=== PATIENT | male | born 1945 | race African-American/Black ===

== ENCOUNTER 2016-09-10 02:51 | Inpatient (IN) | payer OTHER, MEDICAID, MEDICARE ==
[~2016-09-10] VITALS: Ht 182.9 cm; Wt 56.6 kg
[2016-09-10] VITALS (11 sets, daily range): BP systolic 96–143; BP diastolic 57–85; PULSE 51–91; RESP 16–18; TEMP 97.8–99.7; O2SAT 96–99
[~2016-09-10 02:51] MED LIST: ALBU8I INH; ATOR1TAB18 PO; BRIM0.2S; CHLO.12%30 MT; CLOP75 PO; COZA25TA PO; DORZ2SOL15 EACH EYE; FLUT50SP EACH NARE; LEVA500T PO; POTA20TA5 PO; TIOT12.9 INH; TRUS2SOL EACH EYE
[2016-09-10] MEDS ORDERED: SODIUM CHLORIDE 0.9% FLUSH 10 ML FLUSH IVF PRN (03:30)
--- NOTE | 2016-09-10 03:50 | PD ---
HPI Chief Complaint: General Weakness Time Seen by Provider: 03:30 Travel History International Travel<30 days: No Contact w/Intl Traveler<30days: No Traveled to known affect area: No History of Present Illness HPI 75-year-old male arrives due to a state of generalized weakness for a couple days. The patient has been coughing for about 2 days. He was prescribed Levaquin and cannot Inderal inhaler. It seems marginally beneficial. He uses an albuterol nebulizer at home 3 times daily. There has been no fever. Occasionally the patient coughs phlegm. He has COPD. He is recently had his teeth pulled on his oral intake has been decreased. He is only drinking liquids.the patient's granddaughter provides most of the history and states she "just wants to be sure everything is okay." + HLD, +HTN, +DM, quit smoking tobacco. PFSH Past Medical History Asthma: Yes Cardiovascular Problems: Yes High Cholesterol: Yes Chest Pain: Yes COPD: Yes Diabetes: Yes Patient Takes Glucophage: No Diminished Hearing: Yes ([place]) Gastrointestinal Disorders: No Glaucoma: Yes Genitourinary: Yes Hypertension: Yes Musculoskeletal: Yes Neurologic: No Respiratory: Yes (COPD) Past Surgical History Ear Surgery: Yes (BILATERAL CATARACT REMOVAL) Eye Surgery: Yes (CATARACT REMOVAL) Social History Alcohol Use: No Tobacco Use: No (stop ) Substance Use: No Allergies-Medications (Allergen,Severity, Reaction): Coded Allergies: Contrast Media (Verified Allergy, Mild, HIVES, ITCHING, 09/10/16) Reported Meds & Prescriptions Reported Meds & Active Scripts Active Cozaar (Losartan Potassium) 25 Mg Tab 6.25 Mg PO DAILY Levaquin (Levofloxacin) 500 Mg Tab 500 Mg PO DAILY@21 Potassium Chloride Microencaps 20 Meq Tab 20 Meq PO Q12HR 10 Days Chlorhexidine Gluconate (Mouth) Liq (Chlorhexidine Gluconate) 0.12% Soln 15 Ml MT BID@08,20 30 Days Plavix (Clopidogrel Bisulfate) 75 Mg Tab 75 Mg PO DAILY 30 Days Reported Fluticasone Nasal [place] 50 Mcg/Act Naspr 50 Mcg EACH NARE BID 50 mcg/spray Dorzolamide-Timolol Opth Drops 22.3-6.8 Mg/Ml Soln 1 Drop EACH EYE BID Spiriva Respimat Inh (Tiotropium Inh) 2.5 Mcg/Act Aero 2 Puff INH DAILY 2.5 mcg = 1 inhalation Atorvastatin (Atorvastatin Calcium) 80 Mg Tab 80 Mg PO HS Trusopt (Dorzolamide HCl) 10 Ml Soln 1 Drop EACH EYE BID Ventolin Hfa (Albuterol Sulfate) 8 Gm Aero 2 Puff INH Q4 PRN * SHAKE WELL BEFORE USE * Brimonidine Tar0.21 0.2 % Meghann 1 Drop BID Review of Systems Except as stated in HPI: all other systems reviewed are Neg General / Constitutional: No: Fever Respiratory: Positive: Cough Physical Exam Narrative GENERAL: Thin 71-year-old male no acute distress speaking sentences SKIN: Warm and dry. HEAD: Atraumatic. Normocephalic. EYES: Pupils equal and round. No scleral icterus. No injection or drainage. ENT: No nasal bleeding or discharge. Mucous membranes pink and moist. NECK: Trachea midline. No JVD. CARDIOVASCULAR: Regular rate and rhythm. RESPIRATORY: Diminished lung sounds diffusely. No tachypnea. GASTROINTESTINAL: Abdomen soft, non-tender, nondistended. Hepatic and splenic margins not palpable. MUSCULOSKELETAL: Extremities without clubbing, cyanosis, or edema. No obvious deformities. NEUROLOGICAL: Awake and alert. No obvious cranial nerve deficits. Motor grossly within normal limits. Five out of 5 muscle strength in the arms and legs. Normal speech. PSYCHIATRIC: Appropriate mood and affect; insight and judgment normal. Data Data Last Documented VS Vital Signs Date Time Temp Pulse Resp B/P Pulse Ox O2 Delivery O2 Flow Rate FiO2 09/10/16 02:53 97.8 62 16 130/69 96 Room Air Orders Complete Blood Count With Diff (09/10/16 03:30) Comprehensive Metabolic Panel (09/10/16 03:30) Iv Access Insert/Monitor (09/10/16 03:30) Ecg Monitoring (09/10/16 03:30) Oximetry (09/10/16 03:30) Oxygen Administration (09/10/16 03:30) Chest, Single Ap (09/10/16 03:30) Sodium Chloride 0.9% Flush (Ns Flush) (09/10/16 03:30) Troponin I (09/10/16 04:05) Sodium Chlor 0.9% 1000 Ml Inj (Ns 1000 M (09/10/16 05:15) Activity Bed Rest With Brp (09/10/16 06:04) Vital Signs (Adult) Q4H (09/10/16 06:04) Cardiac Rhythm .As Directed (09/10/16 06:04) ^ Notify Dr: Other .PRN (09/10/16 06:04) ^ Notify DrKem Parameters (09/10/16 06:04) Resp Oxygen Nasal Cannula (09/10/16 ) Ckmb (Isoenzyme) Profile (09/10/16 06:04) Ckmb (Isoenzyme) Profile (09/10/16 09:04) Troponin I (09/10/16 06:04) Troponin I (09/10/16 09:04) Electrocardiogram (09/10/16 06:04) Electrocardiogram (09/10/16 09:04) ^ Obtain (09/10/16 06:04) Nitroglycerin Sl (Nitrostat Sl) (09/10/16 06:15) Aspirin (Aspirin) (09/10/16 09:00) Liability Claims Representative / Telemetry [id number] (09/10/16 06:04) Admit Order (Ed Use Only) (09/10/16 06:04) Labs Laboratory Tests Test 09/10/16 04:05 White Blood Count 5.5 TH/MM3 Red Blood Count 4.36 MIL/MM3 Hemoglobin 12.3 GM/DL Hematocrit 35.6 % Mean Corpuscular Volume 81.7 FL Mean Corpuscular Hemoglobin 28.2 PG Mean Corpuscular Hemoglobin 34.5 % Concent Red Cell Distribution Width 15.6 % Platelet Count 167 TH/MM3 Mean Platelet Volume 7.6 FL Neutrophils (%) (Auto) 18.7 % Lymphocytes (%) (Auto) 40.4 % Monocytes (%) (Auto) 11.4 % Eosinophils (%) (Auto) 28.6 % Basophils (%) (Auto) 0.9 % Neutrophils # (Auto) 1.0 TH/MM3 Lymphocytes # (Auto) 2.2 TH/MM3 Monocytes # (Auto) 0.6 TH/MM3 Eosinophils # (Auto) 1.6 TH/MM3 Basophils # (Auto) 0.0 TH/MM3 CBC Comment DIFF FINAL Differential Comment Sodium Level 127 MEQ/L Potassium Level 4.5 MEQ/L Chloride Level 93 MEQ/L Carbon Dioxide Level 26.8 MEQ/L Anion Gap 7 MEQ/L Blood Urea Nitrogen 6 MG/DL Creatinine 0.86 MG/DL Estimat Glomerular Filtration 106 ML/MIN Rate Random Glucose 92 MG/DL Calcium Level 8.4 MG/DL Total Bilirubin 0.4 MG/DL Aspartate Amino Transf 15 U/L (AST/SGOT) Alanine Aminotransferase 17 U/L (ALT/SGPT) Alkaline Phosphatase 156 U/L Troponin I LESS THAN 0.02 NG/ML Total Protein 6.6 GM/DL Albumin 2.9 GM/DL MDM Medical Decision Making Medical Screen Exam Complete: Yes Emergency Medical Condition: Yes Medical Record Reviewed: Yes Differential Diagnosis Anemia, renal failure, pneumonia, COPD, CAD Narrative Course EKG: Sinus, inferior lead ST depressions, rate 52 CBC & BMP Diagram 09/10/16 04:05 LFTs essentially normal Tn < 0.02 Last 24 hours Impressions Chest X-Ray 09/10/16 0330 Signed Impressions: Service Date/Time: , September 10, 2016 03:53 - CONCLUSION: No acute disease. Vincent Demarco MD Patient has ST changes of concern. Chest pain center evaluation considered most appropriate. Patient did receive a liter of saline here for the mild hyponatremia. Diagnosis Primary Impression: CAD (coronary artery disease) Qualified Code: I25.10 - Coronary artery disease involving nome heart, angina presence unspecified, unspecified vessel or lesion type Additional Impressions: COPD (chronic obstructive pulmonary disease) Qualified Code: J43.9 - Pulmonary emphysema, unspecified emphysema type Weakness Admitting Information Admitting Physician Requests: Observation Xander Gómez MD Sep 10, 2016 03:50
--- NOTE | 2016-09-10 04:17 | RADRPT ---
EXAM DATE/TIME: 09/10/2016 03:53 [facility] COMPARISON: CHEST SINGLE AP, June 04, 2016, 5:33. INDICATIONS : Shortness of breath. MEDICAL HISTORY : Hypertension. Chronic obstructive pulmonary disease. SURGICAL HISTORY : None. ENCOUNTER: Initial ACUITY: 1 day PAIN SCORE: 0/10 LOCATION: Bilateral chest FINDINGS: A single view of the chest demonstrates the lungs to be symmetrically aerated without evidence of mas s, infiltrate or effusion. The cardiomediastinal contours are unremarkable. Osseous structures are intact. CONCLUSION: No acute disease. Vincent Demarco MD on September 10, 2016 at 4:15 Board Certified Radiologist. This report was verified electronically.
[2016-09-10 04:26] LABS: BASOPHIL % 0.9 % (0.0-2.0); EOSINOPHIL # 1.6 TH/MM3 (0-0.4); EOSINOPHIL % 28.6 % (0.0-4.0); HEMATOCRIT 35.6 % (39.0-51.0); HEMO FLAGS DIFF FINAL; LYMPH % 40.4 % (9.0-44.0); LYMPHOCYTE # 2.2 TH/MM3 (1.0-4.8); MEAN CELL VOLUME 81.7 FL (80.0-100.0); MEAN CORPUSCULAR HEMOGLOBIN 28.2 PG (27.0-34.0); MEAN CORPUSCULAR HGB CONC 34.5 % (32.0-36.0); MONO % 11.4 % (0.0-8.0); NEUT % 18.7 % (16.0-70.0); PLATELET COUNT 167 TH/MM3 (150-450); RED BLOOD COUNT 4.36 MIL/MM3 (4.50-5.90); RED CELL DISTRIBUTION WIDTH 15.6 % (11.6-17.2); WHITE BLOOD COUNT 5.5 TH/MM3 (4.0-11.0)
[2016-09-10 04:56] LABS: ANION GAP 7 MEQ/L (5-15); AST (GOT) 15 U/L (15-37); BICARBONATE 26.8 MEQ/L (21.0-32.0); BLOOD UREA NITROGEN 6 MG/DL (7-18); CHLORIDE 93 MEQ/L (98-107); GLOMERULAR FILTRATION RATE 106 ML/MIN (>89); POTASSIUM 4.5 MEQ/L (3.5-5.1); SODIUM (NA) 127 MEQ/L (136-145)
[2016-09-10 05:01] LABS: ALKALINE PHOSPHATASE 156 U/L (45-117); ALT (GPT) 17 U/L (12-78); TOTAL BILIRUBIN ADULT 0.4 MG/DL (0.2-1.0)
[2016-09-10] MEDS ORDERED: SODIUM CHLOR 0.9% 1000 ML INJ 1,000 ML IV ONE (05:15)
[2016-09-10] MEDS ORDERED: NITROGLYCERIN 0.4 MG SL 25 TABS/BTL SL PRN (06:15)
[2016-09-10 08:38] LABS: CREATINE KINASE 64 U/L (39-308)
[2016-09-10] MEDS ORDERED: ACETAMINOPHEN 500 MG CPLT PO PRN (08:45)
[2016-09-10] MEDS ORDERED: ONDANSETRON HCL 4 MG/2 ML VIAL IV PRN (08:45)
[2016-09-10] MEDS: ASPIRIN 325 MG TAB PO SCH (09:47)
--- NOTE | 2016-09-10 11:26 | HHI.HP ---
HPI Primary Care Physician Non-Staff Chief Complaint Chest pain History of Present Illness 71-year-old male presents to the emergency room for further evaluation of chest discomfort. Patient is vague with symptoms however does endorse a cough for the past 2-3days. States substernal chest pain only occurs with coughing. Seen PCP on Wednesday was given Levaquin and inhalers, was told he has a lung infection. Yesterday endorses generalized weakness, usually uses a push walker or cane, however yesterday was too tired and fatigued to do either. Recently had dental work completed therefore taking a soft diet consisting of oatmeal and mashed potatoes. Continues to have good appetite otherwise. No known fever however endorses chills since yesterday. Review of Systems General: Generalized weakness 1 days. Seen by PCP on Wednesday prescribed antibiotic for upper respiratory infection. No fevers, positive for chills 1 day. Lives with his daughter. No family is at bedside at this time. HEENT: No [place]. 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 CV: As stated above. States he has chest pain only with coughing 3 days. No radiation of chest pain, precipitating factors cough, relieving factors not coughing. No associated symptoms RESP: No current SOB. Endorses cough for a few days. Coughing up phlegm. History of COPD. using inhalers provided by his PCP. GI: No nausea, vomiting, bowel changes, or decreased appetite. Taking a soft diet for the past week due to dental caries removed. : No dysuria, urgency, frequency MS: No discomfort or change in ROM, normally uses a cane or wheeled walker with ambulation. NEURO: No change in memory, dizziness, difficulty with balance, LOC, motor/ sensory deficits SKIN: No rashes, no concerning lesions Past Family Social History Allergies: Coded Allergies: Contrast Media (Verified Allergy, Mild, HIVES, ITCHING, 09/10/16) Past Medical History Hyperlipidemia, hypertension, diabetes, COPD, glaucoma Reported Medications Reported Meds & Active Scripts Active Cozaar (Losartan Potassium) 25 Mg Tab 6.25 Mg PO DAILY Levaquin (Levofloxacin) 500 Mg Tab 500 Mg PO DAILY@21 Potassium Chloride Microencaps 20 Meq Tab 20 Meq PO Q12HR 10 Days Chlorhexidine Gluconate (Mouth) Liq (Chlorhexidine Gluconate) 0.12% Soln 15 Ml MT BID@08,20 30 Days Plavix (Clopidogrel Bisulfate) 75 Mg Tab 75 Mg PO DAILY 30 Days Reported Fluticasone Nasal [place] 50 Mcg/Act Naspr 50 Mcg EACH NARE BID 50 mcg/spray Dorzolamide-Timolol Opth Drops 22.3-6.8 Mg/Ml Soln 1 Drop EACH EYE BID Spiriva Respimat Inh (Tiotropium Inh) 2.5 Mcg/Act Aero 2 Puff INH DAILY 2.5 mcg = 1 inhalation Atorvastatin (Atorvastatin Calcium) 80 Mg Tab 80 Mg PO HS Trusopt (Dorzolamide HCl) 10 Ml Soln 1 Drop EACH EYE BID Ventolin Hfa (Albuterol Sulfate) 8 Gm Aero 2 Puff INH Q4 PRN * SHAKE WELL BEFORE USE * Brimonidine Tartrate 0.2 % Meghann 1 Drop BID Active Ordered Medications Current Medications Medications (Trade) Dose Ordered Sig/Joshua Route Start Time Stop Time Status Last Admin (Nitrostat Sl) 0.4 mg Q5M PRN SL 09/10/16 06:15 (Aspirin) 325 mg DAILY PO 09/10/16 09:00 09/10/16 09:47 (Tylenol) 500 mg Q4H PRN PO 09/10/16 08:45 (Zofran Inj) 4 mg Q6H PRN IV 09/10/16 08:45 Social History Past cardiac testing 06/16/15 cardiac catheterization Physical Exam Vital Signs Vital Signs Date Time Temp Pulse Resp B/P Pulse Ox O2 Delivery O2 Flow Rate FiO2 09/10/16 09:30 66 18 137/81 97 Room Air 09/10/16 07:00 68 18 96/57 98 Room Air 09/10/16 06:34 99 Room Air 09/10/16 06:34 99 Room Air 09/10/16 06:10 96 09/10/16 02:53 97.8 62 16 130/69 96 Room Air Physical Exam GENERAL: Alert WN, WD, NAD, pleasant, hard of hearing, male HEAD: NC, AT EYES: Sclera clear, conjunctiva without injection, pupils equal and round NECK: Supple, no masses, trachea midline CV: RRR, without murmur, rub, gallop, no JVD, S1-S2 no S3-S4. RESP: Clear lungs throughout bilateral, no crackles, wheeze, rhonchi, symmetrical chest rise, nonlabored, able to speak in full sentences ABD: Soft, NT, ND, flat, no masses, positive bowel tones EXT: Pulses +24, no dependent edema MS: Normal tone 4 extremities, nontender, no obvious deformities, full range of motion NEURO: CN II through CN XII grossly intact, motor strength 5/5, gait WNL PSYCH: A+O 3, pleasant affect, appropriate speech, appropriate mood and affect , insight and judgment SKIN: Normal turgor, normal texture, no lesions, no rashes Laboratory Laboratory Tests Test 09/10/16 09/10/16 04:05 07:45 White Blood Count 5.5 Red Blood Count 4.36 Hemoglobin 12.3 Hematocrit 35.6 Mean Corpuscular Volume 81.7 Mean Corpuscular Hemoglobin 28.2 Mean Corpuscular Hemoglobin 34.5 Concent Red Cell Distribution Width 15.6 Platelet Count 167 Mean Platelet Volume 7.6 Neutrophils (%) (Auto) 18.7 Lymphocytes (%) (Auto) 40.4 Monocytes (%) (Auto) 11.4 Eosinophils (%) (Auto) 28.6 Basophils (%) (Auto) 0.9 Neutrophils # (Auto) 1.0 Lymphocytes # (Auto) 2.2 Monocytes # (Auto) 0.6 Eosinophils # (Auto) 1.6 Basophils # (Auto) 0.0 CBC Comment DIFF FINAL Differential Comment Sodium Level 127 Potassium Level 4.5 Chloride Level 93 Carbon Dioxide Level 26.8 Anion Gap 7 Blood Urea Nitrogen 6 Creatinine 0.86 Estimat Glomerular Filtration 106 Rate Random Glucose 92 Calcium Level 8.4 Total Bilirubin 0.4 Aspartate Amino Transf 15 (AST/SGOT) Alanine Aminotransferase 17 (ALT/SGPT) Alkaline Phosphatase 156 Troponin I LESS THAN 0.02 LESS THAN 0.02 Total Protein 6.6 Albumin 2.9 Total Creatine Kinase 64 Result Diagram: 09/10/1640409/10/16404 Imaging Last Impressions Chest X-Ray 09/10/16 0330 Signed Impressions: Service Date/Time: August 03:53 - CONCLUSION: No acute disease. Vincent Demarco MD Course EKG First and second EKG shows normal sinus bradycardia, anterior septal NH Assessment and Plan Assessment and Plan #1 Chest painadmitted to chest pain center. Will complete 3 sets of EKGs and cardiac enzymes. Was seen and evaluated by Dr. Lilia Miller. Original plan was to complete a chemical stress test if ruled out, however patient meets inpatient criteria, per case management. Will defer any further cardiac testing to attending physician. #2 Hyponatremia1 L normal saline bolus provided in ED. case management states patient meets inpatient criteria for hyponatremia. Consult placed for hospitalist. Shayy Stubbs Sep 10, 2016 11:26
[2016-09-10 11:29] LABS: CREATINE KINASE 75 U/L (39-308)
--- NOTE | 2016-09-10 12:28 | HHI.PR ---
Subjective Remarks complaining of some dry cough and occasional sob. initially presented with some chest pain. afebrile. Objective Vitals Vital Signs Date Time Temp Pulse Resp B/P Pulse Ox O2 Delivery O2 Flow Rate FiO2 09/10/16 11:30 82 18 143/63 97 Room Air 09/10/16 09:30 66 18 137/81 97 Room Air 09/10/16 07:00 68 18 96/57 98 Room Air 09/10/16 06:34 99 Room Air 09/10/16 06:34 99 Room Air 09/10/16 06:10 96 09/10/16 02:53 97.8 62 16 130/69 96 Room Air Result Diagram: 09/10/16 0405 09/10/16 0405 Imaging Last Impressions Chest X-Ray 09/10/16 0330 Signed Impressions: Service Date/Time: August 03:53 - CONCLUSION: No acute disease. Vincent Demarco MD Objective Remarks GENERAL: This is a well-nourished, well-developed patient, in no apparent distress. CARDIOVASCULAR: Regular rate and regular rhythm without murmurs, gallops, or rubs. RESPIRATORY: diminished air entry in bases GASTROINTESTINAL: Abdomen soft, non-tender, nondistended. Normal, active bowel sounds MUSCULOSKELETAL: Extremities without clubbing, cyanosis, or edema. NEURO: Alert & Oriented x4 to person, place, time, situation. Moves all ext x4 Procedures none Medications and IVs Current Medications Sodium Chloride 2 ml 2 ml UNSCH PRN IVF FLUSH AFTER USING IV ACCESS; Start at 03:30 Sodium Chloride (NS 1000 ml Inj) 1,000 ml @ 999 mls/hr BOLUS ONCE IV Last administered on 09/10/16 05:42; Start 09/10/16 at 05:15; Stop 09/10/16 at 06:15 ; Status DC Nitroglycerin (Nitrostat Sl) 0.4 mg Q5M PRN SL CHEST PAIN; Start 09/10/16 at 06 :15 Aspirin (Aspirin) 325 mg DAILY PO Last administered on 09/10/16 09:47; Start 09/10/16 at 09:00 Acetaminophen (Tylenol) 500 mg Q4H PRN PO HEADACHE; Start 09/10/16 at 08:45 Ondansetron HCl (Zofran Inj) 4 mg Q6H PRN IV NAUSEA; Start 09/10/16 at 08:45 A/P Assessment and Plan A/P - chest pain; serial cardiac enzymes negative- will do stress test tomorrow. -hyponatremia; start gentle IV fluid- check UA and TSH- will repeat BMP in am -mild exacerbation of COPD; continue spiriva- start neb treatment- will monitor -hypertension;; resume losartan- will monitor and adjust the regimen as needed -dyslipidemia; on statin -DVT prophylaxis with lovenox José Martines MD Sep 10, 2016 12:28
[2016-09-10] MEDS: SODIUM CHLOR 0.9% 1000 ML INJ 1,000 ML IV SCH (12:59)
[2016-09-10] MEDS ORDERED: guaiFENesin SOLUTION 200 MG/10 ML CUP PO PRN (13:15)
[2016-09-10] MEDS ORDERED: PILL SPLITTER OTHER PRN (13:15)
[2016-09-10] MEDS: RESP: ALBUTEROL 2.5 MG/IPRATROPIUM 0.5 MG NEB (SCH) NEB ×2 (13:29→20:26)
[2016-09-10] MEDS ORDERED: ENOXAPARIN SODIUM 40 MG/0.4 ML SYRINGE SQ SCH (14:00)
--- NOTE | 2016-09-10 17:33 | EKG ---
Date Performed: 09/10/2016 Time Performed: 11:06:48 PTAGE: 71 years EKG: Sinus rhythm WITH FIRST DEGREE AV BLOCK ANTEROSEPTAL MYOCARDIAL INFARCTION ABNORMAL ECG Since PREVIOUS TRACING , no significant change noted PREVIOUS TRACIN09/10/2016 07.55 DOCTOR: Lilia Miller Interpretating Date/Time 09/10/2016 17:33:43
--- NOTE | 2016-09-10 17:36 | EKG ---
Date Performed: 09/10/2016 Time Performed: 07:55:46 PTAGE: 71 years EKG: SINUS BRADYCARDIA ANTEROSEPTAL MYOCARDIAL INFARCTION ABNORMAL ECG Since PREVIOUS TRACING , no significant change noted PREVIOUS TRACIN09/10/2016 04.10 DOCTOR: Lilia Miller Interpretating Date/Time 09/10/2016 17:35:53
--- NOTE | 2016-09-10 21:37 | EKG ---
Date Performed: 09/10/2016 Time Performed: 04:10:12 PTAGE: 71 years EKG: SINUS BRADYCARDIA WITH SINUS ARRHYTHMIA WITH FIRST DEGREE AV BLOCK ANTEROSEPTAL MYOCARDIAL INFARCTION ABNORMAL ECG Since PREVIOUS TRACING , no significant change noted PREVIOUS TRACIN05/30/2016 18.02 DOCTOR: Lilia Miller Interpretating Date/Time 09/10/2016 21:35:30
[2016-09-11] VITALS (7 sets, daily range): BP systolic 100–161; BP diastolic 63–77; PULSE 60–77; RESP 18–20; TEMP 97.2–97.8; O2SAT 94–97
[2016-09-11] MEDS: ATORVASTATIN 80 MG TAB PO SCH ×2 (00:06→21:50)
[2016-09-11] MEDS: POTASSIUM CHLORIDE 20 MEQ CONTROLLED RELEASE TAB PO SCH ×3 (00:06→21:50)
[2016-09-11] MEDS: FLUTICASONE PROPIONATE 50 MCG/ACT 16 GM NASAL SPRAY EACH NARE SCH ×3 (00:08→21:50)
[2016-09-11] MEDS: DORZOLAMIDE/TIMOLOL OPTH SOLN 10 ML BTL EACH EYE SCH ×3 (00:08→21:50)
[2016-09-11] MEDS: SODIUM CHLOR 0.9% 1000 ML INJ 1,000 ML IV SCH ×3 (02:20→21:50)
[2016-09-11] MEDS: LOSARTAN 25 MG TAB PO SCH (08:22)
[2016-09-11] MEDS: ASPIRIN 325 MG TAB PO SCH (08:22)
[2016-09-11 09:01] LABS: BICARBONATE 27.4 MEQ/L (21.0-32.0); POTASSIUM 4.4 MEQ/L (3.5-5.1)
--- NOTE | 2016-09-11 09:55 | HHI.PR ---
Subjective Remarks resting comfortably with no distress. denies chest pain or sob. no new complaints. Objective Vitals Vital Signs Date Time Temp Pulse Resp B/P Pulse Ox O2 Delivery O2 Flow Rate FiO2 09/11/16 08:00 97.7 76 20 161/72 95 09/11/16 04:00 97.8 66 18 155/77 95 09/11/16 00:00 97.4 60 18 117/68 97 09/10/16 20:31 98 09/10/16 20:00 97.9 51 18 131/63 97 09/10/16 16:10 53 09/10/16 16:00 99.7 91 18 103/60 97 09/10/16 14:55 76 20 123/85 96 09/10/16 11:30 82 18 143/63 97 Room Air I/O 09/10/16 09/10/16 09/10/16 09/11/16 09/11/16 09/11/16 07:00 15:00 23:00 07:00 15:00 23:00 Intake Total 240 ml 240 ml Output Total 500 ml 300 ml 300 ml Balance -500 ml -60 ml -60 ml Intake Oral 240 ml 240 ml Output Urine Total 500 ml 300 ml 300 ml # Voids 1 1 # Bowel Movements 0 1 Result Diagram: 09/10/16 0405 09/11/16 0756 Imaging Last Impressions Chest X-Ray 09/10/16 0330 Signed Impressions: Service Date/Time: August 03:53 - CONCLUSION: No acute disease. Vincent Demarco MD Objective Remarks GENERAL: This is a well-nourished, well-developed patient, in no apparent distress. CARDIOVASCULAR: Regular rate and regular rhythm without murmurs, gallops, or rubs. RESPIRATORY: diminished air entry in bases GASTROINTESTINAL: Abdomen soft, non-tender, nondistended. Normal, active bowel sounds MUSCULOSKELETAL: Extremities without clubbing, cyanosis, or edema. NEURO: Alert & Oriented x4 to person, place, time, situation. Moves all ext x4 Procedures none Medications and IVs Current Medications Sodium Chloride 2 ml 2 ml UNSCH PRN IVF FLUSH AFTER USING IV ACCESS; Start at 03:30 Sodium Chloride (NS 1000 ml Inj) 1,000 ml @ 999 mls/hr BOLUS ONCE IV Last administered on 09/10/16 05:42; Start 09/10/16 at 05:15; Stop 09/10/16 at 06:15 ; Status DC Nitroglycerin (Nitrostat Sl) 0.4 mg Q5M PRN SL CHEST PAIN; Start 09/10/16 at 06 :15 Aspirin (Aspirin) 325 mg DAILY PO Last administered on 09/11/16 08:22; Start 09/10/16 at 09:00 Acetaminophen (Tylenol) 500 mg Q4H PRN PO HEADACHE; Start 09/10/16 at 08:45 Ondansetron HCl 4 mg 4 mg Q6H PRN IV NAUSEA; Start 09/10/16 at 08:45 Sodium Chloride (NS 1000 ml Inj) 1,000 ml @ 75 mls/hr [id number] IV Last administered on 09/11/16 02:20; Start 09/10/16 at 13:00 Atorvastatin Calcium (Lipitor) 80 mg HS PO Last administered on 09/11/16 00:06 ; Start 09/10/16 at 21:00 Dorzolamide/ Timolol (Cosopt 2-0.5% Opth Soln) 1 drop BID EACH EYE Last administered on 09/11/16 08:28; Start 09/10/16 at 21:00 Fluticasone Propionate (Flonase Johnny Spr) 2 spray BID EACH NARE Last administered on 09/11/16 08:28; Start 09/10/16 at 21:00 Losartan Potassium (Cozaar) 6.25 mg DAILY PO Last administered on 09/11/16 08: 22; Start 09/11/16 at 09:00 Potassium Chloride (KCl) 20 meq Q12HR PO Last administered on 09/11/16 08:22; Start 09/10/16 at 21:00 Albuterol/ Ipratropium (Duoneb Neb) 1 ampule Q4HR NEB NEB Last administered on 09/10/16 20:26; Start 09/10/16 at 12:30; Stop 09/10/16 at 22:00; Status DC Albuterol Sulfate (Albuterol Neb) 1.25 mg Q2HR NEB PRN NEB SHORTNESS OF BREATH ; Start 09/10/16 at 12:30 Enoxaparin Sodium (Lovenox Inj) 40 mg Q24H SQ ; Start 09/10/16 at 14:00; Status Hold Miscellaneous (Pill Splitter) 1 ea UNSCH PRN OTHER SEE LABEL COMMENTS; Start at 13:15 Guaifenesin (Robitussin Liq) 200 mg Q4H PRN PO COUGH; Start 09/10/16 at 13:15 A/P Assessment and Plan A/P - chest pain; serial cardiac enzymes negative- stress test tomorrow. -hyponatremia; continue gentle IV fluid- will monitor the sodium level. -mild exacerbation of COPD; better- continue spiriva and neb treatment- will monitor -hypertension;; resumed losartan- will monitor and adjust the regimen as needed -dyslipidemia; on statin -DVT prophylaxis with lovenox Discharge Planning possible dc home tomorrow-pending the sodium level. stress test before discharge. José Martines MD Sep 11, 2016 09:55
[2016-09-12] VITALS (8 sets, daily range): BP systolic 99–143; BP diastolic 63–81; PULSE 62–71; RESP 18; TEMP 97.3–98; O2SAT 91–99
[2016-09-12 01:58] LABS: BLOOD, URINE NEG (NEG); GLUCOSE,URINE NEG (NEG); KETONE, URINE NEG (NEG); NITRITE,URINE NEG (NEG); PH, URINE 6.5 (5.0-8.5); URINE COLOR LIGHT-YELLOW (YELLW/STRAW)
[2016-09-12] MEDS: ASPIRIN 325 MG TAB PO SCH (08:59)
[2016-09-12] MEDS: LOSARTAN 25 MG TAB PO SCH (08:59)
[2016-09-12] MEDS: POTASSIUM CHLORIDE 20 MEQ CONTROLLED RELEASE TAB PO SCH ×2 (09:00→20:24)
[2016-09-12] MEDS: FLUTICASONE PROPIONATE 50 MCG/ACT 16 GM NASAL SPRAY EACH NARE SCH ×2 (09:03→20:28)
[2016-09-12] MEDS: DORZOLAMIDE/TIMOLOL OPTH SOLN 10 ML BTL EACH EYE SCH ×2 (09:04→20:28)
--- NOTE | 2016-09-12 09:07 | HHI.PR ---
Subjective Remarks in no acute distress. no chest pain today. d/w the RN and no acute issues over night. Objective Vitals Vital Signs Date Time Temp Pulse Resp B/P Pulse Ox O2 Delivery O2 Flow Rate FiO2 09/12/16 08:24 98.0 66 18 115/67 97 09/12/16 04:00 97.3 67 18 143/81 91 09/12/16 00:00 97.6 64 18 99/63 97 09/11/16 20:00 97.2 66 18 100/63 96 09/11/16 19:59 64 09/11/16 16:00 97.5 70 18 101/68 95 09/11/16 12:00 97.3 77 18 114/77 94 I/O 09/11/16 09/11/16 09/11/16 09/12/16 09/12/16 09/12/16 07:00 15:00 23:00 07:00 15:00 23:00 Intake Total 240 ml 480 ml 258 ml 615 ml Output Total 300 ml 350 ml 325 ml Balance -60 ml 130 ml 258 ml 290 ml Intake Oral 240 ml 480 ml 60 ml 0 ml IV Total 198 ml 615 ml Output Urine Total 300 ml 350 ml 325 ml # Voids 1 2 0 1 # Bowel Movements 1 1 1 0 Result Diagram: 09/10/16 0405 09/11/16 0756 Imaging Last Impressions Chest X-Ray 09/10/16 0330 Signed Impressions: Service Date/Time: August 03:53 - CONCLUSION: No acute disease. Vincent Demarco MD Objective Remarks GENERAL: This is a well-nourished, well-developed patient, in no apparent distress. CARDIOVASCULAR: Regular rate and regular rhythm without murmurs, gallops, or rubs. RESPIRATORY: diminished air entry in bases GASTROINTESTINAL: Abdomen soft, non-tender, nondistended. Normal, active bowel sounds MUSCULOSKELETAL: Extremities without clubbing, cyanosis, or edema. NEURO: Alert & Oriented x4 to person, place, time, situation. Moves all ext x4 Procedures none Medications and IVs Current Medications Sodium Chloride 2 ml 2 ml UNSCH PRN IVF FLUSH AFTER USING IV ACCESS; Start at 03:30 Sodium Chloride (NS 1000 ml Inj) 1,000 ml @ 999 mls/hr BOLUS ONCE IV Last administered on 09/10/16 05:42; Start 09/10/16 at 05:15; Stop 09/10/16 at 06:15 ; Status DC Nitroglycerin (Nitrostat Sl) 0.4 mg Q5M PRN SL CHEST PAIN; Start 09/10/16 at 06 :15 Aspirin (Aspirin) 325 mg DAILY PO Last administered on 09/11/16 08:22; Start 09/10/16 at 09:00 Acetaminophen (Tylenol) 500 mg Q4H PRN PO HEADACHE; Start 09/10/16 at 08:45 Ondansetron HCl 4 mg 4 mg Q6H PRN IV NAUSEA; Start 09/10/16 at 08:45 Sodium Chloride (NS 1000 ml Inj) 1,000 ml @ 75 mls/hr [id number] IV Last administered on 09/11/16 21:50; Start 09/10/16 at 13:00 Atorvastatin Calcium (Lipitor) 80 mg HS PO Last administered on 09/11/16 21:50 ; Start 09/10/16 at 21:00 Dorzolamide/ Timolol (Cosopt 2-0.5% Opth Soln) 1 drop BID EACH EYE Last administered on 09/11/16 21:50; Start 09/10/16 at 21:00 Fluticasone Propionate (Flonase Johnny Spr) 2 spray BID EACH NARE Last administered on 09/11/16 21:50; Start 09/10/16 at 21:00 Losartan Potassium (Cozaar) 6.25 mg DAILY PO Last administered on 09/11/16 08: 22; Start 09/11/16 at 09:00 Potassium Chloride (KCl) 20 meq Q12HR PO Last administered on 09/11/16 21:50; Start 09/10/16 at 21:00 Albuterol/ Ipratropium (Duoneb Neb) 1 ampule Q4HR NEB NEB Last administered on 09/10/16 20:26; Start 09/10/16 at 12:30; Stop 09/10/16 at 22:00; Status DC Albuterol Sulfate (Albuterol Neb) 1.25 mg Q2HR NEB PRN NEB SHORTNESS OF BREATH ; Start 09/10/16 at 12:30 Enoxaparin Sodium (Lovenox Inj) 40 mg Q24H SQ ; Start 09/10/16 at 14:00; Status Hold Miscellaneous (Pill Splitter) 1 ea UNSCH PRN OTHER SEE LABEL COMMENTS; Start at 13:15 Guaifenesin (Robitussin Liq) 200 mg Q4H PRN PO COUGH; Start 09/10/16 at 13:15 A/P Assessment and Plan A/P - chest pain; serial cardiac enzymes negative- stress test today. -hyponatremia; asymptomatic- received gentle IV fluid- f/u as outpatient with PCP. -mild exacerbation of COPD; better- continue spiriva and neb treatment- will monitor -hypertension;; resumed losartan- will monitor and adjust the regimen as needed -dyslipidemia; on statin -DVT prophylaxis with lovenox Discharge Planning possible dc home today- pending the stress test and sodium level. f/u with pcp upon discharge. see med list. d/w the patient and RN. José Martines MD Sep 12, 2016 09:07
--- NOTE | 2016-09-12 09:09 | HHI.DCPOC ---
Discharge Care Plan Diagnosis: (1) Chest pain Goals to Promote Your Health * To prevent worsening of your condition and complications * To maintain your health at the optimal level Directions to Meet Your Goals Take your medications as prescribed Follow your dietary instruction Follow activity as directed Keep your appointments as scheduled Take your immunizations and boosters as scheduled If your symptoms worsen call your PCP, if no PCP go to Urgent Care Center or Emergency Room Smoking is Dangerous to Your Health. Avoid second hand smoke Call the 24-hour hour crisis hotline for domestic abuse at José Martines MD Sep 12, 2016 09:08
[2016-09-12] MEDS: RESP: ALBUTEROL 1.25 MG/3 ML NEB (PRN) NEB (09:13)
[2016-09-12] MEDS ORDERED: REGADENOSON INJ 0.4 MG/5 ML SYR ONE (11:25)
--- NOTE | 2016-09-12 13:43 | RADRPT ---
EXAM DATE/TIME: 09/12/2016 11:26 [facility] COMPARISON: No previous studies available for comparison. INDICATIONS : Substernal chest pain with generalized weakness. Angina. DOSE: 26.7 mCi Tc99m Myoview at stress. 8.3 mCi Tc99m Myoview at rest. 0.4 mg Lexiscan STRESS SYMPTOMS: None noted. EJECTION FRACTION: 23% MEDICAL HISTORY : Hypercholesterolemia. Hypertension. Chronic obstructive pulmonary disease. SURGICAL HISTORY : None. ENCOUNTER: Initial ACUITY: 3 days PAIN SCALE: 5/10 LOCATION: Substernal chest TECHNIQUE: The patient underwent pharmacologic stress with infusion of prescribed dose. Continuous ECG tracing was monitored during stress. Gated SPECT imaging was performed after stress and conventional SPECT i maging was performed at rest. The examination was performed on a SPECT/CT scanner, both attenuation and non-corrected datasets were reviewed. FINDINGS: The study is markedly abnormal with an ejection fraction of 23% . There is a large fixed defect invol ving most of the ventricular apex. There is no significant redistribution evident. The best perfuse d myocardium is the high anterior lateral wall. There is global hypokinesis with depressed ejection fraction of 23%. CONCLUSION: Ejection fraction of 23% with little viable myocardium present. There is no ischemia however exam is very insensitive for such in this setting.. RISK CATEGORY: High (>3% Annual Mortality Rate) Harlan Hawkins MD FACR on September 12, 2016 at 13:38 Board Certified Radiologist. This report was verified electronically.
[2016-09-12] MEDS: ATORVASTATIN 80 MG TAB PO SCH (20:24)
[2016-09-13] VITALS (10 sets, daily range): BP systolic 95–136; BP diastolic 51–99; PULSE 58–78; RESP 16–20; TEMP 97.5–98; O2SAT 95–99
[2016-09-13] MEDS ORDERED: SODIUM CHLOR 0.9% 1000 ML INJ 1,000 ML IV SCH (04:45)
[2016-09-13] MEDS: POTASSIUM CHLORIDE 20 MEQ CONTROLLED RELEASE TAB PO SCH ×2 (08:49→20:20)
[2016-09-13] MEDS: ASPIRIN 325 MG TAB PO SCH (08:49)
[2016-09-13] MEDS: LOSARTAN 25 MG TAB PO SCH (08:50)
[2016-09-13] MEDS: FLUTICASONE PROPIONATE 50 MCG/ACT 16 GM NASAL SPRAY EACH NARE SCH ×2 (08:55→20:22)
[2016-09-13] MEDS: DORZOLAMIDE/TIMOLOL OPTH SOLN 10 ML BTL EACH EYE SCH ×2 (08:55→20:22)
--- NOTE | 2016-09-13 10:00 | HHI.PR ---
Subjective Remarks in no acute distress. denies chest pain or sob. Objective Vitals Vital Signs Date Time Temp Pulse Resp B/P Pulse Ox O2 Delivery O2 Flow Rate FiO2 09/13/16 08:00 97.5 78 20 95/51 95 09/13/16 06:30 59 09/13/16 04:32 95 21 09/13/16 04:00 98.0 71 18 121/61 99 09/13/16 00:00 97.6 58 18 104/62 97 09/12/16 20:00 97.6 71 18 103/74 96 09/12/16 18:46 64 09/12/16 16:30 97.3 62 18 105/70 96 09/12/16 13:37 97.3 69 18 112/73 98 I/O 09/12/16 09/12/16 09/12/16 09/13/16 09/13/16 09/13/16 07:00 15:00 23:00 07:00 15:00 23:00 Intake Total 615 ml 360 ml 620 ml Output Total 325 ml 500 ml 100 ml 600 ml Balance 290 ml -140 ml 520 ml -600 ml Intake Oral 0 ml 360 ml IV Total 615 ml 620 ml Output Urine Total 325 ml 500 ml 100 ml 600 ml # Voids 1 # Bowel Movements 0 Result Diagram: 09/10/16 0405 09/13/16 0227 Imaging Last Impressions Myocardial Perfusion Scan Nuc Med 09/12/16 0000 Signed Impressions: Service Date/Time: Monday, September 12, 2016 11:26 - CONCLUSION: Ejection fraction of 23%% with little viable myocardium present. There is no ischemia however exam is very insensitive for such in this setting.. RISK CATEGORY: High (>3%% Annual Mortality Rate) Harlan Hawkins MD FACR Chest X-Ray 09/10/16 0330 Signed Impressions: Service Date/Time: August 03:53 - CONCLUSION: No acute disease. Vincent Demarco MD Objective Remarks GENERAL: This is a well-nourished, well-developed patient, in no apparent distress. CARDIOVASCULAR: Regular rate and regular rhythm without murmurs, gallops, or rubs. RESPIRATORY: diminished air entry in bases GASTROINTESTINAL: Abdomen soft, non-tender, nondistended. Normal, active bowel sounds MUSCULOSKELETAL: Extremities without clubbing, cyanosis, or edema. NEURO: Alert & Oriented x4 to person, place, time, situation. Moves all ext x4 Procedures none Medications and IVs Current Medications Sodium Chloride 2 ml 2 ml UNSCH PRN IVF FLUSH AFTER USING IV ACCESS; Start at 03:30 Sodium Chloride (NS 1000 ml Inj) 1,000 ml @ 999 mls/hr BOLUS ONCE IV Last administered on 09/10/16 05:42; Start 09/10/16 at 05:15; Stop 09/10/16 at 06:15 ; Status DC Nitroglycerin (Nitrostat Sl) 0.4 mg Q5M PRN SL CHEST PAIN; Start 09/10/16 at 06 :15 Aspirin (Aspirin) 325 mg DAILY PO Last administered on 09/13/16 08:49; Start at 09:00 Acetaminophen (Tylenol) 500 mg Q4H PRN PO HEADACHE; Start 09/10/16 at 08:45 Ondansetron HCl 4 mg 4 mg Q6H PRN IV NAUSEA; Start 09/10/16 at 08:45 Sodium Chloride (NS 1000 ml Inj) 1,000 ml @ 100 mls/hr Q10H IV Last administered on 09/11/16 21:50; Start 09/10/16 at 13:00; Status Hold Atorvastatin Calcium (Lipitor) 80 mg HS PO Last administered on 09/12/16 20:24 ; Start 09/10/16 at 21:00 Dorzolamide/ Timolol (Cosopt 2-0.5% Opth Soln) 1 drop BID EACH EYE Last administered on 09/13/16 08:55; Start 09/10/16 at 21:00 Fluticasone Propionate (Flonase Johnny Spr) 2 spray BID EACH NARE Last administered on 09/13/16 08:55; Start 09/10/16 at 21:00 Losartan Potassium (Cozaar) 6.25 mg DAILY PO Last administered on 09/12/16 08: 59; Start 09/11/16 at 09:00 Potassium Chloride (KCl) 20 meq Q12HR PO Last administered on 09/13/16 08:49; Start 09/10/16 at 21:00 Albuterol/ Ipratropium (Duoneb Neb) 1 ampule Q4HR NEB NEB Last administered on 09/10/16 20:26; Start 09/10/16 at 12:30; Stop 09/10/16 at 22:00; Status DC Albuterol Sulfate (Albuterol Neb) 1.25 mg Q2HR NEB PRN NEB SHORTNESS OF BREATH Last administered on 09/12/16 09:13; Start 09/10/16 at 12:30 Enoxaparin Sodium (Lovenox Inj) 40 mg Q24H SQ ; Start 09/10/16 at 14:00; Status Hold Miscellaneous (Pill Splitter) 1 ea UNSCH PRN OTHER SEE LABEL COMMENTS; Start at 13:15 Guaifenesin (Robitussin Liq) 200 mg Q4H PRN PO COUGH; Start 09/10/16 at 13:15 Regadenoson 0.4 mg 0.4 mg STK-MED ONCE .ROUTE Last administered on 09/12/16 11: 25; Start 09/12/16 at 11:25; Stop 09/12/16 at 11:26; Status DC Sodium Chloride (NS 1000 ml Inj) 1,000 ml @ 100 mls/hr Q10H IV Last administered on 09/13/16 05:11; Start 09/13/16 at 04:45 A/P Assessment and Plan A/P - chest pain/cardiomyopathy; serial cardiac enzymes negative- stress test with EF 23%, no ischemia however insensitive study. echo pending- cardiology consulted. -hyponatremia; asymptomatic- continue with gentle IV hydration and monitor the level- check am cortisol level- TSH WNL. -mild exacerbation of COPD; better- continue spiriva and neb treatment- will monitor -hypertension;; resumed losartan- will monitor and adjust the regimen as needed -dyslipidemia; on statin -DVT prophylaxis with lovenox Discharge Planning not ready for discharge yet. José Martines MD Sep 13, 2016 10:00
[2016-09-13] MEDS ORDERED: 3% SALINE INJ 500 ML IV SCH (17:00)
[2016-09-13] MEDS: ATORVASTATIN 80 MG TAB PO SCH (20:20)
[2016-09-13] MEDS: RESP: ALBUTEROL 1.25 MG/3 ML NEB (PRN) NEB (20:34)
[2016-09-14] VITALS (10 sets, daily range): BP systolic 90–133; BP diastolic 55–79; PULSE 60–97; RESP 16–18; TEMP 97–98.3; O2SAT 93–97
[2016-09-14] MEDS: RESP: ALBUTEROL 1.25 MG/3 ML NEB (PRN) NEB ×2 (03:39→22:08)
--- NOTE | 2016-09-14 07:08 | PD.CARD.PN ---
Subjective Subjective Remarks C/O cough with pleuritic discomfort. Objective Medications Current Medications Medications (Trade) Dose Ordered Sig/Joshua Route Start Time Stop Time Status Last Admin (NS Flush) 2 ml UNSCH PRN IVF 09/10/16 03:30 (Nitrostat Sl) 0.4 mg Q5M PRN SL 09/10/16 06:15 (Aspirin) 325 mg DAILY PO 09/10/16 09:00 09/13/16 08:49 (Tylenol) 500 mg Q4H PRN PO 09/10/16 08:45 (Zofran Inj) 4 mg Q6H PRN IV 09/10/16 08:45 (Lipitor) 80 mg HS PO 09/10/16 21:00 09/13/16 20:20 (Cosopt 2-0.5% Opth Soln) 1 drop BID EACH EYE 09/10/16 21:00 09/13/16 20:22 (Flonase Johnny Spr) 2 spray BID EACH NARE 09/10/16 21:00 09/13/16 20:22 (KCl) 20 meq Q12HR PO 09/10/16 21:00 09/13/16 20:20 (Lovenox Inj) 40 mg Q24H SQ 09/10/16 14:00 Hold (Pill Splitter) 1 ea UNSCH PRN OTHER 09/10/16 13:15 (Robitussin Liq) 200 mg Q4H PRN PO 09/10/16 13:15 (Cozaar) 12.5 mg DAILY PO 09/14/16 09:00 (Coreg) 3.125 mg DAILY PO 09/14/16 09:00 Vital Signs / I&O Vital Signs Date Time Temp Pulse Resp B/P Pulse Ox O2 Delivery O2 Flow Rate FiO2 09/14/16 04:00 97.8 70 16 133/79 95 09/14/16 03:39 95 21 09/14/16 01:39 75 09/14/16 00:00 98.3 73 18 120/72 97 09/13/16 20:34 98 21 09/13/16 20:00 97.8 72 16 102/62 97 09/13/16 18:12 76 09/13/16 16:00 97.7 62 20 136/99 97 09/13/16 12:00 97.8 78 20 134/86 98 09/13/16 08:00 97.5 78 20 95/51 95 I/O 09/13/16 09/13/16 09/13/16 09/14/16 09/14/16 09/14/16 07:00 15:00 23:00 07:00 15:00 23:00 Intake Total 2235 ml 240 ml Output Total 600 ml 350 ml 660 ml Balance -600 ml 1885 ml -420 ml Intake Oral 240 ml 240 ml IV Total 1995 ml Output Urine Total 600 ml 350 ml 660 ml # Voids 2 # Bowel Movements 0 0 Physical Exam GENERAL: Thin, well-developed patient. SKIN: Warm and dry. HEAD: Normocephalic. EYES: No scleral icterus. No injection or drainage. NECK: Supple, trachea midline. No JVD or lymphadenopathy. CARDIOVASCULAR: Regular rate and rhythm without murmurs, gallops, or rubs. RESPIRATORY: Breath sounds equal bilaterally, scattered wheeze. No accessory muscle use. GASTROINTESTINAL: Abdomen soft, non-tender, nondistended. EXTREMITIES: No cyanosis, or edema. NEUROLOGICAL: Awake, alert, and oriented x 3. Non-focal. Laboratory Laboratory Tests Test 09/13/16 09/13/16 09/13/16 09/14/16 11:06 15:00 18:48 00:31 Sodium Level 123 MEQ/L 126 MEQ/L 128 MEQ/L Urine Random Sodium 78 MEQ/L Urine Osmolality 216 MOSM/KG Serum Osmolality 257 MOSM/KG Imaging Last Impressions Myocardial Perfusion Scan Nuc Med 09/12/16 0000 Signed Impressions: Service Date/Time: Monday, September 12, 2016 11:26 - CONCLUSION: Ejection fraction of 23%% with little viable myocardium present. There is no ischemia however exam is very insensitive for such in this setting.. RISK CATEGORY: High (>3%% Annual Mortality Rate) Harlan Hawkins MD FACR Chest X-Ray 09/10/16 0330 Signed Impressions: Service Date/Time: August 03:53 - CONCLUSION: No acute disease. Vincent Demarco MD Assessment and Plan Problem List: (1) NSTEMI (non-ST elevated myocardial infarction) Assessment and Plan: States CP only with cough, EF 23% by nuclear, EKG showing anteroseptal changes, troponin negative. No ischemia noted on nuclear, but poor specificity noted. Losartan and carvedilol initiated for medication optimization. (2) COPD exacerbation Assessment and Plan: On abx per primary. Feeling better, but still coughing. Assessment and Plan Assessment and plan d/w pt., RN, Dr. Levine. Zuly Friedman Sep 14, 2016 07:08
--- NOTE | 2016-09-14 08:38 | MB ---
cc: VARINDER RUBIN M.D. DATE OF CONSULTATION: 09/13/2016 HISTORY OF PRESENT ILLNESS Mr. Hannah is a 71-year-old -Citizen Of [place] gentleman with history of congestive heart failure, cardiomyopathy, coronary artery disease, previous myocardial infarction, in June 2005, PTCA plus stent to LAD by Dr. Miller that June. The ejection fraction was around 40%. He was admitted due to chest pain. Nuclear stress study indicated no significant ischemia, ejection fraction around 20%. I was consulted for further evaluation and management. The chart was reviewed, the patient was evaluated. ALLERGIES IV contrast. SOCIAL HISTORY The patient denies smoking and drinking. FAMILY HISTORY Noncontributory to his current medical condition. MEDICATIONS Currently he is on: 1. Acetaminophen. 2. Aspirin. 3. Lipitor 80 mg a day. 4. Lovenox subcu. 5. Losartan 6.25 mg a day. REVIEW OF SYSTEMS Currently the patient refers no chest pain or chest discomfort. He is asking for his daughter. He wants to go home. No vomiting. No fever. PHYSICAL EXAMINATION GENERAL: Alert, fully oriented. VITAL SIGNS: Blood pressure currently 134/86, pulse 78, respiratory rate 20. LUNGS: Ventilated. CARDIOVASCULAR: S1-S2, regular. No gallop. ABDOMEN: Soft. No mass. No bruit. EXTREMITIES: No edema. ELECTROCARDIOGRAM Sinus rhythm, first-degree AV block, intraventricular conduction delay, some septal ST changes. LABORATORY DATA Hemoglobin 12.3, white blood cell 5.5, potassium is 4.4, creatinine 0.77. Sodium is 123. ASSESSMENT AND RECOMMENDATION Mr. Hannah is currently stable. He has some shortness of breath. His EF 16 months ago was 40%, currently it is around 23%. Blood pressure is very low. This is why he is only on very low dose of Losartan. I am going to try to add the Coreg at 3.125 mg daily. Also his sodium is very low. There is no sign of hyperdelusion. This is a sign of advanced heart failure and poor prognosis. At this point my recommendation is medical management. Nuclear stress study indicated no ischemia, no need for revascularization. Reevaluate the echo again in the next 60 days. If at that point ejection fraction is still low, then a defibrillator will be considered. The condition is of care. His prognosis is guarded. MD DYAN Marc /3:42 PM /8:21 AM YAHAIRA
[2016-09-14] MEDS ORDERED: 3% SALINE INJ 500 ML IV ONE (09:15)
--- NOTE | 2016-09-14 09:19 | HHI.PR ---
Subjective Remarks in no acute distress. denies chest pain or sob. Objective Vitals Vital Signs Date Time Temp Pulse Resp B/P Pulse Ox O2 Delivery O2 Flow Rate FiO2 09/14/16 08:00 97.0 66 18 96/61 93 09/14/16 04:00 97.8 70 16 133/79 95 09/14/16 03:39 95 21 09/14/16 01:39 75 09/14/16 00:00 98.3 73 18 120/72 97 09/13/16 20:34 98 21 09/13/16 20:00 97.8 72 16 102/62 97 09/13/16 18:12 76 09/13/16 16:00 97.7 62 20 136/99 97 09/13/16 12:00 97.8 78 20 134/86 98 I/O 09/13/16 09/13/16 09/13/16 09/14/16 09/14/16 09/14/16 07:00 15:00 23:00 07:00 15:00 23:00 Intake Total 2235 ml 240 ml Output Total 600 ml 350 ml 660 ml Balance -600 ml 1885 ml -420 ml Intake Oral 240 ml 240 ml IV Total 1995 ml Output Urine Total 600 ml 350 ml 660 ml # Voids 2 # Bowel Movements 0 0 Result Diagram: 09/10/16 0405 09/14/16 0741 Imaging Last Impressions Myocardial Perfusion Scan Nuc Med 09/12/16 0000 Signed Impressions: Service Date/Time: Monday, September 12, 2016 11:26 - CONCLUSION: Ejection fraction of 23%% with little viable myocardium present. There is no ischemia however exam is very insensitive for such in this setting.. RISK CATEGORY: High (>3%% Annual Mortality Rate) Harlan Hawkins MD FACR Chest X-Ray 09/10/16 0330 Signed Impressions: Service Date/Time: August 03:53 - CONCLUSION: No acute disease. Vincent Demarco MD Objective Remarks GENERAL: This is a well-nourished, well-developed patient, in no apparent distress. CARDIOVASCULAR: Regular rate and regular rhythm without murmurs, gallops, or rubs. RESPIRATORY: diminished air entry in bases GASTROINTESTINAL: Abdomen soft, non-tender, nondistended. Normal, active bowel sounds MUSCULOSKELETAL: Extremities without clubbing, cyanosis, or edema. NEURO: Alert & Oriented x4 to person, place, time, situation. Moves all ext x4 Procedures none Medications and IVs Current Medications Sodium Chloride 2 ml 2 ml UNSCH PRN IVF FLUSH AFTER USING IV ACCESS; Start at 03:30 Sodium Chloride (NS 1000 ml Inj) 1,000 ml @ 999 mls/hr BOLUS ONCE IV Last administered on 09/10/16 05:42; Start 09/10/16 at 05:15; Stop 09/10/16 at 06:15 ; Status DC Nitroglycerin (Nitrostat Sl) 0.4 mg Q5M PRN SL CHEST PAIN; Start 09/10/16 at 06 :15 Aspirin (Aspirin) 325 mg DAILY PO Last administered on 09/13/16 08:49; Start at 09:00 Acetaminophen (Tylenol) 500 mg Q4H PRN PO HEADACHE; Start 09/10/16 at 08:45 Ondansetron HCl 4 mg 4 mg Q6H PRN IV NAUSEA; Start 09/10/16 at 08:45 Sodium Chloride (NS 1000 ml Inj) 1,000 ml @ 75 mls/hr [id number] IV Last administered on 09/11/16 21:50; Start 09/10/16 at 13:00; Stop 09/13/16 at 15:36 ; Status DC Atorvastatin Calcium (Lipitor) 80 mg HS PO Last administered on 09/13/16 20:20 ; Start 09/10/16 at 21:00 Dorzolamide/ Timolol (Cosopt 2-0.5% Opt Soln) 1 drop BID EACH EYE Last administered on 09/13/16 20:22; Start 09/10/16 at 21:00 Fluticasone Propionate (Flonase Johnny Spr) 2 spray BID EACH NARE Last administered on 09/13/16 20:22; Start 09/10/16 at 21:00 Losartan Potassium (Cozaar) 6.25 mg DAILY PO Last administered on 09/12/16 08: 59; Start 09/11/16 at 09:00; Stop 09/13/16 at 16:05; Status DC Potassium Chloride (KCl) 20 meq Q12HR PO Last administered on 09/13/16 20:20; Start 09/10/16 at 21:00 Albuterol/ Ipratropium (Duoneb Neb) 1 ampule Q4HR NEB NEB Last administered on 09/10/16 20:26; Start 09/10/16 at 12:30; Stop 09/10/16 at 22:00; Status DC Albuterol Sulfate (Albuterol Neb) 1.25 mg Q2HR NEB PRN NEB SHORTNESS OF BREATH Last administered on 09/14/16 03:39; Start 09/10/16 at 12:30 Enoxaparin Sodium (Lovenox Inj) 40 mg Q24H SQ ; Start 09/10/16 at 14:00; Status Hold Miscellaneous (Pill Splitter) 1 ea UNSCH PRN OTHER SEE LABEL COMMENTS; Start at 13:15 Guaifenesin (Robitussin Liq) 200 mg Q4H PRN PO COUGH; Start 09/10/16 at 13:15 Regadenoson 0.4 mg 0.4 mg STK-MED ONCE .ROUTE Last administered on 09/12/16 11: 25; Start 09/12/16 at 11:25; Stop 09/12/16 at 11:26; Status DC Sodium Chloride 1,000 ml @ 100 mls/hr Q10H IV Last administered on 09/13/16 05 :11; Start 09/13/16 at 04:45; Stop 09/13/16 at 15:36; Status DC Sodium Chloride (Sodium Chloride 3% Inj) 500 ml @ 35 mls/hr ONCE IV Last administered on 09/13/16 16:56; Start 09/13/16 at 17:00; Stop 09/13/16 at 23:00; Status DC Losartan Potassium (Cozaar) 12.5 mg DAILY PO ; Start 09/14/16 at 09:00 Carvedilol (Coreg) 3.125 mg DAILY PO ; Start 09/14/16 at 09:00 A/P Assessment and Plan A/P - chest pain/cardiomyopathy; serial cardiac enzymes negative- stress test with EF 23%, no ischemia however insensitive study. echo pending- cardiology consult appreciated. continue aspirin, Cozaar and Coreg. -hyponatremia; asymptomatic- continue with gentle IV fluid- monitor the sodium level- TSH WNL. cortisol level pending. - COPD; - continue neb treatment- -hypertension;continue Cozzar and Coreg- will monitor and adjust the regimen as needed -dyslipidemia; on statin -DVT prophylaxis with SCD's Discharge Planning not ready for discharge yet. José Martines MD Sep 14, 2016 09:19
[2016-09-14] MEDS: FLUTICASONE PROPIONATE 50 MCG/ACT 16 GM NASAL SPRAY EACH NARE SCH ×2 (09:32→20:24)
[2016-09-14] MEDS: POTASSIUM CHLORIDE 20 MEQ CONTROLLED RELEASE TAB PO SCH ×2 (09:32→20:24)
[2016-09-14] MEDS: ASPIRIN 325 MG TAB PO SCH (09:32)
[2016-09-14] MEDS: DORZOLAMIDE/TIMOLOL OPTH SOLN 10 ML BTL EACH EYE SCH ×2 (09:32→20:24)
[2016-09-14] MEDS: CARVEDILOL 3.125 MG TAB PO SCH (09:32)
[2016-09-14] MEDS: LOSARTAN 25 MG TAB PO SCH (09:32)
[2016-09-14] MEDS ORDERED: SODIUM CHLORID 0.9% 500 ML INJ 500 ML IV ONE (10:00)
--- NOTE | 2016-09-14 14:26 | EC ---
Study Study Date:09/14/2016 STUDY CONCLUSIONS SUMMARY - Left ventricle: The cavity size was normal. Wall thickness was normal. Systolic function was moderately reduced. The estimated ejection fraction was in the range of 35% to 40%. Diffuse hypokinesis worse at the apex. - Tricuspid valve: Mild-moderate regurgitation. If LV function is below 40, please consider prescribing an ACEI or ARB or document rationale for non-use. PROCEDURE DATA STUDY STATUS: Elective. Procedure: Transthoracic echocardiography. Image quality was good. Scanning was performed from the parasternal, apical, and subcostal acoustic windows. Study completion: The patient tolerated the procedure well. Transthoracic echocardiography. M-mode, complete 2D, complete spectral Doppler, and color Doppler. Patient status: Inpatient. CARDIAC ANATOMY LEFT VENTRICLE: The cavity size was normal. Wall thickness was normal. Systolic function was moderately reduced. The estimated ejection fraction was in the range of 35% to 40%. Diffuse hypokinesis worse at the apex. AORTIC VALVE: Trileaflet; normal thickness leaflets. Doppler: Transvalvular velocity was within the normal range. There was no stenosis. No regurgitation. AORTA: Aortic root: The aortic root was normal in size. MITRAL VALVE: Structurally normal valve. Doppler: Transvalvular velocity was within the normal range. There was no evidence for stenosis. Trace regurgitation. LEFT ATRIUM: The atrium was normal in size. RIGHT VENTRICLE: The cavity size was normal. Wall thickness was normal. PULMONIC VALVE: Doppler: Transvalvular velocity was within the normal range. There was no evidence for stenosis. No regurgitation. TRICUSPID VALVE: Structurally normal valve. Doppler: Transvalvular velocity was within the normal range. Mild-moderate regurgitation. PULMONARY ARTERY: The main pulmonary artery was normal-sized. Systolic pressure was within the normal range. RIGHT ATRIUM: The atrium was normal in size. PERICARDIUM: There was no pericardial effusion. SYSTEMIC VEINS: Inferior vena cava: The vessel was normal in size. Prepared and signed by David Dooley [id number]
[2016-09-14] MEDS: ATORVASTATIN 80 MG TAB PO SCH (20:24)
[2016-09-15] VITALS (8 sets, daily range): BP systolic 92–120; BP diastolic 60–78; PULSE 50–70; RESP 16–20; TEMP 97–98.2; O2SAT 70–98
[2016-09-15] MEDS: POTASSIUM CHLORIDE 20 MEQ CONTROLLED RELEASE TAB PO SCH ×2 (08:45→20:38)
[2016-09-15] MEDS: ASPIRIN 325 MG TAB PO SCH (08:45)
[2016-09-15] MEDS: LOSARTAN 25 MG TAB PO SCH (08:45)
[2016-09-15] MEDS: SODIUM CHLOR 0.9% 1000 ML INJ 1,000 ML IV SCH ×2 (08:45→16:45)
[2016-09-15] MEDS: FLUTICASONE PROPIONATE 50 MCG/ACT 16 GM NASAL SPRAY EACH NARE SCH ×2 (08:46→20:39)
[2016-09-15] MEDS: CARVEDILOL 3.125 MG TAB PO SCH (08:46)
[2016-09-15] MEDS: DORZOLAMIDE/TIMOLOL OPTH SOLN 10 ML BTL EACH EYE SCH ×2 (08:46→20:39)
[2016-09-15] MEDS: SODIUM CHLORIDE 1 GRAM TAB PO SCH ×3 (10:31→18:00)
--- NOTE | 2016-09-15 17:25 | HHI.PR ---
Subjective Remarks Follow-up for chest pain, cardiomyopathy, COPD, hyponatremia. Patient denies any chest pain, shortness of breath, fever or chills. He declined to do repeat sodium check this afternoon. Objective Vitals Vital Signs Date Time Temp Pulse Resp B/P Pulse Ox O2 Delivery O2 Flow Rate FiO2 09/15/16 12:00 98.2 61 18 92/60 98 09/15/16 08:00 97.4 60 20 108/78 97 09/15/16 07:36 63 09/15/16 04:00 98.0 70 18 117/64 70 09/15/16 00:00 97.4 60 16 119/66 95 09/14/16 22:09 97 09/14/16 20:00 60 09/14/16 20:00 97.2 68 16 111/59 95 I/O 09/14/16 09/14/16 09/14/16 09/15/16 09/15/16 09/15/16 07:00 15:00 23:00 07:00 15:00 23:00 Intake Total 240 ml 240 ml 358 ml 240 ml Output Total 660 ml 500 ml 300 ml 250 ml Balance -420 ml -260 ml 58 ml -10 ml Intake Oral 240 ml 240 ml 150 ml 240 ml IV Total 208 ml Output Urine Total 660 ml 500 ml 300 ml 250 ml # Bowel Movements 0 0 1 1 Result Diagram: 09/15/16 0612 Imaging Last Impressions Myocardial Perfusion Scan Nuc Med 09/12/16 0000 Signed Impressions: Service Date/Time: Monday, September 12, 2016 11:26 - CONCLUSION: Ejection fraction of 23%% with little viable myocardium present. There is no ischemia however exam is very insensitive for such in this setting.. RISK CATEGORY: High (>3%% Annual Mortality Rate) Harlan Hawkins MD FACR Chest X-Ray 09/10/16 0330 Signed Impressions: Service Date/Time: August 03:53 - CONCLUSION: No acute disease. Vincent Demarco MD Objective Remarks GENERAL: Alert, NAD. SKIN: Warm and dry. HEAD: Normocephalic. EYES: No scleral icterus. No injection or drainage. NECK: Supple, trachea midline. No JVD or lymphadenopathy. CARDIOVASCULAR: Regular rate and rhythm without murmurs, gallops, or rubs. RESPIRATORY: Breath sounds equal bilaterally. No accessory muscle use. GASTROINTESTINAL: Abdomen soft, non-tender, nondistended. MUSCULOSKELETAL: No cyanosis, or edema. BACK: Nontender without obvious deformity. No CVA tenderness. Procedures none A/P Assessment and Plan Mr. Hannah is a 71-year-old [place] male with a history of hyperlipidemia , hypertension, diabetes who presented to the emergency department on 09/10/2016 due to generalized weakness that started 2 days prior to this admission. Troponin 3 were negative. Patient underwent a nuclear stress test which did not show any ischemia but ejection fraction was calculated as 23%. However echocardiogram shows ejection fraction 35-40%. Patient also had hyponatremia initial sodium 127. Sodium went down to 124. - Chest pain - Nonischemic cardiomyopathy - Continue aspirin 325 mg by mouth daily, carvedilol 3.125 mg daily, losartan 0.5 mg every daily. - Continue atorvastatin 80 mg by mouth daily at bedtime. - Hyponatremia - sodium 124. Urine osmolality 216, urine sodium 78, serum osmolarity 257. - We'll continue normal saline at 75 cc per hour. - Patient did not allow us to do repeat sodium this afternoon. - Continue sodium tablet. Will recheck BMP in the morning. - COPD - continue breathing treatments Full code. Lovenox. Magan Medina DO Sep 15, 2016 17:25
[2016-09-15] MEDS: ATORVASTATIN 80 MG TAB PO SCH (20:38)
[2016-09-16] VITALS (7 sets, daily range): BP systolic 96–137; BP diastolic 57–70; PULSE 53–75; RESP 18–20; TEMP 97.3–97.9; O2SAT 95–100
--- NOTE | 2016-09-16 05:42 | PQ ---
Physician Query Response Document PATIENT: GIUSEPPE BAUGH : 1945 ADMIT DATE: 09/14/2016 2:18 PM DISCH DATE: RESPONDING PROVIDER #: [email or web address] QUERY TEXT: Clarification of Clinical Diagnostic Findings PLEASE INDICATE IF CHEST PAIN FINDINGS WAS CLASSIFIED STEMI NSTEMI NO MYOCARDIAL INFARCTION OTHER The patient's Clinical Indicators include: chest pain/cardiomyopathy; serial cardiac enzymes negative- stress test with EF 23%, no ischemia however insensitive study PER CARDIOLOGY NSTEMI (non-ST elevated myocardial infarction) EKG showing anteroseptal changes, troponin negative. No ischemia noted on nuclear, but poor specifici ty noted. Losartan and carvedilol initiated for medication optimization. Query created by: Gloria Villavicencio on 09/15/2016 12:14 PM RESPONSE TEXT: Atypical chest pain. Electronically signed by: José Martines MD 09/16/2016 5:38 AM
[2016-09-16 08:43] LABS: BICARBONATE 23.7 MEQ/L (21.0-32.0); POTASSIUM 4.5 MEQ/L (3.5-5.1)
[2016-09-16] MEDS: CARVEDILOL 3.125 MG TAB PO SCH (09:46)
[2016-09-16] MEDS: LOSARTAN 25 MG TAB PO SCH (09:46)
[2016-09-16] MEDS: POTASSIUM CHLORIDE 20 MEQ CONTROLLED RELEASE TAB PO SCH (09:46)
[2016-09-16] MEDS: SODIUM CHLORIDE 1 GRAM TAB PO SCH ×3 (09:46→18:00)
[2016-09-16] MEDS: ASPIRIN 325 MG TAB PO SCH (09:46)
[2016-09-16] MEDS: DORZOLAMIDE/TIMOLOL OPTH SOLN 10 ML BTL EACH EYE SCH ×2 (09:54→22:14)
[2016-09-16] MEDS: FLUTICASONE PROPIONATE 50 MCG/ACT 16 GM NASAL SPRAY EACH NARE SCH ×2 (09:54→22:14)
[2016-09-16] MEDS: FLUDROCORTISONE ACETATE 0.1 MG TAB PO SCH (10:30)
--- NOTE | 2016-09-16 14:01 | HHI.FF ---
Face to Face Verification Diagnosis: (1) COPD exacerbation (2) Weakness Physical Therapy Order: Evaluate and Treat, Improve ambulation, Strength and gait training Home Health Nursing Order: Signs/symptoms of disease process Nursing assessment with vital signs I have seen patient Paras Hannah on 09/16/16. My clinical findings support the need for the requested home health care services because: Deconditioned w/ increased weakness Limited ability to care for self Need for psychosocial assistance Impaired cognition/judgement High risk of falls I certify that my clinical findings support that this patient is homebound because: Impaired cognitive ability/safety Unsteady gait/balance Unsafe to leave home unassisted Need for psychosocial assistance Unable to use public transportation Magan Medina DO Sep 16, 2016 14:01
--- NOTE | 2016-09-16 17:40 | HHI.PR ---
Subjective Remarks Follow up for hyponatremia. Mr. Hannah is doing well. Denies any chest pain, shortness of breath, fever, chills. Objective Vitals Vital Signs Date Time Temp Pulse Resp B/P Pulse Ox O2 Delivery O2 Flow Rate FiO2 09/16/16 12:02 97.3 53 18 109/66 98 09/16/16 08:02 97.8 65 18 137/65 96 09/16/16 08:00 75 09/16/16 08:00 74 09/16/16 04:00 97.3 54 20 113/70 98 09/16/16 00:00 97.8 55 18 108/64 100 09/15/16 20:15 58 09/15/16 20:00 97.5 64 20 111/68 98 I/O 09/15/16 09/15/16 09/15/16 09/16/16 09/16/16 09/16/16 07:00 15:00 23:00 07:00 15:00 23:00 Intake Total 240 ml 480 ml 183 ml 631 ml Output Total 250 ml 500 ml Balance -10 ml -20 ml 183 ml 631 ml Intake Oral 240 ml 480 ml IV Total 183 ml 631 ml Output Urine Total 250 ml 500 ml # Voids 3 # Bowel Movements 1 0 3 Result Diagram: 09/16/16 0742 Imaging Last Impressions Myocardial Perfusion Scan Nuc Med 09/12/16 0000 Signed Impressions: Service Date/Time: Monday, September 12, 2016 11:26 - CONCLUSION: Ejection fraction of 23%% with little viable myocardium present. There is no ischemia however exam is very insensitive for such in this setting.. RISK CATEGORY: High (>3%% Annual Mortality Rate) Harlan Hawkins MD FACR Chest X-Ray 09/10/16 0330 Signed Impressions: Service Date/Time: August 03:53 - CONCLUSION: No acute disease. Vincent Demarco MD Objective Remarks GENERAL: Alert, NAD. SKIN: Warm and dry. HEAD: Normocephalic. EYES: No scleral icterus. No injection or drainage. NECK: Supple, trachea midline. No JVD or lymphadenopathy. CARDIOVASCULAR: Regular rate and rhythm without murmurs, gallops, or rubs. RESPIRATORY: Breath sounds equal bilaterally. No accessory muscle use. GASTROINTESTINAL: Abdomen soft, non-tender, nondistended. MUSCULOSKELETAL: No cyanosis, or edema. BACK: Nontender without obvious deformity. No CVA tenderness. Procedures none A/P Assessment and Plan Mr. Hannah is a 71-year-old [place] male with a history of hyperlipidemia , hypertension, diabetes who presented to the emergency department on 09/10/2016 due to generalized weakness that started 2 days prior to this admission. Troponin 3 were negative. Patient underwent a nuclear stress test which did not show any ischemia but ejection fraction was calculated as 23%. However echocardiogram shows ejection fraction 35-40%. Patient also had hyponatremia initial sodium 127. Sodium went down to 124. - Chest pain - Nonischemic cardiomyopathy - Continue aspirin 325 mg by mouth daily, carvedilol 3.125 mg daily, losartan 0.5 mg every daily. - Continue atorvastatin 80 mg by mouth daily at bedtime. - Hyponatremia - sodium 124 --> 125. Urine osmolality 216, urine sodium 78, serum osmolarity 257. - We'll continue normal saline at 100 cc per hour. - Started Fludrocortisone 0.1mg Qday and continue salt tablets. - Will check serum Sodium in the AM. - D/C KCL - COPD - continue breathing treatments Full code. Lovelarissax. Magan Medina DO Sep 16, 2016 5:40 pm
[2016-09-16] MEDS: ATORVASTATIN 80 MG TAB PO SCH ×2 (22:14→22:18)
[2016-09-17] VITALS: BP 101/59; PULSE 61; RESP 18; TEMP 97.8; O2SAT 96
[2016-09-17 04:00] VITALS: BP 128/74; PULSE 67; RESP 16; TEMP 98; O2SAT 97
[2016-09-17] MEDS: SODIUM CHLOR 0.9% 1000 ML INJ 1,000 ML IV SCH (05:59)
[2016-09-17 08:00] VITALS: PULSE 60
[2016-09-17] MEDS: CARVEDILOL 3.125 MG TAB PO SCH (08:12)
[2016-09-17] MEDS: LOSARTAN 25 MG TAB PO SCH (08:12)
[2016-09-17] MEDS: FLUDROCORTISONE ACETATE 0.1 MG TAB PO SCH (08:12)
[2016-09-17] MEDS: ASPIRIN 325 MG TAB PO SCH (08:12)
[2016-09-17] MEDS: SODIUM CHLORIDE 1 GRAM TAB PO SCH ×2 (08:12→12:40)
[2016-09-17] MEDS: DORZOLAMIDE/TIMOLOL OPTH SOLN 10 ML BTL EACH EYE SCH (08:14)
[2016-09-17] MEDS: FLUTICASONE PROPIONATE 50 MCG/ACT 16 GM NASAL SPRAY EACH NARE SCH (08:14)
[2016-09-17 08:39] VITALS: BP 126/91; PULSE 60; RESP 18; TEMP 97.7; O2SAT 100
[2016-09-17 12:05] VITALS: BP 103/60; PULSE 60; RESP 20; TEMP 97.5; O2SAT 100
[2016-09-17] MEDS ORDERED: CARV3.125 PO (15:09)
[2016-09-17] MEDS ORDERED: ASPI81TA11 PO (15:09)
[2016-09-17] MEDS ORDERED: FLUD.1 PO (15:09)
--- NOTE | 2016-09-17 15:12 | HHI.DS ---
Discharge Summary Admission Date Sep 14, 2016 at 14:18 Discharge Date: Sep 17, 2016 Admitting Diagnosis Chest Pain, Generalized Weakness, EKG Changes (1) CAD (coronary artery disease) ICD Code: I25.10 Diagnosis: Principal (2) Hyponatremia ICD Code: E87.1 Diagnosis: Principal Procedures none Brief History - From Admission 71-year-old male presents to the emergency room for further evaluation of chest discomfort. Patient is vague with symptoms however does endorse a cough for the past 2-3days. States substernal chest pain only occurs with coughing. Seen PCP on Wednesday was given Levaquin and inhalers, was told he has a lung infection. Yesterday endorses generalized weakness, usually uses a push walker or cane, however yesterday was too tired and fatigued to do either. Recently had dental work completed therefore taking a soft diet consisting of oatmeal and mashed potatoes. Continues to have good appetite otherwise. No known fever however endorses chills since yesterday. CBC/BMP: 09/17/16 0610 Significant Findings Laboratory Tests Test 09/14/16 09/15/16 09/16/16 09/17/16 21:42 06:12 07:42 06:10 Sodium Level 126 MEQ/L 124 MEQ/L 125 MEQ/L 126 MEQ/L (136-145) (136-145) (136-145) (136-145) Chloride Level 94 MEQ/L 94 MEQ/L (98-107) (98-107) Blood Urea Nitrogen 4 MG/DL (7-18) 4 MG/DL (7-18) Imaging Last Impressions Myocardial Perfusion Scan Nuc Med 09/12/16 0000 Signed Impressions: Service Date/Time: Monday, September 12, 2016 11:26 - CONCLUSION: Ejection fraction of 23%% with little viable myocardium present. There is no ischemia however exam is very insensitive for such in this setting.. RISK CATEGORY: High (>3%% Annual Mortality Rate) Harlan Hawkins MD FACR Chest X-Ray 09/10/16 0330 Signed Impressions: Service Date/Time: August 03:53 - CONCLUSION: No acute disease. Vincent Demarco MD PE at Discharge GENERAL: Alert, NAD. SKIN: Warm and dry. HEAD: Normocephalic. EYES: No scleral icterus. No injection or drainage. NECK: Supple, trachea midline. No JVD or lymphadenopathy. CARDIOVASCULAR: Regular rate and rhythm without murmurs, gallops, or rubs. RESPIRATORY: Breath sounds equal bilaterally. No accessory muscle use. GASTROINTESTINAL: Abdomen soft, non-tender, nondistended. MUSCULOSKELETAL: No cyanosis, or edema. BACK: Nontender without obvious deformity. No CVA tenderness. Pt update on day of discharge Patient is doing well. No acute concerns. Wants to go home. Discussed with daughter who is also okay with patient going home with her. Hospital Course Mr. Hannah is a 71-year-old [place] male with a history of hyperlipidemia , hypertension, diabetes who presented to the emergency department on 09/10/2016 due to generalized weakness that started 2 days prior to this admission. Troponin 3 were negative. Patient underwent a nuclear stress test which did not show any ischemia but ejection fraction was calculated as 23%. However echocardiogram shows ejection fraction 35-40%. Patient also had hyponatremia initial sodium 127. Sodium went down to 124. - Chest pain - Nonischemic cardiomyopathy - Continue aspirin 325 mg by mouth daily, carvedilol 3.125 mg daily, losartan 0.5 mg every daily. - Continue atorvastatin 80 mg by mouth daily at bedtime. - Hyponatremia - sodium 124 --> 125 --> 126. Urine osmolality 216, urine sodium 78, serum osmolarity 257. - Continue Fludrocortisone 0.1mg Qday and continue salt tablets. - BMP within 3-5 days. - COPD - continue breathing treatments Discussed with patient's daughter. Patient is being discharged with home health. Pt Condition on Discharge: Stable Discharge Disposition: Disch w/ Home Health Serv Discharge Time: > 30 minutes Discharge Instructions DIET: Follow Instructions for: Heart Healthy Diet Activities you can perform: Regular-No Restrictions Follow up Referrals: PCP Follow-up New Orders: BASIC METABOLIC PROF - 3-5 Days New Medications: Aspirin DR (Aspirin EC) 81 Mg Tabdr 81 MG PO DAILY Blood Clot Prevention #90 Ref 0 TAB Carvedilol (Coreg) 3.125 Mg Tab 3.125 MG PO DAILY Blood Pressure Management #30 TAB Fludrocortisone (Fludrocortisone) 0.1 Mg Tab 0.1 MG PO DAILY Blood Pressure Management #30 TAB Sodium Chloride (Sodium Chloride) 1 Gm Tab 1 GM PO TID hyponatremia #30 Ref 1 TAB Continued Medications: Albuterol Sulfate 8 GM Inhaler (Ventolin Hfa) 8 Gm Aero 2 PUFF INH Q4 * SHAKE WELL BEFORE USE * PRN SHORTNESS OF BREATH #1 BOX Atorvastatin (Atorvastatin) 80 Mg Tab 80 MG PO HS Cholesterol Management #30 Ref 0 TAB Brimonidine Tartrate (Brimonidine Tartrate) 0.2 % Leandro 1 DROP BID LEANDRO Chlorhexidine Gluconate (Mouth) Liq (Chlorhexidine Gluconate (Mouth) Liq) 0.12% Soln 15 ML MT BID@08,20 hygience Days 30 ML Clopidogrel Bisulfate (Plavix) 75 Mg Tab 75 MG PO DAILY CAD Days 30 Ref 0 TAB Dorzolamide Hcl (Trusopt) 10 Ml Soln 1 DROP EACH EYE BID ML Dorzolamide-Timolol Opth Drops (Dorzolamide-Timolol Opth Drops) 22.3-6.8 Mg/Ml Soln 1 DROP EACH EYE BID Glaucoma Ref 0 BOTTLE Fluticasone Nasal Cost (Fluticasone Nasal Cost) 50 Mcg/Act Naspr 50 MCG EACH NARE BID 50 mcg/spray Allergy Management #1 Ref 0 BOTTLE Losartan (Cozaar) 25 Mg Tab 6.25 MG PO DAILY htn #30 TAB Potassium Chloride Microencaps (Potassium Chloride Microencaps) 20 Meq Tab 20 MEQ PO Q12HR elec Days 10 TAB Tiotropium Inh (Spiriva Respimat Inh) 2.5 Mcg/Act Aero 2 PUFF INH DAILY 2.5 mcg = 1 inhalation COPD #1 Ref 0 INHALER Discontinued Medications: Levofloxacin (Levaquin) 500 Mg Tab 500 MG PO DAILY@21 Infection #2 TAB Magan Medina DO Sep 17, 2016 15:12
[2016-09-17] MEDS ORDERED: SODI1TAB PO (15:13)
[2016-09-17 16:03] VITALS: BP 106/52; PULSE 52; RESP 20; TEMP 97.9; O2SAT 100
[2016-09-19 23:51] LABS: ADRENOCORTICOTROPHIC 59 pg/mL (6-50)
[2016-09-21 17:54] LABS: ALDOSTERONE, SERUM LESS THAN 1.0 ng/dL (())
== END 2016-09-17 17:55 | disposition home or self-care (01) | DRG 315 ==
LOC: NEPC 02:51 → NEDA 06:08 → NEDH 11:22 → N04B 14:57 → OBSVTOIN 09-14 14:18
PROVIDERS: ADMIT Hospitalist; ATTEND Hospitalist
DX: I42.9 Cardiomyopathy, unspecified (principal); J44.1 Chronic obstructive pulmonary disease with (acute) exacerbation; E87.1 Hypo-osmolality and hyponatremia; E11.9 Type 2 diabetes mellitus without complications; R07.89 Other chest pain; I25.119 Atherosclerotic heart disease of native coronary artery with unspecified angina pectoris; E78.5 Hyperlipidemia, unspecified; I10 Essential (primary) hypertension; Z79.82 Long term (current) use of aspirin; H54.8 Legal blindness, as defined in USA; H26.9 Unspecified cataract; Z79.02 Long term (current) use of antithrombotics/antiplatelets; H91.90 Unspecified hearing loss, unspecified ear
CPT/HCPCS: 71010; 78452; 80048; 80053; 81003; 82024; 82088; 82533; 82550; 83930; 83935; 84244; 84295; 84300; 84443; 84484; 85025; 93005; 93017; 93306; 94640; 94664; 99285; A9502; G0378; G8987-GP; G8988-GP; J2785; J7030; J7040; J7613

== ENCOUNTER 2016-10-24 16:25 | Inpatient (IN) | payer OTHER, MEDICAID, MEDICARE ==
[~2016-10-24] VITALS: Ht 170.2 cm; Wt 56.0 kg
[~2016-10-24 16:25] MED LIST changes: +ASPI81TA11 PO; +CARV3.125 PO; +FLUD.1 PO; -LEVA500T PO; +SODI1TAB PO
[2016-10-24 16:28] VITALS: BP 187/94; PULSE 113; RESP 24; TEMP 100.1; O2SAT 95
[2016-10-24 16:37] VITALS: BP 142/73; PULSE 103; RESP 16; O2SAT 96
--- NOTE | 2016-10-24 16:50 | PD ---
HPI Chief Complaint: Altered Mental Status Time Seen by Provider: 16:50 Travel History International Travel<30 days: No Contact w/Intl Traveler<30days: No Traveled to known affect area: No History of Present Illness HPI Patient comes in with his daughter who is complaining patient being confused that has been getting progressively worse throughout the day. States patient has some gait disturbances yesterday. Daughter reports subjective fever which she reports giving Tylenol proximally 2 hours ago. Denies any nausea, vomiting , loss or change in bowel or bladder, cough, chest pain, shortness of breath, or abdominal pain. Daughter does states that he was complaining of a headache earlier today as well as low back pain. Denies patient complaining of anything else. PFSH Past Medical History Asthma: Yes Cancer: No Cardiovascular Problems: Yes High Cholesterol: Yes Chest Pain: Yes COPD: Yes Diabetes: Yes (daughter states borderline) Diminished Hearing: Yes ([place]) Gastrointestinal Disorders: No Glaucoma: Yes Genitourinary: Yes Hypertension: Yes Musculoskeletal: Yes Neurologic: No Psychiatric: No Respiratory: Yes (COPD) Tetanus Vaccination: < 5 Years Influenza Vaccination: Yes Past Surgical History Ear Surgery: Yes (BILATERAL CATARACT REMOVAL) Eye Surgery: Yes (CATARACT REMOVAL) Social History Alcohol Use: No Tobacco Use: Yes Substance Use: No Allergies-Medications (Allergen,Severity, Reaction): Coded Allergies: Contrast Media (Verified Allergy, Mild, HIVES, ITCHING, 10/24/16) Reported Meds & Prescriptions Reported Meds & Active Scripts Active Sodium Chloride 1 Gm Tab 1 Gm PO TID Aspirin EC (Aspirin) 81 Mg Tabdr 81 Mg PO DAILY Potassium Chloride Microencaps 20 Meq Tab 20 Meq PO Q12HR 10 Days Reported Metoprolol Succinate ER 24 HR (Metoprolol Succinate) 50 Mg Tab 50 Mg PO DAILY Lorazepam 0.5 Mg Tab 0.5 Mg PO DAILY PRN Cetirizine (Cetirizine HCl) 10 Mg Tab 10 Mg PO DAILY Amlodipine (Amlodipine Besylate) 2.5 Mg Tab 2.5 Mg PO DAILY Omeprazole 40 Mg Cap 40 Mg PO DAILY Atorvastatin (Atorvastatin Calcium) 80 Mg Tab 80 Mg PO HS Review of Systems ROS Limitations: Altered Mental Status Except as stated in HPI: all other systems reviewed are Neg Physical Exam Exam Limitations: Altered Mental Status Narrative GENERAL: Well-developed, well nourished, in no acute distress, and non-ill appearing. SKIN: Focused skin assessment warm and dry. HEAD: Atraumatic. Normocephalic. EYES: Pupils equal and round. EOMI. No scleral icterus. No injection or drainage. ENT: No nasal bleeding or discharge. Mucous membranes pink and moist. NECK: Trachea midline. No JVD. Supple. No nuclear rigidity. CARDIOVASCULAR: Regular rate and rhythm. No murmur appreciated. RESPIRATORY: No accessory muscle use. No respiratory distress. Clear to auscultation. Breath sounds equal bilaterally. MUSCULOSKELETAL: No obvious deformities. No clubbing. No cyanosis. No edema. Full range of motion. NEUROLOGICAL: Awake and alert. No obvious cranial nerve deficits. Motor grossly within normal limits. Normal speech. PSYCHIATRIC: Confused. Data Data Last Documented VS Vital Signs Date Time Temp Pulse Resp B/P Pulse Ox O2 Delivery O2 Flow Rate FiO2 10/24/16 17:30 103.3 103 16 141/84 97 Nasal Cannula 2 Orders Electrocardiogram (10/24/16 16:54) Complete Blood Count With Diff (10/24/16 16:54) Comprehensive Metabolic Panel (10/24/16 16:54) Prothrombin Time / Inr (Pt) (10/24/16 16:54) Act Partial Throm Time (Ptt) (10/24/16 16:54) Lactic Acid Sepsis Protocol (10/24/16 16:54) Magnesium (Mg) (10/24/16 16:54) Ckmb (Isoenzyme) Profile (10/24/16 16:54) Troponin I (10/24/16 16:54) Urinalysis - C+S If Indicated (10/24/16 16:54) Blood Culture (10/24/16 16:54) Chest, Single Ap (10/24/16 16:54) Blood Glucose (10/24/16 16:54) Ecg Monitoring (10/24/16 16:54) Iv Access Insert/Monitor (10/24/16 16:54) Oximetry (10/24/16 16:54) Oxygen Administration (10/24/16 16:54) Ibuprofen (Motrin) (10/24/16 17:00) Vancomycin Inj (Vancomycin Inj) (10/24/16 16:54) Piperacil-Tazo 4.5 Gm Premix (Zosyn 4.5 (10/24/16 16:54) Sodium Chlor 0.9% 1000 Ml Inj (Ns 1000 M (10/24/16 16:54) Sodium Chlor 0.9% 1000 Ml Inj (Ns 1000 M (10/24/16 16:54) Ct Brain W/O Iv Contrast(Rout) (10/24/16 ) Sodium Chlor 0.9% 1000 Ml Inj (Ns 1000 M (10/24/16 18:00) Admit Order (Ed Use Only) (10/24/16 19:20) Labs Laboratory Tests Test 10/24/16 10/24/16 16:50 17:10 White Blood Count 6.4 TH/MM3 Red Blood Count 4.71 MIL/MM3 Hemoglobin 12.6 GM/DL Hematocrit 39.0 % Mean Corpuscular Volume 82.9 FL Mean Corpuscular Hemoglobin 26.9 PG Mean Corpuscular Hemoglobin 32.4 % Concent Red Cell Distribution Width 16.4 % Platelet Count 186 TH/MM3 Mean Platelet Volume 8.2 FL Neutrophils (%) (Auto) 70.0 % Lymphocytes (%) (Auto) 25.3 % Monocytes (%) (Auto) 0.5 % Eosinophils (%) (Auto) 3.5 % Basophils (%) (Auto) 0.7 % Neutrophils # (Auto) 4.5 TH/MM3 Lymphocytes # (Auto) 1.6 TH/MM3 Monocytes # (Auto) 0.0 TH/MM3 Eosinophils # (Auto) 0.2 TH/MM3 Basophils # (Auto) 0.0 TH/MM3 CBC Comment DIFF FINAL Differential Comment Prothrombin Time 11.1 SEC Prothromb Time International 1.0 RATIO Ratio Activated Partial 24.7 SEC Thromboplast Time Sodium Level 139 MEQ/L Potassium Level 3.6 MEQ/L Chloride Level 103 MEQ/L Carbon Dioxide Level 24.7 MEQ/L Anion Gap 11 MEQ/L Blood Urea Nitrogen 5 MG/DL Creatinine 0.99 MG/DL Estimat Glomerular Filtration 90 ML/MIN Rate Random Glucose 100 MG/DL Lactic Acid Level 6.8 mmol/L Calcium Level 8.8 MG/DL Magnesium Level 1.5 MG/DL Total Bilirubin 0.4 MG/DL Aspartate Amino Transf 26 U/L (AST/SGOT) Alanine Aminotransferase 28 U/L (ALT/SGPT) Alkaline Phosphatase 182 U/L Total Creatine Kinase 87 U/L Troponin I LESS THAN 0.02 NG/ML Total Protein 7.5 GM/DL Albumin 3.4 GM/DL Urine Color LIGHT-YELLOW Urine Turbidity CLEAR Urine pH 5.0 Urine Specific [place] 1.007 Urine Protein NEG mg/dL Urine Glucose (UA) NEG mg/dL Urine Ketones NEG mg/dL Urine Occult Blood NEG Urine Nitrite NEG Urine Bilirubin NEG Urine Urobilinogen LESS THAN 2.0 MG/DL Urine Leukocyte Esterase NEG Urine RBC 1 /hpf Urine WBC LESS THAN 1 /hpf Urine Mucus FEW /lpf Microscopic Urinalysis Comment CULT NOT INDICATED MDM Medical Decision Making Medical Screen Exam Complete: Yes Emergency Medical Condition: Yes Interpretation(s) EKG reviewed by Dr. Gómez. Shows sinus tachycardia with ventricular rate of 101. No change from previous EKG on 09/10/16. No STEMI. Chest x-ray read by the radiologist shows: Streaky densities within the right perihilar region and left lung base consistent with atelectasis and/or mild infiltrates. Clinical correlation is recommended. Differential Diagnosis Sepsis, pneumonia, UTI, allegedly abnormality, dehydration, bacteremia, other Narrative Course Patient was seen exam. Initial laboratory radiologic studies were obtained and reviewed with the exception of a CT of the head that has not been obtained yet. Patient was given IV fluids and IV antibiotics. Discussed patient with Dr. Wiseman, who saw and evaluated the patient and discussed patient with Dr. Banuelos, who is agreeable to admit the patient. Sepsis Criteria SIRS Criteria (2 or more): Temp > 100.9 or < 96.8, Heart rate over 90 Severe Sepsis (+one): Lactate >2 Diagnosis Primary Impression: Sepsis Qualified Code: A41.9 - Sepsis, due to unspecified organism Additional Impression: Altered mental status, unspecified Condition: Stable James Weeks October 24, 2016 16:50
[2016-10-24] MEDS ORDERED: OMEP40CA2 PO (16:52)
[2016-10-24] MEDS ORDERED: AMLO2.5T PO (16:52)
[2016-10-24] MEDS ORDERED: LORA-373 PO (16:52)
[2016-10-24] MEDS ORDERED: CETI10 PO (16:52)
[2016-10-24] MEDS ORDERED: METO50TA11 PO (16:52)
[2016-10-24] MEDS ORDERED: VANCOMYCIN INJ 1,000 MG in SODIUM CHLOR 0.9% 250 ML INJ 250 ML IV STA (16:54)
[2016-10-24] MEDS ORDERED: SODIUM CHLOR 0.9% 1000 ML INJ 800 ML IV ONE (16:54)
[2016-10-24] MEDS ORDERED: SODIUM CHLOR 0.9% 1000 ML INJ 1,000 ML IV ONE ×4 (16:54→19:28)
[2016-10-24] MEDS ORDERED: PIPERACIL-TAZO 4.5 GM PREMIX 100 ML IV STA (16:54)
[2016-10-24] MEDS ORDERED: IBUPROFEN 600 MG TAB PO ONE (17:00)
--- NOTE | 2016-10-24 17:26 | RADRPT ---
EXAM DATE/TIME: 10/24/2016 17:08 [facility] COMPARISON: CHEST SINGLE AP, September 10, 2016, 3:53. INDICATIONS : Fever and shortness of breath. MEDICAL HISTORY : Hypertension. Chronic obstructive pulmonary disease. SURGICAL HISTORY : None. ENCOUNTER: Initial ACUITY: 1 day PAIN SCORE: 0/10 LOCATION: Bilateral chest FINDINGS: Streaky densities are noted within the right perihilar region and left lung base consistent with poss ible atelectasis and/or mild infiltrates. The heart is stable. The pulmonary vascular pattern is no rmal. CONCLUSION: Streaky densities within the right perihilar region and left lung base consistent with atelectasis an d/or mild infiltrates. Clinical correlation is recommended. Herb Valladares MD on October 24, 2016 at 17:21 Board Certified Radiologist. This report was verified electronically.
[2016-10-24 17:30] VITALS: BP_SYST 138; BP_SYST 141; BP_DIAS 82; BP_DIAS 84; PULSE 103; RESP 16; TEMP 103.3; O2SAT 97
[2016-10-24 17:33] LABS: AUTOMATED NEUTROPHIL # 4.5 TH/MM3 (1.8-7.7); BASOPHIL % 0.7 % (0.0-2.0); EOSINOPHIL # 0.2 TH/MM3 (0-0.4); EOSINOPHIL % 3.5 % (0.0-4.0); HEMO FLAGS DIFF FINAL; LYMPH % 25.3 % (9.0-44.0); LYMPHOCYTE # 1.6 TH/MM3 (1.0-4.8); MEAN CELL VOLUME 82.9 FL (80.0-100.0); MEAN CORPUSCULAR HEMOGLOBIN 26.9 PG (27.0-34.0); MEAN CORPUSCULAR HGB CONC 32.4 % (32.0-36.0); MONO % 0.5 % (0.0-8.0); PLATELET COUNT 186 TH/MM3 (150-450); RED BLOOD COUNT 4.71 MIL/MM3 (4.50-5.90); RED CELL DISTRIBUTION WIDTH 16.4 % (11.6-17.2); WHITE BLOOD COUNT 6.4 TH/MM3 (4.0-11.0)
[2016-10-24 17:41] LABS: BLOOD, URINE NEG (NEG); COMMENT (UR) CULT NOT INDICATED; CULTURE IF INDICATED CULT NOT INDICATED; GLUCOSE,URINE NEG (NEG); KETONE, URINE NEG (NEG); MUCUS URINE FEW /lpf (OCC); NITRITE,URINE NEG (NEG); URINE COLOR LIGHT-YELLOW (YELLW/STRAW)
[2016-10-24 17:45] LABS: APTT (PATIENT) 24.7 SEC (24.3-30.1); PROTHROMBIN TIME - PATIENT 11.1 SEC (9.8-11.6)
[2016-10-24 17:59] LABS: ALT (GPT) 28 U/L (12-78); ANION GAP 11 MEQ/L (5-15); AST (GOT) 26 U/L (15-37); BICARBONATE 24.7 MEQ/L (21.0-32.0); BLOOD UREA NITROGEN 5 MG/DL (7-18); CHLORIDE 103 MEQ/L (98-107); GLOMERULAR FILTRATION RATE 90 ML/MIN (>89); MAGNESIUM 1.5 MG/DL (1.5-2.5); POTASSIUM 3.6 MEQ/L (3.5-5.1); SODIUM (NA) 139 MEQ/L (136-145)
[2016-10-24 18:02] LABS: ALKALINE PHOSPHATASE 182 U/L (45-117); TOTAL BILIRUBIN ADULT 0.4 MG/DL (0.2-1.0)
--- NOTE | 2016-10-24 18:02 | PD ---
Physical Exam Narrative I, Dr. Wiseman, have reviewed the advance practice practitioner's documentation and am in agreement, met with the patient face to face, made the diagnosis, and the medical decision making was done by me. *My assessment and Findings: Sepsis secondary to UTI vs. Pneumonia vs. meningitis 71yo M who is blind was brought in here by daughter because he seems more confused to her. States he talks but sometimes doesnt make sense. Had fever today. States he has been coughing and it has gotten better. Labs reviewed, no leukocytosis. Lactic acid 6.8. UA showed few mucus. AAOx1. Pt is febrile and tachycardic here. NS IVF x2. Pt was empirically covered with vancomycin and zosyn. CXR showed perihilar and left base atelectasis or infiltrate. Given that pt is more confuse as per daughter and does not have any other source for her sepsis, meningitis is in the differential. Although she does not have any nuchal rigidity, will do CT brain and LP. He will add antibiotics to cover meningitis. Discussed with Dr. Banuelos who has accepted her to the ICU under his service for AMS and severe sepsis. Data Data Last Documented VS Vital Signs Date Time Temp Pulse Resp B/P Pulse Ox O2 Delivery O2 Flow Rate FiO2 10/24/16 17:30 103.3 103 16 141/84 97 Nasal Cannula 2 Orders Electrocardiogram (10/24/16 16:54) Complete Blood Count With Diff (10/24/16 16:54) Comprehensive Metabolic Panel (10/24/16 16:54) Prothrombin Time / Inr (Pt) (10/24/16 16:54) Act Partial Throm Time (Ptt) (10/24/16 16:54) Lactic Acid Sepsis Protocol (10/24/16 16:54) Magnesium (Mg) (10/24/16 16:54) Ckmb (Isoenzyme) Profile (10/24/16 16:54) Troponin I (10/24/16 16:54) Urinalysis - C+S If Indicated (10/24/16 16:54) Blood Culture (10/24/16 16:54) Chest, Single Ap (10/24/16 16:54) Blood Glucose (10/24/16 16:54) Ecg Monitoring (10/24/16 16:54) Iv Access Insert/Monitor (10/24/16 16:54) Oximetry (10/24/16 16:54) Oxygen Administration (10/24/16 16:54) Ibuprofen (Motrin) (10/24/16 17:00) Vancomycin Inj (Vancomycin Inj) (10/24/16 16:54) Piperacil-Tazo 4.5 Gm Premix (Zosyn 4.5 (10/24/16 16:54) Sodium Chlor 0.9% 1000 Ml Inj (Ns 1000 M (10/24/16 16:54) Sodium Chlor 0.9% 1000 Ml Inj (Ns 1000 M (10/24/16 16:54) Ct Brain W/O Iv Contrast(Rout) (10/24/16 ) Sodium Chlor 0.9% 1000 Ml Inj (Ns 1000 M (10/24/16 18:00) Admit Order (Ed Use Only) (10/24/16 19:20) Labs Laboratory Tests Test 10/24/16 10/24/16 16:50 17:10 White Blood Count 6.4 TH/MM3 Red Blood Count 4.71 MIL/MM3 Hemoglobin 12.6 GM/DL Hematocrit 39.0 % Mean Corpuscular Volume 82.9 FL Mean Corpuscular Hemoglobin 26.9 PG Mean Corpuscular Hemoglobin 32.4 % Concent Red Cell Distribution Width 16.4 % Platelet Count 186 TH/MM3 Mean Platelet Volume 8.2 FL Neutrophils (%) (Auto) 70.0 % Lymphocytes (%) (Auto) 25.3 % Monocytes (%) (Auto) 0.5 % Eosinophils (%) (Auto) 3.5 % Basophils (%) (Auto) 0.7 % Neutrophils # (Auto) 4.5 TH/MM3 Lymphocytes # (Auto) 1.6 TH/MM3 Monocytes # (Auto) 0.0 TH/MM3 Eosinophils # (Auto) 0.2 TH/MM3 Basophils # (Auto) 0.0 TH/MM3 CBC Comment DIFF FINAL Differential Comment Prothrombin Time 11.1 SEC Prothromb Time International 1.0 RATIO Ratio Activated Partial 24.7 SEC Thromboplast Time Sodium Level 139 MEQ/L Potassium Level 3.6 MEQ/L Chloride Level 103 MEQ/L Carbon Dioxide Level 24.7 MEQ/L Anion Gap 11 MEQ/L Blood Urea Nitrogen 5 MG/DL Creatinine 0.99 MG/DL Estimat Glomerular Filtration 90 ML/MIN Rate Random Glucose 100 MG/DL Lactic Acid Level 6.8 mmol/L Calcium Level 8.8 MG/DL Magnesium Level 1.5 MG/DL Total Bilirubin 0.4 MG/DL Aspartate Amino Transf 26 U/L (AST/SGOT) Alanine Aminotransferase 28 U/L (ALT/SGPT) Alkaline Phosphatase 182 U/L Total Creatine Kinase 87 U/L Troponin I LESS THAN 0.02 NG/ML Total Protein 7.5 GM/DL Albumin 3.4 GM/DL Urine Color LIGHT-YELLOW Urine Turbidity CLEAR Urine pH 5.0 Urine Specific [place] 1.007 Urine Protein NEG mg/dL Urine Glucose (UA) NEG mg/dL Urine Ketones NEG mg/dL Urine Occult Blood NEG Urine Nitrite NEG Urine Bilirubin NEG Urine Urobilinogen LESS THAN 2.0 MG/DL Urine Leukocyte Esterase NEG Urine RBC 1 /hpf Urine WBC LESS THAN 1 /hpf Urine Mucus FEW /lpf Microscopic Urinalysis Comment CULT NOT INDICATED Urine Opiates Screen NEG Urine Barbiturates Screen NEG Urine Amphetamines Screen NEG Urine Benzodiazepines Screen NEG Urine Cocaine Screen NEG Urine Cannabinoids Screen NEG MDM Supervised Visit with EDWINA: Yes Critical Care Narrative Aggregate critical care time was 40 minutes. Time to perform other separately billable procedure was not included in the critical care time. My time did not include minutes spent treating any other patients simultaneously or on activities that did not directly contribute to the patient's treatment. The services I provided to this patient were to treat and/or prevent clinically significant deterioration that could result in: cardiovascular collapse or . I provided critical care services requiring my management, as noted below: Chart data review, documentation time, medication orders and management, vital sign assessments/reviewing monitor data, ordering and reviewing lab tests, ordering and interpreting/reviewing x- rays and diagnostic studies, care of the patient and discussion of the patient with the admitting physicians. Diagnosis Primary Impression: Altered mental status, unspecified Additional Impression: Sepsis Qualified Code: A41.9 - Sepsis, due to unspecified organism Admitting Information Admitting Physician Requests: Admit Claire Wiseman DO October 24, 2016 18:02
[2016-10-24 18:05] LABS: CREATINE KINASE 87 U/L (39-308)
[2016-10-24 19:20] LABS: LACTIC ACID GHOST NOT REPORTABLE
[2016-10-24] MEDS ORDERED: SODIUM CHLOR 0.9% 1000 ML INJ 100 ML IV ONE (19:28)
[2016-10-24] MEDS ORDERED: SODIUM CHLORIDE 0.9% FLUSH 10 ML FLUSH IV FLUSH PRN (19:30)
[2016-10-24] MEDS ORDERED: MISCELLANEOUS NURSING INFORMATION XX SCH (19:30)
[2016-10-24] MEDS ORDERED: Vancomycin Consult Pharmacy 1 EA OTHER SCH (19:30)
[2016-10-24] MEDS ORDERED: RESP: ALBUTEROL 2.5 MG/IPRATROPIUM 0.5 MG NEB (PRN) INH (19:30)
[2016-10-24] MEDS ORDERED: CHLORHEXIDINE GLUCONATE 2 % 1 PACK (2 CLOTHS) TOP PRN (19:30)
--- NOTE | 2016-10-24 19:38 | HHI.HP ---
HPI Service Critical Care Medicine Primary Care Physician Non-Staff Admission Diagnosis AMS, sepsis Diagnosis: Travel History International Travel<30 Days: No Contact w/Intl Traveler <30 Da: No Traveled to Known Affected Are: No History of Present Illness 71-year-old gentleman brought by his daughter who is complaining patient being confused that has been getting progressively worse throughout the day. She states that patient has had some gait disturbances yesterday. Daughter reports subjective fever which she reports giving Tylenol proximally 2 hours ago. Denies any nausea, vomiting, loss or change in bowel or bladder, cough, chest pain, shortness of breath, or abdominal pain. Daughter does states that he was complaining of a headache earlier today as well as low back pain. Denies patient complaining of anything else. Review of Systems ROS Unable to obtain patient is confused Past Family Social History Allergies: Coded Allergies: Contrast Media (Verified Allergy, Mild, HIVES, ITCHING, 10/24/16) Past Medical History Asthma COPD Glaucoma Hypertension Past Surgical History Cataract surgery Reported Medications Reported Meds & Active Scripts Active Sodium Chloride 1 Gm Tab 1 Gm PO TID Aspirin EC (Aspirin) 81 Mg Tabdr 81 Mg PO DAILY Potassium Chloride Microencaps 20 Meq Tab 20 Meq PO Q12HR 10 Days Reported Metoprolol Succinate ER 24 HR (Metoprolol Succinate) 50 Mg Tab 50 Mg PO DAILY Lorazepam 0.5 Mg Tab 0.5 Mg PO DAILY PRN Cetirizine (Cetirizine HCl) 10 Mg Tab 10 Mg PO DAILY Amlodipine (Amlodipine Besylate) 2.5 Mg Tab 2.5 Mg PO DAILY Omeprazole 40 Mg Cap 40 Mg PO DAILY Atorvastatin (Atorvastatin Calcium) 80 Mg Tab 80 Mg PO HS Active Ordered Medications Current Medications Medications (Trade) Dose Ordered Sig/Joshua Route PRN Reason Start Time Stop Time Status Last Admin Dose Admin Sodium Chloride (NS 1000 ml Inj) 1,000 ml @ 125 mls/hr Q8H IV 10/24/16 19:28 Sodium Chloride (NS Flush) 2 ml UNSCH PRN IV FLUSH FLUSH AFTER USING IV ACCESS 10/24/16 19:30 Sodium Chloride (NS Flush) 2 ml BID IV FLUSH 10/24/16 21:00 Famotidine (Pepcid) 20 mg Q12HR PO 10/24/16 21:00 Heparin Sodium (Porcine) 5000 units 5,000 units Q12H SQ 10/24/16 21:00 Ceftriaxone Sodium 2000 mg/ Sodium Chloride 100 ml @ 200 mls/hr Q12H IV 10/24/16 20:00 Pharmacy Profile Note 0 ml @ 0 mls/hr UNSCH OTHER 10/24/16 19:30 Ampicillin Sodium 2000 mg/Sodium Chloride 100 ml @ 300 mls/hr Q4H IV 10/24/16 21:00 Acyclovir Sodium 582 mg/Sodium Chloride 100 ml @ 100 mls/hr Q8H IV 10/24/16 21:00 Sodium Chloride 1,000 ml @ 1,000 mls/hr Q1H ONCE IV 10/24/16 19:28 10/24/16 20:27 Sodium Chloride (NS 1000 ml Inj) 1,000 ml @ 1,000 mls/hr Q1H ONCE IV 10/24/16 19:28 10/24/16 20:27 Miscellaneous Information 1 [id number] XX 10/24/16 19:30 Chlorhexidine Gluconate (Chlorhexidine 2% Cloth) 3 pack Taper DAILY@04 TOP 10/25/16 04:00 10/21/17 03:59 Chlorhexidine Gluconate (Chlorhexidine 2% Cloth) 3 pack UNSCH PRN TOP HYGIENIC CARE 10/24/16 19:30 Amlodipine Besylate (Norvasc) 2.5 mg DAILY PO 10/25/16 09:00 Aspirin (Ecotrin Ec) 81 mg DAILY PO 10/25/16 09:00 Atorvastatin Calcium (Lipitor) 80 mg HS PO 10/24/16 21:00 Lorazepam (Ativan) 0.5 mg DAILY PRN PO ANXIETY 10/24/16 19:45 Metoprolol Succinate (Toprol Xl) 50 mg DAILY PO 10/25/16 09:00 Sodium Chloride (Sodium Chloride) 1 gm TID PO 10/25/16 09:00 Family History Noncontributory Social History Smokes pack per day No alcohol or illicit drug abuse Physical Exam Vital Signs Vital Signs Date Time Temp Pulse Resp B/P Pulse Ox O2 Delivery O2 Flow Rate FiO2 10/24/16 17:30 103.3 103 16 141/84 97 Nasal Cannula 2 10/24/16 17:30 98 Nasal Cannula 2 10/24/16 17:30 138/82 10/24/16 16:40 16 96 Room Air 10/24/16 16:37 103 16 142/73 96 5/13/17 16:28 100.1 113 24 187/94 95 Physical Exam GENERAL: Cachectic elderly man very confused SKIN: Warm and dry. HEAD: Normocephalic. EYES: No scleral icterus. No injection or drainage. NECK: Supple, trachea midline. No JVD or lymphadenopathy. CARDIOVASCULAR: Regular rate and rhythm without murmurs, gallops, or rubs. RESPIRATORY: Breath sounds equal bilaterally. No accessory muscle use. GASTROINTESTINAL: Abdomen soft, non-tender, nondistended. MUSCULOSKELETAL: No cyanosis, or edema. BACK: Nontender without obvious deformity. No CVA tenderness. EXTREMITIES: No clubbing cyanosis or edema Laboratory Laboratory Tests Test 10/24/16 10/24/16 16:50 17:10 White Blood Count 6.4 Red Blood Count 4.71 Hemoglobin 12.6 Hematocrit 39.0 Mean Corpuscular Volume 82.9 Mean Corpuscular Hemoglobin 26.9 Mean Corpuscular Hemoglobin 32.4 Concent Red Cell Distribution Width 16.4 Platelet Count 186 Mean Platelet Volume 8.2 Neutrophils (%) (Auto) 70.0 Lymphocytes (%) (Auto) 25.3 Monocytes (%) (Auto) 0.5 Eosinophils (%) (Auto) 3.5 Basophils (%) (Auto) 0.7 Neutrophils # (Auto) 4.5 Lymphocytes # (Auto) 1.6 Monocytes # (Auto) 0.0 Eosinophils # (Auto) 0.2 Basophils # (Auto) 0.0 CBC Comment DIFF FINAL Differential Comment Prothrombin Time 11.1 Prothromb Time International 1.0 Ratio Activated Partial 24.7 Thromboplast Time Sodium Level 139 Potassium Level 3.6 Chloride Level 103 Carbon Dioxide Level 24.7 Anion Gap 11 Blood Urea Nitrogen 5 Creatinine 0.99 Estimat Glomerular Filtration 90 Rate Random Glucose 100 Lactic Acid Level 6.8 Calcium Level 8.8 Magnesium Level 1.5 Total Bilirubin 0.4 Aspartate Amino Transf 26 (AST/SGOT) Alanine Aminotransferase 28 (ALT/SGPT) Alkaline Phosphatase 182 Total Creatine Kinase 87 Troponin I LESS THAN 0.02 Total Protein 7.5 Albumin 3.4 Urine Color LIGHT-YELLOW Urine Turbidity CLEAR Urine pH 5.0 Urine Specific [place] 1.007 Urine Protein NEG Urine Glucose (UA) NEG Urine Ketones NEG Urine Occult Blood NEG Urine Nitrite NEG Urine Bilirubin NEG Urine Urobilinogen LESS THAN 2.0 Urine Leukocyte Esterase NEG Urine RBC 1 Urine WBC LESS THAN 1 Urine Mucus FEW Microscopic Urinalysis Comment CULT NOT INDICATED Date/Time Procedure Status Source Growth 10/24/16 17:20 Aerobic Blood Culture Received Blood Peripheral Pending 10/24/16 17:20 Anaerobic Blood Culture Received Blood Peripheral Pending Result Diagram: 10/24/16 1650 10/24/16 1650 Assessment and Plan Assessment and Plan Altered mental status - CT head negative - History of fever and headache - LP - Broad-spectrum antibiotics and antiviral to cover for meningitis - Follow-up cultures and CSF analysis results Lactic acidosis - Unclear source of infection - Broad-spectrum antibiotics - Infectious disease consult - Panculture COPD - No exacerbation - No steroids indicated - DuoNeb's when necessary DVT GI prophylaxis - Subcutaneous heparin - Pepcid Critical Care: The total critical care time was 35 minutes. Time to perform other separately billable procedures was not included in the critical care time. Son Banuelos MD October 24, 2016 19:38
[2016-10-24 19:41] VITALS: BP 135/79; PULSE 80; RESP 16; TEMP 97.9; O2SAT 95
[2016-10-24] MEDS ORDERED: LORazepam 0.5 MG TAB PO PRN (19:45)
[2016-10-24] MEDS: cefTRIAXone INJ 2,000 MG in SODIUM CHLORIDE 0.9% INJ 100 ML IV SCH (20:00)
[2016-10-24 20:28] LABS: AMPHETAMINE, URINE NEG (NEG); BARBITURATES, URINE NEG (NEG); COCAINE, URINE NEG (NEG)
[2016-10-24] MEDS ORDERED: MIDAZOLAM HCL 2 MG/2 ML VIAL IV ONE (20:45)
[2016-10-24] MEDS: ATORVASTATIN 80 MG TAB PO SCH (21:00)
[2016-10-24] MEDS: HEPARIN SODIUM - SQ 10,000 UNITS/ML VIAL SQ SCH (21:00)
[2016-10-24] MEDS: FAMOTIDINE 20 MG TAB PO SCH (21:00)
[2016-10-24] MEDS: ACYCLOVIR IV SCH (21:00)
[2016-10-24] MEDS: SODIUM CHLORIDE 0.9% IV SCH (21:00)
[2016-10-24] MEDS: SODIUM CHLORIDE 0.9% FLUSH 10 ML FLUSH IV FLUSH SCH (21:00)
--- NOTE | 2016-10-24 21:46 | RADRPT ---
EXAM DATE/TIME: 10/24/2016 21:33 [facility] COMPARISON: CT BRAIN W/O CONTRAST, June 07, 2016, 14:47. INDICATIONS : Altered mental status. RADIATION DOSE: 56.35 CTDIvol (mGy) MEDICAL HISTORY : Dementia. Cardiovascular disease. Hypertension. COPD SURGICAL HISTORY : None. ENCOUNTER: Initial ACUITY: 1 day PAIN SCALE: Non-responsive LOCATION: Cranial TECHNIQUE: Multiple contiguous axial images were obtained of the head. Using automated exposure control and adj ustment of the mA and/or kV according to patient size, radiation dose was kept as low as reasonably a chievable to obtain optimal diagnostic quality images. FINDINGS: Diffuse cerebral atrophy is again noted. Severe periventricular and subcortical white matter small v essel ischemic changes are noted bilaterally. There is no acute infarct, acute hemorrhage, mass effe ct or extra-axial fluid collections. The bone windows are unremarkable. CONCLUSION: 1. Severe diffuse periventricular and subcortical white matter small vessel ischemic changes bilater ally. 2. Diffuse cerebral atrophy. 3. No acute infarct, acute hemorrhage, mass effect or extra-axial fluid collections. Herb Valladares MD on October 24, 2016 at 21:40 Board Certified Radiologist. This report was verified electronically.
[2016-10-24 22:00] VITALS: BP 102/57; PULSE 60; PULSE 61; RESP 16; TEMP 98.5; O2SAT 96
[2016-10-24] MEDS ORDERED: PHARMACY ORDERED LAB ONE (22:30)
--- NOTE | 2016-10-24 22:48 | PD.PROCEDR ---
Procedure Note Procedure Procedure - Lumbar Puncture Indication -altered mental status headache and fever Anesthesia - local 1% lidocaine w/ epi Informed consent was obtained from the patient's mother. The area was prepped and draped in the usual sterile fashion. Using landmarks, a 22 guage spinal needle was inserted in the L4-L5 innerspace. The stylet was removed and the opening pressure was measured at 18 cm of water. 4cc of clear fluid was collected and sent for routine studies. CSF was also sent for HSV and EBV PCR. The patient tolerated the procedure well. There was no blood loss or hematoma Son Banuelos MD October 24, 2016 22:48
[2016-10-24 23:46] LABS: GLUCOSE,CSF 58 MG/DL (40-80)
[2016-10-24 23:48] LABS: LACTIC ACID,CSF 2.3 MMOL/L (0.0-3.0)
[2016-10-25] VITALS (10 sets, daily range): BP systolic 106–138; BP diastolic 54–68; PULSE 56–65; RESP 18–24; TEMP 96–99; O2SAT 94–96
[2016-10-25 00:29] LABS: GROSS BLOOD TUBE #1 TRACE (0); GROSS BLOOD TUBE #2 TRACE (0); GROSS BLOOD TUBE #3 0 (0); SUPERNATE COLOR TUBE #1 CLEAR (CLEAR); SUPERNATE COLOR TUBE #2 CLEAR (CLEAR); SUPERNATE COLOR TUBE #3 CLEAR (CLEAR); VOLUME TUBE # 1 1.6 ML; VOLUME TUBE # 2 1.5 ML; VOLUME TUBE # 3 1.7 ML
[2016-10-25 00:30] LABS: CSF LYMPHOCYTES 32 %; CSF MONOCYTES 4 %; CSF NEUTROPHILS 64 %; SUPERNATE COLOR TUBE #4 CLEAR (CLEAR); WBC TUBE #4 11 /MM3 (0-10)
[2016-10-25 00:33] LABS: GROSS BLOOD TUBE #4 TRACE (0)
[2016-10-25] MEDS: SODIUM CHLOR 0.9% 1000 ML INJ 1,000 ML IV SCH ×4 (02:59→22:30)
[2016-10-25] MEDS: CHLORHEXIDINE GLUCONATE 2 % 1 PACK (2 CLOTHS) TOP SCH (04:00)
[2016-10-25 04:57] LABS: AUTOMATED NEUTROPHIL # 12.5 TH/MM3 (1.8-7.7); BASOPHIL # 0.1 TH/MM3 (0-0.2); BASOPHIL % 0.6 % (0.0-2.0); EOSINOPHIL # 0.4 TH/MM3 (0-0.4); EOSINOPHIL % 2.7 % (0.0-4.0); HEMO FLAGS DIFF FINAL; LYMPH % 11.8 % (9.0-44.0); LYMPHOCYTE # 1.8 TH/MM3 (1.0-4.8); MEAN CELL VOLUME 81.9 FL (80.0-100.0); MEAN CORPUSCULAR HEMOGLOBIN 26.1 PG (27.0-34.0); MEAN CORPUSCULAR HGB CONC 31.8 % (32.0-36.0); MONO % 4.3 % (0.0-8.0); NEUT % 80.6 % (16.0-70.0); PLATELET COUNT 138 TH/MM3 (150-450); RED BLOOD COUNT 4.03 MIL/MM3 (4.50-5.90); RED CELL DISTRIBUTION WIDTH 15.8 % (11.6-17.2); WHITE BLOOD COUNT 15.5 TH/MM3 (4.0-11.0)
[2016-10-25] MEDS: AMPICILLIN INJ 2,000 MG in SODIUM CHLORIDE 0.9% INJ 100 ML IV SCH ×3 (05:00→08:57)
[2016-10-25] MEDS: SODIUM CHLORIDE 0.9% IV SCH (05:00)
[2016-10-25] MEDS: ACYCLOVIR IV SCH (05:00)
[2016-10-25 05:17] LABS: ALKALINE PHOSPHATASE 132 U/L (45-117); ALT (GPT) 22 U/L (12-78); ANION GAP 6 MEQ/L (5-15); AST (GOT) 36 U/L (15-37); BICARBONATE 24.7 MEQ/L (21.0-32.0); BLOOD UREA NITROGEN 7 MG/DL (7-18); CHLORIDE 115 MEQ/L (98-107); GLOMERULAR FILTRATION RATE 117 ML/MIN (>89); SODIUM (NA) 146 MEQ/L (136-145); TOTAL BILIRUBIN ADULT 0.3 MG/DL (0.2-1.0)
[2016-10-25] MEDS: SODIUM CHLORIDE 1 GRAM TAB PO SCH ×3 (08:44→17:18)
[2016-10-25] MEDS: SODIUM CHLORIDE 0.9% FLUSH 10 ML FLUSH IV FLUSH SCH ×2 (08:58→22:30)
[2016-10-25] MEDS: HEPARIN SODIUM - SQ 10,000 UNITS/ML VIAL SQ SCH ×2 (08:59→22:28)
[2016-10-25] MEDS: FAMOTIDINE 20 MG TAB PO SCH ×2 (09:03→22:28)
[2016-10-25] MEDS: METOPROLOL SUCCINATE 50 MG EXTENDED RELEASE TAB PO SCH (09:03)
[2016-10-25] MEDS: ASPIRIN EC 81 MG TABEC PO SCH (09:03)
[2016-10-25] MEDS: amLODIPine BESYLATE 5 MG TAB PO SCH (09:03)
--- NOTE | 2016-10-25 09:35 | HHI.PR ---
Subjective Remarks Pt tells me that he feels fine after eating breakfast. Denies any pain anywhere , tells me that he is fine and doesn't need to be here. He states that the lady taking care of him took him to the Dr because he had chills from not eating all day. denies any CP/SOB/N/V discussed w RN, pt's daughter was here earlier and she felt that pt was better compared to yesterday Objective Vitals Vital Signs Date Time Temp Pulse Resp B/P Pulse Ox O2 Delivery O2 Flow Rate FiO2 10/25/16 06:00 56 10/25/16 06:00 99.0 58 18 109/58 96 10/25/16 04:00 58 10/25/16 02:00 58 10/25/16 00:00 98.8 61 24 132/60 95 10/25/16 00:00 61 10/24/16 22:00 98.5 61 16 102/57 96 10/24/16 22:00 60 10/24/16 19:41 97.9 80 16 135/79 95 10/24/16 17:30 103.3 103 16 141/84 97 Nasal Cannula 2 10/24/16 17:30 98 Nasal Cannula 2 10/24/16 17:30 138/82 10/24/16 16:40 16 96 Room Air 10/24/16 16:37 103 16 142/73 96 10/24/16 16:28 100.1 113 24 187/94 95 I/O 10/24/16 10/24/16 10/24/16 10/25/16 10/25/16 10/25/16 07:00 15:00 23:00 07:00 15:00 23:00 Intake Total 2450 ml Output Total 700 ml Balance 1750 ml Intake IV Total 2450 ml Output Urine Total 700 ml Result Diagram: 10/25/16 0437 10/25/16 0437 Imaging Last Impressions Chest X-Ray 10/24/16 1654 Signed Impressions: Service Date/Time: Monday, October 24, 2016 17:08 - CONCLUSION: Streaky densities within the right perihilar region and left lung base consistent with atelectasis and/or mild infiltrates. Clinical correlation is recommended. Herb Valladares MD Head CT 10/24/16 0000 Signed Impressions: Service Date/Time: Monday, October 24, 2016 21:33 - CONCLUSION: 1. Severe diffuse periventricular and subcortical white matter small vessel ischemic changes bilaterally. 2. Diffuse cerebral atrophy. 3. No acute infarct, acute hemorrhage, mass effect or extra-axial fluid collections. Herb Valladares MD Objective Remarks GENERAL: Cachectic elderly man, alert and awake, somewhat confused but answers most questions appropriately CARDIOVASCULAR: Regular rate and rhythm without murmurs RESPIRATORY: Breath sounds equal bilaterally. No accessory muscle use. GASTROINTESTINAL: Abdomen soft, non-tender, nondistended. MUSCULOSKELETAL: No cyanosis, or edema. EXTREMITIES: No edema A/P Assessment and Plan Altered mental status - CT head negative - History of fever and headache however pt denies this at this time. - LP shows WBC 11, RBC 1607 and protein 45.6. Pt currently on Vanc, acyclovir, rocephin and ampicillin IV. ID consulted. Appreciate input. continue IV abx for now - cultures growing gram neg leslee and CSF neg x 24 hrs Lactic acidosis - Unclear source of infection. blood cx pos gram neg leslee x 1 - repeat blood cx now COPD - No exacerbation - No steroids indicated - DuoNeb's when necessary TELE personally reviewed by me and shows mild oly then sinus rhythm. Place hold parameters on BB DVT GI prophylaxis - Subcutaneous heparin - Pepcid Discharge Planning d/c pending further work-up and clinical improvement. transfer to regular floor Ángela Perry MD October 25, 2016 09:35
[2016-10-25] MEDS ORDERED: cefTRIAXone INJ 2,000 MG in SODIUM CHLORIDE 0.9% INJ 100 ML IV SCH (09:45)
[2016-10-25] MEDS ORDERED: AMPICILLIN INJ 1,000 MG in SODIUM CHLORIDE 0.9% INJ 100 ML IV SCH ×2 (09:45→13:00)
[2016-10-25] MEDS: cefTRIAXone INJ 2,000 MG in SODIUM CHLORIDE 0.9% INJ 100 ML IV SCH (10:05)
[2016-10-25] MEDS ORDERED: VANCOMYCIN 1,000 MG/NS 250 ML IV SCH ×2 (11:00)
[2016-10-25] MEDS ORDERED: ASP: Path resistant to other antimicrobials, culture proven PRN (11:30)
[2016-10-25] MEDS ORDERED: MISCELLANEOUS PHARMACY INFORMATION XX PRN ×2 (11:30)
[2016-10-25] MEDS: MEROPENEM INJ 1,000 MG in SODIUM CHLORIDE 0.9% INJ 100 ML IV SCH ×2 (12:57→22:30)
--- NOTE | 2016-10-25 13:21 | MB ---
cc: NOE HANLEY MD DATE OF CONSULTATION: 10/25/2016. REASON FOR CONSULTATION: Sepsis, source unknown. REQUESTING PHYSICIAN: Dr. Banuelos. HISTORY OF PRESENT ILLNESS: This is a 71-year-old black male who was brought to the emergency department by his daughter with altered mental status. The patient is currently awake. He is a poor historian. He states that he feels better and wants to go home. The patient reports that he was having chills and he asked for blankets at home and he wanted something warm to drink but instead his daughter brought him to the emergency department for evaluation. Because of his mental status changes, a lumbar puncture was performed in the emergency department. He was found to have elevated temperature and elevated heart rate with temperature of 103.13 and heart rate of 103 and lactic acid level was 6.8. Lumbar puncture that revealed 11 white cells with 64% neutrophils and 32% lymphocytes and a total protein of 45.6 and normal glucose. The CSF was noted to be grossly bloody and the red blood cell count was 1607. The patient denies headache. Blood cultures were obtained and one of four bottles has gram-negative leslee. The cerebrospinal fluid culture is negative in 24 hours and the cerebrospinal fluid Gram stain showed no white cells and no organisms. The patient is currently on broad-spectrum antibiotics. A CT scan of his head showed severe diffuse periventricular and subcortical white matter small-vessel ischemic changes bilaterally. Diffuse cerebral atrophy was also noted. No acute infarct or hemorrhage was noted. The patient appears very alert and very awake but is very confused. He had cataract surgery and is blind. He tells me that he never pays attention to the date and month since he got sick in May. At that time in May, he was admitted with severe emphysema and COPD exacerbation and was intubated. PAST MEDICAL HISTORY: 1. Asthma. 2. Hypertension. 3. COPD. 4. Glaucoma. 5. Cataract surgery. 6. Diabetes mellitus. ALLERGIES: CONTRAST MEDIA. NO KNOWN DRUG ALLERGIES. MEDICATIONS: 1. Ampicillin. 2. Vancomycin. 3. Ceftriaxone. 4. Acyclovir. 5. Lipitor. 6. Pepcid. 7. Toprol XL. 8. Aspirin. 9. Norvasc. SOCIAL HISTORY: The patient lives with his daughter. He states that he had quit smoking cigarettes a long time ago but recently bought a pack of cigarettes and smoked two cigarettes within the past week. No alcohol use. No illicit drug use. FAMILY HISTORY: Noncontributory. REVIEW OF SYSTEMS: CONSTITUTIONAL: Positive for chills. HEAD, EYES, EARS, NOSE, THROAT: The patient is blind. Denies difficulty swallowing or soreness of the throat. NECK: No neck swelling. RESPIRATORY: No cough or shortness of breath. CARDIOVASCULAR: No palpitations or chest pain. GASTROINTESTINAL: No nausea or vomiting, abdominal pain or diarrhea. GENITOURINARY: No urgency or dysuria. HEMATOPOIETIC: No easy bruising. No bleeding. ENDOCRINE: No polyuria or polydipsia. MUSCULOSKELETAL: No muscle aches or joint pains. INTEGUMENTARY: No skin rash or itching. NEUROLOGIC: No headache or dizziness. PHYSICAL EXAMINATION: GENERAL: He is a slender, elderly male who appears well-nourished. He is in no acute distress. He is awake and alert. He is only oriented to person. VITAL SIGNS: Temperature 99 degrees, blood pressure 109/58, respirations 18, heart rate 58. The patient is on room air oxygen. HEAD, EYES, EARS, NOSE, THROAT: The head is atraumatic. Extraocular movements grossly intact. Pupils are reactive. Arcus senilis present in both eyes. Oropharynx with no visible lesions. NECK: The neck is supple. No adenopathy. LUNGS: Clear breath sounds bilaterally. HEART: Regular S1-S2 without murmurs, rubs or gallops. ABDOMEN: Bowel sounds present, soft, no tenderness. No masses. RECTAL: Not performed. EXTREMITIES: No clubbing or cyanosis or edema. NEUROLOGIC: Nonfocal. LABORATORY DATA: WBCs 15.5, platelets 138,000, hemoglobin 10.5, 80% neutrophils. Creatinine 0.79, estimated GFR 117, lactic acid 1.0. Liver function tests within normal limits. Toxicology screen negative. IMAGING STUDIES: Chest x-ray showed streaky densities within the right perihilar region and the left base consistent with atelectasis and/or mild infiltrate. IMPRESSION: 1. Gram-negative sepsis. Patient with one blood culture bottle showing gram negative rods. He presented with sepsis including fever, tachycardia, elevated lactic acid and now with elevated white blood cell count. The source is unclear at this time. 2. Altered mental status, probably related to sepsis. Cerebrospinal fluid studies not reflective of meningitis. RECOMMENDATIONS: 1. Continue ceftriaxone. 2. Discontinue acyclovir. 3. Discontinue ampicillin. 4. Discontinue vancomycin. 5. Monitor identity and sensitivity of the gram-negative bacteria in the blood stream. 6. Follow the repeat blood cultures. 7. Monitor clinically for source of infection. The patient appears to be clinically stable. However, with gram-negative bacteria in the blood stream, he has the potential to deteriorate. I have explained to the patient the seriousness of his condition. Thank you for this consultation. The patient's progress will be monitored and further recommendations will be given on followup if necessary. Noe Hanley MD FD/MARBIN /11:09 AM /1:04 PM
--- NOTE | 2016-10-25 16:03 | EKG ---
Date Performed: 10/24/2016 Time Performed: 16:43:57 PTAGE: 71 years EKG: SINUS TACHYCARDIA SEPTAL MYOCARDIAL INFARCTION ST DEVIATION AND MODERATE T-WAVE ABNORMALITY , CONSIDER ANTEROLATERAL ISCHEMIA When compared to previous tracing, the sinus tachycardia is new. Th e marked lateral ST segment changes are new, and acute Myocardial ischemia should be excluded clinica lly. ABNORMAL ECG PREVIOUS TRACING : 09/10/2016 11.06 DOCTOR: Milagros Richard Interpretating Date/Time 10/25/2016 16:02:38
[2016-10-25] MEDS ORDERED: LORazepam 2 MG/ML VIAL IV PUSH PRN (16:45)
[2016-10-25] MEDS ORDERED: HALOPERIDOL LACTATE 5 MG/ML AMP IV PUSH ONE (18:15)
[2016-10-25] MEDS ORDERED: HALOPERIDOL LACTATE 5 MG/ML AMP IM ONE (18:15)
[2016-10-25] MEDS ORDERED: HALOPERIDOL LACTATE 5 MG/ML AMP IM PRN (18:15)
[2016-10-25] MEDS: ATORVASTATIN 80 MG TAB PO SCH (22:27)
[2016-10-25] MEDS: MUPIROCIN 2% OINT 1 APPLIC/GM SYR NASAL SCH (22:27)
[2016-10-26] VITALS (7 sets, daily range): BP systolic 105–164; BP diastolic 58–76; PULSE 62–76; RESP 17–20; TEMP 96–97; O2SAT 94–97
[2016-10-26] MEDS: SODIUM CHLOR 0.9% 1000 ML INJ 1,000 ML IV SCH ×2 (03:28→21:08)
[2016-10-26] MEDS: CHLORHEXIDINE GLUCONATE 2 % 1 PACK (2 CLOTHS) TOP SCH (03:35)
[2016-10-26] MEDS: MEROPENEM INJ 1,000 MG in SODIUM CHLORIDE 0.9% INJ 100 ML IV SCH ×3 (05:20→21:08)
[2016-10-26 06:56] LABS: AUTOMATED NEUTROPHIL # 9.1 TH/MM3 (1.8-7.7); BASOPHIL # 0.1 TH/MM3 (0-0.2); BASOPHIL % 0.5 % (0.0-2.0); EOSINOPHIL # 0.6 TH/MM3 (0-0.4); EOSINOPHIL % 4.8 % (0.0-4.0); HEMATOCRIT 36.7 % (39.0-51.0); HEMO FLAGS DIFF FINAL; LYMPHOCYTE # 1.7 TH/MM3 (1.0-4.8); MEAN CELL VOLUME 81.7 FL (80.0-100.0); MEAN CORPUSCULAR HEMOGLOBIN 26.2 PG (27.0-34.0); MONO % 6.5 % (0.0-8.0); NEUT % 74.2 % (16.0-70.0); PLATELET COUNT 139 TH/MM3 (150-450); RED CELL DISTRIBUTION WIDTH 16.3 % (11.6-17.2); WHITE BLOOD COUNT 12.3 TH/MM3 (4.0-11.0)
[2016-10-26 07:27] LABS: BICARBONATE 26.5 MEQ/L (21.0-32.0); POTASSIUM 3.5 MEQ/L (3.5-5.1)
[2016-10-26] MEDS: SODIUM CHLORIDE 0.9% FLUSH 10 ML FLUSH IV FLUSH SCH ×2 (09:00→21:10)
[2016-10-26] MEDS: MUPIROCIN 2% OINT 1 APPLIC/GM SYR NASAL SCH ×2 (09:00→21:07)
[2016-10-26] MEDS: HEPARIN SODIUM - SQ 10,000 UNITS/ML VIAL SQ SCH ×2 (10:40→21:07)
[2016-10-26] MEDS: FAMOTIDINE 20 MG TAB PO SCH ×2 (10:41→21:06)
[2016-10-26] MEDS: ASPIRIN EC 81 MG TABEC PO SCH (10:41)
[2016-10-26] MEDS: SODIUM CHLORIDE 1 GRAM TAB PO SCH ×3 (10:41→17:58)
[2016-10-26] MEDS: METOPROLOL SUCCINATE 50 MG EXTENDED RELEASE TAB PO SCH (10:42)
[2016-10-26] MEDS: amLODIPine BESYLATE 5 MG TAB PO SCH (10:42)
--- NOTE | 2016-10-26 15:06 | HHI.IDPN ---
Note Infectious Disease Note Patient noted to be very confused. Laying in bed in no acute distress. Keeps eyes closed. Patient is blind. Afebrile. CSF culture has no growth. Patient was brought to the Ed by his daughter with altered mental status. PAST MEDICAL HISTORY: 1. Asthma. 2. Hypertension. 3. COPD. 4. Glaucoma. 5. Cataract surgery. 6. Diabetes mellitus. ALLERGIES: CONTRAST MEDIA. NO KNOWN DRUG ALLERGIES. ANTIBIOTICS: Meropenem. OBJECTIVE: Vital Signs Date Time Temp Pulse Resp B/P Pulse Ox O2 Delivery O2 Flow Rate FiO2 10/26/16 11:45 96.7 69 17 151/68 96 10/26/16 07:58 96.0 62 17 164/76 97 10/26/16 04:00 97.0 63 20 105/58 95 10/26/16 00:41 Room Air 10/26/16 00:00 96.6 73 20 113/60 94 10/25/16 20:00 96.0 63 20 112/58 95 10/25/16 16:00 Room Air 10/25/16 16:00 97.4 61 20 138/68 94 10/25/16 10/25/16 10/26/16 15:00 23:00 07:00 Intake Total 1651 ml 480 ml 966 ml Output Total 1525 ml Balance 126 ml 480 ml 966 ml Intake Oral 590 ml 480 ml 120 ml IV Total 1061 ml 846 ml Output Urine Total 1525 ml # Voids 1 3 # Bowel Movements 0 0 Laboratory Tests Test 10/24/16 10/25/16 10/26/16 16:50 04:37 06:11 White Blood Count 6.4 TH/MM3 15.5 TH/MM3 12.3 TH/MM3 Red Blood Count 4.71 MIL/MM3 4.03 MIL/MM3 4.50 MIL/MM3 Hemoglobin 12.6 GM/DL 10.5 GM/DL 11.8 GM/DL Hematocrit 39.0 % 33.0 % 36.7 % Mean Corpuscular Volume 82.9 FL 81.9 FL 81.7 FL Mean Corpuscular Hemoglobin 26.9 PG 26.1 PG 26.2 PG Mean Corpuscular Hemoglobin 32.4 % 31.8 % 32.0 % Concent Red Cell Distribution Width 16.4 % 15.8 % 16.3 % Platelet Count 186 TH/MM3 138 TH/MM3 139 TH/MM3 Mean Platelet Volume 8.2 FL 7.7 FL 8.3 FL Neutrophils (%) (Auto) 70.0 % 80.6 % 74.2 % Lymphocytes (%) (Auto) 25.3 % 11.8 % 14.0 % Monocytes (%) (Auto) 0.5 % 4.3 % 6.5 % Eosinophils (%) (Auto) 3.5 % 2.7 % 4.8 % Basophils (%) (Auto) 0.7 % 0.6 % 0.5 % Neutrophils # (Auto) 4.5 TH/MM3 12.5 TH/MM3 9.1 TH/MM3 Lymphocytes # (Auto) 1.6 TH/MM3 1.8 TH/MM3 1.7 TH/MM3 Monocytes # (Auto) 0.0 TH/MM3 0.7 TH/MM3 0.8 TH/MM3 Eosinophils # (Auto) 0.2 TH/MM3 0.4 TH/MM3 0.6 TH/MM3 Basophils # (Auto) 0.0 TH/MM3 0.1 TH/MM3 0.1 TH/MM3 CBC Comment DIFF FINAL DIFF FINAL DIFF FINAL Differential Comment Laboratory Tests Test 10/24/16 10/24/16 10/25/16 10/26/16 16:50 20:05 04:37 06:11 Sodium Level 139 MEQ/L 146 MEQ/L 142 MEQ/L Potassium Level 3.6 MEQ/L 4.0 MEQ/L 3.5 MEQ/L Chloride Level 103 MEQ/L 115 MEQ/L 110 MEQ/L Carbon Dioxide Level 24.7 MEQ/L 24.7 MEQ/L 26.5 MEQ/L Anion Gap 11 MEQ/L 6 MEQ/L 6 MEQ/L Blood Urea Nitrogen 5 MG/DL 7 MG/DL 7 MG/DL Creatinine 0.99 MG/DL 0.79 MG/DL 0.65 MG/DL Estimat Glomerular Filtration 90 ML/MIN 117 ML/MIN 146 ML/MIN Rate Random Glucose 100 MG/DL 81 MG/DL 69 MG/DL Lactic Acid Level 6.8 mmol/L 3.9 mmol/L 1.0 mmol/L Calcium Level 8.8 MG/DL 7.5 MG/DL 9.1 MG/DL Magnesium Level 1.5 MG/DL Total Bilirubin 0.4 MG/DL 0.3 MG/DL Aspartate Amino Transf 26 U/L 36 U/L (AST/SGOT) Alanine Aminotransferase 28 U/L 22 U/L (ALT/SGPT) Alkaline Phosphatase 182 U/L 132 U/L Total Creatine Kinase 87 U/L Troponin I LESS THAN 0.02 NG/ML Total Protein 7.5 GM/DL 5.6 GM/DL Albumin 3.4 GM/DL 2.4 GM/DL Microbiology Date/Time Procedure Status Source Growth 10/24/16 16:50 Aerobic Blood Culture - Preliminary Resulted Blood Peripheral NO GROWTH IN 2 DAYS 10/24/16 16:50 Anaerobic Blood Culture - Preliminary Resulted Escherichia Coli 10/24/16 17:20 Aerobic Blood Culture - Preliminary Resulted Blood Peripheral NO GROWTH IN 2 DAYS 10/24/16 17:20 Anaerobic Blood Culture - Preliminary Resulted Blood Peripheral NO GROWTH IN 2 DAYS 10/24/16 22:45 Gram Stain - Final Resulted Cerebral Spinal Fluid Lumbar Puncture 10/24/16 22:45 CSF Culture - Preliminary Resulted Cerebral Spinal Fluid Lumbar Puncture NO GROWTH IN 48 HOURS. 10/25/16 10:40 Aerobic Blood Culture - Preliminary Resulted Blood Peripheral NO GROWTH IN 1 DAY 10/25/16 10:40 Anaerobic Blood Culture - Preliminary Resulted Blood Peripheral NO GROWTH IN 1 DAY 10/25/16 10:44 Aerobic Blood Culture - Preliminary Resulted Blood Peripheral NO GROWTH IN 1 DAY 10/25/16 10:44 Anaerobic Blood Culture - Preliminary Resulted Blood Peripheral NO GROWTH IN 1 DAY IMAGING: Chest X-Ray 10/24/16 1654 Signed Impressions: Service Date/Time: Monday, October 24, 2016 17:08 - CONCLUSION: Streaky densities within the right perihilar region and left lung base consistent with atelectasis and/or mild infiltrates. Clinical correlation is recommended. Herb Valladares MD Head CT 10/24/16 0000 Signed Impressions: Service Date/Time: Monday, October 24, 2016 21:33 - CONCLUSION: 1. Severe diffuse periventricular and subcortical white matter small vessel ischemic changes bilaterally. 2. Diffuse cerebral atrophy. 3. No acute infarct, acute hemorrhage, mass effect or extra-axial fluid collections. Herb Valladares MD PHYSICAL EXAMINATION: GENERAL: No acute distress.He is only oriented to person. HEAD, EYES, EARS, NOSE, THROAT: The head is atraumatic. Extraocular movements grossly intact. Pupils are reactive. Arcus senilis present in both eyes. Oropharynx with no visible lesions. NECK: The neck is supple. No adenopathy. LUNGS: Clear breath sounds. HEART: Regular S1-S2 without murmurs, rubs or gallops. ABDOMEN: Bowel sounds present, soft, no tenderness. No masses. EXTREMITIES: No clubbing or cyanosis or edema. NEUROLOGIC: Nonfocal. IMPRESSION: 1. Gram-negative sepsis. Patient with one blood culture bottle showing gram negative rods. He presented with sepsis including fever, tachycardia, elevated lactic acid and now with elevated white blood cell count. 2. Altered mental status, probably related to sepsis. Cerebrospinal fluid studies not reflective of meningitis. RECOMMENDATIONS: 1. Continue Meropenem 2. Monitor identity and sensitivity of the gram-negative bacteria in the blood stream. 3. Follow the repeat blood cultures. 4. Monitor clinically. Noe Kemp MD October 26, 2016 15:06
--- NOTE | 2016-10-26 15:12 | HHI.PR ---
Subjective Remarks pt thinks he is home, denies any pain, when told he is in the hospital he says no. denies any CP/SOB/n/v Objective Vitals Vital Signs Date Time Temp Pulse Resp B/P Pulse Ox O2 Delivery O2 Flow Rate FiO2 10/26/16 11:45 96.7 69 17 151/68 96 10/26/16 07:58 96.0 62 17 164/76 97 10/26/16 04:00 97.0 63 20 105/58 95 10/26/16 00:41 Room Air 10/26/16 00:00 96.6 73 20 113/60 94 10/25/16 20:00 96.0 63 20 112/58 95 10/25/16 16:00 Room Air 10/25/16 16:00 97.4 61 20 138/68 94 I/O 10/25/16 10/25/16 10/25/16 10/26/16 10/26/16 10/26/16 06:59 14:59 22:59 06:59 14:59 22:59 Intake Total 2450 ml 1651 ml 480 ml 966 ml Output Total 700 ml 1525 ml Balance 1750 ml 126 ml 480 ml 966 ml Intake Oral 590 ml 480 ml 120 ml IV Total 2450 ml 1061 ml 846 ml Output Urine Total 700 ml 1525 ml # Voids 1 3 # Bowel Movements 0 0 Result Diagram: 10/26/16 0611 10/26/16 0611 Imaging Last Impressions Chest X-Ray 10/24/16 1654 Signed Impressions: Service Date/Time: Monday, October 24, 2016 17:08 - CONCLUSION: Streaky densities within the right perihilar region and left lung base consistent with atelectasis and/or mild infiltrates. Clinical correlation is recommended. Herb Valladares MD Head CT 10/24/16 0000 Signed Impressions: Service Date/Time: Monday, October 24, 2016 21:33 - CONCLUSION: 1. Severe diffuse periventricular and subcortical white matter small vessel ischemic changes bilaterally. 2. Diffuse cerebral atrophy. 3. No acute infarct, acute hemorrhage, mass effect or extra-axial fluid collections. Herb Valladares MD Objective Remarks GENERAL: Cachectic elderly man, alert and awake, pleasantly confused CARDIOVASCULAR: Regular rate and rhythm without murmurs RESPIRATORY: Breath sounds equal bilaterally. No accessory muscle use. GASTROINTESTINAL: Abdomen soft, non-tender, nondistended. MUSCULOSKELETAL: No cyanosis, or edema. EXTREMITIES: No edema A/P Assessment and Plan Altered mental status - CT head negative - History of fever and headache however pt denies this at this time. - LP shows WBC 11, RBC 1607 and protein 45.6. ID following and has discontinued vanc/amp/acyclovir. continue rocephin IV. appreciate input. - cultures growing gram neg leslee and repeat blood cx negx1 day. and CSF neg x 48 hrs Lactic acidosis - Unclear source of infection. blood cx pos gram neg leslee x 1 - repeat blood cx neg x1day COPD - No exacerbation - No steroids indicated - DuoNeb's when necessary DVT GI prophylaxis - Subcutaneous heparin - Pepcid Discharge Planning d/c pending further work-up and clinical improvement. awaiting final recs from Ángela Mohr MD October 26, 2016 15:12
[2016-10-26] MEDS: ATORVASTATIN 80 MG TAB PO SCH (21:06)
[2016-10-27] VITALS (7 sets, daily range): BP systolic 114–144; BP diastolic 63–76; PULSE 50–72; RESP 17–20; TEMP 95.6–97.6; O2SAT 91–99
[2016-10-27] MEDS: CHLORHEXIDINE GLUCONATE 2 % 1 PACK (2 CLOTHS) TOP SCH (04:00)
[2016-10-27] MEDS: MEROPENEM INJ 1,000 MG in SODIUM CHLORIDE 0.9% INJ 100 ML IV SCH ×3 (04:19→22:15)
[2016-10-27] MEDS: SODIUM CHLOR 0.9% 1000 ML INJ 1,000 ML IV SCH ×2 (04:19→11:28)
[2016-10-27 07:39] LABS: AUTOMATED NEUTROPHIL # 5.2 TH/MM3 (1.8-7.7); BASOPHIL # 0.1 TH/MM3 (0-0.2); BASOPHIL % 1.5 % (0.0-2.0); EOSINOPHIL # 0.8 TH/MM3 (0-0.4); HEMATOCRIT 36.8 % (39.0-51.0); HEMO FLAGS DIFF FINAL; LYMPH % 25.5 % (9.0-44.0); LYMPHOCYTE # 2.4 TH/MM3 (1.0-4.8); MEAN CELL VOLUME 80.5 FL (80.0-100.0); MEAN CORPUSCULAR HEMOGLOBIN 27.2 PG (27.0-34.0); MEAN CORPUSCULAR HGB CONC 33.8 % (32.0-36.0); MONO % 10.3 % (0.0-8.0); NEUT % 54.7 % (16.0-70.0); PLATELET COUNT 135 TH/MM3 (150-450); RED BLOOD COUNT 4.57 MIL/MM3 (4.50-5.90); RED CELL DISTRIBUTION WIDTH 16.5 % (11.6-17.2); WHITE BLOOD COUNT 9.4 TH/MM3 (4.0-11.0)
[2016-10-27 08:01] LABS: BICARBONATE 26.6 MEQ/L (21.0-32.0); POTASSIUM 3.8 MEQ/L (3.5-5.1)
[2016-10-27] MEDS: MUPIROCIN 2% OINT 1 APPLIC/GM SYR NASAL SCH ×2 (08:49→22:15)
[2016-10-27] MEDS: HEPARIN SODIUM - SQ 10,000 UNITS/ML VIAL SQ SCH ×2 (08:50→22:16)
[2016-10-27] MEDS: METOPROLOL SUCCINATE 50 MG EXTENDED RELEASE TAB PO SCH (08:54)
[2016-10-27] MEDS: amLODIPine BESYLATE 5 MG TAB PO SCH (08:55)
[2016-10-27] MEDS: FAMOTIDINE 20 MG TAB PO SCH ×2 (08:55→22:16)
[2016-10-27] MEDS: ASPIRIN EC 81 MG TABEC PO SCH (08:55)
[2016-10-27] MEDS: SODIUM CHLORIDE 1 GRAM TAB PO SCH ×3 (08:56→18:43)
[2016-10-27] MEDS: SODIUM CHLORIDE 0.9% FLUSH 10 ML FLUSH IV FLUSH SCH ×2 (08:56→22:15)
[2016-10-27 11:35] LABS: HSV 1,PCR Negative (Negative)
--- NOTE | 2016-10-27 15:36 | HHI.IDPN ---
Note Infectious Disease Note Patient is confused. Talking much. Want's to be in his own home. Laying in bed in no acute distress. Eyes open. Patient is blind. Afebrile. CSF culture has no growth. Blood culture has ESBL E.coli. Patient was brought to the Ed by his daughter with altered mental status. PAST MEDICAL HISTORY: 1. Asthma. 2. Hypertension. 3. COPD. 4. Glaucoma. 5. Cataract surgery. 6. Diabetes mellitus. ALLERGIES: CONTRAST MEDIA. NO KNOWN DRUG ALLERGIES. ANTIBIOTICS: Meropenem. OBJECTIVE: Vital Signs Date Time Temp Pulse Resp B/P Pulse Ox O2 Delivery O2 Flow Rate FiO2 10/27/16 12:00 96.2 72 18 144/76 99 10/27/16 08:00 97.5 51 17 139/66 94 10/27/16 07:00 50 10/27/16 04:00 97.5 60 20 114/65 91 10/27/16 00:00 97.6 60 20 132/63 96 10/26/16 20:00 96.4 76 20 150/70 96 10/26/16 10/26/16 10/27/16 14:59 22:59 06:59 Intake Total 120 ml Output Total 600 ml Balance -480 ml Intake Oral 120 ml Output Urine Total 600 ml # Voids 6 1 # Bowel Movements 0 0 Laboratory Tests Test 10/26/16 10/27/16 06:11 06:48 White Blood Count 12.3 TH/MM3 9.4 TH/MM3 Red Blood Count 4.50 MIL/MM3 4.57 MIL/MM3 Hemoglobin 11.8 GM/DL 12.4 GM/DL Hematocrit 36.7 % 36.8 % Mean Corpuscular Volume 81.7 FL 80.5 FL Mean Corpuscular Hemoglobin 26.2 PG 27.2 PG Mean Corpuscular Hemoglobin 32.0 % 33.8 % Concent Red Cell Distribution Width 16.3 % 16.5 % Platelet Count 139 TH/MM3 135 TH/MM3 Mean Platelet Volume 8.3 FL 8.3 FL Neutrophils (%) (Auto) 74.2 % 54.7 % Lymphocytes (%) (Auto) 14.0 % 25.5 % Monocytes (%) (Auto) 6.5 % 10.3 % Eosinophils (%) (Auto) 4.8 % 8.0 % Basophils (%) (Auto) 0.5 % 1.5 % Neutrophils # (Auto) 9.1 TH/MM3 5.2 TH/MM3 Lymphocytes # (Auto) 1.7 TH/MM3 2.4 TH/MM3 Monocytes # (Auto) 0.8 TH/MM3 1.0 TH/MM3 Eosinophils # (Auto) 0.6 TH/MM3 0.8 TH/MM3 Basophils # (Auto) 0.1 TH/MM3 0.1 TH/MM3 CBC Comment DIFF FINAL DIFF FINAL Differential Comment Laboratory Tests Test 10/26/16 10/27/16 06:11 06:48 Sodium Level 142 MEQ/L 140 MEQ/L Potassium Level 3.5 MEQ/L 3.8 MEQ/L Chloride Level 110 MEQ/L 106 MEQ/L Carbon Dioxide Level 26.5 MEQ/L 26.6 MEQ/L Anion Gap 6 MEQ/L 7 MEQ/L Blood Urea Nitrogen 7 MG/DL 6 MG/DL Creatinine 0.65 MG/DL 0.66 MG/DL Estimat Glomerular Filtration 146 ML/MIN 143 ML/MIN Rate Random Glucose 69 MG/DL 65 MG/DL Calcium Level 9.1 MG/DL 8.8 MG/DL Microbiology Date/Time Procedure Status Source Growth 10/24/16 16:50 Aerobic Blood Culture - Preliminary Resulted Blood Peripheral NO GROWTH IN 3 DAYS 10/24/16 16:50 Anaerobic Blood Culture - Final Resulted Escherichia Coli Esbl Positive 10/24/16 17:20 Aerobic Blood Culture - Preliminary Resulted Blood Peripheral NO GROWTH IN 3 DAYS 10/24/16 17:20 Anaerobic Blood Culture - Preliminary Resulted Blood Peripheral NO GROWTH IN 3 DAYS 10/24/16 22:45 Gram Stain - Final Complete Cerebral Spinal Fluid Lumbar Puncture 10/24/16 22:45 CSF Culture - Final Complete Cerebral Spinal Fluid Lumbar Puncture NO GROWTH IN 72 HOURS 10/25/16 10:40 Aerobic Blood Culture - Preliminary Resulted Blood Peripheral NO GROWTH IN 2 DAYS 10/25/16 10:40 Anaerobic Blood Culture - Preliminary Resulted Blood Peripheral NO GROWTH IN 2 DAYS 10/25/16 10:44 Aerobic Blood Culture - Preliminary Resulted Blood Peripheral NO GROWTH IN 2 DAYS 10/25/16 10:44 Anaerobic Blood Culture - Preliminary Resulted Blood Peripheral NO GROWTH IN 2 DAYS IMAGING: Chest X-Ray 10/24/16 1110 Signed Impressions: Service Date/Time: Monday, October 24, 2016 17:08 - CONCLUSION: Streaky densities within the right perihilar region and left lung base consistent with atelectasis and/or mild infiltrates. Clinical correlation is recommended. Herb Valladares MD Head CT 10/24/16 0000 Signed Impressions: Service Date/Time: Monday, October 24, 2016 21:33 - CONCLUSION: 1. Severe diffuse periventricular and subcortical white matter small vessel ischemic changes bilaterally. 2. Diffuse cerebral atrophy. 3. No acute infarct, acute hemorrhage, mass effect or extra-axial fluid collections. Hreb Valladares MD PHYSICAL EXAMINATION: GENERAL: No acute distress. He is only oriented to person. HEAD, EYES, EARS, NOSE, THROAT: The head is atraumatic. Extraocular movements grossly intact. Pupils are reactive. Arcus senilis present in both eyes. Oropharynx with no visible lesions. NECK: The neck is supple. No adenopathy. LUNGS: Clear breath sounds. HEART: Regular S1-S2 without murmurs, rubs or gallops. ABDOMEN: Bowel sounds present, soft, no tenderness. EXTREMITIES: No clubbing or cyanosis or edema. NEUROLOGIC: Nonfocal. IMPRESSION: 1. Gram-negative sepsis. E. coli ESBL. He presented with sepsis including fever, tachycardia, elevated lactic acid and now with elevated white blood cell count. 2. Altered mental status, probably related to sepsis. Cerebrospinal fluid studies not reflective of meningitis. RECOMMENDATIONS: 1. Continue Meropenem 2. Follow the repeat blood cultures. 3. Monitor clinical status. Noe Kemp MD October 27, 2016 15:36
--- NOTE | 2016-10-27 16:38 | HHI.PR ---
Subjective Remarks Pt pleasantly confused. still requiring restraints because he tries to get out of bed. Objective Vitals Vital Signs Date Time Temp Pulse Resp B/P Pulse Ox O2 Delivery O2 Flow Rate FiO2 10/27/16 16:00 95.6 69 18 131/72 96 10/27/16 12:00 96.2 72 18 144/76 99 10/27/16 08:00 97.5 51 17 139/66 94 10/27/16 07:00 50 10/27/16 04:00 97.5 60 20 114/65 91 10/27/16 00:00 97.6 60 20 132/63 96 10/26/16 20:00 96.4 76 20 150/70 96 I/O 10/26/16 10/26/16 10/26/16 10/27/16 10/27/16 10/27/16 07:00 15:00 23:00 07:00 15:00 23:00 Intake Total 966 ml 120 ml 660 ml Output Total 600 ml 1000 ml Balance 966 ml -480 ml -340 ml Intake Oral 120 ml 120 ml 660 ml IV Total 846 ml Output Urine Total 600 ml 1000 ml # Voids 3 6 1 1 # Bowel Movements 0 0 0 1 Result Diagram: 10/27/16 0648 10/27/16 0648 Imaging Last Impressions Chest X-Ray 10/24/16 1654 Signed Impressions: Service Date/Time: Monday, October 24, 2016 17:08 - CONCLUSION: Streaky densities within the right perihilar region and left lung base consistent with atelectasis and/or mild infiltrates. Clinical correlation is recommended. Herb Valladares MD Head CT 10/24/16 0000 Signed Impressions: Service Date/Time: Monday, October 24, 2016 21:33 - CONCLUSION: 1. Severe diffuse periventricular and subcortical white matter small vessel ischemic changes bilaterally. 2. Diffuse cerebral atrophy. 3. No acute infarct, acute hemorrhage, mass effect or extra-axial fluid collections. Herb Valladares MD Objective Remarks GENERAL: Cachectic elderly man, alert and awake, pleasantly confused CARDIOVASCULAR: Regular rate and rhythm without murmurs RESPIRATORY: Breath sounds equal bilaterally. No accessory muscle use. GASTROINTESTINAL: Abdomen soft, non-tender, nondistended. MUSCULOSKELETAL: in restraints but able to move extremities EXTREMITIES: No edema A/P Assessment and Plan Altered mental status - CT head negative - History of fever and headache however pt denies this at this time. - LP shows WBC 11, RBC 1607 and protein 45.6. ID following and has discontinued vanc/amp/acyclovir.switched rocephin IV to meropenem due to E. Coli ESBL. appreciate input. - cultures growing E. Coli ESBL and repeat blood cx negx2 day. and CSF neg x 48 hrs Lactic acidosis resolved. see above COPD - No exacerbation - No steroids indicated - DuoNeb's when necessary DVT GI prophylaxis - Subcutaneous heparin - Pepcid Discharge Planning Pt on IV meropenem. f/u final repeat blood cx. awaiting final recs from ID I have requested a sitter for pt as w his dementia he gets agitated and tries to get out of bed. His vision is very poor, therefore he is at increase risk for falls. Try to remove restraints Ángela Perry MD October 27, 2016 16:37
[2016-10-27] MEDS: ATORVASTATIN 80 MG TAB PO SCH (22:15)
[2016-10-28] VITALS (9 sets, daily range): BP systolic 116–146; BP diastolic 60–72; PULSE 54–70; RESP 18–22; TEMP 95.9–98; O2SAT 93–99
[2016-10-28] MEDS: CHLORHEXIDINE GLUCONATE 2 % 1 PACK (2 CLOTHS) TOP SCH (04:00)
[2016-10-28] MEDS: MEROPENEM INJ 1,000 MG in SODIUM CHLORIDE 0.9% INJ 100 ML IV SCH ×3 (06:00→22:46)
[2016-10-28 08:12] LABS: AUTOMATED NEUTROPHIL # 2.9 TH/MM3 (1.8-7.7); BASOPHIL # 0.1 TH/MM3 (0-0.2); BASOPHIL % 1.1 % (0.0-2.0); EOSINOPHIL # 0.6 TH/MM3 (0-0.4); EOSINOPHIL % 7.6 % (0.0-4.0); HEMATOCRIT 38.7 % (39.0-51.0); HEMO FLAGS DIFF FINAL; LYMPH % 37.8 % (9.0-44.0); LYMPHOCYTE # 2.8 TH/MM3 (1.0-4.8); MEAN CELL VOLUME 80.5 FL (80.0-100.0); MEAN CORPUSCULAR HEMOGLOBIN 26.7 PG (27.0-34.0); MEAN CORPUSCULAR HGB CONC 33.2 % (32.0-36.0); NEUT % 39.5 % (16.0-70.0); PLATELET COUNT 144 TH/MM3 (150-450); RED CELL DISTRIBUTION WIDTH 16.1 % (11.6-17.2); WHITE BLOOD COUNT 7.3 TH/MM3 (4.0-11.0)
[2016-10-28] MEDS: ASPIRIN EC 81 MG TABEC PO SCH (08:24)
[2016-10-28] MEDS: FAMOTIDINE 20 MG TAB PO SCH ×2 (08:24→22:45)
[2016-10-28] MEDS: SODIUM CHLORIDE 1 GRAM TAB PO SCH ×3 (08:24→16:48)
[2016-10-28] MEDS: METOPROLOL SUCCINATE 50 MG EXTENDED RELEASE TAB PO SCH (08:24)
[2016-10-28] MEDS: HEPARIN SODIUM - SQ 10,000 UNITS/ML VIAL SQ SCH ×2 (08:25→22:45)
[2016-10-28] MEDS: SODIUM CHLORIDE 0.9% FLUSH 10 ML FLUSH IV FLUSH SCH ×2 (08:25→21:00)
[2016-10-28] MEDS: MUPIROCIN 2% OINT 1 APPLIC/GM SYR NASAL SCH ×2 (08:25→21:00)
[2016-10-28 08:28] LABS: BICARBONATE 23.3 MEQ/L (21.0-32.0); MAGNESIUM 1.9 MG/DL (1.5-2.5); POTASSIUM 3.9 MEQ/L (3.5-5.1)
[2016-10-28] MEDS: amLODIPine BESYLATE 5 MG TAB PO SCH (08:28)
[2016-10-28] MEDS ORDERED: POTASSIUM CHLORIDE 20 MEQ CONTROLLED RELEASE TAB PO ONE (12:00)
[2016-10-28] MEDS ORDERED: MAGNESIUM OXIDE 400 MG TAB PO ONE (12:00)
--- NOTE | 2016-10-28 12:20 | HHI.PR ---
Subjective Remarks Follow-up encephalopathy. He is improved alert and oriented to person, place but not to time and situation. He wants to go home. Off restraints since 6 PM last night. Discussed with RN, had bigeminy/trigeminy overnight. Repeat BMP noted. Objective Vitals Vital Signs Date Time Temp Pulse Resp B/P Pulse Ox O2 Delivery O2 Flow Rate FiO2 10/28/16 08:30 61 10/28/16 08:18 96.9 54 18 134/72 93 10/28/16 06:21 97.9 70 20 124/70 96 10/28/16 00:00 97.2 57 18 146/71 93 10/27/16 20:00 96.7 62 18 139/69 96 10/27/16 20:00 66 10/27/16 16:00 95.6 69 18 131/72 96 10/27/16 12:00 96.2 72 18 144/76 99 I/O 10/27/16 10/27/16 10/27/16 10/28/16 10/28/16 10/28/16 07:00 15:00 23:00 07:00 15:00 23:00 Intake Total 660 ml 720 ml Output Total 1000 ml 800 ml 600 ml Balance -340 ml -80 ml -600 ml Intake Oral 660 ml 720 ml Output Urine Total 1000 ml 800 ml 600 ml # Voids 1 1 # Bowel Movements 0 1 0 0 Result Diagram: 10/28/16 0800 10/28/16 0800 Imaging Last Impressions Chest X-Ray 10/24/16 1654 Signed Impressions: Service Date/Time: Monday, October 24, 2016 17:08 - CONCLUSION: Streaky densities within the right perihilar region and left lung base consistent with atelectasis and/or mild infiltrates. Clinical correlation is recommended. Herb Valladares MD Head CT 10/24/16 0000 Signed Impressions: Service Date/Time: Monday, October 24, 2016 21:33 - CONCLUSION: 1. Severe diffuse periventricular and subcortical white matter small vessel ischemic changes bilaterally. 2. Diffuse cerebral atrophy. 3. No acute infarct, acute hemorrhage, mass effect or extra-axial fluid collections. Herb Valladares MD Objective Remarks GENERAL: Well-developed well-nourished in no distress SKIN: Warm and dry. HEAD: Atraumatic. Normocephalic. EYES: Pupils equal and round. No scleral icterus. No injection or drainage. ENT: No nasal bleeding or discharge. Mucous membranes pink and moist. NECK: Trachea midline. No JVD. CARDIOVASCULAR: Regular rate and rhythm. RESPIRATORY: No accessory muscle use. Clear to auscultation. Breath sounds equal bilaterally. GASTROINTESTINAL: Abdomen soft, non-tender, nondistended. MUSCULOSKELETAL: Extremities without clubbing, cyanosis, or edema. No obvious deformities. NEUROLOGICAL: Awake and alert. No obvious cranial nerve deficits. Motor grossly within normal limits. Five out of 5 muscle strength in the arms and legs. Normal speech. PSYCHIATRIC: Appropriate mood and affect; insight and judgment normal. Procedures Lumbar puncture A/P Problem List: (1) Sepsis ICD Code: A41.9 Status: Acute Assessment and Plan Encephalopathy secondary to sepsis. Improving - CT head negative - History of fever and headache however pt denies this at this time. - LP shows WBC 11, RBC 1607 and protein 45.6. ID following and has discontinued vanc/amp/acyclovir and switched rocephin IV to meropenem due to E. Coli ESBL. - cultures growing E. Coli ESBL and repeat blood cx neg x3 day and CSF neg x 72 hrs Lactic acidosis resolved. see above COPD - No exacerbation - No steroids indicated - DuoNeb's when necessary Bigeminy/trigeminy. Replace potassium and magnesium. A persistent consider echocardiogram. Check TSH and repeat BMP and magnesium in the morning. Continue telemetry monitoring DVT GI prophylaxis - Subcutaneous heparin - Pepcid Discharge Planning Rehabilitation versus home health care Problem Qualifiers (1) Sepsis: Qualified Code: A41.9 - Sepsis, due to unspecified organism Rancho Maciel MD October 28, 2016 11:49
--- NOTE | 2016-10-28 12:21 | HHI.DCPOC ---
Discharge Care Plan Diagnosis: (1) Sepsis (2) Altered mental status, unspecified Your Health Problems Are: Difficulty with ADL Exercise Tolerance Goals to Promote Your Health * To prevent worsening of your condition and complications * To maintain your health at the optimal level Directions to Meet Your Goals Take your medications as prescribed Follow your dietary instruction Follow activity as directed Keep your appointments as scheduled Take your immunizations and boosters as scheduled If your symptoms worsen call your PCP, if no PCP go to Urgent Care Center or Emergency Room Smoking is Dangerous to Your Health. Avoid second hand smoke Call the 24-hour hour crisis hotline for domestic abuse at Rancho Maciel MD October 28, 2016 11:52
[2016-10-28] MEDS ORDERED: WALKER WHEELS/F1 MIS (12:44)
--- NOTE | 2016-10-28 12:44 | HHI.FF ---
Face to Face Verification Diagnosis: (1) Sepsis Physical Therapy Order: Evaluate and Treat, Improve ambulation, Strength and gait training Home Health Nursing Order: Medical education Signs/symptoms of disease process Medication education-adverse effect Nursing assessment with vital signs IV medication administration I have seen patient Paras Hannah on 10/28/16. My clinical findings support the need for the requested home health care services because: Deconditioned w/ increased weakness I certify that my clinical findings support that this patient is homebound because: Unsafe to leave home unassisted Rancho Maciel MD October 28, 2016 12:44
--- NOTE | 2016-10-28 15:48 | HHI.IDPN ---
Note Infectious Disease Note Patient is more alert. Laying in bed in no acute distress. Eyes open. Patient is blind. No fever. CSF culture has no growth. 10/24 Blood culture has ESBL E.coli. 10/25 Blood culture is negative. Patient was brought to the Ed by his daughter with altered mental status. PAST MEDICAL HISTORY: 1. Asthma. 2. Hypertension. 3. COPD. 4. Glaucoma. 5. Cataract surgery. 6. Diabetes mellitus. ALLERGIES: CONTRAST MEDIA. NO KNOWN DRUG ALLERGIES. ANTIBIOTICS: Meropenem. OBJECTIVE: Vital Signs Date Time Temp Pulse Resp B/P Pulse Ox O2 Delivery O2 Flow Rate FiO2 10/28/16 12:48 95.9 67 18 128/67 94 10/28/16 08:30 61 10/28/16 08:18 96.9 54 18 134/72 93 10/28/16 06:21 97.9 70 20 124/70 96 10/28/16 00:00 97.2 57 18 146/71 93 10/27/16 20:00 96.7 62 18 139/69 96 10/27/16 20:00 66 10/27/16 16:00 95.6 69 18 131/72 96 10/27/16 10/27/16 10/28/16 15:00 23:00 07:00 Intake Total 660 ml 720 ml Output Total 1000 ml 800 ml 600 ml Balance -340 ml -80 ml -600 ml Intake Oral 660 ml 720 ml Output Urine Total 1000 ml 800 ml 600 ml # Voids 1 # Bowel Movements 1 0 0 Laboratory Tests Test 10/27/16 10/28/16 06:48 08:00 White Blood Count 9.4 TH/MM3 7.3 TH/MM3 Red Blood Count 4.57 MIL/MM3 4.80 MIL/MM3 Hemoglobin 12.4 GM/DL 12.8 GM/DL Hematocrit 36.8 % 38.7 % Mean Corpuscular Volume 80.5 FL 80.5 FL Mean Corpuscular Hemoglobin 27.2 PG 26.7 PG Mean Corpuscular Hemoglobin 33.8 % 33.2 % Concent Red Cell Distribution Width 16.5 % 16.1 % Platelet Count 135 TH/MM3 144 TH/MM3 Mean Platelet Volume 8.3 FL 8.2 FL Neutrophils (%) (Auto) 54.7 % 39.5 % Lymphocytes (%) (Auto) 25.5 % 37.8 % Monocytes (%) (Auto) 10.3 % 14.0 % Eosinophils (%) (Auto) 8.0 % 7.6 % Basophils (%) (Auto) 1.5 % 1.1 % Neutrophils # (Auto) 5.2 TH/MM3 2.9 TH/MM3 Lymphocytes # (Auto) 2.4 TH/MM3 2.8 TH/MM3 Monocytes # (Auto) 1.0 TH/MM3 1.0 TH/MM3 Eosinophils # (Auto) 0.8 TH/MM3 0.6 TH/MM3 Basophils # (Auto) 0.1 TH/MM3 0.1 TH/MM3 CBC Comment DIFF FINAL DIFF FINAL Differential Comment Laboratory Tests Test 10/27/16 10/28/16 06:48 08:00 Sodium Level 140 MEQ/L 142 MEQ/L Potassium Level 3.8 MEQ/L 3.9 MEQ/L Chloride Level 106 MEQ/L 110 MEQ/L Carbon Dioxide Level 26.6 MEQ/L 23.3 MEQ/L Anion Gap 7 MEQ/L 9 MEQ/L Blood Urea Nitrogen 6 MG/DL 10 MG/DL Creatinine 0.66 MG/DL 0.70 MG/DL Estimat Glomerular Filtration 143 ML/MIN 134 ML/MIN Rate Random Glucose 65 MG/DL 82 MG/DL Calcium Level 8.8 MG/DL 9.0 MG/DL Magnesium Level 1.9 MG/DL Thyroid Stimulating Hormone 2.420 uIU/ML 3rd Gen Microbiology Date/Time Procedure Status Source Growth 10/24/16 16:50 Aerobic Blood Culture - Preliminary Resulted Blood Peripheral NO GROWTH IN 3 DAYS 10/24/16 16:50 Anaerobic Blood Culture - Final Resulted Escherichia Coli Esbl Positive 10/24/16 17:20 Aerobic Blood Culture - Preliminary Resulted Blood Peripheral NO GROWTH IN 3 DAYS 10/24/16 17:20 Anaerobic Blood Culture - Preliminary Resulted Blood Peripheral NO GROWTH IN 3 DAYS 10/24/16 22:45 Gram Stain - Final Complete Cerebral Spinal Fluid Lumbar Puncture 10/24/16 22:45 CSF Culture - Final Complete Cerebral Spinal Fluid Lumbar Puncture NO GROWTH IN 72 HOURS 10/25/16 10:40 Aerobic Blood Culture - Preliminary Resulted Blood Peripheral NO GROWTH IN 2 DAYS 10/25/16 10:40 Anaerobic Blood Culture - Preliminary Resulted Blood Peripheral NO GROWTH IN 2 DAYS 10/25/16 10:44 Aerobic Blood Culture - Preliminary Resulted Blood Peripheral NO GROWTH IN 2 DAYS 10/25/16 10:44 Anaerobic Blood Culture - Preliminary Resulted Blood Peripheral NO GROWTH IN 2 DAYS IMAGING: Chest X-Ray 10/24/16 1654 Signed Impressions: Service Date/Time: Monday, October 24, 2016 17:08 - CONCLUSION: Streaky densities within the right perihilar region and left lung base consistent with atelectasis and/or mild infiltrates. Clinical correlation is recommended. Herb Valladares MD Head CT 10/24/16 0000 Signed Impressions: Service Date/Time: Monday, October 24, 2016 21:33 - CONCLUSION: 1. Severe diffuse periventricular and subcortical white matter small vessel ischemic changes bilaterally. 2. Diffuse cerebral atrophy. 3. No acute infarct, acute hemorrhage, mass effect or extra-axial fluid collections. Herb Valladares MD PHYSICAL EXAMINATION: GENERAL: No acute distress. Oriented to person, year. HEAD, EYES, EARS, NOSE, THROAT: The head is atraumatic. Extraocular movements grossly intact. Pupils are reactive. Arcus senilis present in both eyes. Oropharynx with no visible lesions. NECK: The neck is supple. No adenopathy. LUNGS: Clear breath sounds. HEART: Regular S1-S2 without murmurs, rubs or gallops. ABDOMEN: Bowel sounds present, soft, no tenderness. EXTREMITIES: No clubbing or cyanosis or edema. NEUROLOGIC: Nonfocal. Psych: Calm and cooperative. IMPRESSION: 1. Gram-negative sepsis. E. coli ESBL. Probably pulmonary source. Abnormal CXR on admission. He presented with sepsis including fever, tachycardia, elevated lactic acid and now with elevated white blood cell count. 2. Altered mental status, probably related to sepsis. Cerebrospinal fluid studies not reflective of meningitis. Mental status improved. RECOMMENDATIONS: 1. Continue Meropenem 2. Repeat the CXR. Arrangements for outpatient IV antibiotics. He will need a PIC and 7 days more IV antibiotics. I spoke to his daughter who will be talking to case management about home vs SNF. The IV Meropenem can be switched to Invanz if the CXR is improved. Noe Kemp MD October 28, 2016 15:48
--- NOTE | 2016-10-28 16:53 | RADRPT ---
EXAM DATE/TIME: 10/28/2016 16:02 [facility] COMPARISON: CHEST SINGLE AP, October 24, 2016, 17:08. INDICATIONS : Pneumonia. MEDICAL HISTORY : Cardiovascular disease. Hypertension Diabetes mellitus type II. SURGICAL HISTORY : None. ENCOUNTER: Initial ACUITY: 4 - 6 days PAIN SCORE: 0/10 LOCATION: Bilateral chest FINDINGS: The heart is normal in size. There are COPD changes within the pulmonary parenchyma. The visualized b deandre structures are grossly intact. CONCLUSION: COPD changes. No infiltrate identified. Xander Hawkins MD on October 28, 2016 at 16:51 Board Certified Radiologist. This report was verified electronically.
[2016-10-28 17:54] LABS: B. BURGDORFERI DNA PCR CSF NOT DETECTED (())
[2016-10-28] MEDS ORDERED: SODIUM CHLORIDE 0.9% FLUSH 10 ML FLUSH IV FLUSH PRN (20:00)
--- NOTE | 2016-10-28 20:20 | RADRPT ---
EXAM DATE/TIME: 10/28/2016 19:35 [facility] COMPARISON: CHEST SINGLE AP, October 28, 2016, 16:02. INDICATIONS : Post PICC line placement. MEDICAL HISTORY : Dementia. Cardiovascular disease. Hypertension. COPD SURGICAL HISTORY : None. ENCOUNTER: Subsequent ACUITY: 1 day PAIN SCORE: 0/10 LOCATION: Bilateral chest FINDINGS: A single view of the chest demonstrates the lungs to be symmetrically aerated without evidence of mas s, infiltrate or effusion. The cardiomediastinal contours are unremarkable. Osseous structures are intact. A PICC line is in place via left-sided approach with its tip in the region of the superior ve na cava. CONCLUSION: 1. Uncomplicated PICC line placement. Garrett Martinez MD on October 28, 2016 at 20:18 Board Certified Radiologist. This report was verified electronically.
[2016-10-28] MEDS: ATORVASTATIN 80 MG TAB PO SCH (22:45)
[2016-10-29] MEDS: CHLORHEXIDINE GLUCONATE 2 % 1 PACK (2 CLOTHS) TOP SCH (04:00)
[2016-10-29] MEDS: MEROPENEM INJ 1,000 MG in SODIUM CHLORIDE 0.9% INJ 100 ML IV SCH (05:00)
[2016-10-29 06:15] VITALS: BP 120/88; PULSE 80; RESP 20; TEMP 98; O2SAT 95
[2016-10-29 07:25] LABS: BICARBONATE 27.4 MEQ/L (21.0-32.0); POTASSIUM 3.9 MEQ/L (3.5-5.1)
[2016-10-29 08:00] VITALS: PULSE 65
[2016-10-29 08:13] VITALS: BP 137/62; PULSE 77; RESP 17; TEMP 97.2; O2SAT 100
[2016-10-29] MEDS: SODIUM CHLORIDE 0.9% FLUSH 10 ML FLUSH IV FLUSH SCH ×3 (09:00→21:03)
[2016-10-29] MEDS: amLODIPine BESYLATE 5 MG TAB PO SCH (09:04)
[2016-10-29] MEDS: SODIUM CHLORIDE 1 GRAM TAB PO SCH ×3 (09:04→17:12)
[2016-10-29] MEDS: MUPIROCIN 2% OINT 1 APPLIC/GM SYR NASAL SCH ×2 (09:04→21:04)
[2016-10-29] MEDS: HEPARIN SODIUM - SQ 10,000 UNITS/ML VIAL SQ SCH ×2 (09:04→21:04)
[2016-10-29] MEDS: FAMOTIDINE 20 MG TAB PO SCH ×2 (09:05→21:04)
[2016-10-29] MEDS: ASPIRIN EC 81 MG TABEC PO SCH (09:05)
[2016-10-29] MEDS: METOPROLOL SUCCINATE 50 MG EXTENDED RELEASE TAB PO SCH (09:05)
--- NOTE | 2016-10-29 09:38 | HHI.PR ---
Subjective Remarks Follow-up sepsis and encephalopathy. No acute changes overnight did not require restraints. He has been calm and cooperative. Discussed with RN, stable for discharge pending accepting facility. Objective Vitals Vital Signs Date Time Temp Pulse Resp B/P Pulse Ox O2 Delivery O2 Flow Rate FiO2 10/29/16 08:13 97.2 77 17 137/62 100 10/29/16 06:15 98.0 80 20 120/88 95 10/28/16 22:50 98.0 65 18 130/65 96 10/28/16 21:30 97.7 22 10/28/16 20:15 58 10/28/16 16:15 97.3 58 18 116/60 99 10/28/16 12:48 95.9 67 18 128/67 94 I/O 10/28/16 10/28/16 10/28/16 10/29/16 10/29/16 10/29/16 06:59 14:59 22:59 06:59 14:59 22:59 Intake Total 600 ml 0 ml 200 ml Output Total 600 ml 500 ml 800 ml Balance -600 ml 100 ml -800 ml 200 ml Intake Oral 600 ml 0 ml 200 ml Output Urine Total 600 ml 500 ml 800 ml # Voids 1 2 # Bowel Movements 0 2 0 0 Result Diagram: 10/28/16 0800 10/29/16 0630 Imaging Last Impressions Chest X-Ray 10/28/16 0000 Signed Impressions: Service Date/Time: Friday, October 28, 2016 19:35 - CONCLUSION: 1. Uncomplicated PICC line placement. Garrett Martinez MD Head CT 10/24/16 0000 Signed Impressions: Service Date/Time: Monday, October 24, 2016 21:33 - CONCLUSION: 1. Severe diffuse periventricular and subcortical white matter small vessel ischemic changes bilaterally. 2. Diffuse cerebral atrophy. 3. No acute infarct, acute hemorrhage, mass effect or extra-axial fluid collections. Herb Valladares MD Objective Remarks GENERAL: Well-developed well-nourished in no distress SKIN: Warm and dry. HEAD: Atraumatic. Normocephalic. EYES: Pupils equal and round. No scleral icterus. No injection or drainage. ENT: No nasal bleeding or discharge. Mucous membranes pink and moist. NECK: Trachea midline. No JVD. CARDIOVASCULAR: Regular rate and rhythm. RESPIRATORY: No accessory muscle use. Clear to auscultation. Breath sounds equal bilaterally. GASTROINTESTINAL: Abdomen soft, non-tender, nondistended. MUSCULOSKELETAL: Extremities without clubbing, cyanosis, or edema. No obvious deformities. NEUROLOGICAL: Awake and alert. No obvious cranial nerve deficits. Motor grossly within normal limits. Five out of 5 muscle strength in the arms and legs. Normal speech. Procedures Lumbar puncture A/P Problem List: (1) Sepsis ICD Code: A41.9 Status: Acute Assessment and Plan Encephalopathy secondary to sepsis. Improving - CT head negative - History of fever and headache however pt denies this at this time. - LP shows WBC 11, RBC 1607 and protein 45.6. ID following and has discontinued vanc/amp/acyclovir and switched rocephin IV to meropenem due to E. Coli ESBL. - cultures growing E. Coli ESBL and repeat blood cx and CSF neg to date Lactic acidosis resolved. see above COPD - No exacerbation - No steroids indicated - DuoNeb's when necessary Bigeminy/trigeminy. Replace potassium and magnesium. If persistent consider echocardiogram. TSH and repeat BMP and magnesium unremarkable. Continue telemetry monitoring DVT GI prophylaxis - Subcutaneous heparin - Pepcid Discharge Planning Stable for discharge Problem Qualifiers (1) Sepsis: Qualified Code: A41.9 - Sepsis, due to unspecified organism Rancho Maciel MD October 29, 2016 09:38
--- NOTE | 2016-10-29 09:40 | HHI.DS ---
Discharge Summary Admission Date October 24, 2016 at 19:21 Discharge Date: October 30, 2016 Admitting Diagnosis AMS, sepsis (1) Sepsis ICD Code: A41.9 Diagnosis: Principal Procedures Lumbar and PICC Brief History - From Admission 71-year-old gentleman brought by his daughter who is complaining patient being confused that has been getting progressively worse throughout the day. She states that patient has had some gait disturbances yesterday. Daughter reports subjective fever which she reports giving Tylenol proximally 2 hours ago. Denies any nausea, vomiting, loss or change in bowel or bladder, cough, chest pain, shortness of breath, or abdominal pain. Daughter does states that he was complaining of a headache earlier today as well as low back pain. Denies patient complaining of anything else. CBC/BMP: 10/28/16 0800 10/29/16 0630 Significant Findings Laboratory Tests Test 10/27/16 10/28/16 06:48 08:00 Hemoglobin 12.4 GM/DL 12.8 GM/DL (13.0-17.0) (13.0-17.0) Hematocrit 36.8 % 38.7 % (39.0-51.0) (39.0-51.0) Platelet Count 135 TH/MM3 144 TH/MM3 (150-450) (150-450) Monocytes (%) (Auto) 10.3 % 14.0 % (0.0-8.0) (0.0-8.0) Eosinophils (%) (Auto) 8.0 % (0.0-4.0) 7.6 % (0.0-4.0) Monocytes # (Auto) 1.0 TH/MM3 1.0 TH/MM3 (0-0.9) (0-0.9) Eosinophils # (Auto) 0.8 TH/MM3 0.6 TH/MM3 (0-0.4) (0-0.4) Blood Urea Nitrogen 6 MG/DL (7-18) Random Glucose 65 MG/DL (74-106) Mean Corpuscular Hemoglobin 26.7 PG (27.0-34.0) Chloride Level 110 MEQ/L (98-107) Imaging Last Impressions Chest X-Ray 10/28/16 0000 Signed Impressions: Service Date/Time: Friday, October 28, 2016 19:35 - CONCLUSION: 1. Uncomplicated PICC line placement. Garrett Martinez MD Head CT 10/24/16 0000 Signed Impressions: Service Date/Time: Monday, October 24, 2016 21:33 - CONCLUSION: 1. Severe diffuse periventricular and subcortical white matter small vessel ischemic changes bilaterally. 2. Diffuse cerebral atrophy. 3. No acute infarct, acute hemorrhage, mass effect or extra-axial fluid collections. Herb Valladares MD PE at Discharge GENERAL: Well-developed well-nourished in no distress SKIN: Warm and dry. HEAD: Atraumatic. Normocephalic. EYES: Pupils equal and round. No scleral icterus. No injection or drainage. ENT: No nasal bleeding or discharge. Mucous membranes pink and moist. NECK: Trachea midline. No JVD. CARDIOVASCULAR: Regular rate and rhythm. RESPIRATORY: No accessory muscle use. Clear to auscultation. Breath sounds equal bilaterally. GASTROINTESTINAL: Abdomen soft, non-tender, nondistended. MUSCULOSKELETAL: Extremities without clubbing, cyanosis, or edema. No obvious deformities. NEUROLOGICAL: Awake and alert. No obvious cranial nerve deficits. Motor grossly within normal limits. Five out of 5 muscle strength in the arms and legs. Normal speech. Hospital Course Encephalopathy secondary to sepsis. Improving - CT head negative - History of fever and headache however pt denies this at this time. - LP shows WBC 11, RBC 1607 and protein 45.6. ID following and has discontinued vanc/amp/acyclovir and switched rocephin IV to meropenem and then to IV Invanz through November 04 due to E. Coli ESBL. - cultures growing E. Coli ESBL and repeat blood cx and CSF neg to date Lactic acidosis resolved. see above COPD - No exacerbation - No steroids indicated - DuoNeb's when necessary Bigeminy/trigeminy. Replace potassium and magnesium. If persistent consider echocardiogram. TSH and repeat BMP and magnesium unremarkable. Continue telemetry monitoring DVT GI prophylaxis - Subcutaneous heparin - Pepcid Discharge Planning Pt Condition on Discharge: Stable Discharge Disposition: Discharge to SNF Discharge Time: > 30 minutes Discharge Instructions DIET: Follow Instructions for: Heart Healthy Diet Activities you can perform: Regular-No Restrictions Activities to Avoid: Driving Follow up Referrals: PCP Follow-up - 2-3 Days New Medications: Walker with Front Wheels (Walker with Front Wheels) 1 Mis Mis 1 EA .ROUTE DIRECTED #1 Ref 0 EA Continued Medications: Amlodipine (Amlodipine) 2.5 Mg Tab 2.5 MG PO DAILY Blood Pressure Management #[address] Ref [address] (Aspirin EC) 81 Mg Tabdr 81 MG PO DAILY Blood Clot Prevention #90 Ref 0 TAB Atorvastatin (Atorvastatin) 80 Mg Tab 80 MG PO HS Cholesterol Management #30 Ref 0 TAB Metoprolol Succinate ER 24 HR (Metoprolol Succinate ER 24 HR) 50 Mg Tab 50 MG PO DAILY #30 Ref 0 TAB Omeprazole (Omeprazole) 40 Mg Cap 40 MG PO DAILY #30 Ref 0 CAP Sodium Chloride (Sodium Chloride) 1 Gm Tab 1 GM PO TID hyponatremia #30 Ref 1 TAB Rancho Maciel MD October 29, 2016 09:40
[2016-10-29 12:49] VITALS: BP 135/75; PULSE 62; RESP 18; TEMP 97.3; O2SAT 95
--- NOTE | 2016-10-29 12:52 | HHI.FF ---
Infusion Therapy Location of Infusion Therapy: [facility] Infusion Therapy Order Patient Information Patient Weight 56 kg Diagnosis: (1) Sepsis Coded Allergies: Contrast Media (Verified Allergy, Mild, HIVES, ITCHING, 10/24/16) *MDRO Multi-Drug Resistant Organism (Verified Adverse Reaction, Unknown, ) MRSA PCR screen positive-10/24/16 ESBL (blood)-10/24/16 Administer Medication Ertapenem 1 gram IV q 24 hours Stop Treatment: November 04, 2016 Additional Information Venous access: PICC Line Additional Instructions [x] Peripheral flush and dressing changes per protocol [x] Implanted port and central online merchant: * Implanted port: 10 ml Normal Saline followed by 5 ml Heparin 100 units/ml Heparin flush after each use and monthly to maintain. [] May leave port accessed during therapy. [] May leave peripheral site accessed for duration of therapy. [x] If patient has SOB or respiratory distress, check oxygen saturation. If less than 90% or clinical signs of respiratory distress, administer oxygen at 2 L/min. via nasal cannula and notify physician. [x] Anaphylaxis/Reaction orders: * Stop infusion. * Keep IV line open with saline flush. * Notify physician. * Monitor vital signs every 15 minutes until symptoms resolve. * Check Oxygen saturation; Oxygen at 2 L/min. via nasal cannula if less than 90% or clinical signs of respiratory distress. * Administer diphenhydramine (Benadryl) 25 mg IV STAT, (unless patient has received as pre-med). May repeat once, if necessary. * Solu-Cortef 250 mg IVP over 30-60 seconds, use 100 mg vials for each dissolution. * Epinephrine (1mg/1 ml) 0.3 mg subcutaneously or IVP now with any signs of respiratory distress. * Check with physician for new additional pre-med orders if patient is re- challenged or re-treated. [x] May remove PICC line when treatment complete, after confirming with Physician. [x] If the patient is admitted to the hospital, the ED, or transferred via [facility] , complete transfer form including medication reconciliation order sheet. Laboratory Tests Additional Information BMP and Liver function test on 11/01/16. Fax lab work to Dr. Kemp [phone] Noe Kemp MD October 29, 2016 12:52
[2016-10-29] MEDS ORDERED: ASP: Path resistant to other antimicrobials, culture proven PRN (13:00)
[2016-10-29] MEDS ORDERED: MISCELLANEOUS PHARMACY INFORMATION XX PRN ×2 (13:00)
--- NOTE | 2016-10-29 13:02 | HHI.IDPN ---
Note Infectious Disease Note Patient is very alert. No acute distress. No fever. PIC placed 10/28. CSF culture has no growth. 10/24 Blood culture has ESBL E.coli. 10/25 Blood culture is negative. Patient was brought to the Ed by his daughter with altered mental status. PAST MEDICAL HISTORY: 1. Asthma. 2. Hypertension. 3. COPD. 4. Glaucoma. 5. Cataract surgery. 6. Diabetes mellitus. ALLERGIES: CONTRAST MEDIA. NO KNOWN DRUG ALLERGIES. ANTIBIOTICS: Meropenem. OBJECTIVE: Vital Signs Date Time Temp Pulse Resp B/P Pulse Ox O2 Delivery O2 Flow Rate FiO2 10/29/16 08:13 97.2 77 17 137/62 100 10/29/16 08:00 65 10/29/16 06:15 98.0 80 20 120/88 95 10/28/16 22:50 98.0 65 18 130/65 96 10/28/16 21:30 97.7 22 10/28/16 20:15 58 10/28/16 16:15 97.3 58 18 116/60 99 10/28/16 10/28/16 10/29/16 14:59 22:59 06:59 Intake Total 600 ml 0 ml 200 ml Output Total 500 ml 800 ml Balance 100 ml -800 ml 200 ml Intake Oral 600 ml 0 ml 200 ml Output Urine Total 500 ml 800 ml # Voids 1 2 # Bowel Movements 2 0 0 Laboratory Tests Test 10/28/16 08:00 White Blood Count 7.3 TH/MM3 Red Blood Count 4.80 MIL/MM3 Hemoglobin 12.8 GM/DL Hematocrit 38.7 % Mean Corpuscular Volume 80.5 FL Mean Corpuscular Hemoglobin 26.7 PG Mean Corpuscular Hemoglobin 33.2 % Concent Red Cell Distribution Width 16.1 % Platelet Count 144 TH/MM3 Mean Platelet Volume 8.2 FL Neutrophils (%) (Auto) 39.5 % Lymphocytes (%) (Auto) 37.8 % Monocytes (%) (Auto) 14.0 % Eosinophils (%) (Auto) 7.6 % Basophils (%) (Auto) 1.1 % Neutrophils # (Auto) 2.9 TH/MM3 Lymphocytes # (Auto) 2.8 TH/MM3 Monocytes # (Auto) 1.0 TH/MM3 Eosinophils # (Auto) 0.6 TH/MM3 Basophils # (Auto) 0.1 TH/MM3 CBC Comment DIFF FINAL Differential Comment Laboratory Tests Test 10/28/16 10/29/16 08:00 06:30 Sodium Level 142 MEQ/L 140 MEQ/L Potassium Level 3.9 MEQ/L 3.9 MEQ/L Chloride Level 110 MEQ/L 105 MEQ/L Carbon Dioxide Level 23.3 MEQ/L 27.4 MEQ/L Anion Gap 9 MEQ/L 8 MEQ/L Blood Urea Nitrogen 10 MG/DL 8 MG/DL Creatinine 0.70 MG/DL 0.66 MG/DL Estimat Glomerular Filtration 134 ML/MIN 143 ML/MIN Rate Random Glucose 82 MG/DL 82 MG/DL Calcium Level 9.0 MG/DL 9.0 MG/DL Magnesium Level 1.9 MG/DL 2.0 MG/DL Thyroid Stimulating Hormone 2.420 uIU/ML 3rd Gen Microbiology Date/Time Procedure Status Source Growth 10/24/16 16:50 Aerobic Blood Culture - Preliminary Resulted Blood Peripheral NO GROWTH IN 3 DAYS 10/24/16 16:50 Anaerobic Blood Culture - Final Resulted Escherichia Coli Esbl Positive 10/24/16 17:20 Aerobic Blood Culture - Preliminary Resulted Blood Peripheral NO GROWTH IN 3 DAYS 10/24/16 17:20 Anaerobic Blood Culture - Preliminary Resulted Blood Peripheral NO GROWTH IN 3 DAYS 10/24/16 22:45 Gram Stain - Final Complete Cerebral Spinal Fluid Lumbar Puncture 10/24/16 22:45 CSF Culture - Final Complete Cerebral Spinal Fluid Lumbar Puncture NO GROWTH IN 72 HOURS 10/25/16 10:40 Aerobic Blood Culture - Preliminary Resulted Blood Peripheral NO GROWTH IN 2 DAYS 10/25/16 10:40 Anaerobic Blood Culture - Preliminary Resulted Blood Peripheral NO GROWTH IN 2 DAYS 10/25/16 10:44 Aerobic Blood Culture - Preliminary Resulted Blood Peripheral NO GROWTH IN 2 DAYS 10/25/16 10:44 Anaerobic Blood Culture - Preliminary Resulted Blood Peripheral NO GROWTH IN 2 DAYS IMAGING: Chest X-Ray 10/28/16 0000 Signed Impressions: Service Date/Time: Friday, October 28, 2016 19:35 - CONCLUSION: 1. Uncomplicated PICC line placement. Garrett Martinez MD Chest X-Ray 10/28/16 0000 Signed Impressions: Service Date/Time: Friday, October 28, 2016 16:02 - CONCLUSION: COPD changes. No infiltrate identified. Xander Hawkins MD Chest X-Ray 10/24/16 1654 Signed Impressions: Service Date/Time: Monday, October 24, 2016 17:08 - CONCLUSION: Streaky densities within the right perihilar region and left lung base consistent with atelectasis and/or mild infiltrates. Clinical correlation is recommended. Herb Valladares MD Head CT 10/24/16 0000 Signed Impressions: Service Date/Time: Monday, October 24, 2016 21:33 - CONCLUSION: 1. Severe diffuse periventricular and subcortical white matter small vessel ischemic changes bilaterally. 2. Diffuse cerebral atrophy. 3. No acute infarct, acute hemorrhage, mass effect or extra-axial fluid collections. Herb Valladares MD PHYSICAL EXAMINATION: GENERAL: No acute distress. Oriented to person, year. HEENT: Extraocular movements grossly intact. Pupils are reactive. Arcus senilis present in both eyes. Oropharynx with no visible lesions. NECK: Supple without adenopathy. LUNGS: Clear breath sounds. HEART: Regular S1-S2 without murmurs, rubs or gallops. ABDOMEN: Bowel sounds present, soft, no tenderness. EXTREMITIES: No clubbing or cyanosis or edema. NEUROLOGIC: Nonfocal. Psych: Calm, cooperative anxious. IMPRESSION: 1. Gram-negative sepsis. E. coli ESBL. Probably pulmonary source. Abnormal CXR on admission. Repeat CXR has no infiltrates. He presented with sepsis including fever, tachycardia, elevated lactic acid and now with elevated white blood cell count. 2. Altered mental status, probably related to sepsis. Cerebrospinal fluid studies not reflective of meningitis. Mental status improved. Clinically stable. RECOMMENDATIONS: 1. Stop Meropenem 2. Ertapenem IV until 11/04/16. Orders written. (See infusion form). 3. Patient can be discharged from ID standpoint. I will sign off now. Noe Kemp MD October 29, 2016 13:02
[2016-10-29] MEDS: ERTAPENEM INJ 1,000 MG in SODIUM CHLORIDE 0.9% INJ 100 ML IV SCH (15:12)
[2016-10-29 16:20] VITALS: BP 136/61; PULSE 61; RESP 18; TEMP 97.9; O2SAT 96
[2016-10-29 19:53] LABS: VDRL CSF NON-REACTIVE (())
[2016-10-29 20:00] VITALS: BP 144/65; PULSE 63; RESP 18; TEMP 97.3; O2SAT 98
[2016-10-29] MEDS: ATORVASTATIN 80 MG TAB PO SCH ×2 (21:05→21:09)
[2016-10-30] VITALS: BP 138/67; PULSE 59; RESP 18; TEMP 97.6; O2SAT 98
[2016-10-30 04:00] VITALS: BP 138/64; PULSE 54; PULSE 70; RESP 18; TEMP 97.3; O2SAT 97
[2016-10-30] MEDS: CHLORHEXIDINE GLUCONATE 2 % 1 PACK (2 CLOTHS) TOP SCH (04:00)
[2016-10-30 08:00] VITALS: PULSE 59
[2016-10-30 08:27] VITALS: BP 111/65; PULSE 54; RESP 18; TEMP 97.3; O2SAT 94
[2016-10-30] MEDS: SODIUM CHLORIDE 1 GRAM TAB PO SCH ×2 (08:48→13:04)
[2016-10-30] MEDS: MUPIROCIN 2% OINT 1 APPLIC/GM SYR NASAL SCH (08:48)
[2016-10-30] MEDS: HEPARIN SODIUM - SQ 10,000 UNITS/ML VIAL SQ SCH (08:48)
[2016-10-30] MEDS: ASPIRIN EC 81 MG TABEC PO SCH (08:49)
[2016-10-30] MEDS: FAMOTIDINE 20 MG TAB PO SCH (08:49)
[2016-10-30] MEDS: amLODIPine BESYLATE 5 MG TAB PO SCH (08:49)
[2016-10-30] MEDS: METOPROLOL SUCCINATE 50 MG EXTENDED RELEASE TAB PO SCH (08:49)
[2016-10-30] MEDS: SODIUM CHLORIDE 0.9% FLUSH 10 ML FLUSH IV FLUSH SCH ×2 (08:49→09:00)
--- NOTE | 2016-10-30 10:49 | HHI.PR ---
Subjective Remarks Follow-up sepsis. He is doing okay. Discharged on hold pending SNF arrangement. Discussed with RN Objective Vitals Vital Signs Date Time Temp Pulse Resp B/P Pulse Ox O2 Delivery O2 Flow Rate FiO2 10/30/16 08:27 97.3 54 18 111/65 94 10/30/16 08:00 59 10/30/16 04:00 70 10/30/16 04:00 97.3 54 18 138/64 97 10/30/16 00:00 97.6 59 18 138/67 98 10/29/16 20:00 97.3 63 18 144/65 98 10/29/16 16:20 97.9 61 18 136/61 96 10/29/16 12:49 97.3 62 18 135/75 95 I/O 10/29/16 10/29/16 10/29/16 10/30/16 10/30/16 10/30/16 07:00 15:00 23:00 07:00 15:00 23:00 Intake Total 200 ml 810 ml 900 ml 480 ml Output Total 200 ml 200 ml Balance 200 ml 610 ml 900 ml 480 ml -200 ml Intake Oral 200 ml 600 ml 480 ml IV Total 210 ml 900 ml Output Urine Total 200 ml 200 ml # Voids 2 2 6 # Bowel Movements 0 0 Result Diagram: 10/28/16 0800 10/29/16 0630 Imaging Last Impressions Chest X-Ray 10/28/16 0000 Signed Impressions: Service Date/Time: Friday, October 28, 2016 19:35 - CONCLUSION: 1. Uncomplicated PICC line placement. Garrett Martinez MD Head CT 10/24/16 0000 Signed Impressions: Service Date/Time: Monday, October 24, 2016 21:33 - CONCLUSION: 1. Severe diffuse periventricular and subcortical white matter small vessel ischemic changes bilaterally. 2. Diffuse cerebral atrophy. 3. No acute infarct, acute hemorrhage, mass effect or extra-axial fluid collections. Herb Valladares MD Objective Remarks GENERAL: Well-developed well-nourished in no distress SKIN: Warm and dry. HEAD: Atraumatic. Normocephalic. EYES: Pupils equal and round. No scleral icterus. No injection or drainage. ENT: No nasal bleeding or discharge. Mucous membranes pink and moist. NECK: Trachea midline. No JVD. CARDIOVASCULAR: Regular rate and rhythm. RESPIRATORY: No accessory muscle use. Clear to auscultation. Breath sounds equal bilaterally. GASTROINTESTINAL: Abdomen soft, non-tender, nondistended. MUSCULOSKELETAL: Extremities without clubbing, cyanosis, or edema. No obvious deformities. NEUROLOGICAL: Awake and alert. No obvious cranial nerve deficits. Motor grossly within normal limits. Five out of 5 muscle strength in the arms and legs. N Procedures Lumbar and PICC A/P Problem List: (1) Sepsis ICD Code: A41.9 Status: Acute Assessment and Plan Encephalopathy secondary to sepsis. Improving - CT head negative - History of fever and headache however pt denies this at this time. - LP shows WBC 11, RBC 1607 and protein 45.6. ID following and has discontinued vanc/amp/acyclovir and switched rocephin IV to meropenem and then to IV Invanz through November 04 due to E. Coli ESBL. - cultures growing E. Coli ESBL and repeat blood cx and CSF neg to date Lactic acidosis resolved. see above COPD - No exacerbation - No steroids indicated - DuoNeb's when necessary Bigeminy/trigeminy. Replace potassium and magnesium. If persistent consider echocardiogram. TSH and repeat BMP and magnesium unremarkable. Continue telemetry monitoring DVT GI prophylaxis - Subcutaneous heparin - Pepcid Discharge Planning Stable for discharge Problem Qualifiers (1) Sepsis: Qualified Code: A41.9 - Sepsis, due to unspecified organism Rancho Maciel MD October 30, 2016 10:49
[2016-10-30 12:26] VITALS: BP 118/70; PULSE 57; RESP 16; TEMP 98; O2SAT 96
[2016-10-30] MEDS: ERTAPENEM INJ 1,000 MG in SODIUM CHLORIDE 0.9% INJ 100 ML IV SCH (13:06)
== END 2016-10-30 16:33 | DRG 871 ==
LOC: NEPE 16:25 → NEDA 19:21 → HIME 21:45 → N05B 10-25 15:34
PROVIDERS: ADMIT Internal Medicine; ATTEND Internal Medicine
PROC: 009U3ZX Drainage of Spinal Canal, Percutaneous Approach, Diagnostic (ICD-10-PCS; principal; 2016-10-24)
PROC: 02HV33Z Insertion of Infusion Device into Superior Vena Cava, Percutaneous Approach (ICD-10-PCS; 2016-10-28)
PROC: B548ZZA Ultrasonography of Superior Vena Cava, Guidance (ICD-10-PCS; 2016-10-28)
DX: A41.50 Gram-negative sepsis, unspecified (principal); G93.49 Other encephalopathy; R64 Cachexia; E87.2 Acidosis; Z68.1 Body mass index [BMI] 19.9 or less, adult; Z16.12 Extended spectrum beta lactamase (ESBL) resistance; J44.9 Chronic obstructive pulmonary disease, unspecified; R00.8 Other abnormalities of heart beat; E78.00 Pure hypercholesterolemia, unspecified; H91.90 Unspecified hearing loss, unspecified ear; I10 Essential (primary) hypertension; H40.9 Unspecified glaucoma; H54.0 Blindness, both eyes; E11.9 Type 2 diabetes mellitus without complications; Z87.891 Personal history of nicotine dependence; Z78.1 Physical restraint status
CPT/HCPCS: 36569; 70450; 71010; 76937; 80048; 80053; 80307; 81001; 82164; 82550; 82945; 83605; 83615; 83735; 84157; 84443; 84484; 85025; 85610; 85730; 86592; 87040; 87070; 87186; 87205; 87529; 87641; 87801; 89051; 93005; 96361; 96365; 96368; J0133; J0290; J0696; J1335; J1630; J1642; J1644; J2060; J2185; J2250; J2543; J3010; J3370; J7030; J7050

== ENCOUNTER 2016-11-13 15:10 | Emergency (ER) | payer OTHER, MEDICAID ==
[~2016-11-13] VITALS: Ht 175.3 cm; Wt 56.0 kg
[~2016-11-13 15:10] MED LIST changes: -ALBU8I INH; +AMLO2.5T PO; -BRIM0.2S; -CARV3.125 PO; +CETI10 PO; -CHLO.12%30 MT; -CLOP75 PO; -COZA25TA PO; -DORZ2SOL15 EACH EYE; -FLUD.1 PO; -FLUT50SP EACH NARE; +LORA-373 PO; +METO50TA11 PO; +OMEP40CA2 PO; -TIOT12.9 INH; -TRUS2SOL EACH EYE; +WALKER WHEELS/F1 MIS
[2016-11-13 15:24] VITALS: BP 115/59; PULSE 78; RESP 20; TEMP 96.8; O2SAT 99
[2016-11-13 15:25] VITALS: BP 115/59; PULSE 73; RESP 20; TEMP 96.8; O2SAT 99
--- NOTE | 2016-11-13 15:41 | PD ---
HPI Chief Complaint: Altered Mental Status Time Seen by Provider: 15:19 Travel History International Travel<30 days: No Contact w/Intl Traveler<30days: No Traveled to known affect area: No History of Present Illness HPI This is a group home resident who was put in the group home due to altered mental status. Apparently the staff felt he was more altered than usual and sent to the ER for evaluation of that. No fevers. He is not able to provide any useful history or review of systems. He voices no complaint. He denies any pain. PFSH Past Medical History Arthritis: Yes Asthma: Yes Cancer: No Cardiovascular Problems: Yes High Cholesterol: Yes Chest Pain: Yes COPD: Yes Diabetes: Yes Patient Takes Glucophage: No Diminished Hearing: No Gastrointestinal Disorders: No Glaucoma: Yes Genitourinary: Yes Hypertension: Yes Immune Disorder: No Insomnia: Yes Musculoskeletal: Yes Neurologic: No Psychiatric: No Respiratory: Yes (COPD) ?: Not Past Surgical History Surgical History: Unable to Obtain Ear Surgery: Yes (BILATERAL CATARACT REMOVAL) Eye Surgery: Yes (CATARACT REMOVAL) Social History Alcohol Use: No Tobacco Use: No Substance Use: No Allergies-Medications (Allergen,Severity, Reaction): Coded Allergies: Contrast Media (Verified Allergy, Mild, HIVES, ITCHING, 11/13/16) *MDRO Multi-Drug Resistant Organism (Verified Adverse Reaction, Unknown, ) MRSA PCR screen positive-10/24/16 ESBL (blood)-10/24/16 Reported Meds & Prescriptions Reported Meds & Active Scripts Active Walker with Front Wheels (Device) 1 Mis Mis 1 Ea .ROUTE DIRECTED Sodium Chloride 1 Gm Tab 1 Gm PO TID Aspirin EC (Aspirin) 81 Mg Tabdr 81 Mg PO DAILY Potassium Chloride Microencaps 20 Meq Tab 20 Meq PO Q12HR 10 Days Reported Metoprolol Succinate ER 24 HR (Metoprolol Succinate) 50 Mg Tab 50 Mg PO DAILY Lorazepam 0.5 Mg Tab 0.5 Mg PO DAILY PRN Cetirizine (Cetirizine HCl) 10 Mg Tab 10 Mg PO DAILY Amlodipine (Amlodipine Besylate) 2.5 Mg Tab 2.5 Mg PO DAILY Omeprazole 40 Mg Cap 40 Mg PO DAILY Atorvastatin (Atorvastatin Calcium) 80 Mg Tab 80 Mg PO HS Review of Systems ROS Limitations: Clinical Condition, Altered Mental Status, Poor Historian Physical Exam Narrative GENERAL: Thin elderly confused patient in no apparent distress. SKIN: Focused skin assessment reveals no rash and nodules. Skin is Warm and dry. HEAD: Atraumatic. Normocephalic. EYES: Pupils equal and round. No scleral icterus. No injection or drainage. ENT: No nasal bleeding or discharge. Mucous membranes pink and moist. NECK: Trachea midline. No JVD. No meningeal signs CARDIOVASCULAR: Regular rate and rhythm. No murmur appreciated. RESPIRATORY: No accessory muscle use. Clear to auscultation. Breath sounds equal bilaterally. GASTROINTESTINAL: Abdomen soft, non-tender, nondistended. Hepatic and splenic margins not palpable. MUSCULOSKELETAL: No obvious deformities. No clubbing. No cyanosis. No edema. NEUROLOGICAL: Awake and looking around. He knows his name and birthdate. no obvious cranial nerve deficits. Difficult to gauge motor strength or sensation as he does not really participate in the exam . Understandable speech without slurring PSYCHIATRIC: Cooperative and relaxed mood and affect; insight and judgment poor . Data Data Last Documented VS Vital Signs Date Time Temp Pulse Resp B/P Pulse Ox O2 Delivery O2 Flow Rate FiO2 11/13/16 17:11 83 19 123/78 96 Room Air 11/13/16 15:25 96.8 Orders Complete Blood Count With Diff (11/13/16 15:33) Comprehensive Metabolic Panel (11/13/16 15:33) Thyroid Stimulating Hormone (11/13/16 15:33) Urinalysis - C+S If Indicated (11/13/16 15:33) Ct Brain W/O Iv Contrast(Rout) (11/13/16 15:33) Blood Glucose (11/13/16 15:33) Ecg Monitoring (11/13/16 15:33) Iv Access Insert/Monitor (11/13/16 15:33) Cath For Specimen (11/13/16 15:33) Oximetry (11/13/16 15:33) Sodium Chloride 0.9% Flush (Ns Flush) (11/13/16 15:45) Wrist, One View (11/13/16 ) Urine Culture (11/13/16 15:45) Labs Laboratory Tests Test 11/13/16 15:45 White Blood Count 6.8 TH/MM3 Red Blood Count 4.19 MIL/MM3 Hemoglobin 11.2 GM/DL Hematocrit 33.9 % Mean Corpuscular Volume 80.8 FL Mean Corpuscular Hemoglobin 26.8 PG Mean Corpuscular Hemoglobin 33.1 % Concent Red Cell Distribution Width 16.0 % Platelet Count 215 TH/MM3 Mean Platelet Volume 8.6 FL Neutrophils (%) (Auto) 50.2 % Lymphocytes (%) (Auto) 31.2 % Monocytes (%) (Auto) 12.6 % Eosinophils (%) (Auto) 5.0 % Basophils (%) (Auto) 1.0 % Neutrophils # (Auto) 3.4 TH/MM3 Lymphocytes # (Auto) 2.1 TH/MM3 Monocytes # (Auto) 0.8 TH/MM3 Eosinophils # (Auto) 0.3 TH/MM3 Basophils # (Auto) 0.1 TH/MM3 CBC Comment DIFF FINAL Differential Comment Urine Color YELLOW Urine Turbidity CLEAR Urine pH 5.0 Urine Specific [place] 1.012 Urine Protein TRACE mg/dL Urine Glucose (UA) NEG mg/dL Urine Ketones NEG mg/dL Urine Occult Blood NEG Urine Nitrite NEG Urine Bilirubin NEG Urine Urobilinogen LESS THAN 2.0 MG/DL Urine Leukocyte Esterase NEG Urine RBC LESS THAN 1 /hpf Urine WBC 4 /hpf Urine WBC Clumps RARE Urine Squamous Epithelial <1 /hpf Cells Urine Bacteria MOD /hpf Urine Hyaline Casts 1 /lpf Urine Mucus FEW /lpf Microscopic Urinalysis Comment CATH-CULTURE IND Sodium Level 144 MEQ/L Potassium Level 3.7 MEQ/L Chloride Level 110 MEQ/L Carbon Dioxide Level 27.0 MEQ/L Anion Gap 7 MEQ/L Blood Urea Nitrogen 17 MG/DL Creatinine 0.90 MG/DL Estimat Glomerular Filtration 100 ML/MIN Rate Random Glucose 123 MG/DL Calcium Level 9.0 MG/DL Total Bilirubin 0.6 MG/DL Aspartate Amino Transf 41 U/L (AST/SGOT) Alanine Aminotransferase 24 U/L (ALT/SGPT) Alkaline Phosphatase 139 U/L Total Protein 7.6 GM/DL Albumin 3.3 GM/DL Thyroid Stimulating Hormone 3.300 uIU/ML 3rd Gen [facility] Medical Decision Making Medical Screen Exam Complete: Yes Emergency Medical Condition: Yes Medical Record Reviewed: Yes Differential Diagnosis Psychiatric problem, electrolyte abnormality, intracranial lesion Narrative Course I have reviewed the patient's electronic medical record. Patient was hospitalized for altered mental status and discharged 2 weeks ago to the group home IV placed CBC shows minimal anemia Metabolic profile is normal LFTs are normal TSH is normal Catheterized urine is clean Brain CT shows some microvascular ischemic change but nothing acute Patient seen be favoring his wrist a bit on the right side so I ordered an x- ray to evaluated. Clinically there is no sign of infection or inflammation there. Patient cannot really tolerate x-rays well and only one view was obtained shows no fracture I doubt he is much different than his baseline. I don't see any objective evidence of anything treatable regarding his mental status. Mostly he is calm and cooperative but occasionally gets agitated. He appears to have dementia with agitation. Stable for return to group home I don't see any indication for an acute hospital stay Diagnosis Primary Impression: Altered mental status, unspecified Additional Impression: Dementia Qualified Code: F03.90 - Dementia without behavioral disturbance, unspecified dementia type Disposition: 03 DISCHARGE TO SNF Condition: Stable Heber Flannery MD Nov 13, 2016 15:41
[2016-11-13] MEDS ORDERED: SODIUM CHLORIDE 0.9% FLUSH 5 ML FLUSH IV FLUSH PRN (15:45)
[2016-11-13 15:52] VITALS: RESP 19; O2SAT 100
[2016-11-13 16:36] LABS: AUTOMATED NEUTROPHIL # 3.4 TH/MM3 (1.8-7.7); BASOPHIL # 0.1 TH/MM3 (0-0.2); EOSINOPHIL # 0.3 TH/MM3 (0-0.4); HEMATOCRIT 33.9 % (39.0-51.0); HEMO FLAGS DIFF FINAL; LYMPH % 31.2 % (9.0-44.0); LYMPHOCYTE # 2.1 TH/MM3 (1.0-4.8); MEAN CELL VOLUME 80.8 FL (80.0-100.0); MEAN CORPUSCULAR HEMOGLOBIN 26.8 PG (27.0-34.0); MEAN CORPUSCULAR HGB CONC 33.1 % (32.0-36.0); MONO % 12.6 % (0.0-8.0); NEUT % 50.2 % (16.0-70.0); PLATELET COUNT 215 TH/MM3 (150-450); RED BLOOD COUNT 4.19 MIL/MM3 (4.50-5.90); WHITE BLOOD COUNT 6.8 TH/MM3 (4.0-11.0)
--- NOTE | 2016-11-13 16:51 | RADRPT ---
EXAM DATE/TIME: 11/13/2016 16:07 [facility] COMPARISON: CT BRAIN W/O CONTRAST, October 24, 2016, 21:33. INDICATIONS : Altered mental status. RADIATION DOSE: 51.33 CTDIvol (mGy) MEDICAL HISTORY : Cardiovascular disease. Hypertension. Diabetes mellitus type 2. SURGICAL HISTORY : None. ENCOUNTER: Initial ACUITY: 1 day PAIN SCALE: 0/10 LOCATION: Cranial TECHNIQUE: Multiple contiguous axial images were obtained of the head. Using automated exposure control and adjustment of the mA and/or kV according to patient size, radiation dose was kept as low as reasonably achievable to obtain optimal diagnostic quality images. FINDINGS: There is moderate central and cortical atrophy with dilatation of the ventricular and s ulcal spaces. There is no parenchymal hemorrhage, acute infarction or mass lesion. There are no ext ra-axial fluid collections appreciated. Posterior fossa is unremarkable. CONCLUSION: Central and cortical atrophy otherwise negative. Harlan Hawkins MD FACR on November 13, 2016 at 16:29 Board Certified Radiologist. This report was verified electronically.
[2016-11-13 16:53] LABS: ANION GAP 7 MEQ/L (5-15); AST (GOT) 41 U/L (15-37); BLOOD UREA NITROGEN 17 MG/DL (7-18); CHLORIDE 110 MEQ/L (98-107); GLOMERULAR FILTRATION RATE 100 ML/MIN (>89); POTASSIUM 3.7 MEQ/L (3.5-5.1); SODIUM (NA) 144 MEQ/L (136-145)
[2016-11-13 16:54] LABS: ALT (GPT) 24 U/L (12-78)
[2016-11-13 17:04] LABS: ALKALINE PHOSPHATASE 139 U/L (45-117); TOTAL BILIRUBIN ADULT 0.6 MG/DL (0.2-1.0)
[2016-11-13 17:11] VITALS: BP 123/78; PULSE 83; RESP 19; O2SAT 96
[2016-11-13 17:11] LABS: BACTERIA, URINE MOD /hpf; BLOOD, URINE NEG (NEG); GLUCOSE,URINE NEG (NEG); HYALINE CAST, URINE 1 /lpf (RARE); KETONE, URINE NEG (NEG); MUCUS URINE FEW /lpf (OCC); NITRITE,URINE NEG (NEG); SQUAMOUS EPITHELIAL CELL URINE <1 /hpf (0-5); URINE COLOR YELLOW (YELLW/STRAW)
[2016-11-13 17:12] LABS: COMMENT (UR) CATH-CULTURE IND; CULTURE IF INDICATED CATH CULTURE IND
--- NOTE | 2016-11-13 17:30 | RADRPT ---
EXAM DATE/TIME: 11/13/2016 16:47 [facility] COMPARISON: No previous studies available for comparison. INDICATIONS : Right painrist pain MEDICAL HISTORY : Dementia SURGICAL HISTORY : Unknown ENCOUNTER: Initial ACUITY: 1 day PAIN SCORE: Non-responsive. LOCATION: Right one view wrist FINDINGS: The single AP view of the wrist. No evidence of fracture. Alignment within normal limits. Small osteo phytes at the radiocarpal joint. CONCLUSION: 1. No evidence of fracture. 2. Mild osteoarthritic findings. Yury Marie MD on November 13, 2016 at 17:28 Board Certified Radiologist. This report was verified electronically.
[2016-11-13 18:50] VITALS: BP 122/77; PULSE 87; RESP 18; O2SAT 100
== END 2016-11-13 21:03 ==
LOC: NEPC 15:10
DX: F03.90 Unspecified dementia, unspecified severity, without behavioral disturbance, psychotic disturbance, mood disturbance, and anxiety (principal)
CPT/HCPCS: 70450; 73100; 80053; 81001; 84443; 85025; 87086; 99285; L3908; P9612

== ENCOUNTER 2017-05-20 19:30 | Inpatient (IN) | payer OTHER, MEDICAID, MEDICARE ==
[~2017-05-20] VITALS: Ht 180.3 cm; Wt 56.4 kg
[2017-05-20] VITALS (9 sets, daily range): BP systolic 117–153; BP diastolic 78–87; PULSE 104–120; RESP 20–24; TEMP 98.5–99.5; O2SAT 95–98
[~2017-05-20 19:30] MED LIST changes: -ASPI81TA11 PO; +ASPI81TA23 PO; -ATOR1TAB18 PO; +ATOR80TA45 PO; -LORA-373 PO; +LORA0.5T PO; +METO1TAB9 PO; -METO50TA11 PO
--- NOTE | 2017-05-20 19:48 | PD ---
HPI Chief Complaint: altered mental status Time Seen by Provider: 19:42 Travel History International Travel<30 days: No Contact w/Intl Traveler<30days: No Traveled to known affect area: No History of Present Illness HPI 71-year-old male came to the [facility] with altered mental status this progressively worsening over past couple days. Today he was found to be unresponsive and in respiratory distress. EMS was called. Upon arrival they noticed that patient was wheezing. Patient was given albuterol nebulizer and then was brought here. His oxygen saturation initially was in the high 80s on 2 L of oxygen via nasal cannula that's his daily requirement. After the nebulizer oxygen saturation improved to 95% on 2 L. Patient arrived with a GCS of 8. Patient is a full code. However he seems to be maintaining his airway. Patient was unable to give any meaningful history given his altered mental state. History was obtained from the paramedics as well as the report that came from the [facility]. FORMERLY [facility], [facility] Past Medical History Narrative Medical List of his past medical, surgical, social and family history is reviewed from the nursing note. Arthritis: Yes Asthma: Yes Cancer: No Cardiovascular Problems: Yes High Cholesterol: Yes Chest Pain: Yes COPD: Yes Diabetes: Yes Diminished Hearing: No Gastrointestinal Disorders: No Glaucoma: Yes Genitourinary: Yes Hypertension: Yes Immune Disorder: No Insomnia: Yes Musculoskeletal: Yes Neurologic: No Psychiatric: No Respiratory: Yes (COPD) Past Surgical History Ear Surgery: Yes (BILATERAL CATARACT REMOVAL) Eye Surgery: Yes (CATARACT REMOVAL) Social History Alcohol Use: No Tobacco Use: No Substance Use: No Allergies-Medications (Allergen,Severity, Reaction): Coded Allergies: diatrizoate meglumine (Unverified Allergy, Mild, HIVES, ITCHING, 01/26/17) gadobenic acid (Unverified Allergy, Mild, HIVES, ITCHING, 01/26/17) gadodiamide (Unverified Allergy, Mild, HIVES, ITCHING, 01/26/17) gadoteridol (Unverified Allergy, Mild, HIVES, ITCHING, 01/26/17) iodixanol (Unverified Allergy, Mild, HIVES, ITCHING, 01/26/17) iohexol (Unverified Allergy, Mild, HIVES, ITCHING, 01/26/17) Comments List of his allergies reviewed from the nursing note. Reported Meds & Prescriptions Reported Meds & Active Scripts Active Walker with Front Wheels (Device) 1 Mis Mis 1 Ea .ROUTE DIRECTED Sodium Chloride 1 Gm Tab 1 Gm PO TID Aspirin EC (Aspirin) 81 Mg Tabdr 81 Mg PO DAILY Potassium Chloride Microencaps 20 Meq Tab 20 Meq PO Q12HR 10 Days Reported Metoprolol Succinate ER 24 HR (Metoprolol Succinate) 50 Mg Tab 50 Mg PO DAILY Lorazepam 0.5 Mg Tab 0.5 Mg PO DAILY PRN Cetirizine (Cetirizine HCl) 10 Mg Tab 10 Mg PO DAILY Amlodipine (Amlodipine Besylate) 2.5 Mg Tab 2.5 Mg PO DAILY Omeprazole 40 Mg Cap 40 Mg PO DAILY Atorvastatin (Atorvastatin Calcium) 80 Mg Tab 80 Mg PO HS Narrative Medication List of his home medications reviewed from the nursing note. Review of Systems ROS Limitations: Altered Mental Status Except as stated in HPI: all other systems reviewed are Neg Physical Exam Narrative GENERAL: Unresponsive, respiratory distress, moderate distress SKIN: Focused skin assessment warm/dry. HEAD: Atraumatic. Normocephalic. EYES: Pupils equal and round. No scleral icterus. No injection or drainage. ENT: No nasal bleeding or discharge. Mucous membranes pink and moist. NECK: Trachea midline. No JVD. CARDIOVASCULAR: Regular rate and rhythm. No murmur appreciated. RESPIRATORY: Accessory muscles of respiration used, wheezing bilaterally, decreased air entry GASTROINTESTINAL: Abdomen soft, non-tender, nondistended. Hepatic and splenic margins not palpable. MUSCULOSKELETAL: No obvious deformities. No clubbing. No cyanosis. No edema. NEUROLOGICAL: GCS of 8 PSYCHIATRIC: Unable to assess Data Data Last Documented VS Orders Orders Electrocardiogram (05/20/17 20:02) Complete Blood Count With Diff (05/20/17 20:02) Comprehensive Metabolic Panel (05/20/17 20:02) Creatine Kinase (Cpk) (05/20/17 20:02) Prothrombin Time / Inr (Pt) (05/20/17 20:02) Troponin I (05/20/17 20:02) Thyroid Stimulating Hormone (05/20/17 20:02) Urinalysis - C+S If Indicated (05/20/17 20:02) Lactic Acid Sepsis Protocol (05/20/17 20:02) Arterial Blood Gas (Abg) (05/20/17 20:02) Blood Culture (05/20/17 20:02) Chest, Single Ap (05/20/17 20:02) Ct Brain W/O Iv Contrast(Rout) (05/20/17 20:02) Blood Glucose (05/20/17 20:02) Ecg Monitoring (05/20/17 20:02) Iv Access Insert/Monitor (05/20/17 20:02) Oximetry (05/20/17 20:02) Sodium Chloride 0.9% Flush (Ns Flush) (05/20/17 20:15) Sodium Chlor 0.9% 1000 Ml Inj (Ns 1000 M (05/20/17 20:02) Methylprednisolone So Succ Inj (Solumedr (05/20/17 20:15) Albuterol-Ipratropium Neb (Duoneb Neb) (05/20/17 20:15) Urinary Catheter Insert/Apply (05/20/17 20:03) Piperacil-Tazo 4.5 Gm Premix (Zosyn 4.5 (05/20/17 21:45) Vancomycin Inj (Vancomycin Inj) (05/20/17 21:45) Sodium Chlor 0.9% 1000 Ml Inj (Ns 1000 M (05/20/17 21:45) Sodium Chlor 0.9% 1000 Ml Inj (Ns 1000 M (05/20/17 21:45) Urine Culture (05/20/17 20:45) Admit Order (Ed Use Only) (05/20/17 22:13) Labs Laboratory Tests Test 05/20/17 20:16 05/20/17 20:20 05/20/17 20:25 05/20/17 20:45 Blood Gas Puncture Site RT BRACHIAL Blood Gas Patient Temperature 37.0 Blood Gas HCO3 33 mmol/L Blood Gas Base Excess 6.7 mmol/L Blood Gas Oxygen Saturation 96 % Arterial Blood pH 7.32 Arterial Blood Partial Pressure CO2 65 mmHg Arterial Blood Partial Pressure O2 95 mmHG Arterial Blood Oxygen Content 17.3 Vol % Arterial Blood Carboxyhemoglobin 0.9 % Arterial Blood Methemoglobin 0.4 % Blood Gas Hemoglobin 12.8 G/DL Oxygen Delivery Device NASAL CANNULA Blood Gas Liter Flow 2 L/M Lactic Acid Level 2.3 mmol/L White Blood Count 9.0 TH/MM3 Red Blood Count 5.13 MIL/MM3 Hemoglobin 13.7 GM/DL Hematocrit 42.1 % Mean Corpuscular Volume 82.1 FL Mean Corpuscular Hemoglobin 26.7 PG Mean Corpuscular Hemoglobin Concent 32.5 % Red Cell Distribution Width 17.2 % Platelet Count 165 TH/MM3 Mean Platelet Volume 8.3 FL Neutrophils (%) (Auto) 28.8 % Lymphocytes (%) (Auto) 16.8 % Monocytes (%) (Auto) 7.8 % Eosinophils (%) (Auto) 45.6 % Basophils (%) (Auto) 1.0 % Neutrophils # (Auto) 2.6 TH/MM3 Lymphocytes # (Auto) 1.5 TH/MM3 Monocytes # (Auto) 0.7 TH/MM3 Eosinophils # (Auto) 4.1 TH/MM3 Basophils # (Auto) 0.1 TH/MM3 CBC Comment DIFF FINAL Differential Comment Prothrombin Time 11.1 SEC Prothromb Time International Ratio 1.1 RATIO Blood Urea Nitrogen 9 MG/DL Creatinine 0.93 MG/DL Random Glucose 121 MG/DL Total Protein 8.7 GM/DL Albumin 3.1 GM/DL Calcium Level 9.0 MG/DL Alkaline Phosphatase 189 U/L Aspartate Amino Transf (AST/SGOT) 25 U/L Alanine Aminotransferase (ALT/SGPT) 22 U/L Total Bilirubin 0.3 MG/DL Sodium Level 133 MEQ/L Potassium Level 4.5 MEQ/L Chloride Level 97 MEQ/L Carbon Dioxide Level 32.8 MEQ/L Anion Gap 3 MEQ/L Estimat Glomerular Filtration Rate 97 ML/MIN Total Creatine Kinase 225 U/L Troponin I 0.04 NG/ML Thyroid Stimulating Hormone 3rd Gen 3.730 uIU/ML Urine Color YELLOW Urine Turbidity CLEAR Urine pH 5.0 Urine Specific [place] 1.025 Urine Protein TRACE mg/dL Urine Glucose (UA) NEG mg/dL Urine Ketones NEG mg/dL Urine Occult Blood NEG Urine Nitrite NEG Urine Bilirubin NEG Urine Urobilinogen LESS THAN 2.0 MG/DL Urine Leukocyte Esterase NEG Urine RBC 1 /hpf Urine WBC LESS THAN 1 /hpf Urine Bacteria RARE /hpf Urine Hyaline Casts 3 /lpf Urine Mucus FEW /lpf Microscopic Urinalysis Comment CATH-CULTURE IND MDM Medical Decision Making Medical Screen Exam Complete: Yes Emergency Medical Condition: Yes Medical Record Reviewed: Yes Interpretation(s) Twelve-lead EKG was reviewed by me. Normal sinus rhythm, left axis deviation, old anterior MT, minimal inferior ST depressions, tachycardia. Heart rate of 115 bpm. Differential Diagnosis Sepsis, pneumonia, UTI, COPD exacerbation Narrative Course 10:32 PM rectal temperature was 99.5. Blood test results of back and patient has elevated lactic acidosis. Patient was given 3 duo nebs upon arrival an IV Solu-Medrol. Was a blood gas done which showed some elevation of the CO2. Given the elevated lactic acidosis I started him on IV Zosyn and vancomycin and given 2 L of IV fluid bolus. When I discussed the case with the hospitalist Dr. Sanchez she wanted the patient to be admitted to the explosive expert given the hypercarbia, altered mental status and EF of 30% from past medical record. I' ve discussed the case with Dr. Banuelos was accepted the patient. I just went and reassessed the patient and he is little more awake but still confused. GCS is 13 at this point. Critical Care Narrative Aggregate critical care time was 60 minutes. Time to perform other separately billable procedures was not included in the critical care time. My time did not include minutes spent treating any other patients simultaneously or on activities that did not directly contribute to the patient's treatment. The services I provided to this patient were to treat and/or prevent clinically significant deterioration that could result in: Respiratory distress, sepsis, altered mental status I provided critical care services requiring my management, as noted below: Chart data review, documentation time, medication orders and management, vital sign assessments/reviewing monitor data, ordering and reviewing lab tests, ordering and interpreting/reviewing x-rays and diagnostic studies, care of the patient and discussion of the patient with the admitting physicians. Procedures EKG Prior to Arrival: No Physician Communication Physician Communication Dr. Banuelos Diagnosis Primary Impression: Altered mental status, unspecified Qualified Codes: R40.1 - Stupor Additional Impressions: Sepsis Qualified Codes: A41.9 - Sepsis, unspecified organism Respiratory distress Acute exacerbation of chronic obstructive pulmonary disease (COPD) Admitting Information Admitting Physician Requests: it Ebony Degroot MD May 20, 2017 19:48
[2017-05-20] MEDS: RESP: ALBUTEROL 2.5 MG/IPRATROPIUM 0.5 MG NEB (SCH) INH ×3 (20:10→23:43)
[2017-05-20] MEDS ORDERED: methylPREDNISolone SOD SUCC 125 MG/2 ML VIAL IV PUSH ONE (20:15)
[2017-05-20] MEDS ORDERED: SODIUM CHLORIDE 0.9% FLUSH 10 ML FLUSH IV FLUSH PRN ×2 (20:15→23:15)
[2017-05-20 20:39] LABS: BLOOD GAS BASE EXCESS 6.7 mmol/L (-2-2); BLOOD GAS CARBOXYHEMOGLOBIN 0.9 % (0-4); BLOOD GAS HCO3 33 mmol/L (22-26); BLOOD GAS METHEMOGLOBIN 0.4 % (0-2); BLOOD GAS O2 HGB SATURATION 96 % (90-100); BLOOD GAS OXYGEN CONTENT 17.3 Vol % (12.0-20.0); BLOOD GAS PCO2 65 mmHg (38-42); BLOOD GAS PO2 95 mmHG (61-120); BLOOD GAS TOTAL HGB 12.8 G/DL (12.0-16.0)
[2017-05-20 20:40] LABS: CRITICAL VALUE YES; DRAW SITE RT BRACHIAL; LITER FLOW 2 L/M; NUMBER OF ARTERIAL PUNCTURES 2; OXYGEN DEVICE NASAL CANNULA; STAT YES
[2017-05-20 20:50] LABS: AUTOMATED NEUTROPHIL # 2.6 TH/MM3 (1.8-7.7); BASOPHIL # 0.1 TH/MM3 (0-0.2); EOSINOPHIL # 4.1 TH/MM3 (0-0.4); EOSINOPHIL % 45.6 % (0.0-4.0); HEMATOCRIT 42.1 % (39.0-51.0); HEMO FLAGS DIFF FINAL; LYMPH % 16.8 % (9.0-44.0); LYMPHOCYTE # 1.5 TH/MM3 (1.0-4.8); MEAN CELL VOLUME 82.1 FL (80.0-100.0); MEAN CORPUSCULAR HEMOGLOBIN 26.7 PG (27.0-34.0); MEAN CORPUSCULAR HGB CONC 32.5 % (32.0-36.0); MONO % 7.8 % (0.0-8.0); NEUT % 28.8 % (16.0-70.0); PLATELET COUNT 165 TH/MM3 (150-450); RED BLOOD COUNT 5.13 MIL/MM3 (4.50-5.90); RED CELL DISTRIBUTION WIDTH 17.2 % (11.6-17.2)
--- NOTE | 2017-05-20 20:50 | RADRPT ---
EXAM DATE/TIME: 05/20/2017 20:27 [facility] COMPARISON: CHEST SINGLE AP, October 28, 2016, 19:35. INDICATIONS : Short of breath. MEDICAL HISTORY : Chronic obstructive pulmonary disease. Emphysema. Cardiovascular disease. Hypertension. Diabetes mellitus type 2. SURGICAL HISTORY : None. ENCOUNTER: Initial ACUITY: 1 day PAIN SCORE: 0/10 LOCATION: Bilateral chest FINDINGS: A single view of the chest demonstrates the lungs to be symmetrically aerated without evidence of mas s, infiltrate or effusion. The cardiomediastinal contours are unremarkable. Osseous structures are intact. CONCLUSION: 1. No acute cardiopulmonary disease. Ricardo Moreno MD on May 20, 2017 at 20:49 Board Certified Radiologist. This report was verified electronically.
[2017-05-20 21:09] LABS: ALT (GPT) 22 U/L (12-78)
[2017-05-20 21:11] LABS: INTERNATIONAL NORMALIZED RATIO 1.1 RATIO; PROTHROMBIN TIME - PATIENT 11.1 SEC (9.8-11.6)
[2017-05-20 21:23] LABS: ALKALINE PHOSPHATASE 189 U/L (45-117); ANION GAP 3 MEQ/L (5-15); AST (GOT) 25 U/L (15-37); BICARBONATE 32.8 MEQ/L (21.0-32.0); BLOOD UREA NITROGEN 9 MG/DL (7-18); CHLORIDE 97 MEQ/L (98-107); CREATINE KINASE 225 U/L (39-308); GLOMERULAR FILTRATION RATE 97 ML/MIN (>89); SODIUM (NA) 133 MEQ/L (136-145); TOTAL BILIRUBIN ADULT 0.3 MG/DL (0.2-1.0)
[2017-05-20 21:28] LABS: POTASSIUM 4.5 MEQ/L (3.5-5.1)
[2017-05-20] MEDS: SODIUM CHLOR 0.9% 1000 ML INJ 1,000 ML IV SCH ×2 (21:30→22:30)
--- NOTE | 2017-05-20 21:37 | RADRPT ---
EXAM DATE/TIME: 05/20/2017 21:05 [place] COMPARISON: CT BRAIN W/O CONTRAST, November 13, 2016, 16:07. INDICATIONS : Altered mental status. RADIATION DOSE: 37.43 CTDIvol (mGy) ; Patient motion MEDICAL HISTORY : Hypertension. Diabetes mellitus type 1. SURGICAL HISTORY : None. ENCOUNTER: Initial ACUITY: 1 day PAIN SCALE: 0/10 LOCATION: cranial TECHNIQUE: Multiple contiguous axial images were obtained of the head. Using automated exposure control and adj ustment of the mA and/or kV according to patient size, radiation dose was kept as low as reasonably a chievable to obtain optimal diagnostic quality images. DICOM format image data is available electro nically for review and comparison. FINDINGS: CEREBRUM: Cerebral atrophy is again noted and is unchanged compared to previous examination. Moderate periventr icular and subcortical white matter small vessel ischemic changes are noted bilaterally. No evidence of midline shift, mass lesion, hemorrhage or acute infarction. No extra-axial fluid collections are seen. POSTERIOR FOSSA: The cerebellum and brainstem are intact. The 4th ventricle is midline. The cerebellopontine angle i s unremarkable. EXTRACRANIAL: The visualized portion of the orbits is intact. A tiny air-fluid level is noted within the right maxi llary sinus and mucosal thickening is noted involving the bilateral frontal, ethmoid, sphenoid and ma xillary sinuses. SKULL: The calvaria is intact. No evidence of skull fracture. CONCLUSION: 1. Moderate periventricular and subcortical white matter small vessel ischemic changes bilaterally. 2. Diffuse cerebral atrophy is stable. 3. No acute infarct, acute hemorrhage, mass effect or extra-axial fluid collections. 4. Tiny air-fluid level within the right maxillary sinus and diffuse mucosal thickening involving all of the paranasal sinuses Herb Valladares MD on May 20, 2017 at 21:32 Board Certified Radiologist. This report was verified electronically.
[2017-05-20] MEDS ORDERED: SODIUM CHLOR 0.9% 1000 ML INJ 1,000 ML IV ONE ×4 (21:45→23:04)
[2017-05-20] MEDS ORDERED: PIPERACIL-TAZO 4.5 GM PREMIX 100 ML IV ONE (21:45)
[2017-05-20] MEDS ORDERED: VANCOMYCIN INJ 1,000 MG in SODIUM CHLOR 0.9% 250 ML INJ 250 ML IV ONE ×2 (21:45→23:15)
[2017-05-20 22:15] LABS: BACTERIA, URINE RARE /hpf; BLOOD, URINE NEG (NEG); COMMENT (UR) CATH-CULTURE IND; CULTURE IF INDICATED CATH CULTURE IND; GLUCOSE,URINE NEG (NEG); HYALINE CAST, URINE 3 /lpf (RARE); KETONE, URINE NEG (NEG); MUCUS URINE FEW /lpf (OCC); NITRITE,URINE NEG (NEG); URINE COLOR YELLOW (YELLW/STRAW)
--- NOTE | 2017-05-20 22:29 | EKG ---
Date Performed: 05/20/2017 Time Performed: 20:44:48 PTAGE: 71 years EKG: SINUS TACHYCARDIA LEFT ANTERIOR FASCICULAR BLOCK SEPTAL MYOCARDIAL INFARCTION Nonspecific T wave changes ABNORMAL ECG Compared to prior electrocardiogram, Nonspecific ST and T wave abnormaliti es are less marked PREVIOUS TRACING : 10/24/2016 16.43 DOCTOR: Chidi Stoddard Interpretating Date/Time 05/20/2017 22:27:26
[2017-05-20 22:33] LABS: LACTIC ACID GHOST NOT REPORTABLE
[2017-05-20] MEDS ORDERED: SODIUM CHLOR 0.9% 1000 ML INJ 100 ML IV ONE (23:04)
--- NOTE | 2017-05-20 23:12 | HHI.HP ---
HPI Service Critical Care Medicine Primary Care Physician Unknown Admission Diagnosis altered mental status, respiratory distress, sepsis Diagnosis: Travel History International Travel<30 Days: No Contact w/Intl Traveler <30 Da: No Traveled to Known Affected Are: No History of Present Illness 71-year-old male came to the emergency room sent from the skilled nursing with altered mental status this progressively worsening over past couple days. He was found today by skilled nursing staff to be unresponsive and in respiratory distress. EMS was called. Upon arrival they noticed that patient was wheezing. Patient was given albuterol nebulizer and then was brought here. His oxygen saturation initially was in the high 80s on 2 L of oxygen via nasal cannula that's his daily requirement. After the nebulizer oxygen saturation improved to 95% on 2 L. Patient arrived with a GCS of 8. Patient is a full code. After nebulizer treatment and improve oxygenation his mental status thoughts improving. Patient is able to protect his airways. Review of Systems ROS Unable to obtain due to patient's altered mental state Past Family Social History Allergies: Coded Allergies: diatrizoate meglumine (Unverified Allergy, Mild, HIVES, ITCHING, 01/26/17) gadobenic acid (Unverified Allergy, Mild, HIVES, ITCHING, 01/26/17) gadodiamide (Unverified Allergy, Mild, HIVES, ITCHING, 01/26/17) gadoteridol (Unverified Allergy, Mild, HIVES, ITCHING, 01/26/17) iodixanol (Unverified Allergy, Mild, HIVES, ITCHING, 01/26/17) iohexol (Unverified Allergy, Mild, HIVES, ITCHING, 01/26/17) *MDRO Multi-Drug Resistant Organism (Verified Adverse Reaction, Unknown, ) MRSA PCR screen positive-10/24/16 ESBL (blood)-10/24/16 Past Medical History Asthma COPD Glaucoma Hypertension Past Surgical History Cataract surgery Reported Medications Reported Meds & Active Scripts Active Walker with Front Wheels (Device) 1 Mis Mis 1 Ea .ROUTE DIRECTED Sodium Chloride 1 Gm Tab 1 Gm PO TID Aspirin EC (Aspirin) 81 Mg Tabdr 81 Mg PO DAILY Potassium Chloride Microencaps 20 Meq Tab 20 Meq PO Q12HR 10 Days Reported Metoprolol Succinate ER 24 HR (Metoprolol Succinate) 50 Mg Tab 50 Mg PO DAILY Lorazepam 0.5 Mg Tab 0.5 Mg PO DAILY PRN Cetirizine (Cetirizine HCl) 10 Mg Tab 10 Mg PO DAILY Amlodipine (Amlodipine Besylate) 2.5 Mg Tab 2.5 Mg PO DAILY Omeprazole 40 Mg Cap 40 Mg PO DAILY Atorvastatin (Atorvastatin Calcium) 80 Mg Tab 80 Mg PO HS Active Ordered Medications Current Medications Medications (Trade) Dose Ordered Sig/Joshua Route PRN Reason Start Time Stop Time Status Last Admin Dose Admin Aspirin (Ecotrin Ec) 81 mg DAILY PO 05/21/17 09:00 Atorvastatin Calcium (Lipitor) 80 mg HS PO 05/21/17 21:00 Cetirizine HCl (ZyrTEC) 10 mg DAILY PO 05/21/17 09:00 Lorazepam (Ativan) 0.5 mg DAILY PRN PO ANXIETY 05/20/17 23:00 Sodium Chloride (Sodium Chloride) 1 gm TID PO 05/21/17 09:00 Pantoprazole Sodium (Protonix) 40 mg DAILY PO 05/21/17 09:00 Sodium Chloride 1,000 ml @ 124 mls/hr Q8H4M IV 05/20/17 23:04 Sodium Chloride (NS Flush) 2 ml UNSCH PRN IV FLUSH FLUSH AFTER USING IV ACCESS 05/20/17 23:15 Sodium Chloride (NS Flush) 2 ml BID IV FLUSH 05/21/17 09:00 Acetaminophen (Tylenol) 650 mg Q6H PRN PO PAIN 1-10 AND/OR FEVER >101F 05/20/17 23:15 Famotidine (Pepcid Inj) 20 mg Q12HR IV PUSH 05/21/17 09:00 Ondansetron HCl (Zofran Inj) 4 mg Q6H PRN IV PUSH NAUSEA OR VOMITING 05/20/17 23:15 Albuterol/ Ipratropium (Duoneb Neb) 1 ampule Q4HR NEB INH 05/21/17 00:00 05/20/17 23:43 Albuterol/ Ipratropium (Duoneb Neb) 1 ampule Q2HR NEB PRN INH WHEEZING 05/20/17 23:15 Heparin Sodium (Porcine) (Heparin Inj) 5,000 units Q8H SQ 05/21/17 00:00 05/21/17 01:05 Miscellaneous Information 1 Q361D XX 05/20/17 23:15 Chlorhexidine Gluconate (Chlorhexidine 2% Cloth) 3 pack Taper DAILY@04 TOP 05/21/17 04:00 05/17/18 03:59 05/21/17 01:06 Chlorhexidine Gluconate (Chlorhexidine 2% Cloth) 3 pack UNSCH PRN TOP HYGIENIC CARE 05/20/17 23:15 Senna/Docusate Sodium (Viji-Colace) 1 tab BID PO 05/21/17 09:00 Magnesium Hydroxide (Milk Of Magnesia Liq) 30 ml Q12H PRN PO Mild constipation 05/20/17 23:15 Sennosides (Senokot) 17.2 mg Q12H PRN PO Moderate constipation 05/20/17 23:15 Bisacodyl (Dulcolax Supp) 10 mg DAILY PRN RECTAL SEVERE CONSITIPATION 05/20/17 23:15 Lactulose (Lactulose Liq) 30 ml DAILY PRN PO SEVERE CONSITIPATION 05/20/17 23:15 Azithromycin 500 mg/Sodium Chloride 250 ml @ 250 mls/hr Q24H IV 05/21/17 00:00 05/21/17 01:05 Azithromycin (Zithromax) 500 mg Q24H PO 05/21/17 23:00 Pharmacy Profile Note 0 ml @ 0 mls/hr UNSCH OTHER 05/20/17 23:15 Family History No family history significant of coronary artery disease or malignancy Social History Smokes pack per day No alcohol or illicit drug abuse Physical Exam Vital Signs Vital Signs Date Time Temp Pulse Resp B/P (MAP) Pulse Ox O2 Delivery O2 Flow Rate FiO2 05/20/17 22:30 113 22 153/87 (109) Nasal Cannula 2.00 05/20/17 21:30 115 24 119/78 (92) 96 Nasal Cannula 2.00 05/20/17 20:15 24 98 Aerosol Mask 8.00 05/20/17 20:11 95 Nasal Cannula 2.00 05/20/17 20:00 99.5 107 22 117/82 (94) 96 Nasal Cannula 2.00 05/20/17 19:39 98.5 105 23 122/81 (95) 95 Physical Exam GENERAL: Lethargic cachectic sick man in moderate respiratory distress SKIN: Focused skin assessment warm/dry. HEAD: Atraumatic. Normocephalic. EYES: Pupils equal and round. No scleral icterus. No injection or drainage. ENT: No nasal bleeding or discharge. Mucous membranes pink and moist. NECK: Trachea midline. No JVD. CARDIOVASCULAR: Regular rate and rhythm. No murmur appreciated. RESPIRATORY: Accessory muscles of respiration used, wheezing bilaterally, decreased air entry GASTROINTESTINAL: Abdomen soft, non-tender, nondistended. Hepatic and splenic margins not palpable. MUSCULOSKELETAL: No obvious deformities. No clubbing. No cyanosis. No edema. NEUROLOGICAL: GCS of 8 PSYCHIATRIC: Unable to assess Laboratory Laboratory Tests Test 05/20/17 20:16 05/20/17 20:20 05/20/17 20:25 05/20/17 20:45 Blood Gas Puncture Site RT BRACHIAL Blood Gas Patient Temperature 37.0 Blood Gas HCO3 33 Blood Gas Base Excess 6.7 Blood Gas Oxygen Saturation 96 Arterial Blood pH 7.32 Arterial Blood Partial Pressure CO2 65 Arterial Blood Partial Pressure O2 95 Arterial Blood Oxygen Content 17.3 Arterial Blood Carboxyhemoglobin 0.9 Arterial Blood Methemoglobin 0.4 Blood Gas Hemoglobin 12.8 Oxygen Delivery Device NASAL CANNULA Blood Gas Liter Flow 2 Lactic Acid Level 2.3 White Blood Count 9.0 Red Blood Count 5.13 Hemoglobin 13.7 Hematocrit 42.1 Mean Corpuscular Volume 82.1 Mean Corpuscular Hemoglobin 26.7 Mean Corpuscular Hemoglobin Concent 32.5 Red Cell Distribution Width 17.2 Platelet Count 165 Mean Platelet Volume 8.3 Neutrophils (%) (Auto) 28.8 Lymphocytes (%) (Auto) 16.8 Monocytes (%) (Auto) 7.8 Eosinophils (%) (Auto) 45.6 Basophils (%) (Auto) 1.0 Neutrophils # (Auto) 2.6 Lymphocytes # (Auto) 1.5 Monocytes # (Auto) 0.7 Eosinophils # (Auto) 4.1 Basophils # (Auto) 0.1 CBC Comment DIFF FINAL Differential Comment Prothrombin Time 11.1 Prothromb Time International Ratio 1.1 Blood Urea Nitrogen 9 Creatinine 0.93 Random Glucose 121 Total Protein 8.7 Albumin 3.1 Calcium Level 9.0 Alkaline Phosphatase 189 Aspartate Amino Transf (AST/SGOT) 25 Alanine Aminotransferase (ALT/SGPT) 22 Total Bilirubin 0.3 Sodium Level 133 Potassium Level 4.5 Chloride Level 97 Carbon Dioxide Level 32.8 Anion Gap 3 Estimat Glomerular Filtration Rate 97 Total Creatine Kinase 225 Troponin I 0.04 Thyroid Stimulating Hormone 3rd Gen 3.730 Urine Color YELLOW Urine Turbidity CLEAR Urine pH 5.0 Urine Specific [place] 1.025 Urine Protein TRACE Urine Glucose (UA) NEG Urine Ketones NEG Urine Occult Blood NEG Urine Nitrite NEG Urine Bilirubin NEG Urine Urobilinogen LESS THAN 2.0 Urine Leukocyte Esterase NEG Urine RBC 1 Urine WBC LESS THAN 1 Urine Bacteria RARE Urine Hyaline Casts 3 Urine Mucus FEW Microscopic Urinalysis Comment CATH-CULTURE IND Date/Time Source Procedure Growth Status 05/20/17 20:25 Blood Peripheral Aerobic Blood Culture Pending Received 05/20/17 20:25 Blood Peripheral Anaerobic Blood Culture Pending Received 05/20/17 20:45 Urine Catheterized Urine Urine Culture Pending Received Result Diagram: 05/20/17202405/20/172024 Imaging Last [address] 05/20/172001 Signed Impressions: Service Date/Time: May 21:05 - CONCLUSION: 1. Moderate periventricular and subcortical white matter small vessel ischemic changes bilaterally. 2. Diffuse cerebral atrophy is stable. 3. No acute infarct, acute hemorrhage, mass effect or extra-axial fluid collections. 4. Tiny air-fluid level within the right maxillary sinus and diffuse mucosal thickening involving all of the paranasal sinuses Herb Valladares MD Chest X-Ray 05/20/172001 Signed Impressions: Service Date/Time: May 20:27 - CONCLUSION: 1. No acute cardiopulmonary disease. MD Elías Trotter VTE Risk Assessment Caprini VTE Risk Assessment: Mod/High Risk (score >= 2) Caprini Risk Assessment Model Point Value = 1 Point Value = 2 Point Value = 3 Point Value = 5 Age 41-60 Minor surgery BMI > 25 kg/m2 Swollen legs Varicose veins or History of unexplained or recurrent spontaneous Oral contraceptives or hormone replacement Sepsis (< 1 month) Serious lung disease, including pneumonia (< 1 month) Abnormal pulmonary function Acute myocardial infarction Congestive heart failure (< 1 month) History of inflammatory bowel disease Medical patient at bed rest Age 61-74 Arthroscopic surgery Major open surgery (> 45 min) Laparoscopic surgery (> 45 min) Malignancy Confined to bed (> 72 hours) Immobilizing plaster cast Central venous access Age >= 75 History of VTE Family history of VTE Factor V Leiden Prothrombin 42026L Lupus anticoagulant Anticardiolipin antibodies Elevated serum homocysteine Heparin-induced thrombocytopenia Other congenital or acquired thrombophilia Stroke (< 1 month) Elective arthroplasty Hip, pelvis, or leg fracture Acute spinal cord injury (< 1 month) Prophylaxis Regimen Total Risk Factor Score Risk Level Prophylaxis Regimen 0-1 Low Early ambulation 2 Moderate Order ONE of the following: *Sequential Compression Device (SCD) *Heparin 5000 units SQ BID 3-4 Higher Order ONE of the following medications: *Heparin 5000 units SQ TID *Enoxaparin/Lovenox 40 mg SQ daily (WT < 150 kg, CrCl > 30 mL/min) *Enoxaparin/Lovenox 30 mg SQ daily (WT < 150 kg, CrCl > 10-29 mL/min) *Enoxaparin/Lovenox 30 mg SQ BID (WT < 150 kg, CrCl > 30 mL/min) AND/OR *Sequential Compression Device (SCD) 5 or more Highest Order ONE of the following medications: *Heparin 5000 units SQ TID (Preferred with Epidurals) *Enoxaparin/Lovenox 40 mg SQ daily (WT < 150 kg, CrCl > 30 mL/min) *Enoxaparin/Lovenox 30 mg SQ daily (WT < 150 kg, CrCl > 10-29 mL/min) *Enoxaparin/Lovenox 30 mg SQ BID (WT < 150 kg, CrCl > 30 mL/min) AND *Sequential Compression Device (SCD) Assessment and Plan Assessment and Plan Respiratory failure - Underlying COPD and asthma - DuoNeb scheduled and when necessary - No wheezing appreciated on exam we'll hold on steroids - Broad-spectrum antibiotic - Cultures and de-escalate per sensitivity - Urine antigens Sepsis - Series of lactic acid - Aggressive IV fluids resuscitation - Broad-spectrum antibiotics and follow-up culture History of hypertension - Hold antihypertensive meds in a patient of early sepsis - Resume when indicated Anxiety - Lorazepam when necessary Tobacco use disorder - Cessation when neurologically improved Altered mental status - CT head negative - Most likely due to underlying infection - Supportive care DVT GI prophylaxis - Teds SCDs - Subcutaneous heparin and Pepcid Critical Care: The total critical care time was 35 minutes. Time to perform other separately billable procedures was not included in the critical care time. Son Banuelos MD May 20, 2017 23:12
[2017-05-20] MEDS ORDERED: BISACODYL 10 MG SUPP RECTAL PRN (23:15)
[2017-05-20] MEDS ORDERED: MAGNESIUM HYDROXIDE SUSP 30 ML CUP PO PRN (23:15)
[2017-05-20] MEDS ORDERED: MISCELLANEOUS NURSING INFORMATION XX SCH (23:15)
[2017-05-20] MEDS ORDERED: ACETAMINOPHEN 325 MG TAB PO PRN (23:15)
[2017-05-20] MEDS ORDERED: Vancomycin Consult Pharmacy 1 EA OTHER SCH (23:15)
[2017-05-20] MEDS ORDERED: CHLORHEXIDINE GLUCONATE 2 % 1 PACK (2 CLOTHS) TOP PRN (23:15)
[2017-05-20] MEDS ORDERED: ONDANSETRON HCL 4 MG/2 ML VIAL IV PUSH PRN (23:15)
[2017-05-20] MEDS ORDERED: RESP: ALBUTEROL 2.5 MG/IPRATROPIUM 0.5 MG NEB (PRN) INH (23:15)
[2017-05-20] MEDS ORDERED: LACTULOSE SYRUP 20 GM/30 ML CUP PO PRN (23:15)
[2017-05-20] MEDS ORDERED: SENNOSIDES 8.6 MG TAB PO PRN (23:15)
[2017-05-21] VITALS (18 sets, daily range): BP systolic 78–141; BP diastolic 50–72; PULSE 80–114; RESP 16–32; TEMP 98.3–99; O2SAT 90–100
[2017-05-21] MEDS: HEPARIN SODIUM - SQ 10,000 UNITS/ML VIAL SQ SCH ×3 (01:05→15:44)
[2017-05-21] MEDS: AZITHROMYCIN INJ 500 MG in SODIUM CHLOR 0.9% 250 ML INJ 250 ML IV SCH (01:05)
[2017-05-21] MEDS: CHLORHEXIDINE GLUCONATE 2 % 1 PACK (2 CLOTHS) TOP SCH (01:06)
[2017-05-21] MEDS: RESP: ALBUTEROL 2.5 MG/IPRATROPIUM 0.5 MG NEB (SCH) INH ×5 (04:52→20:30)
[2017-05-21 05:47] LABS: ALKALINE PHOSPHATASE 159 U/L (45-117); ALT (GPT) 23 U/L (12-78); ANION GAP 8 MEQ/L (5-15); AST (GOT) 22 U/L (15-37); BICARBONATE 29.5 MEQ/L (21.0-32.0); BLOOD UREA NITROGEN 8 MG/DL (7-18); CHLORIDE 100 MEQ/L (98-107); GLOMERULAR FILTRATION RATE 120 ML/MIN (>89); MAGNESIUM 1.5 MG/DL (1.5-2.5); POTASSIUM 4.1 MEQ/L (3.5-5.1); SODIUM (NA) 137 MEQ/L (136-145); TOTAL BILIRUBIN ADULT 0.3 MG/DL (0.2-1.0)
[2017-05-21 06:54] LABS: LACTIC ACID GHOST NOT REPORTABLE
[2017-05-21] MEDS: SODIUM CHLOR 0.9% 1000 ML INJ 1,000 ML IV SCH ×4 (07:08→23:16)
[2017-05-21] MEDS: SODIUM CHLORIDE 1 GRAM TAB PO SCH ×3 (09:00→17:59)
[2017-05-21] MEDS: SODIUM CHLORIDE 0.9% FLUSH 10 ML FLUSH IV FLUSH SCH ×2 (09:00→19:48)
[2017-05-21] MEDS: FAMOTIDINE 20 MG/2 ML VIAL IV PUSH SCH ×2 (09:00→19:47)
--- NOTE | 2017-05-21 09:23 | HHI.CCPN ---
Subjective Remarks/Hospital Course 71-year-old male came to the emergency room sent from the [facility] with altered mental status this progressively worsening over past couple days. He was found today by [facility] staff to be unresponsive and in respiratory distress. EMS was called. Upon arrival they noticed that patient was wheezing. Patient was given albuterol nebulizer and then was brought here. His oxygen saturation initially was in the high 80s on 2 L of oxygen via nasal cannula that's his daily requirement. After the nebulizer oxygen saturation improved to 95% on 2 L. Patient arrived with a GCS of 8. Patient is a full code. After nebulizer treatment and improve oxygenation his mental status thoughts improving. Patient is able to protect his airways. Subjective: 05/21: Patient continues to have altered mental status, formal swallow evaluation pending. Lactate remains elevated, expansion of antibiotics this a.m.. O2 saturation remains WNL. Objective Vital Signs Date Time Temp Pulse Resp B/P (MAP) Pulse Ox O2 Delivery O2 Flow Rate FiO2 05/21/17 07:45 96 Nasal Cannula 2.00 05/21/17 06:00 96 05/21/17 04:00 99.0 23 91/65 (74) Intake and Output 05/21/17 05/21/17 05/22/17 08:00 16:00 00:00 Intake Total 1600 ml Output Total 1300 ml Balance 300 ml Result Diagram: 05/20/17202405/21/176 Other Results Laboratory Tests Test 05/20/17 20:16 Blood Gas Puncture Site RT BRACHIAL Blood Gas Patient Temperature 37.0 Blood Gas HCO3 33 mmol/L (22-26) Blood Gas Base Excess 6.7 mmol/L (-2-2) Blood Gas Oxygen Saturation 96 % (90-100) Arterial Blood pH 7.32 (7.380-7.420) Arterial Blood Partial Pressure CO2 65 mmHg (38-42) Arterial Blood Partial Pressure O2 95 mmHG (61-120) Arterial Blood Oxygen Content 17.3 Vol % (12.0-20.0) Arterial Blood Carboxyhemoglobin 0.9 % (0-4) Arterial Blood Methemoglobin 0.4 % (0-2) Blood Gas Hemoglobin 12.8 G/DL (12.0-16.0) Oxygen Delivery Device NASAL CANNULA Blood Gas Liter Flow 2 L/M Imaging Last [address] 05/20/172001 Signed Impressions: Service Date/Time: May 21:05 - CONCLUSION: 1. Moderate periventricular and subcortical white matter small vessel ischemic changes bilaterally. 2. Diffuse cerebral atrophy is stable. 3. No acute infarct, acute hemorrhage, mass effect or extra-axial fluid collections. 4. Tiny air-fluid level within the right maxillary sinus and diffuse mucosal thickening involving all of the paranasal sinuses Herb Valladares MD Chest X-Ray 05/20/172001 Signed Impressions: Service Date/Time: May 20:27 - CONCLUSION: 1. No acute cardiopulmonary disease. Ricardo Moreno MD Objective Remarks GENERAL: Lethargic cachectic chronically ill appearing man in no acute distress, confused SKIN: Focused skin assessment warm/dry. HEAD: Atraumatic. Normocephalic. EYES: Pupils equal and round. No scleral icterus. No injection or drainage. ENT: No nasal bleeding or discharge. Mucous membranes pink and moist. NECK: Trachea midline. No JVD. CARDIOVASCULAR: Regular rate and rhythm. No murmur appreciated. RESPIRATORY: No accessory muscles , clear to auscultation bilaterally GASTROINTESTINAL: Abdomen soft, non-tender, nondistended. Hepatic and splenic margins not palpable. MUSCULOSKELETAL: No obvious deformities. No clubbing. No cyanosis. No edema. NEUROLOGICAL: GCS 14 PSYCHIATRIC: Confused A/P Assessment and Plan Respiratory failure - Underlying COPD and asthma - DuoNeb scheduled and when necessary - No wheezing appreciated on exam we'll hold on steroids - Broad-spectrum antibiotic (currently on Azithromycin) - Cultures and de-escalate per sensitivity - Urine antigens -05/21:Chest x-ray no acute process Sepsis - Monitor lactic acid 2.5->3.1 - Aggressive IV fluids resuscitation, NS 125/hr - Broad-spectrum antibiotics and follow-up culture-begin cefepime and Flagyl, UA suggestive of infection-pending culture - H/O ESBL 10/28 previously on meropenem History of hypertension - Hold antihypertensive meds (parameters provided) in a patient of early sepsis - Resume when indicated Anxiety - Lorazepam when necessary for agitation Tobacco use disorder - Cessation when neurologically improved Altered mental status Metabolic encephalopathy - CT head negative - Most likely due to underlying infection -Consider LP -Monitor BMP, initiate electrolyte replacement protocol -Glucose monitoring per ICU protocol -Obtain formal swallow - Supportive care DVT GI prophylaxis - Teds SCDs - Subcutaneous heparin and Pepcid Dispo: Level 3 Discussed with STEAM CONDITIONER OPERATOR at bedside ([place]) Physician Tanya Long MD May 21, 2017 09:23
[2017-05-21] MEDS: DOCUSATE SODIUM 50 MG/SENNA 8.6 MG TAB PO SCH ×2 (09:44→19:47)
[2017-05-21] MEDS: ASPIRIN EC 81 MG TABEC PO SCH (09:45)
[2017-05-21] MEDS ORDERED: SODIUM PHOSPHATE INJ 30 MMOL in SODIUM CHLOR 0.9% 250 ML INJ 240 ML IV PRN (09:45)
[2017-05-21] MEDS ORDERED: DEXTROSE 50% IN WATER 50 ML VIAL(D50) IV PUSH PRN (09:45)
[2017-05-21] MEDS ORDERED: MAGNESIUM SULFATE INJ 2 GM in SODIUM CHLORIDE 0.9% INJ 96 ML IV PRN (09:45)
[2017-05-21] MEDS ORDERED: MAGNESIUM OXIDE 400 MG TAB PO PRN (09:45)
[2017-05-21] MEDS ORDERED: POTASSIUM CHLOR 40 MEQ PREMIX 100 ML IV PRN ×2 (09:45)
[2017-05-21] MEDS ORDERED: POTASSIUM PHOSPHATE MONOBASIC 500 MG TAB PO/TUBE PRN (09:45)
[2017-05-21] MEDS ORDERED: POTASSIUM PHOSPHATE INJ 30 MMOL in SODIUM CHLOR 0.9% 250 ML INJ 250 ML IV PRN (09:45)
[2017-05-21] MEDS: CETIRIZINE HCL 10 MG TAB PO SCH (09:45)
[2017-05-21] MEDS ORDERED: MAGNESIUM SULFATE INJ 4 GM in SODIUM CHLORIDE 0.9% INJ 92 ML IV PRN (09:45)
[2017-05-21] MEDS ORDERED: GLUCAGON 1 MG/ML VIAL OTHER PRN (09:45)
[2017-05-21] MEDS ORDERED: POTASSIUM PHOSPHATE MONOBASIC 500 MG TAB PO PRN (09:45)
[2017-05-21] MEDS ORDERED: POTASSIUM CHLORIDE 25 MEQ EFFERVESCENT TAB PO PRN (09:45)
[2017-05-21] MEDS: PANTOPRAZOLE SOD 40 MG DELAYED RELEASE TAB PO SCH (09:45)
[2017-05-21] MEDS ORDERED: POTASSIUM CHLOR 20 MEQ PREMIX 100 ML IV PRN ×2 (09:45)
[2017-05-21] MEDS: amLODIPine BESYLATE 5 MG TAB PO SCH (10:00)
[2017-05-21] MEDS: METOPROLOL SUCCINATE 50 MG EXTENDED RELEASE TAB PO SCH (10:00)
[2017-05-21] MEDS ORDERED: PILL SPLITTER OTHER PRN (10:15)
[2017-05-21] MEDS: MAGNESIUM SULFATE 1 GM PREMIX 100 ML IV SCH ×2 (10:21→11:21)
--- NOTE | 2017-05-21 11:10 | PD.ID.CON ---
History of Present Illness Service ID Consult Requested By Dr Meléndez Reason for Consult sepsis, h/o ESBL bacteremia Primary Care Physician Unknown Diagnoses: History of Present Illness 71 yo male with multiple medical problems presented from [facility] with mental status change x 2 days Pt was noted to have no fever or leukocytosis, but lactic acid was elevated up to 3.1 (going up) Pt was quite confused and agitated during my visit, was trying to get OOB and leave. Pt is denying headache and or abdominal pain and he is not seeming to be in any pain, but is very confused and only oriented x 1 He has negative blood clx @ 1 day x 2/2 His UA appears clean CXR is negative Hypotensive His Alk phos is elevated Review of Systems ROS Limitations: Altered Mental Status, Poor Historian Past Family Social History Allergies: Coded Allergies: diatrizoate meglumine (Unverified Allergy, Mild, HIVES, ITCHING, 01/26/17) gadobenic acid (Unverified Allergy, Mild, HIVES, ITCHING, 01/26/17) gadodiamide (Unverified Allergy, Mild, HIVES, ITCHING, 01/26/17) gadoteridol (Unverified Allergy, Mild, HIVES, ITCHING, 01/26/17) iodixanol (Unverified Allergy, Mild, HIVES, ITCHING, 01/26/17) iohexol (Unverified Allergy, Mild, HIVES, ITCHING, 01/26/17) Past Medical History Asthma COPD Glaucoma Hypertension Past Surgical History Cataract surgery Active Ordered Medications Medications where reviewed in EMR Antibiotics Include: azithro zosyn - stopped vanco Family History reviewed non contributory Social History Smokes pack per day No alcohol or illicit drug abuse Physical Exam Vital Signs Vital Signs Date Time Temp Pulse Resp B/P (MAP) Pulse Ox O2 Delivery O2 Flow Rate FiO2 05/21/17 07:45 96 Nasal Cannula 2.00 05/21/17 06:00 96 05/21/17 04:00 99.0 95 23 91/65 (74) 96 05/21/17 04:00 98 05/21/17 02:00 95 05/21/17 00:20 05/21/17 00:05 100 20 141/72 (95) 95 Room Air 2.00 05/20/17 23:30 104 20 151/79 (103) 96 Nasal Cannula 2.00 05/20/17 22:30 113 22 153/87 (109) 95 Nasal Cannula 2.00 05/20/17 21:30 115 24 119/78 (92) 96 Nasal Cannula 2.00 05/20/17 20:45 120 23 117/82 (94) 96 Nasal Cannula 2.00 05/20/17 20:15 24 98 Aerosol Mask 8.00 05/20/17 20:11 95 Nasal Cannula 2.00 05/20/17 20:05 99.5 112 24 117/82 (94) 96 Nasal Cannula 2.00 05/20/17 20:05 112 24 117/82 (94) 96 Nasal Cannula 2.00 05/20/17 20:00 99.5 107 22 117/82 (94) 96 Nasal Cannula 2.00 05/20/17 20:00 Nasal Cannula 2.00 05/20/17 19:39 98.5 105 23 122/81 (95) 95 Physical Exam CONSTITUTIONAL/GENERAL: This is a thin elderly patient, in no apparent distress. TUBES/LINES/DRAINS: SKIN: No jaundice, rashes, or lesions. Skin temperature appropriate. Not diaphoretic. HEAD: Atraumatic. Normocephalic. EYES: Pupils equal and round and reactive. Extraocular motions intact. No scleral icterus. No injection or drainage. Fundi not examined. ENT: Hearing grossly normal. Nose without bleeding or purulent drainage. Throat without visible erythema, exudates, masses, or lesions. NECK: Trachea midline. Supple, nontender. CARDIOVASCULAR: Regular rate and rhythm without murmurs, gallops, or rubs. No JVD. Peripheral pulses symmetric. RESPIRATORY/CHEST: Symmetric, unlabored respirations. Clear to auscultation. Breath sounds equal bilaterally. No wheezes, rales, or rhonchi. GASTROINTESTINAL: Abdomen soft, non-tender, nondistended. No hepato-splenomegaly , or palpable masses. No guarding. Bowel sounds present. GENITOURINARY: Without palpable bladder distension. Barrera in place with cloudy appearing urine MUSCULOSKELETAL: Extremities without clubbing, cyanosis, or edema. No joint tenderness or effusion noted. No calf tenderness. No mottling or clubbing. LYMPHATICS: No palpable cervical or supraclavicular adenopathy. NEUROLOGICAL: Awake and alert. Agitated and confused. Oriented x 1 . Speech incoherent . Moves all extremities. PSYCHIATRIC: agitated Laboratory Laboratory Tests Test 05/20/17 20:16 05/20/17 20:20 05/20/17 20:25 05/20/17 20:45 Blood Gas Puncture Site RT BRACHIAL Blood Gas Patient Temperature 37.0 Blood Gas HCO3 33 Blood Gas Base Excess 6.7 Blood Gas Oxygen Saturation 96 Arterial Blood pH 7.32 Arterial Blood Partial Pressure CO2 65 Arterial Blood Partial Pressure O2 95 Arterial Blood Oxygen Content 17.3 Arterial Blood Carboxyhemoglobin 0.9 Arterial Blood Methemoglobin 0.4 Blood Gas Hemoglobin 12.8 Oxygen Delivery Device NASAL CANNULA Blood Gas Liter Flow 2 Lactic Acid Level 2.3 White Blood Count 9.0 Red Blood Count 5.13 Hemoglobin 13.7 Hematocrit 42.1 Mean Corpuscular Volume 82.1 Mean Corpuscular Hemoglobin 26.7 Mean Corpuscular Hemoglobin Concent 32.5 Red Cell Distribution Width 17.2 Platelet Count 165 Mean Platelet Volume 8.3 Neutrophils (%) (Auto) 28.8 Lymphocytes (%) (Auto) 16.8 Monocytes (%) (Auto) 7.8 Eosinophils (%) (Auto) 45.6 Basophils (%) (Auto) 1.0 Neutrophils # (Auto) 2.6 Lymphocytes # (Auto) 1.5 Monocytes # (Auto) 0.7 Eosinophils # (Auto) 4.1 Basophils # (Auto) 0.1 CBC Comment DIFF FINAL Differential Comment Prothrombin Time 11.1 Prothromb Time International Ratio 1.1 Blood Urea Nitrogen 9 Creatinine 0.93 Random Glucose 121 Total Protein 8.7 Albumin 3.1 Calcium Level 9.0 Alkaline Phosphatase 189 Aspartate Amino Transf (AST/SGOT) 25 Alanine Aminotransferase (ALT/SGPT) 22 Total Bilirubin 0.3 Sodium Level 133 Potassium Level 4.5 Chloride Level 97 Carbon Dioxide Level 32.8 Anion Gap 3 Estimat Glomerular Filtration Rate 97 Total Creatine Kinase 225 Troponin I 0.04 Thyroid Stimulating Hormone 3rd Gen 3.730 Urine Color YELLOW Urine Turbidity CLEAR Urine pH 5.0 Urine Specific [place] 1.025 Urine Protein TRACE Urine Glucose (UA) NEG Urine Ketones NEG Urine Occult Blood NEG Urine Nitrite NEG Urine Bilirubin NEG Urine Urobilinogen LESS THAN 2.0 Urine Leukocyte Esterase NEG Urine RBC 1 Urine WBC LESS THAN 1 Urine Bacteria RARE Urine Hyaline Casts 3 Urine Mucus FEW Microscopic Urinalysis Comment CATH-CULTURE IND Test 05/20/17 23:48 05/21/17 03:32 05/21/17 04:46 Lactic Acid Level 2.5 3.1 Nasal Screen MRSA (PCR) MRSA NOT DETECTED Blood Urea Nitrogen 8 Creatinine 0.77 Random Glucose 130 Total Protein 7.6 Albumin 2.9 Calcium Level 8.2 Phosphorus Level 2.4 Magnesium Level 1.5 Alkaline Phosphatase 159 Aspartate Amino Transf (AST/SGOT) 22 Alanine Aminotransferase (ALT/SGPT) 23 Total Bilirubin 0.3 Sodium Level 137 Potassium Level 4.1 Chloride Level 100 Carbon Dioxide Level 29.5 Anion Gap 8 Estimat Glomerular Filtration Rate 120 Troponin I 0.02 Date/Time Source Procedure Growth Status 05/20/17 20:25 Blood Peripheral Aerobic Blood Culture Pending Received 05/20/17 20:25 Blood Peripheral Anaerobic Blood Culture Pending Received 05/20/17 20:45 Urine Catheterized Urine Legionella Antigen Pending Received 05/20/17 20:45 Urine Catheterized Urine Streptococcus pneumoniae Antigen (M Pending Received Result Diagram: 05/20/17202405/21/17445 Imaging Last Impressions Head CT 05/20/172001 Signed Impressions: Service Date/Time: May 21:05 - CONCLUSION: 1. Moderate periventricular and subcortical white matter small vessel ischemic changes bilaterally. 2. Diffuse cerebral atrophy is stable. 3. No acute infarct, acute hemorrhage, mass effect or extra-axial fluid collections. 4. Tiny air-fluid level within the right maxillary sinus and diffuse mucosal thickening involving all of the paranasal sinuses Herb Valladares MD Chest X-Ray 05/20/172001 Signed Impressions: Service Date/Time: May 20:27 - CONCLUSION: 1. No acute cardiopulmonary disease. Ricardo Moreno MD Assessment and Plan Assessment and Plan Lactic acidosis - improving possible sepsis Pt is critical, BP is unstable Confusion ? is sepsis contributing H/o bacteremia 2/2 ESBL + organism in October cont vancomycin, start meropenem fu blood clx - will get CT Abd/pel with non iodine containing contrast Discussed Condition With Dr Meléndez RN pharmacist radiology dptmt Chelsy Shaw MD May 21, 2017 11:10
[2017-05-21] MEDS: INSULIN ASPART SUPPLEMENTAL SCALE SQ SCH ×3 (11:30→19:49)
[2017-05-21 12:39] LABS: AUTOMATED NEUTROPHIL # 4.2 TH/MM3 (1.8-7.7); BASOPHIL % 0.6 % (0.0-2.0); EOSINOPHIL % 0.2 % (0.0-4.0); HEMATOCRIT 34.1 % (39.0-51.0); HEMO FLAGS DIFF FINAL; LYMPH % 24.9 % (9.0-44.0); LYMPHOCYTE # 1.6 TH/MM3 (1.0-4.8); MEAN CELL VOLUME 81.3 FL (80.0-100.0); MEAN CORPUSCULAR HEMOGLOBIN 26.7 PG (27.0-34.0); MEAN CORPUSCULAR HGB CONC 32.8 % (32.0-36.0); MONO % 7.6 % (0.0-8.0); NEUT % 66.7 % (16.0-70.0); PLATELET COUNT 155 TH/MM3 (150-450); RED CELL DISTRIBUTION WIDTH 16.8 % (11.6-17.2); WHITE BLOOD COUNT 6.3 TH/MM3 (4.0-11.0)
[2017-05-21] MEDS: VANCOMYCIN INJ 750 MG in SODIUM CHLOR 0.9% 250 ML INJ 250 ML IV SCH (14:30)
[2017-05-21] MEDS ORDERED: MISCELLANEOUS PHARMACY INFORMATION XX PRN (16:15)
[2017-05-21] MEDS ORDERED: ASP: Documented ESBL, MDR A baumannii or P. aeruginosa PRN (16:15)
[2017-05-21] MEDS: MEROPENEM INJ 1,000 MG in SODIUM CHLORIDE 0.9% INJ 100 ML IV SCH (17:58)
[2017-05-21] MEDS: LORazepam 0.5 MG TAB PO PRN (19:46)
[2017-05-21] MEDS: ATORVASTATIN 80 MG TAB PO SCH (19:48)
[2017-05-21] MEDS ORDERED: AZITHROMYCIN 250 MG TAB PO SCH (23:00)
--- NOTE | 2017-05-21 23:12 | RADRPT ---
EXAM DATE/TIME: 05/21/2017 22:05 [facility] COMPARISON: CT ABDOMEN & PELVIS W/O CONTRAST, March 26, 2016, 0:17. INDICATIONS : Liver disorder. ORAL CONTRAST: Prescribed oral contrast ingested. RADIATION DOSE: 13.53 CTDIvol (mGy) MEDICAL HISTORY : Cardiovascular disease. Diabetes mellitus type 2. Hypertension. SURGICAL HISTORY : None. ENCOUNTER: Initial ACUITY: 1 day PAIN SCALE: Non-responsive LOCATION: abdomen TECHNIQUE: Volumetric scanning of the abdomen and pelvis was performed. Using automated exposure control and ad justment of the mA and/or kV according to patient size, radiation dose was kept as low as reasonably achievable to obtain optimal diagnostic quality images. DICOM format image data is available electro nically for review and comparison. FINDINGS: Unenhanced appearance of the kidneys, pancreas, adrenal glands, spleen unremarkable. Atherosclerotic calcifications of the aorta and iliac vasculature. Barrera catheter in urinary bladder. Prostate unrema rkable. No evidence of bowel obstruction. The appendix is normal. There is no adenopathy or aneurysm. There are stable cysts in the lateral segment of the left lobe of the liver and in the caudate lobe. There are fibrotic changes and mild basilar atelectasis versus airspace disease at the lung bases. T he osseous structures are intact. CONCLUSION: 1. Hepatic cysts. 2. Atherosclerosis. Kirby Espinosa MD on May 21, 2017 at 23:09 Board Certified Radiologist. This report was verified electronically.
[2017-05-22] VITALS (12 sets, daily range): BP systolic 130–152; BP diastolic 60–79; PULSE 72–110; RESP 16–26; TEMP 97.6–98.6; O2SAT 97–100
[2017-05-22] MEDS: AZITHROMYCIN INJ 500 MG in SODIUM CHLOR 0.9% 250 ML INJ 250 ML IV SCH (00:14)
[2017-05-22] MEDS: RESP: ALBUTEROL 2.5 MG/IPRATROPIUM 0.5 MG NEB (SCH) INH ×6 (00:21→20:37)
[2017-05-22] MEDS: MEROPENEM INJ 1,000 MG in SODIUM CHLORIDE 0.9% INJ 100 ML IV SCH ×3 (00:57→17:45)
[2017-05-22] MEDS: VANCOMYCIN INJ 750 MG in SODIUM CHLOR 0.9% 250 ML INJ 250 ML IV SCH ×2 (01:56→12:43)
[2017-05-22] MEDS: LORazepam 0.5 MG TAB PO PRN ×2 (03:54→19:38)
[2017-05-22] MEDS: CHLORHEXIDINE GLUCONATE 2 % 1 PACK (2 CLOTHS) TOP SCH (04:00)
[2017-05-22] MEDS: SODIUM CHLOR 0.9% 1000 ML INJ 1,000 ML IV SCH ×2 (05:42→17:47)
[2017-05-22 06:18] LABS: ANION GAP 7 MEQ/L (5-15); AST (GOT) 18 U/L (15-37); BICARBONATE 27.9 MEQ/L (21.0-32.0); BLOOD UREA NITROGEN 8 MG/DL (7-18); CHLORIDE 106 MEQ/L (98-107); GLOMERULAR FILTRATION RATE 124 ML/MIN (>89); MAGNESIUM 1.9 MG/DL (1.5-2.5); POTASSIUM 3.7 MEQ/L (3.5-5.1); SODIUM (NA) 141 MEQ/L (136-145)
[2017-05-22 06:21] LABS: ALKALINE PHOSPHATASE 122 U/L (45-117); ALT (GPT) 18 U/L (12-78); TOTAL BILIRUBIN ADULT 0.3 MG/DL (0.2-1.0)
[2017-05-22] MEDS: INSULIN ASPART SUPPLEMENTAL SCALE SQ SCH ×4 (08:00→20:22)
[2017-05-22] MEDS: HEPARIN SODIUM - SQ 10,000 UNITS/ML VIAL SQ SCH ×3 (08:00→17:46)
[2017-05-22 08:19] LABS: AUTOMATED NEUTROPHIL # 3.3 TH/MM3 (1.8-7.7); BASOPHIL # 0.1 TH/MM3 (0-0.2); BASOPHIL % 1.2 % (0.0-2.0); EOSINOPHIL # 1.1 TH/MM3 (0-0.4); EOSINOPHIL % 14.2 % (0.0-4.0); HEMATOCRIT 33.8 % (39.0-51.0); HEMO FLAGS DIFF FINAL; LYMPH % 32.8 % (9.0-44.0); LYMPHOCYTE # 2.6 TH/MM3 (1.0-4.8); MEAN CELL VOLUME 81.5 FL (80.0-100.0); MEAN CORPUSCULAR HEMOGLOBIN 26.5 PG (27.0-34.0); MEAN CORPUSCULAR HGB CONC 32.5 % (32.0-36.0); MONO % 9.8 % (0.0-8.0); PLATELET COUNT 168 TH/MM3 (150-450); RED BLOOD COUNT 4.15 MIL/MM3 (4.50-5.90); RED CELL DISTRIBUTION WIDTH 16.6 % (11.6-17.2); WHITE BLOOD COUNT 7.9 TH/MM3 (4.0-11.0)
[2017-05-22] MEDS: METOPROLOL SUCCINATE 50 MG EXTENDED RELEASE TAB PO SCH (09:00)
[2017-05-22] MEDS: amLODIPine BESYLATE 5 MG TAB PO SCH (09:00)
[2017-05-22] MEDS: FAMOTIDINE 20 MG/2 ML VIAL IV PUSH SCH ×2 (09:00→19:38)
[2017-05-22] MEDS: SODIUM CHLORIDE 0.9% FLUSH 10 ML FLUSH IV FLUSH SCH ×2 (09:00→19:38)
[2017-05-22] MEDS: ASPIRIN EC 81 MG TABEC PO SCH (09:03)
[2017-05-22] MEDS: PANTOPRAZOLE SOD 40 MG DELAYED RELEASE TAB PO SCH (09:03)
[2017-05-22] MEDS: CETIRIZINE HCL 10 MG TAB PO SCH (09:03)
[2017-05-22] MEDS: DOCUSATE SODIUM 50 MG/SENNA 8.6 MG TAB PO SCH ×2 (09:03→19:38)
[2017-05-22] MEDS: SODIUM CHLORIDE 1 GRAM TAB PO SCH ×3 (09:04→17:47)
--- NOTE | 2017-05-22 17:11 | HHI.CCPN ---
Subjective Remarks/Hospital Course 71-year-old male came to the emergency room sent from the long term with altered mental status this progressively worsening over past couple days. He was found today by long term staff to be unresponsive and in respiratory distress. EMS was called. Upon arrival they noticed that patient was wheezing. Patient was given albuterol nebulizer and then was brought here. His oxygen saturation initially was in the high 80s on 2 L of oxygen via nasal cannula that's his daily requirement. After the nebulizer oxygen saturation improved to 95% on 2 L. Patient arrived with a GCS of 8. Patient is a full code. After nebulizer treatment and improve oxygenation his mental status thoughts improving. Patient is able to protect his airways. Subjective: 05/21: Patient continues to have altered mental status, formal swallow evaluation pending. Lactate remains elevated, expansion of antibiotics this a.m.. O2 saturation remains WNL. 05/22: Afebrile. O2 saturation 44129 percent on room air. Patient tolerating a diet. Patient remains confused, hard restraints for safety. Objective Vital Signs Date Time Temp Pulse Resp B/P (MAP) Pulse Ox O2 Delivery O2 Flow Rate FiO2 05/22/17 14:00 107 05/22/17 12:00 98.1 05/22/17 04:00 22 152/79 (103) 100 05/21/17 20:34 Nasal Cannula 2.00 Intake and Output 05/22/17 05/22/17 05/23/17 08:00 16:00 00:00 Intake Total 1807.5 ml Output Total 901 ml Balance 906.5 ml Result Diagram: 05/22/17 0805 05/22/17 0509 Other Results Microbiology Date/Time Source Procedure Growth Status 05/20/17 20:45 Urine Catheterized Urine Legionella Antigen - Final PRESUMPTIVE NEGATIVE FOR LEGIONELLA P... Complete 05/20/17 20:45 Urine Catheterized Urine Streptococcus pneumoniae Antigen (M - Final PRESUMPTIVE NEGATIVE FOR STREPTOCOCCU... Complete 05/20/17 20:45 Urine Catheterized Urine Urine Culture - Final NO GROWTH IN 48 HOURS. Complete Imaging Last [address] 05/20/172001 Signed Impressions: Service Date/Time: May 21:05 - CONCLUSION: 1. Moderate periventricular and subcortical white matter small vessel ischemic changes bilaterally. 2. Diffuse cerebral atrophy is stable. 3. No acute infarct, acute hemorrhage, mass effect or extra-axial fluid collections. 4. Tiny air-fluid level within the right maxillary sinus and diffuse mucosal thickening involving all of the paranasal sinuses Herb Valladares MD Chest X-Ray 05/20/172001 Signed Impressions: Service Date/Time: May 20:27 - CONCLUSION: 1. No acute cardiopulmonary disease. Ricardo Moreno MD Objective Remarks GENERAL:This is a cachectic chronically ill appearing man in no acute distress, confused SKIN: Focused skin assessment warm/dry. HEAD: Atraumatic. Normocephalic. EYES: Pupils equal and round. No scleral icterus. No injection or drainage. ENT: No nasal bleeding or discharge. Mucous membranes pink and moist. NECK: Trachea midline. No JVD. CARDIOVASCULAR: Regular rate and rhythm. No murmur appreciated. RESPIRATORY: No accessory muscles , clear to auscultation bilaterally GASTROINTESTINAL: Abdomen soft, non-tender, nondistended. Hepatic and splenic margins not palpable. MUSCULOSKELETAL: No obvious deformities. No clubbing. No cyanosis. No edema. NEUROLOGICAL: GCS 14 PSYCHIATRIC: Confused A/P Assessment and Plan Respiratory failure-resolved - Underlying COPD and asthma - DuoNeb scheduled and when necessary - No wheezing appreciated on exam will hold on steroids - Broad-spectrum antibiotic (currently on Azithromycin) - Cultures and de-escalate per sensitivity - Urine antigens -05/21:Chest x-ray no acute process Sepsis - Monitor lactic acid 2.5->3.1 - Aggressive IV fluids resuscitation, NS 125/hr - Broad-spectrum antibiotics and follow-up culture-begin cefepime and Flagyl, UA suggestive of infection-pending culture - H/O ESBL 10/28 previously on meropenem History of hypertension - Hold antihypertensive meds (parameters provided) in a patient of early sepsis - Resume when indicated Anxiety - Lorazepam when necessary for agitation Tobacco use disorder - Cessation when neurologically improved Altered mental status Metabolic encephalopathy - CT head negative - Most likely due to underlying infection -Consider LP -Monitor BMP, initiate electrolyte replacement protocol -Glucose monitoring per ICU protocol -Obtain formal swallow - Supportive care DVT GI prophylaxis - Teds SCDs - Subcutaneous heparin and Pepcid Dispo: Level 2 Discussed with HAND TOOL FILER at bedside (Cheyanne). Plan transfer to [facility] in a.m.. Patient transferred to [facility] floor upon bed availability. Physician Tanya Long MD May 22, 2017 17:11
[2017-05-22] MEDS ORDERED: CALCIUM GLUCONATE INJ 2 GM in DEXTROSE 5% IN WATER 100ML INJ 100 ML IV ONE ×2 (17:15)
[2017-05-22] MEDS: ATORVASTATIN 80 MG TAB PO SCH (19:38)
[2017-05-23] VITALS (17 sets, daily range): BP systolic 130–167; BP diastolic 68–88; PULSE 86–112; RESP 23–35; TEMP 98–98.7; O2SAT 91–94
[2017-05-23] MEDS: HEPARIN SODIUM - SQ 10,000 UNITS/ML VIAL SQ SCH ×3 (00:08→15:32)
[2017-05-23] MEDS: AZITHROMYCIN INJ 500 MG in SODIUM CHLOR 0.9% 250 ML INJ 250 ML IV SCH (00:09)
[2017-05-23] MEDS: RESP: ALBUTEROL 2.5 MG/IPRATROPIUM 0.5 MG NEB (SCH) INH ×6 (00:15→19:36)
[2017-05-23] MEDS: MEROPENEM INJ 1,000 MG in SODIUM CHLORIDE 0.9% INJ 100 ML IV SCH ×3 (01:19→17:09)
[2017-05-23] MEDS ORDERED: PHARMACY ORDERED LAB ONE (01:45)
[2017-05-23] MEDS: CHLORHEXIDINE GLUCONATE 2 % 1 PACK (2 CLOTHS) TOP SCH (04:00)
[2017-05-23] MEDS: VANCOMYCIN INJ 750 MG in SODIUM CHLOR 0.9% 250 ML INJ 250 ML IV SCH ×2 (04:11→14:46)
[2017-05-23 07:04] LABS: AUTOMATED NEUTROPHIL # 2.7 TH/MM3 (1.8-7.7); BASOPHIL # 0.3 TH/MM3 (0-0.2); BASOPHIL % 2.9 % (0.0-2.0); EOSINOPHIL # 2.1 TH/MM3 (0-0.4); EOSINOPHIL % 23.8 % (0.0-4.0); HEMO FLAGS DIFF FINAL; LYMPH % 33.5 % (9.0-44.0); LYMPHOCYTE # 2.9 TH/MM3 (1.0-4.8); MEAN CORPUSCULAR HEMOGLOBIN 27.5 PG (27.0-34.0); NEUT % 30.8 % (16.0-70.0); PLATELET COUNT 178 TH/MM3 (150-450); RED BLOOD COUNT 4.19 MIL/MM3 (4.50-5.90); RED CELL DISTRIBUTION WIDTH 16.9 % (11.6-17.2); WHITE BLOOD COUNT 8.6 TH/MM3 (4.0-11.0)
[2017-05-23 07:24] LABS: ANION GAP 7 MEQ/L (5-15); AST (GOT) 25 U/L (15-37); BICARBONATE 25.6 MEQ/L (21.0-32.0); BLOOD UREA NITROGEN 4 MG/DL (7-18); CHLORIDE 107 MEQ/L (98-107); GLOMERULAR FILTRATION RATE 151 ML/MIN (>89); MAGNESIUM 1.5 MG/DL (1.5-2.5); POTASSIUM 3.4 MEQ/L (3.5-5.1); SODIUM (NA) 140 MEQ/L (136-145)
[2017-05-23 07:25] LABS: ALT (GPT) 20 U/L (12-78)
[2017-05-23 07:33] LABS: ALKALINE PHOSPHATASE 124 U/L (45-117); FREE T4 1.81 NG/DL (0.76-1.46); TOTAL BILIRUBIN ADULT 0.5 MG/DL (0.2-1.0)
--- NOTE | 2017-05-23 07:33 | HHI.CCPN ---
Subjective Remarks/Hospital Course 71-year-old male [facility] status this progressively worsening over past couple days. [facility] was [facility] today [facility] staff to be unresponsive and in respiratory distress. EMS was called. Upon arrival they noticed that patient was wheezing. Patient was given albuterol nebulizer and then was brought here. His oxygen saturation initially was in the high 80s on 2 L of oxygen via nasal cannula that's his daily requirement. After the nebulizer oxygen saturation improved to 95% on 2 L. Patient arrived with a GCS of 8. Patient is a full code. After nebulizer treatment and improve oxygenation his mental status thoughts improving. Patient is able to protect his airways. Subjective: 05/21: Patient continues to have altered mental status, formal swallow evaluation pending. Lactate remains elevated, expansion of antibiotics this a.m.. O2 saturation remains WNL. 05/22: Afebrile. O2 saturation 29247 percent on room air. Patient tolerating a diet. Patient remains confused, hard restraints for safety. 05/23: No acute events reported overnight. Patient remains encephalopathic, confused. Awaiting transfer to floor Objective Vital Signs Date Time Temp Pulse Resp B/P (MAP) Pulse Ox O2 Delivery O2 Flow Rate FiO2 05/23/17 06:00 86 05/23/17 04:00 98.6 35 167/68 (101) 05/22/17 20:37 21 05/22/17 04:00 100 05/21/17 20:34 Nasal Cannula 2.00 Intake and Output 05/23/17 05/23/17 05/24/17 08:00 16:00 00:00 Intake Total 650 ml Output Total 2250 ml Balance -1600 ml Result Diagram: 05/23/17 0520 05/23/17 0520 Other Results Microbiology Date/Time Source Procedure Growth Status 05/22/17 18:10 Nasal Washing Influenza Types A,B Antigen (JANICE) - Final NEGATIVE FOR FLU A AND B ANTIGEN.... Complete 05/20/17 20:45 Urine Catheterized Urine Legionella Antigen - Final PRESUMPTIVE NEGATIVE FOR LEGIONELLA P... Complete 05/20/17 20:45 Urine Catheterized Urine Streptococcus pneumoniae Antigen (M - Final PRESUMPTIVE NEGATIVE FOR STREPTOCOCCU... Complete 05/20/17 20:45 Urine Catheterized Urine Urine Culture - Final NO GROWTH IN 48 HOURS. Complete Imaging Last [address] 05/20/172001 Signed Impressions: Service Date/Time: May 21:05 - CONCLUSION: 1. Moderate periventricular and subcortical white matter small vessel ischemic changes bilaterally. 2. Diffuse cerebral atrophy is stable. 3. No acute infarct, acute hemorrhage, mass effect or extra-axial fluid collections. 4. Tiny air-fluid level within the right maxillary sinus and diffuse mucosal thickening involving all of the paranasal sinuses Herb Valladares MD Chest X-Ray 05/20/172001 Signed Impressions: Service Date/Time: May 20:27 - CONCLUSION: 1. No acute cardiopulmonary disease. Ricardo Moreno MD Objective Remarks GENERAL:This is a cachectic chronically ill appearing man encephalopathic SKIN: Warm/dry. HEAD: Atraumatic. Normocephalic. EYES: Pupils equal and round. No scleral icterus. No injection or drainage. ENT: No nasal bleeding or discharge. NECK: Trachea midline. No JVD. CARDIOVASCULAR: Regular rate and rhythm. No murmur appreciated. RESPIRATORY: No accessory muscles, clear to auscultation bilaterally GASTROINTESTINAL: Abdomen soft, non-tender, nondistended. Hepatic and splenic margins not palpable. MUSCULOSKELETAL: No obvious deformities. No clubbing. No cyanosis. No edema. NEUROLOGICAL: Patient is confused, unable to follow commands but awakened moves all extremities spontaneously. A/P Assessment and Plan Respiratory failure-resolved - Underlying COPD and asthma - DuoNeb scheduled and when necessary - Broad-spectrum antibiotic (currently on Azithromycin) - Cultures and de-escalate per sensitivity - Urine Legionella and pneumococcal antigen negative -05/21:Chest x-ray no acute process Sepsis - Monitor lactic acid 2.5->3.1. Now 1.4 - Aggressive IV fluids resuscitation, NS 125/hr-reduce to 40 ml per hour - Broad-spectrum antibiotics and follow-up culture - ID following on. H/o bacteremia 2/2 ESBL organism in 10/28y. Currently on vancomycin, meropenem, azithromycin per ID - All culture negative to date. Consolidate ABX -defer to ID History of hypertension - Hypotension resolved on antihypertensives resumed Anxiety - Lorazepam when necessary for agitation Tobacco use disorder - Cessation when neurologically improved Altered mental status Metabolic encephalopathy - CT head negative - Most likely due to underlying infection - Monitor BMP, initiate electrolyte replacement protocol - Glucose monitoring per ICU protocol - Diet per speech rec - Supportive care DVT GI prophylaxis - Teds SCDs - Subcutaneous heparin and Pepcid Dispo: Level 2 Transfer to floor when bed available. Nghia Valdez MD May 23, 2017 07:33
[2017-05-23] MEDS: SODIUM CHLOR 0.9% 1000 ML INJ 1,000 ML IV SCH ×2 (07:37→15:32)
[2017-05-23] MEDS: INSULIN ASPART SUPPLEMENTAL SCALE SQ SCH ×4 (08:00→20:16)
[2017-05-23] MEDS: FAMOTIDINE 20 MG/2 ML VIAL IV PUSH SCH ×2 (08:05→20:00)
[2017-05-23] MEDS: PANTOPRAZOLE SOD 40 MG DELAYED RELEASE TAB PO SCH ×2 (08:06→08:16)
[2017-05-23] MEDS: ASPIRIN EC 81 MG TABEC PO SCH ×3 (08:06→08:57)
[2017-05-23] MEDS: DOCUSATE SODIUM 50 MG/SENNA 8.6 MG TAB PO SCH ×3 (08:06→20:01)
[2017-05-23] MEDS: amLODIPine BESYLATE 5 MG TAB PO SCH ×3 (08:06→08:57)
[2017-05-23] MEDS: METOPROLOL SUCCINATE 50 MG EXTENDED RELEASE TAB PO SCH ×2 (08:06→08:16)
[2017-05-23] MEDS: CETIRIZINE HCL 10 MG TAB PO SCH ×3 (08:08→08:57)
[2017-05-23] MEDS: SODIUM CHLORIDE 0.9% FLUSH 10 ML FLUSH IV FLUSH SCH ×2 (08:08→20:01)
[2017-05-23] MEDS: SODIUM CHLORIDE 1 GRAM TAB PO SCH ×3 (08:08→17:09)
[2017-05-23] MEDS: LORazepam 0.5 MG TAB PO PRN (10:56)
[2017-05-23] MEDS ORDERED: DEXTROSE (ADULT) 31 GM GEL TUBE PO ONE (16:15)
[2017-05-23] MEDS: ATORVASTATIN 80 MG TAB PO SCH (20:00)
[2017-05-23 20:45] LABS: POTASSIUM 3.6 MEQ/L (3.5-5.1)
[2017-05-24] VITALS (14 sets, daily range): BP systolic 119–187; BP diastolic 58–81; PULSE 74–104; RESP 23–33; TEMP 97.7–99.5; O2SAT 91–96
[2017-05-24] MEDS: HEPARIN SODIUM - SQ 10,000 UNITS/ML VIAL SQ SCH ×4 (00:38→22:42)
[2017-05-24] MEDS: AZITHROMYCIN INJ 500 MG in SODIUM CHLOR 0.9% 250 ML INJ 250 ML IV SCH (00:39)
[2017-05-24] MEDS: MEROPENEM INJ 1,000 MG in SODIUM CHLORIDE 0.9% INJ 100 ML IV SCH ×2 (01:48→09:00)
[2017-05-24] MEDS: VANCOMYCIN INJ 750 MG in SODIUM CHLOR 0.9% 250 ML INJ 250 ML IV SCH (02:00)
[2017-05-24] MEDS ORDERED: HALOPERIDOL LACTATE 5 MG/ML AMP IV SCH (03:40)
[2017-05-24] MEDS: RESP: ALBUTEROL 2.5 MG/IPRATROPIUM 0.5 MG NEB (SCH) INH ×6 (03:44→19:56)
[2017-05-24] MEDS: CHLORHEXIDINE GLUCONATE 2 % 1 PACK (2 CLOTHS) TOP SCH (04:00)
[2017-05-24] MEDS ORDERED: diphenhydrAMINE HCL 50 MG/ML VIAL IV PUSH ONE (04:30)
[2017-05-24] MEDS ORDERED: LORazepam 2 MG/ML VIAL IV PUSH ONE (04:30)
[2017-05-24] MEDS: INSULIN ASPART SUPPLEMENTAL SCALE SQ SCH ×4 (08:00→21:00)
[2017-05-24] MEDS: ASPIRIN EC 81 MG TABEC PO SCH (08:30)
[2017-05-24] MEDS: PANTOPRAZOLE SOD 40 MG DELAYED RELEASE TAB PO SCH (08:31)
[2017-05-24] MEDS: amLODIPine BESYLATE 5 MG TAB PO SCH (08:31)
[2017-05-24] MEDS: METOPROLOL SUCCINATE 50 MG EXTENDED RELEASE TAB PO SCH (08:31)
[2017-05-24] MEDS: DOCUSATE SODIUM 50 MG/SENNA 8.6 MG TAB PO SCH ×2 (08:31→21:00)
[2017-05-24] MEDS: CETIRIZINE HCL 10 MG TAB PO SCH (08:31)
[2017-05-24] MEDS: SODIUM CHLORIDE 1 GRAM TAB PO SCH ×3 (08:31→18:24)
[2017-05-24] MEDS: SODIUM CHLORIDE 0.9% FLUSH 10 ML FLUSH IV FLUSH SCH ×2 (08:32→21:54)
[2017-05-24] MEDS: FAMOTIDINE 20 MG/2 ML VIAL IV PUSH SCH ×2 (08:32→21:54)
--- NOTE | 2017-05-24 09:39 | HHI.CCPN ---
Subjective Remarks/Hospital Course 71-year-old male came to [facility] with altered mental status this progressively worsening over past couple days. He was found today by [facility] staff to be unresponsive and in respiratory distress. EMS was called. Upon arrival they noticed that patient was wheezing. Patient was given albuterol nebulizer and then was brought here. His oxygen saturation initially was in the high 80s on 2 L of oxygen via nasal cannula that's his daily requirement. After the nebulizer oxygen saturation improved to 95% on 2 L. Patient arrived with a GCS of 8. Patient is a full code. After nebulizer treatment and improve oxygenation his mental status thoughts improving. Patient is able to protect his airways. Subjective: 05/21: Patient continues to have altered mental status, formal swallow evaluation pending. Lactate remains elevated, expansion of antibiotics this a.m.. O2 saturation remains WNL. 05/22: Afebrile. O2 saturation 45195 percent on room air. Patient tolerating a diet. Patient remains confused, hard restraints for safety. 05/23: No acute events reported overnight. Patient remains encephalopathic, confused. Awaiting transfer to floor. 05/24: Received 1 dose of Haldol around 5 AM this morning for agitation. Resting in bed comfortably. Not in any acute distress. Remains confused and disoriented. Awaiting transfer to floor. Objective Vital Signs Date Time Temp Pulse Resp B/P (MAP) Pulse Ox O2 Delivery O2 Flow Rate FiO2 05/24/17 06:00 94 05/24/17 04:00 98.8 25 146/69 (94) 92 05/23/17 19:36 Nasal Cannula 21 05/21/17 20:34 2.00 Intake and Output 05/24/17 05/24/17 05/24/17 07:59 15:59 23:59 Intake Total 600 ml Output Total 1600 ml Balance -1000 ml Result Diagram: 05/23/17 0520 05/24/17 0341 Other Results Microbiology Date/Time Source Procedure Growth Status 05/22/17 18:10 Nasal Washing Influenza Types A,B Antigen (JANICE) - Final NEGATIVE FOR FLU A AND B ANTIGEN.... Complete Imaging Last [address] 05/20/172001 Signed Impressions: Service Date/Time: May 21:05 - CONCLUSION: 1. Moderate periventricular and subcortical white matter small vessel ischemic changes bilaterally. 2. Diffuse cerebral atrophy is stable. 3. No acute infarct, acute hemorrhage, mass effect or extra-axial fluid collections. 4. Tiny air-fluid level within the right maxillary sinus and diffuse mucosal thickening involving all of the paranasal sinuses Herb Valladares MD Chest X-Ray 05/20/172001 Signed Impressions: Service Date/Time: May 20:27 - CONCLUSION: 1. No acute cardiopulmonary disease. Ricardo Moreno MD Objective Remarks GENERAL:This is a cachectic chronically ill appearing man encephalopathic SKIN: Warm/dry. HEAD: Atraumatic. Normocephalic. EYES: Pupils equal and round. No scleral icterus. No injection or drainage. ENT: No nasal bleeding or discharge. NECK: Trachea midline. No JVD. CARDIOVASCULAR: Regular rate and rhythm. No murmur appreciated. RESPIRATORY: No accessory muscles, clear to auscultation bilaterally GASTROINTESTINAL: Abdomen soft, non-tender, nondistended. Hepatic and splenic margins not palpable. MUSCULOSKELETAL: No obvious deformities. No clubbing. No cyanosis. No edema. NEUROLOGICAL: Patient is confused, unable to follow commands but awakened moves all extremities spontaneously. A/P Assessment and Plan Respiratory failure-resolved - Underlying COPD and asthma - DuoNeb scheduled and when necessary - Broad-spectrum antibiotic (currently on Azithromycin) - Cultures and de-escalate per sensitivity - Urine Legionella and pneumococcal antigen negative -05/21:Chest x-ray no acute process Sepsis - Monitor lactic acid 2.5->3.1. Now 1.4 - Aggressive IV fluids resuscitation, NS 125/hr-reduce to 40 ml per hour - Broad-spectrum antibiotics and follow-up culture - ID following on. H/o bacteremia 2/2 ESBL organism in 10/28y. Currently on vancomycin, meropenem, azithromycin per ID - All culture negative to date. Consolidate ABX -defer to ID History of hypertension - Hypotension resolved on antihypertensives resumed Anxiety - Lorazepam when necessary for agitation Tobacco use disorder - Cessation when neurologically improved Altered mental status Metabolic encephalopathy - CT head negative - Most likely due to underlying infection - Monitor BMP, initiate electrolyte replacement protocol - Glucose monitoring per ICU protocol - Diet per speech rec - Supportive care DVT GI prophylaxis - Teds SCDs - Subcutaneous heparin and Pepcid Dispo: Level 2 Transfer to floor when bed available. Jeanmarie Esposito MD May 24, 2017 09:39
--- NOTE | 2017-05-24 13:01 | HHI.IDPN ---
Subjective Subjective Remarks pt is very confused and agitated afebrile Antibiotics azithro meropenem vanco Allergies: Coded Allergies: diatrizoate meglumine (Unverified Allergy, Mild, HIVES, ITCHING, 01/26/17) gadobenic acid (Unverified Allergy, Mild, HIVES, ITCHING, 01/26/17) gadodiamide (Unverified Allergy, Mild, HIVES, ITCHING, 01/26/17) gadoteridol (Unverified Allergy, Mild, HIVES, ITCHING, 01/26/17) iodixanol (Unverified Allergy, Mild, HIVES, ITCHING, 01/26/17) iohexol (Unverified Allergy, Mild, HIVES, ITCHING, 01/26/17) Objective . Vital Signs Date Time Temp Pulse Resp B/P (MAP) Pulse Ox O2 Delivery O2 Flow Rate FiO2 05/24/17 08:00 97.7 94 24 152/76 (101) 92 05/24/17 08:00 101 05/24/17 06:00 94 05/24/17 04:00 104 05/24/17 04:00 98.8 104 25 146/69 (94) 92 05/24/17 02:00 86 05/24/17 00:00 103 05/24/17 00:00 98.2 103 33 187/80 (115) 91 05/23/17 22:00 96 05/23/17 20:00 98.7 112 29 137/88 (104) 93 05/23/17 20:00 112 05/23/17 19:36 93 Nasal Cannula 21 05/23/17 18:00 100 05/23/17 16:00 108 05/23/17 16:00 98.5 108 29 145/75 (98) 94 05/23/17 15:00 99 27 91 05/23/17 14:00 89 25 137/75 (95) 05/23/17 14:00 89 05/23/17 13:00 102 30 131/78 (95) . Laboratory Tests Test 05/23/17 05:20 White Blood Count 8.6 TH/MM3 Red Blood Count 4.19 MIL/MM3 Hemoglobin 11.6 GM/DL Hematocrit 34.0 % Mean Corpuscular Volume 81.0 FL Mean Corpuscular Hemoglobin 27.5 PG Mean Corpuscular Hemoglobin Concent 34.0 % Red Cell Distribution Width 16.9 % Platelet Count 178 TH/MM3 Mean Platelet Volume 8.8 FL Neutrophils (%) (Auto) 30.8 % Lymphocytes (%) (Auto) 33.5 % Monocytes (%) (Auto) 9.0 % Eosinophils (%) (Auto) 23.8 % Basophils (%) (Auto) 2.9 % Neutrophils # (Auto) 2.7 TH/MM3 Lymphocytes # (Auto) 2.9 TH/MM3 Monocytes # (Auto) 0.8 TH/MM3 Eosinophils # (Auto) 2.1 TH/MM3 Basophils # (Auto) 0.3 TH/MM3 CBC Comment DIFF FINAL Differential Comment Laboratory Tests Test 05/23/17 05:20 05/23/17 19:33 05/24/17 03:41 Blood Urea Nitrogen 4 MG/DL Creatinine 0.63 MG/DL Random Glucose 75 MG/DL Total Protein 7.2 GM/DL Albumin 2.8 GM/DL Calcium Level 8.1 MG/DL Phosphorus Level 1.3 MG/DL 2.0 MG/DL Magnesium Level 1.5 MG/DL Alkaline Phosphatase 124 U/L Aspartate Amino Transf (AST/SGOT) 25 U/L Alanine Aminotransferase (ALT/SGPT) 20 U/L Total Bilirubin 0.5 MG/DL Sodium Level 140 MEQ/L Potassium Level 3.4 MEQ/L 3.6 MEQ/L 3.8 MEQ/L Chloride Level 107 MEQ/L Carbon Dioxide Level 25.6 MEQ/L Anion Gap 7 MEQ/L Estimat Glomerular Filtration Rate 151 ML/MIN Free Thyroxine 1.81 NG/DL Thyroid Stimulating Hormone 3rd Gen 3.480 uIU/ML Microbiology Date/Time Source Procedure Growth Status 05/22/17 18:10 Nasal Washing Influenza Types A,B Antigen (JANICE) - Final NEGATIVE FOR FLU A AND B ANTIGEN.... Complete Imaging Last Impressions Abdomen/Pelvis CT 05/21/17 0000 Signed Impressions: Service Date/Time: Sunday, May 21, 2017 22:05 - CONCLUSION: 1. Hepatic cysts. 2. Atherosclerosis. Kirby Espinosa MD Head CT 05/20/172001 Signed Impressions: Service Date/Time: May 21:05 - CONCLUSION: 1. Moderate periventricular and subcortical white matter small vessel ischemic changes bilaterally. 2. Diffuse cerebral atrophy is stable. 3. No acute infarct, acute hemorrhage, mass effect or extra-axial fluid collections. 4. Tiny air-fluid level within the right maxillary sinus and diffuse mucosal thickening involving all of the paranasal sinuses Herb Valladares MD Chest X-Ray 05/20/172001 Signed Impressions: Service Date/Time: May 20:27 - CONCLUSION: 1. No acute cardiopulmonary disease. Ricardo Moreno MD Physical Exam CONSTITUTIONAL/GENERAL: This is a thin elderly patient, in no apparent distress. TUBES/LINES/DRAINS: SKIN: No jaundice, rashes, or lesions. Skin temperature appropriate. Not diaphoretic. EYES: Pupils equal and round and reactive. No scleral icterus. No injection or drainage. Fundi not examined. ENT: Hearing grossly normal. Nose without bleeding or purulent drainage. Throat without visible erythema, exudates, masses, or lesions. CARDIOVASCULAR: Regular rate and rhythm without murmurs, gallops, or rubs. No JVD. Peripheral pulses symmetric. RESPIRATORY/CHEST: Symmetric, unlabored respirations. Clear to auscultation. Breath sounds equal bilaterally. No wheezes, rales, or rhonchi. GASTROINTESTINAL: Abdomen soft, non-tender, nondistended. No hepato-splenomegaly , or palpable masses. No guarding. Bowel sounds present. GENITOURINARY: Without palpable bladder distension. MUSCULOSKELETAL: Extremities without clubbing, cyanosis, or edema. No joint tenderness or effusion noted. No calf tenderness. No mottling or clubbing. LYMPHATICS: No palpable cervical or supraclavicular adenopathy. NEUROLOGICAL: Awake and alert. Agitated and confused. Oriented x 1 . Speech unintelligible. Moves all extremities. PSYCHIATRIC: remains agitated Assessment & Plan Remarks Lactic acidosis - resolved - BC remain negative, UA neg CT A/P unremarkable Pt is critical, BP is unstable Confusion ? is sepsis contributing H/o bacteremia 2/2 ESBL + organism in October dc vancomycin, dc meropenem fu blood clx untill final dw Chelsy Metz MD May 24, 2017 13:01
[2017-05-24] MEDS: HALOPERIDOL LACTATE 5 MG/ML AMP IV PUSH PRN ×2 (16:27→22:42)
[2017-05-24 17:04] LABS: HEMOGLOBIN A1a 1.2 %; HEMOGLOBIN Ao 83.6 %; HEMOGLOBIN LA1C 1.9 %; HEMOGLOBIN P3 3.9 %
[2017-05-24] MEDS: SODIUM CHLOR 0.9% 1000 ML INJ 1,000 ML IV SCH (18:27)
[2017-05-24] MEDS: ATORVASTATIN 80 MG TAB PO SCH (21:00)
[2017-05-25] VITALS (9 sets, daily range): BP systolic 117–149; BP diastolic 63–81; PULSE 68–90; RESP 19–25; TEMP 97.5–99.5; O2SAT 92–100
[2017-05-25] MEDS ORDERED: HALOPERIDOL LACTATE 5 MG/ML AMP IV SCH (02:45)
[2017-05-25] MEDS ORDERED: diphenhydrAMINE HCL 50 MG/ML VIAL IV SCH (02:45)
[2017-05-25] MEDS ORDERED: LORazepam 2 MG/ML VIAL IV SCH (02:45)
[2017-05-25] MEDS: CHLORHEXIDINE GLUCONATE 2 % 1 PACK (2 CLOTHS) TOP SCH (04:00)
[2017-05-25] MEDS: HALOPERIDOL LACTATE 5 MG/ML AMP IV PUSH PRN (05:48)
[2017-05-25] MEDS: INSULIN ASPART SUPPLEMENTAL SCALE SQ SCH ×4 (08:00→21:00)
[2017-05-25] MEDS: SODIUM CHLORIDE 1 GRAM TAB PO SCH ×3 (09:00→17:55)
[2017-05-25] MEDS: PANTOPRAZOLE SOD 40 MG DELAYED RELEASE TAB PO SCH (09:53)
[2017-05-25] MEDS: METOPROLOL SUCCINATE 50 MG EXTENDED RELEASE TAB PO SCH (09:53)
[2017-05-25] MEDS: amLODIPine BESYLATE 5 MG TAB PO SCH (09:53)
--- NOTE | 2017-05-25 09:53 | HHI.CCPN ---
Subjective Remarks/Hospital Course 71-year-old male came [facility] with altered mental status this progressively worsening over past couple days. He was found today by [facility] staff to be unresponsive and in respiratory distress. EMS was called. Upon arrival they noticed that patient was wheezing. Patient was given albuterol nebulizer and then was brought here. His oxygen saturation initially was in the high 80s on 2 L of oxygen via nasal cannula that's his daily requirement. After the nebulizer oxygen saturation improved to 95% on 2 L. Patient arrived with a GCS of 8. Patient is a full code. After nebulizer treatment and improve oxygenation his mental status thoughts improving. Patient is able to protect his airways. Subjective: 05/21: Patient continues to have altered mental status, formal swallow evaluation pending. Lactate remains elevated, expansion of antibiotics this a.m.. O2 saturation remains WNL. 05/22: Afebrile. O2 saturation 77280 percent on room air. Patient tolerating a diet. Patient remains confused, hard restraints for safety. 05/23: No acute events reported overnight. Patient remains encephalopathic, confused. Awaiting transfer to floor. 05/24: Received 1 dose of Haldol around 5 AM this morning for agitation. Resting in bed comfortably. Not in any acute distress. Remains confused and disoriented. Awaiting transfer to floor. 05/25: off abx. clinically stable. on home o2. agitated, but per family, this is baseline. no reason to keep inpatient. still in restraints for safety not to pull at iv's. per SNF, would prefer him to be on PO agents to control agitation. Objective Vital Signs Date Time Temp Pulse Resp B/P (MAP) Pulse Ox O2 Delivery O2 Flow Rate FiO2 05/25/17 06:00 76 05/25/17 04:00 97.5 25 128/74 (92) 96 05/24/17 19:58 21 05/23/17 19:36 Nasal Cannula 05/21/17 20:34 2.00 Intake and Output 05/25/17 05/25/17 05/26/17 08:00 16:00 00:00 Intake Total 450 ml Output Total 650 ml Balance -200 ml Result Diagram: 05/23/17 0520 05/24/17 0341 Other Results Microbiology Date/Time Source Procedure Growth Status 05/22/17 18:10 Nasal Washing Influenza Types A,B Antigen (JANICE) - Final NEGATIVE FOR FLU A AND B ANTIGEN.... Complete Imaging Last [address] 05/20/172001 Signed Impressions: Service Date/Time: May 21:05 - CONCLUSION: 1. Moderate periventricular and subcortical white matter small vessel ischemic changes bilaterally. 2. Diffuse cerebral atrophy is stable. 3. No acute infarct, acute hemorrhage, mass effect or extra-axial fluid collections. 4. Tiny air-fluid level within the right maxillary sinus and diffuse mucosal thickening involving all of the paranasal sinuses Herb Valladares MD Chest X-Ray 05/20/172001 Signed Impressions: Service Date/Time: May 20:27 - CONCLUSION: 1. No acute cardiopulmonary disease. Ricardo Moreno MD Objective Remarks GENERAL:This is a cachectic chronically ill appearing man SKIN: Warm/dry. HEAD: Atraumatic. Normocephalic. EYES: Pupils equal and round. No scleral icterus. No injection or drainage. ENT: No nasal bleeding or discharge. NECK: Trachea midline. No JVD. CARDIOVASCULAR: Regular rate and rhythm. RESPIRATORY: No accessory muscles, equal chest rise. nc o2. GASTROINTESTINAL: Abdomen soft, non-tender, nondistended. MUSCULOSKELETAL: No obvious deformities. No clubbing. No cyanosis. No edema. NEUROLOGICAL: Patient is confused, unable to follow commands but awake and alert. baseline neuro exam per family. A/P Assessment and Plan Assessment: 71yM with agitated delirium and resolved infection/sepsis. need to control agitation in order to be ready to go to SNF. hopefully will be ready to go by tomorrow. Agitated Delirium - add po seroquel 50mg q8h - change to po haldol 5mg q4h for breakthrough agitation - will attempt to hold restraints. Respiratory failure-resolved - Underlying COPD and asthma - DuoNeb scheduled and when necessary - s/p full course of abx - back on home o2. Sepsis- resolved. - lactate cleared. - d/c mivf. - s/p full course of abx. - ID following. Hypertension - Hypotension resolved on home antihypertensives Tobacco use disorder - Cessation when neurologically improved DVT GI prophylaxis - Teds SCDs - Subcutaneous heparin and Pepcid d/c lezama. Dispo: Level 2 Transfer to floor when bed available. Could likely go to SNF tomorrow if out of restraints x 24h. mental status at baseline (agitated at SNF). discussed with SNF and they are ok with this once off restraints. Wayne Esquivel MD May 25, 2017 09:53
[2017-05-25] MEDS: ASPIRIN EC 81 MG TABEC PO SCH (09:54)
[2017-05-25] MEDS: HEPARIN SODIUM - SQ 10,000 UNITS/ML VIAL SQ SCH ×2 (09:54→16:51)
[2017-05-25] MEDS: SODIUM CHLORIDE 0.9% FLUSH 10 ML FLUSH IV FLUSH SCH ×2 (09:54→22:09)
[2017-05-25] MEDS: CETIRIZINE HCL 10 MG TAB PO SCH (09:54)
[2017-05-25] MEDS: DOCUSATE SODIUM 50 MG/SENNA 8.6 MG TAB PO SCH ×2 (09:54→22:08)
[2017-05-25] MEDS: QUEtiapine FUMARATE 25 MG TAB PO SCH ×2 (10:59→17:55)
[2017-05-25] MEDS ORDERED: HALOPERIDOL 5 MG TAB PO PRN (11:00)
[2017-05-25] MEDS: ATORVASTATIN 80 MG TAB PO SCH (22:09)
[2017-05-26] VITALS: BP 144/74; PULSE 90; RESP 20; TEMP 98; O2SAT 96
[2017-05-26] MEDS: HEPARIN SODIUM - SQ 10,000 UNITS/ML VIAL SQ SCH ×2 (00:38→10:04)
[2017-05-26 04:00] VITALS: BP 124/66; PULSE 97; RESP 20; TEMP 99; O2SAT 94
[2017-05-26] MEDS: CHLORHEXIDINE GLUCONATE 2 % 1 PACK (2 CLOTHS) TOP SCH (04:00)
[2017-05-26] MEDS: QUEtiapine FUMARATE 25 MG TAB PO SCH ×2 (04:10→11:00)
[2017-05-26] MEDS: INSULIN ASPART SUPPLEMENTAL SCALE SQ SCH ×2 (08:00→12:00)
[2017-05-26 08:10] VITALS: BP 103/60; PULSE 79; RESP 20; TEMP 99.7; O2SAT 95
[2017-05-26] MEDS: PANTOPRAZOLE SOD 40 MG DELAYED RELEASE TAB PO SCH (10:03)
[2017-05-26] MEDS: METOPROLOL SUCCINATE 50 MG EXTENDED RELEASE TAB PO SCH (10:03)
[2017-05-26] MEDS: ASPIRIN EC 81 MG TABEC PO SCH (10:03)
[2017-05-26] MEDS: SODIUM CHLORIDE 1 GRAM TAB PO SCH ×2 (10:03→13:00)
[2017-05-26] MEDS: CETIRIZINE HCL 10 MG TAB PO SCH (10:03)
[2017-05-26] MEDS: DOCUSATE SODIUM 50 MG/SENNA 8.6 MG TAB PO SCH (10:03)
[2017-05-26] MEDS: amLODIPine BESYLATE 5 MG TAB PO SCH (10:05)
[2017-05-26] MEDS: SODIUM CHLORIDE 0.9% FLUSH 10 ML FLUSH IV FLUSH SCH (10:05)
[2017-05-26] MEDS ORDERED: FAMO40TA PO (12:07)
[2017-05-26] MEDS ORDERED: SERO25TA PO (12:07)
--- NOTE | 2017-05-26 12:08 | HHI.DS ---
Discharge Summary Admission Date May 20, 2017 at 22:16 Discharge Date: May 26, 2017 Admitting Diagnosis altered mental status, respiratory distress, sepsis (1) Altered mental status, unspecified ICD Code: R41.82 - Altered mental status, unspecified Status: Acute (2) Sepsis ICD Code: A41.9 - Sepsis, unspecified organism Status: Acute (3) Acute exacerbation of chronic obstructive pulmonary disease (COPD) ICD Code: J44.1 - Chronic obstructive pulmonary disease with (acute) exacerbation Status: Acute (4) Dementia ICD Code: F03.90 - Unspecified dementia without behavioral disturbance Status: Acute Procedures None Brief History - From Admission History of present illness from the admitting team 71-year-old male came [facility] with altered mental status this progressively worsening over past couple days. He was found today by [facility] staff to be unresponsive and in respiratory distress. EMS was called. Upon arrival they noticed that patient was wheezing. Patient was given albuterol nebulizer and then was brought here. His oxygen saturation initially was in the high 80s on 2 L of oxygen via nasal cannula that's his daily requirement. After the nebulizer oxygen saturation improved to 95% on 2 L. Patient arrived with a GCS of 8. Patient is a full code. After nebulizer treatment and improve oxygenation his mental status thoughts improving. Patient is able to protect his airways. CBC/BMP: 05/23/17 0520 05/24/17 0341 Significant Findings Laboratory Tests Test 05/23/17 19:33 05/24/17 03:41 Phosphorus Level 2.0 MG/DL (2.5-4.9) Imaging Last Impressions Abdomen/Pelvis CT 05/21/17 0000 Signed Impressions: Service Date/Time: Sunday, May 21, 2017 22:05 - CONCLUSION: 1. Hepatic cysts. 2. Atherosclerosis. Kirby Espinosa MD Head CT 05/20/172001 Signed Impressions: Service Date/Time: May 21:05 - CONCLUSION: 1. Moderate periventricular and subcortical white matter small vessel ischemic changes bilaterally. 2. Diffuse cerebral atrophy is stable. 3. No acute infarct, acute hemorrhage, mass effect or extra-axial fluid collections. 4. Tiny air-fluid level within the right maxillary sinus and diffuse mucosal thickening involving all of the paranasal sinuses Herb Valladares MD Chest X-Ray 05/20/172001 Signed Impressions: Service Date/Time: May 20:27 - CONCLUSION: 1. No acute cardiopulmonary disease. Ricardo Moreno MD PE at Discharge GENERAL: Confused, in no apparent distress. CARDIOVASCULAR: Normal rate and regular rhythm without murmurs, gallops, or rubs. RESPIRATORY: Good respiratory efforts. Breath sounds equal and clear to auscultation bilaterally. GASTROINTESTINAL: Abdomen soft, non-tender, non-distended. Normal active bowel sounds MUSCULOSKELETAL: Extremities without cyanosis, or edema. NEURO: Confuse, minimal conversation. PSYCH: Calm Pt update on day of discharge Patient reports he is doing okay. No complaints. Did not require restraints today. Hospital Course 71-year-old male admitted with agitated delirium and respiratory failure. 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 He was treated for sepsis and infection. He completed the course of antibiotics. He was treated for underlying COPD. He had issues with agitation and was started on Seroquel. Symptoms significantly improved and the patient was back to his baseline. He is discharged back to the care home facility. Pt Condition on Discharge: Good Discharge Disposition: Discharge to SNF Discharge Time: > 30 minutes Discharge Instructions DIET: Follow Instructions for: As Tolerated, No Restrictions Activities you can perform: Regular-No Restrictions New Medications: Famotidine (Famotidine) 40 Mg Tab 40 MG PO BID, #60 TAB 0 Refills Quetiapine (Seroquel) 25 Mg Tab 25 MG PO BID, #60 TAB Continued Medications: Amlodipine (Amlodipine) 2.5 Mg Tab 2.5 MG PO DAILY for Blood Pressure Management, #30 TAB [address] (Aspirin EC) 81 Mg Tabdr 81 MG PO DAILY for Blood Clot Prevention, #90 TAB 0 Refills Atorvastatin (Atorvastatin) 80 Mg Tab 80 MG PO HS for Cholesterol Management, #30 TAB 0 Refills Cetirizine (Cetirizine) 10 Mg Tab 10 MG PO DAILY for Allergies, TAB 0 Refills Lorazepam (Lorazepam) 0.5 Mg Tab 0.5 MG PO DAILY PRN for ANXIETY, TAB 0 Refills Metoprolol Succinate ER 24 HR (Metoprolol Succinate ER 24 HR) 50 Mg Tab 50 MG PO DAILY, #30 TAB 0 Refills Potassium Chloride Microencaps (Potassium Chloride Microencaps) 20 Meq Tab 20 MEQ PO Q12HR for elec for 10 Days, TAB Sodium Chloride (Sodium Chloride) 1 Gm Tab 1 GM PO TID for hyponatremia, #30 TAB 1 Refill Discontinued Medications: Omeprazole (Omeprazole) 40 Mg Cap 40 MG PO DAILY, #30 CAP 0 Refills Ace Jessica MD May 26, 2017 12:08
[2017-05-26 12:10] VITALS: BP 105/57; PULSE 78; RESP 20; TEMP 98.4; O2SAT 93
== END 2017-05-26 16:45 | DRG 871 ==
LOC: NEPC 19:30 → NEDA 22:16 → HIMW 05-21 00:20 → N04A 05-25 14:41
PROVIDERS: ADMIT Family Medicine; ATTEND Family Medicine
DX: A41.9 Sepsis, unspecified organism (principal); J96.90 Respiratory failure, unspecified, unspecified whether with hypoxia or hypercapnia; G93.41 Metabolic encephalopathy; R64 Cachexia; E87.2 Acidosis; I95.9 Hypotension, unspecified; J44.1 Chronic obstructive pulmonary disease with (acute) exacerbation; Z68.1 Body mass index [BMI] 19.9 or less, adult; Z99.81 Dependence on supplemental oxygen; Z78.1 Physical restraint status; E11.9 Type 2 diabetes mellitus without complications; F03.90 Unspecified dementia, unspecified severity, without behavioral disturbance, psychotic disturbance, mood disturbance, and anxiety; I10 Essential (primary) hypertension; H40.9 Unspecified glaucoma; M19.90 Unspecified osteoarthritis, unspecified site; G47.00 Insomnia, unspecified; E78.00 Pure hypercholesterolemia, unspecified; F17.210 Nicotine dependence, cigarettes, uncomplicated; R40.2432 Glasgow coma scale score 3-8, at arrival to emergency department; F41.9 Anxiety disorder, unspecified
CPT/HCPCS: 36600; 51702; 70450; 71010; 74176; 80053; 80202; 81001; 82550; 82805; 82948; 83036; 83605; 83735; 83880; 84100; 84132; 84439; 84443; 84484; 85025; 85610; 87040; 87086; 87449; 87641; 87804; 93005; 94640; 94664; 96374; J0456; J0610; J1200; J1630; J1644; J2060; J2185; J2543; J2930; J3370; J3475; J7030; J7050

== ENCOUNTER 2017-10-23 02:52 | Observation (INO) | payer MEDICARE, MEDICAID ==
[2017-10-23] VITALS (7 sets, daily range): BP systolic 104–166; BP diastolic 60–79; PULSE 84–109; RESP 18; TEMP 97.6–98.4; O2SAT 93–98
[~2017-10-23] VITALS: Ht 170.2 cm; Wt 59.1 kg
[~2017-10-23 02:52] MED LIST changes: +FAMO40TA PO; -OMEP40CA2 PO; +SERO25TA PO
[2017-10-23] MEDS ORDERED: DULC10SU3 RECTAL (03:19)
[2017-10-23] MEDS ORDERED: REME15TA PO (03:19)
[2017-10-23] MEDS ORDERED: IBUP1TAB5 PO (03:19)
[2017-10-23] MEDS ORDERED: VOLT1GEL16 (03:19)
[2017-10-23] MEDS ORDERED: MAXI5O EACH EYE (03:19)
[2017-10-23] MEDS ORDERED: SERO100T PO (03:19)
[2017-10-23] MEDS ORDERED: MILKSUS PO (03:19)
[2017-10-23] MEDS ORDERED: MAGN100T2 PO (03:19)
--- NOTE | 2017-10-23 03:35 | RADRPT ---
EXAM DATE/TIME: 10/23/2017 03:22 [facility] COMPARISON: CHEST SINGLE AP, May 20, 2017, 20:27. INDICATIONS : Chest pain. MEDICAL HISTORY : Cardiovascular disease. Diabetes mellitus type II. Hypertension. SURGICAL HISTORY : None. ENCOUNTER: Initial ACUITY: 1 day PAIN SCORE: 1/10 LOCATION: Bilateral chest FINDINGS: A single view of the chest demonstrates the lungs to be symmetrically hyperinflated without evidence of mass, infiltrate or effusion. The cardiomediastinal contours are unremarkable. Osseous structure s are intact. CONCLUSION: No acute disease. Levy Jules MD on October 23, 2017 at 3:32 Board Certified Radiologist. This report was verified electronically.
[2017-10-23 03:41] LABS: PROTHROMBIN TIME - PATIENT 10.5 SEC (9.8-11.6)
[2017-10-23 03:42] LABS: BICARBONATE 28.9 MEQ/L (21.0-32.0); BLOOD UREA NITROGEN 8 MG/DL (7-18); CALCIUM 8.4 MG/DL (8.5-10.1); CHLORIDE 104 MEQ/L (98-107); GLOMERULAR FILTRATION RATE 89 ML/MIN (>89); GLUCOSE,RANDOM 137 MG/DL (74-106); SODIUM (NA) 140 MEQ/L (136-145)
[2017-10-23 03:45] LABS: TROPONIN I LESS THAN 0.02 NG/ML (0.02-0.05)
[2017-10-23 03:51] LABS: AUTOMATED NEUTROPHIL # 6.4 TH/MM3 (1.8-7.7); BASOPHIL % 0.2 % (0.0-2.0); EOSINOPHIL # 0.1 TH/MM3 (0-0.4); EOSINOPHIL % 1.3 % (0.0-4.0); HEMOGLOBIN 12.4 GM/DL (13.0-17.0); LYMPH % 11.3 % (9.0-44.0); LYMPHOCYTE # 0.9 TH/MM3 (1.0-4.8); MEAN CELL VOLUME 83.3 FL (80.0-100.0); MEAN CORPUSCULAR HEMOGLOBIN 27.9 PG (27.0-34.0); MEAN CORPUSCULAR HGB CONC 33.5 % (32.0-36.0); MEAN PLATELET VOLUME 7.7 FL (7.0-11.0); MONO % 5.7 % (0.0-8.0); MONOCYTE # 0.4 TH/MM3 (0-0.9); NEUT % 81.5 % (16.0-70.0); PLATELET COUNT 186 TH/MM3 (150-450); RED BLOOD COUNT 4.44 MIL/MM3 (4.50-5.90); RED CELL DISTRIBUTION WIDTH 15.5 % (11.6-17.2); WHITE BLOOD COUNT 7.8 TH/MM3 (4.0-11.0)
--- NOTE | 2017-10-23 04:02 | PD ---
HPI Chief Complaint: Chest Pain Time Seen by Provider: 03:00 Travel History International Travel<30 days: No Contact w/Intl Traveler<30days: No Traveled to known affect area: No History of Present Illness HPI 72-year-old male complains of chest pain for the past for 5 days. He states he has had chronic intermittent chest pain for years now. He reports typically nitro is sufficient for pain control. He denies shortness of breath. Location is retrosternal. There is radiation to both shoulders. He has no fever or cough. Patient has a history of COPD, coronary artery disease, hypertension, hyperlipidemia, diabetes and tobaccoism. History is limited by the fact that the patient is quite hard of hearing and blind. PFSH Past Medical History Arthritis: Yes Asthma: Yes Cancer: No Cardiovascular Problems: Yes High Cholesterol: Yes Chest Pain: Yes COPD: Yes Diabetes: Yes Patient Takes Glucophage: No Diminished Hearing: No Gastrointestinal Disorders: No Glaucoma: Yes Genitourinary: Yes Hypertension: Yes Immune Disorder: No Insomnia: Yes Musculoskeletal: Yes Neurologic: Yes (HX OF AMS BUT NO DEMENTIA NOTED) Psychiatric: No Respiratory: Yes (COPD) Past Surgical History Ear Surgery: Yes (BILATERAL CATARACT REMOVAL) Eye Surgery: Yes (CATARACT REMOVAL) Social History Alcohol Use: No Tobacco Use: Yes (3 cig per week) Substance Use: No Allergies-Medications (Allergen,Severity, Reaction): Coded Allergies: diatrizoate meglumine (Unverified Allergy, Mild, HIVES, ITCHING, 10/23/17) gadobenic acid (Unverified Allergy, Mild, HIVES, ITCHING, 10/23/17) gadodiamide (Unverified Allergy, Mild, HIVES, ITCHING, 10/23/17) gadoteridol (Unverified Allergy, Mild, HIVES, ITCHING, 10/23/17) iodixanol (Unverified Allergy, Mild, HIVES, ITCHING, 10/23/17) iohexol (Unverified Allergy, Mild, HIVES, ITCHING, 10/23/17) Reported Meds & Prescriptions Reported Meds & Active Scripts Active Famotidine 40 Mg Tab 40 Mg PO BID Walker with Front Wheels (Device) 1 Mis Mis 1 Ea .ROUTE DIRECTED Sodium Chloride 1 Gm Tab 1 Gm PO TID Aspirin EC (Aspirin) 81 Mg Tabdr 81 Mg PO DAILY Potassium Chloride Microencaps 20 Meq Tab 20 Meq PO Q12HR 10 Days Reported Voltaren (Diclofenac Sodium) 1 % Gel..gram. Seroquel (Quetiapine Fumarate) 100 Mg Tab 100 Mg PO HS Remeron (Mirtazapine) 15 Mg Tab 7.5 Mg PO HS Milk of Arsh Liq (Magnesium Hydroxide) 400 Mg/5 Ml Susp 30 Ml PO ONCE Maxitrol Opth Drops (Neomycin/Polymyxin/Dexamethasone) 3.5-10,000-0.1 Mg-Units- % Susp Drop EACH EYE Q4H Ibuprofen 400 Mg Tab 400 Mg PO Q8H PRN Dulcolax Supp (Bisacodyl) 10 Mg Supp 10 Mg RECTAL DAILY PRN Magnesium Citrate 100 Mg Tab 296 Mg PO PRN PRN Metoprolol Succinate ER 24 HR (Metoprolol Succinate) 50 Mg Tab 50 Mg PO DAILY Cetirizine (Cetirizine HCl) 10 Mg Tab 10 Mg PO DAILY Amlodipine (Amlodipine Besylate) 2.5 Mg Tab 2.5 Mg PO DAILY Atorvastatin (Atorvastatin Calcium) 80 Mg Tab 80 Mg PO HS Review of Systems Except as stated in HPI: all other systems reviewed are Neg General / Constitutional: No: Fever Physical Exam Narrative [id number] male well-nourished well-developed no acute distress Vital Signs Date Time Temp Pulse Resp B/P (MAP) Pulse Ox O2 Delivery O2 Flow Rate FiO2 10/23/17 03:08 96 Nasal Cannula 2.00 10/23/17 03:02 93 Nasal Cannula 2.00 10/23/17 02:59 98.3 166/79 (108) Respiratory rate is about 12 pulse is about 110-116 SKIN: Warm and dry. HEAD: Atraumatic. Normocephalic. EYES: Pupils equal and round. No scleral icterus. No injection or drainage. ENT: No nasal bleeding or discharge. Mucous membranes pink and moist. NECK: Trachea midline. No JVD. CARDIOVASCULAR: Regular rate and rhythm. RESPIRATORY: No accessory muscle use. Clear to auscultation. Breath sounds equal bilaterally. GASTROINTESTINAL: Abdomen soft, non-tender, nondistended. Hepatic and splenic margins not palpable. MUSCULOSKELETAL: Extremities without clubbing, cyanosis, or edema. No obvious deformities. NEUROLOGICAL: Awake and alert. No obvious cranial nerve deficits. Motor grossly within normal limits. Five out of 5 muscle strength in the arms and legs. Normal speech. PSYCHIATRIC: Appropriate mood and affect; insight and judgment normal. Data Data Last Documented VS Vital Signs Date Time Temp Pulse Resp B/P (MAP) Pulse Ox O2 Delivery O2 Flow Rate FiO2 10/23/17 03:08 96 Nasal Cannula 2.00 10/23/17 02:59 98.3 166/79 (108) Orders Orders Electrocardiogram (10/23/17 03:06) Complete Blood Count With Diff (10/23/17 03:06) Basic Metabolic Panel (Bmp) (10/23/17 03:06) Ckmb (Isoenzyme) Profile (10/23/17 03:06) Troponin I (10/23/17 03:06) Chest, Single Ap (10/23/17 03:06) Iv Access Insert/Monitor (10/23/17 03:06) Ecg Monitoring (10/23/17 03:06) Oxygen Administration (10/23/17 03:06) Oximetry (10/23/17 03:06) Prothrombin Time / Inr (Pt) (10/23/17 03:06) Act Partial Throm Time (Ptt) (10/23/17 03:06) Activity Bed Rest With Brp (10/23/17 04:10) Vital Signs (Adult) Q4H (10/23/17 04:10) Cardiac Rhythm .As Directed (10/23/17 04:10) Notify Dr: Other .PRN (10/23/17 04:10) Notify Parameters (10/23/17 04:10) Resp Oxygen Nasal Cannula (10/23/17 ) Diet Npo (10/23/17 Breakfast) Ckmb (Isoenzyme) Profile (10/23/17 04:10) Ckmb (Isoenzyme) Profile (10/23/17 07:10) Troponin I (10/23/17 04:10) Troponin I (10/23/17 07:10) Electrocardiogram (10/23/17 04:10) Electrocardiogram (10/23/17 07:10) ^ Obtain (10/23/17 04:10) Sodium Chloride 0.9% Flush (Ns Flush) (10/23/17 04:15) Sodium Chloride 0.9% Flush (Ns Flush) (10/23/17 09:00) Temazepam (Restoril) (10/23/17 04:15) Alprazolam (Xanax) (10/23/17 04:15) General Production Manager / Telemetry [id number] (10/23/17 04:10) Admit Order (Ed Use Only) (10/23/17 04:10) Labs Laboratory Tests Test 10/23/17 03:00 White Blood Count 7.8 TH/MM3 Red Blood Count 4.44 MIL/MM3 Hemoglobin 12.4 GM/DL Hematocrit 37.0 % Mean Corpuscular Volume 83.3 FL Mean Corpuscular Hemoglobin 27.9 PG Mean Corpuscular Hemoglobin Concent 33.5 % Red Cell Distribution Width 15.5 % Platelet Count 186 TH/MM3 Mean Platelet Volume 7.7 FL Neutrophils (%) (Auto) 81.5 % Lymphocytes (%) (Auto) 11.3 % Monocytes (%) (Auto) 5.7 % Eosinophils (%) (Auto) 1.3 % Basophils (%) (Auto) 0.2 % Neutrophils # (Auto) 6.4 TH/MM3 Lymphocytes # (Auto) 0.9 TH/MM3 Monocytes # (Auto) 0.4 TH/MM3 Eosinophils # (Auto) 0.1 TH/MM3 Basophils # (Auto) 0.0 TH/MM3 CBC Comment DIFF FINAL Differential Comment Prothrombin Time 10.5 SEC Prothromb Time International Ratio 1.0 RATIO Activated Partial Thromboplast Time 24.8 SEC Blood Urea Nitrogen 8 MG/DL Creatinine 1.00 MG/DL Random Glucose 137 MG/DL Calcium Level 8.4 MG/DL Sodium Level 140 MEQ/L Potassium Level 3.6 MEQ/L Chloride Level 104 MEQ/L Carbon Dioxide Level 28.9 MEQ/L Anion Gap 7 MEQ/L Estimat Glomerular Filtration Rate 89 ML/MIN Total Creatine Kinase 85 U/L Troponin I LESS THAN 0.02 NG/ML MDM Medical Decision Making Medical Screen Exam Complete: Yes Emergency Medical Condition: Yes Medical Record Reviewed: Yes Differential Diagnosis NSTEMI, unstable angina, coronary vasospasm, PE, PTX, aortic dissection, pericarditis, myocarditis, endocarditis, PNA, esophageal disease, aneurysm, musculoskeletal etiologies, anxiety, cocaine/sympathomimetic abuse Narrative Course CBC & BMP Diagram 10/23/17 03:00 Calcium Level 8.4 L Troponin undetectable EKG shows a sinus rhythm at a rate of [address] changes, essentially unchanged morphology from May 2017, about 6 months ago Last Impressions Chest X-Ray 10/23/17 0306 Signed Impressions: Service Date/Time: Wednesday, October 23, 2017 03:22 - CONCLUSION: No acute disease. Levy Jules MD Overall patient is chest pain is somewhat nonspecific however coronary disease is a consideration as nitro has been effective for the pain management. Patient has a high LIZBETH risk score. Admission for chest pain center evaluation considered next best step. Diagnosis Primary Impression: Chest pain Qualified Codes: R07.9 - Chest pain, unspecified Admitting Information Admitting Physician Requests: Observation Xander Gómez MD October 23, 2017 04:02
[2017-10-23] MEDS ORDERED: ALPRAZolam 0.25 MG TAB PO PRN (04:15)
[2017-10-23] MEDS ORDERED: SODIUM CHLORIDE 0.9% FLUSH 10 ML FLUSH IV FLUSH PRN (04:15)
[2017-10-23] MEDS ORDERED: TEMAZEPAM 15 MG CAP PO PRN (04:15)
[2017-10-23 06:41] LABS: TROPONIN I LESS THAN 0.02 NG/ML (0.02-0.05)
--- NOTE | 2017-10-23 08:29 | HHI.HP ---
HPI Primary Care Physician Non-Staff Chief Complaint Chest pain History of Present Illness This is a 72-year-old male with history of CAD with stent of the LAD June 2015 that presents to ED with complaint of chest discomfort. Patient is hard of hearing. Patient states that he has had chest pains for 6 or 7 years. When asked how often it happens, patient states "a lot." Nothing brings them on. He is living in a rehabilitation center at this time. When asked what was different last night that has been over the last year or so, patient responds "sometimes it hurts more." Last night hurt more. When asked how long it last, patient states "I do not know." His daughter is at the bedside. 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 Upon reviewing records, patient had a nonischemic Lexiscan 09/12/16 but had an EF of 23%. Cardiology was consulted, echo was obtained revealing an EF of 35-40%. Recommended medication adjustment and follow-up and repeat echo. His daughter states that he has not had this done. Currently denies chest discomfort. Review of Systems General: Patient denies fevers, chills, and recent travel. HEENT: Patient denies headache, sore throat, difficulty swallowing. Cardiovascular: Has the chest discomfort as mentioned above. Denies sensation of heart beating rapidly or irregularly. No syncope. Denies diaphoresis. Respiratory: Denies shortness of breath or inspirational chest discomfort. Denies coughing wheezing or hemoptysis. GI: Patient denies nausea, vomiting, diarrhea, abdominal pain, bloody stools. Musculoskeletal: Patient denies joint pain or edema. Denies calf pain or edema. Neurovascular: Patient denies numbness, tingling, weakness in extremities. Denies headache. Endocrine: Denies polyuria and polydipsia. Hematologic: Denies easy bruising. Skin: Denies rash or itching. Past Family Social History Allergies: Coded Allergies: diatrizoate meglumine (Unverified Allergy, Mild, HIVES, ITCHING, 10/23/17) gadobenic acid (Unverified Allergy, Mild, HIVES, ITCHING, 10/23/17) gadodiamide (Unverified Allergy, Mild, HIVES, ITCHING, 10/23/17) gadoteridol (Unverified Allergy, Mild, HIVES, ITCHING, 10/23/17) iodixanol (Unverified Allergy, Mild, HIVES, ITCHING, 10/23/17) iohexol (Unverified Allergy, Mild, HIVES, ITCHING, 10/23/17) Past Medical History CAD with stent of LAD June 2015. He was a non-STEMI. Hypertension, hyperlipidemia, COPD and continues to smoke,, GERD. Denies diabetes. Past Surgical History Cardiac catheterization June 2015. Cataracts. Reported Medications Reported Meds & Active Scripts Active Famotidine 40 Mg Tab 40 Mg PO BID Walker with Front Wheels (Device) 1 Mis Mis 1 Ea .ROUTE DIRECTED Sodium Chloride 1 Gm Tab 1 Gm PO TID Aspirin EC (Aspirin) 81 Mg Tabdr 81 Mg PO DAILY Potassium Chloride Microencaps 20 Meq Tab 20 Meq PO Q12HR 10 Days Reported Voltaren (Diclofenac Sodium) 1 % Gel..gram. Seroquel (Quetiapine Fumarate) 100 Mg Tab 100 Mg PO HS Remeron (Mirtazapine) 15 Mg Tab 7.5 Mg PO HS Milk of Magnesia Liq (Magnesium Hydroxide) 400 Mg/5 Ml Susp 30 Ml PO ONCE Maxitrol Opth Drops (Neomycin/Polymyxin/Dexamethasone) 3.5-10,000-0.1 Mg-Units- % Susp Drop EACH EYE Q4H Ibuprofen 400 Mg Tab 400 Mg PO Q8H PRN Dulcolax Supp (Bisacodyl) 10 Mg Supp 10 Mg RECTAL DAILY PRN Magnesium Citrate 100 Mg Tab 296 Mg PO PRN PRN Metoprolol Succinate ER 24 HR (Metoprolol Succinate) 50 Mg Tab 50 Mg PO DAILY Cetirizine (Cetirizine HCl) 10 Mg Tab 10 Mg PO DAILY Amlodipine (Amlodipine Besylate) 2.5 Mg Tab 2.5 Mg PO DAILY Atorvastatin (Atorvastatin Calcium) 80 Mg Tab 80 Mg PO HS Active Ordered Medications Current Medications Medications (Trade) Dose Ordered Sig/Joshua Route Start Time Stop Time Status Last Admin (NS Flush) 2 ml UNSCH PRN IV FLUSH 10/23/17 04:15 (NS Flush) 2 ml BID IV FLUSH 10/23/17 09:00 10/23/17 07:56 (Restoril) 15 mg HS PRN PO 10/23/17 04:15 (Xanax) 0.25 mg Q8H PRN PO 10/23/17 04:15 Family History Does not know his family medical history. Social History Patient continues to smoke but does not know how much. States he smoked all his life. Denies alcohol or illicit drug use. Physical Exam Vital Signs Vital Signs Date Time Temp Pulse Resp B/P (MAP) Pulse Ox O2 Delivery O2 Flow Rate FiO2 10/23/17 07:15 97 10/23/17 07:11 97.8 96 18 128/60 (82) 94 10/23/17 07:11 93 Nasal Cannula 3.00 10/23/17 05:03 98.4 109 18 135/74 (94) 96 10/23/17 04:49 96 Nasal Cannula 3.00 10/23/17 03:08 96 Nasal Cannula 2.00 10/23/17 03:02 93 Nasal Cannula 2.00 10/23/17 02:59 98.3 166/79 (108) Physical Exam GENERAL: This is a well-nourished, well-developed patient, in no apparent distress. Patient speaks in clear complete sentences. Patient is pleasant. HEENT: Head is atraumatic and normocephalic. Neck is supple without lymphadenopathy and trachea is midline. No JVD or carotid bruits. CARDIOVASCULAR: Regular rate and rhythm without murmurs, gallops, or rubs. RESPIRATORY: Mild bilateral expiratory wheezing. Breath sounds equal bilaterally. No rales, or rhonchi. Chest wall is nontender. No use of accessory muscles. GASTROINTESTINAL: Abdomen is nontender, nondistended. Abdomen soft. No obvious pulsatile mass or bruit. No CVA tenderness. Strong femoral pulses bilaterally. Normal bowel sounds in all quadrants. MUSCULOSKELETAL: Patient is moving upper and lower extremities freely. No calf tenderness or edema, no Homans sign. Strong pulses in upper and lower extremities. NEUROLOGICAL: Patient is alert and oriented. Cranial nerves 2-12 are grossly intact. No focal deficits and speech is clear. SKIN: No rash and turgor is normal. Laboratory Laboratory Tests Test 10/23/17 03:00 10/23/17 04:42 10/23/17 07:08 White Blood Count 7.8 Red Blood Count 4.44 Hemoglobin 12.4 Hematocrit 37.0 Mean Corpuscular Volume 83.3 Mean Corpuscular Hemoglobin 27.9 Mean Corpuscular Hemoglobin Concent 33.5 Red Cell Distribution Width 15.5 Platelet Count 186 Mean Platelet Volume 7.7 Neutrophils (%) (Auto) 81.5 Lymphocytes (%) (Auto) 11.3 Monocytes (%) (Auto) 5.7 Eosinophils (%) (Auto) 1.3 Basophils (%) (Auto) 0.2 Neutrophils # (Auto) 6.4 Lymphocytes # (Auto) 0.9 Monocytes # (Auto) 0.4 Eosinophils # (Auto) 0.1 Basophils # (Auto) 0.0 CBC Comment DIFF FINAL Differential Comment Prothrombin Time 10.5 Prothromb Time International Ratio 1.0 Activated Partial Thromboplast Time 24.8 Blood Urea Nitrogen 8 Creatinine 1.00 Random Glucose 137 Calcium Level 8.4 Sodium Level 140 Potassium Level 3.6 Chloride Level 104 Carbon Dioxide Level 28.9 Anion Gap 7 Estimat Glomerular Filtration Rate 89 Total Creatine Kinase 85 104 Troponin I LESS THAN 0.02 LESS THAN 0.02 Creatine Kinase MB 3.7 Result Diagram: 10/23/1729910/23/17299 Imaging Last 48 hours Impressions Chest X-Ray 10/23/17305 Signed Impressions: Service Date/Time: Monday, October 23, 2017 03:22 - CONCLUSION: No acute disease. Levy Jules MD Course EKGs sinus rhythm to sinus tachycardia rate [address] segment depressions or elevations. Caprini VTE Risk Assessment Caprini VTE Risk Assessment: Mod/High Risk (score >= 2) Caprini Risk Assessment Model Point Value = 1 Point Value = 2 Point Value = 3 Point Value = 5 Age 41-60 Minor surgery BMI > 25 kg/m2 Swollen legs Varicose veins or History of unexplained or recurrent spontaneous Oral contraceptives or hormone replacement Sepsis (< 1 month) Serious lung disease, including pneumonia (< 1 month) Abnormal pulmonary function Acute myocardial infarction Congestive heart failure (< 1 month) History of inflammatory bowel disease Medical patient at bed rest Age 61-74 Arthroscopic surgery Major open surgery (> 45 min) Laparoscopic surgery (> 45 min) Malignancy Confined to bed (> 72 hours) Immobilizing plaster cast Central venous access Age >= 75 History of VTE Family history of VTE Factor V Leiden Prothrombin 17941H Lupus anticoagulant Anticardiolipin antibodies Elevated serum homocysteine Heparin-induced thrombocytopenia Other congenital or acquired thrombophilia Stroke (< 1 month) Elective arthroplasty Hip, pelvis, or leg fracture Acute spinal cord injury (< 1 month) Prophylaxis Regimen Total Risk Factor Score Risk Level Prophylaxis Regimen 0-1 Low Early ambulation 2 Moderate Order ONE of the following: *Sequential Compression Device (SCD) *Heparin 5000 units SQ BID 3-4 Higher Order ONE of the following medications: *Heparin 5000 units SQ TID *Enoxaparin/Lovenox 40 mg SQ daily (WT < 150 kg, CrCl > 30 mL/min) *Enoxaparin/Lovenox 30 mg SQ daily (WT < 150 kg, CrCl > 10-29 mL/min) *Enoxaparin/Lovenox 30 mg SQ BID (WT < 150 kg, CrCl > 30 mL/min) AND/OR *Sequential Compression Device (SCD) 5 or more Highest Order ONE of the following medications: *Heparin 5000 units SQ TID (Preferred with Epidurals) *Enoxaparin/Lovenox 40 mg SQ daily (WT < 150 kg, CrCl > 30 mL/min) *Enoxaparin/Lovenox 30 mg SQ daily (WT < 150 kg, CrCl > 10-29 mL/min) *Enoxaparin/Lovenox 30 mg SQ BID (WT < 150 kg, CrCl > 30 mL/min) AND *Sequential Compression Device (SCD) Assessment and Plan Assessment and Plan * Chest pain: Patient's third troponin is pending. If that were to be normal he was then be scheduled for a Lexiscan. He will be seen by Dr. Naqvi of cardiology in the chest pain center. Patient be discharged home if stress test is nonischemic with instructions to follow-up with PCP and cardiology. Return to ED for interval issues. * CAD: We will likely reassess with stress test. * Hypertension: Continue medication. * Hyperlipidemia: Continue medication. * COPD: Patient has been counseled on importance of smoking cessation. There will be as needed duo nebs. * Tobacco abuse: Patient has been counseled importance of smoking cessation. Patient is stable at this time. He is agreeable to this plan. Michele Alaniz October 23, 2017 08:29
[2017-10-23 08:38] LABS: TROPONIN I LESS THAN 0.02 NG/ML (0.02-0.05)
[2017-10-23] MEDS ORDERED: FAMOTIDINE 20 MG TAB PO SCH (09:00)
[2017-10-23] MEDS ORDERED: SODIUM CHLORIDE 0.9% FLUSH 10 ML FLUSH IV FLUSH SCH (09:00)
[2017-10-23] MEDS ORDERED: METOPROLOL SUCCINATE 50 MG EXTENDED RELEASE TAB PO SCH (09:00)
[2017-10-23] MEDS ORDERED: POTASSIUM CHLORIDE 20 MEQ CONTROLLED RELEASE TAB PO SCH (09:00)
[2017-10-23] MEDS ORDERED: ASPIRIN EC 81 MG TABEC PO SCH (09:00)
[2017-10-23] MEDS ORDERED: amLODIPine BESYLATE 5 MG TAB PO SCH (09:00)
[2017-10-23] MEDS ORDERED: CETIRIZINE HCL 10 MG TAB PO SCH (09:00)
[2017-10-23] MEDS ORDERED: RESP: ALBUTEROL 2.5 MG/IPRATROPIUM 0.5 MG NEB (PRN) INH (09:00)
[2017-10-23] MEDS ORDERED: IBUPROFEN 400 MG TAB PO PRN (09:15)
--- NOTE | 2017-10-23 09:31 | PD.CARD.PN ---
Subjective Subjective Remarks The patient was seen and examined personally, discussed with the PA, medical records were reviewed and plan treatment was discussed. I am in agreement with the dictation is recorded. Patient will be ruled out using standard chest pain protocol and a nuclear stress testing will be carried out for definitive evaluation. This was discussed with the patient and with his daughter who is here as he his primary care provider. Objective Medications Current Medications Medications (Trade) Dose Ordered Sig/Joshua Route Start Time Stop Time Status Last Admin (NS Flush) 2 ml UNSCH PRN IV FLUSH 10/23/17 04:15 (NS Flush) 2 ml BID IV FLUSH 10/23/17 09:00 10/23/17 07:56 (Restoril) 15 mg HS PRN PO 10/23/17 04:15 (Xanax) 0.25 mg Q8H PRN PO 10/23/17 04:15 (Norvasc) 2.5 mg DAILY PO 10/23/17 09:00 (Lipitor) 80 mg HS PO 10/23/17 21:00 (ZyrTEC) 10 mg DAILY PO 10/23/17 09:00 (Motrin) 400 mg Q8H PRN PO 10/23/17 09:15 (Toprol Xl) 50 mg DAILY PO 10/23/17 09:00 (Remeron) 7.5 mg HS PO 10/23/17 21:00 (KCl) 20 meq Q12HR PO 10/23/17 09:00 (SEROquel) 100 mg HS PO 10/23/17 21:00 (Sodium Chloride) 1 gm TID PO 10/23/17 09:00 (Pepcid) 40 mg BID PO 10/23/17 09:00 (Ecotrin Ec) 81 mg DAILY PO 10/23/17 09:00 (Duoneb Neb) 1 ampule Q4HR NEB PRN INH 10/23/17 09:00 Vital Signs / I&O Vital Signs Date Time Temp Pulse Resp B/P (MAP) Pulse Ox O2 Delivery O2 Flow Rate FiO2 10/23/17 07:15 97 10/23/17 07:11 97.8 96 18 128/60 (82) 94 10/23/17 07:11 93 Nasal Cannula 3.00 10/23/17 05:03 98.4 109 18 135/74 (94) 96 10/23/17 04:49 96 Nasal Cannula 3.00 10/23/17 03:08 96 Nasal Cannula 2.00 10/23/17 03:02 93 Nasal Cannula 2.00 10/23/17 02:59 98.3 166/79 (108) Physical Exam Frail thin black gentleman who is very hard of hearing. Neck is supple no JVD masses nodes or bruits Chest reveals significantly diminished breath sounds but no rales wheezes or rhonchi Cardiovascular heart sounds are distant but there are no gallop rub or murmur Laboratory Laboratory Tests Test 10/23/17 03:00 10/23/17 04:42 10/23/17 07:08 White Blood Count 7.8 TH/MM3 Red Blood Count 4.44 MIL/MM3 Hemoglobin 12.4 GM/DL Hematocrit 37.0 % Mean Corpuscular Volume 83.3 FL Mean Corpuscular Hemoglobin 27.9 PG Mean Corpuscular Hemoglobin Concent 33.5 % Red Cell Distribution Width 15.5 % Platelet Count 186 TH/MM3 Mean Platelet Volume 7.7 FL Neutrophils (%) (Auto) 81.5 % Lymphocytes (%) (Auto) 11.3 % Monocytes (%) (Auto) 5.7 % Eosinophils (%) (Auto) 1.3 % Basophils (%) (Auto) 0.2 % Neutrophils # (Auto) 6.4 TH/MM3 Lymphocytes # (Auto) 0.9 TH/MM3 Monocytes # (Auto) 0.4 TH/MM3 Eosinophils # (Auto) 0.1 TH/MM3 Basophils # (Auto) 0.0 TH/MM3 CBC Comment DIFF FINAL Differential Comment Prothrombin Time 10.5 SEC Prothromb Time International Ratio 1.0 RATIO Activated Partial Thromboplast Time 24.8 SEC Blood Urea Nitrogen 8 MG/DL Creatinine 1.00 MG/DL Random Glucose 137 MG/DL Calcium Level 8.4 MG/DL Sodium Level 140 MEQ/L Potassium Level 3.6 MEQ/L Chloride Level 104 MEQ/L Carbon Dioxide Level 28.9 MEQ/L Anion Gap 7 MEQ/L Estimat Glomerular Filtration Rate 89 ML/MIN Total Creatine Kinase 85 U/L 104 U/L 113 U/L Troponin I LESS THAN 0.02 NG/ML LESS THAN 0.02 NG/ML LESS THAN 0.02 NG/ML Creatine Kinase MB 3.7 NG/ML 5.4 NG/ML Imaging Last 24 hours Impressions Chest X-Ray 10/23/17 0306 Signed Impressions: Service Date/Time: Monday, October 23, 2017 03:22 - CONCLUSION: No acute disease. Levy Jules MD Assessment and Plan Problem List: (1) Chest pain ICD Codes: R07.9 - Chest pain, unspecified Status: Acute (2) COPD exacerbation ICD Codes: J44.1 - Chronic obstructive pulmonary disease with (acute) exacerbation Status: Acute (3) Dementia ICD Codes: F03.90 - Unspecified dementia without behavioral disturbance Status: Acute (4) Tobacco abuse ICD Codes: Z72.0 - Tobacco use Status: Acute Problem Qualifiers (1) Chest pain: Qualified Codes: R07.9 - Chest pain, unspecified Ozzy Naqvi MD October 23, 2017 09:31
--- NOTE | 2017-10-23 09:37 | EKG ---
Date Performed: 10/23/2017 Time Performed: 05:13:23 PTAGE: 72 years EKG: SINUS TACHYCARDIA SEPTAL MYOCARDIAL INFARCTION ABNORMAL ECG No significant change PREVIOUS TRACING : 10/23/2017 04.36 DOCTOR: Ozzy Naqvi Interpretating Date/Time 10/23/2017 09:36:06
--- NOTE | 2017-10-23 09:38 | EKG ---
Date Performed: 10/23/2017 Time Performed: 04:36:04 PTAGE: 72 years EKG: SINUS TACHYCARDIA NONSPECIFIC ST & T-WAVE ABNORMALITY ABNORMAL RHYTHM ECG Probable old ante roseptal VA but largely unchanged from prior tracing PREVIOUS TRACING : 10/23/2017 03.03 DOCTOR: Ozzy Naqvi Interpretating Date/Time 10/23/2017 09:36:38
--- NOTE | 2017-10-23 09:38 | EKG ---
Date Performed: 10/23/2017 Time Performed: 03:03:55 PTAGE: 72 years EKG: SINUS TACHYCARDIA BORDERLINE LEFT AXIS DEVIATION NONSPECIFIC ST & T-WAVE ABNORMALITY ABNORM AL RHYTHM ECG Old anterior septal [place] but largely unchanged PREVIOUS TRACING : 05/20/2017 20.44 DOCTOR: Ozzy Naqvi Interpretating Date/Time 10/23/2017 09:36:57
[2017-10-23] MEDS: SODIUM CHLORIDE 1 GRAM TAB PO SCH ×2 (10:57→16:31)
--- NOTE | 2017-10-23 16:55 | HHI.DCPOC ---
Discharge Care Plan Diagnosis: (1) Chest pain (2) Hypertension (3) Hyperlipidemia (4) COPD exacerbation (5) CAD (coronary artery disease) (6) H/O heart artery stent Goals to Promote Your Health * To prevent worsening of your condition and complications * To maintain your health at the optimal level Directions to Meet Your Goals Take your medications as prescribed Follow your dietary instruction Follow activity as directed Keep your appointments as scheduled Take your immunizations and boosters as scheduled If your symptoms worsen call your PCP, if no PCP go to Urgent Care Center or Emergency Room Smoking is Dangerous to Your Health. Avoid second hand smoke Call the 24-hour hour crisis hotline for domestic abuse at Michele Alaniz October 23, 2017 16:55
--- NOTE | 2017-10-23 17:03 | RADRPT ---
EXAM DATE/TIME: 10/23/2017 13:38 [facility] COMPARISON: No previous studies available for comparison. INDICATIONS : Chest pain. Angina DOSE: 8.5 mCi Tc99m Myoview MEDICAL HISTORY : Chronic obstructive pulmonary disease. Hypertension. Diabetes mellitus type 2. SURGICAL HISTORY : Coronary artery stent. ENCOUNTER: Initial ACUITY: 1 day PAIN SCALE: 2/10 LOCATION: Bilateral chest TECHNIQUE: Resting injection SPECT was performed. Examination was performed on a SPECT/CT scanner. Attenuation corrected and non-attenuation correction images were reviewed. FINDINGS: The patient refused the stress portion of the examination. There, this is nondiagnostic for ischemic changes. The rest images show some mild diminished perfusion along the inferior lateral wall. CONCLUSION: 1. Nondiagnostic exam. Patient refused the stress portion of the study. RISK CATEGORY: NA Rojas Strong MD on October 23, 2017 at 16:58 Board Certified Radiologist. This report was verified electronically.
--- NOTE | 2017-10-23 18:14 | EKG ---
Date Performed: 10/23/2017 Time Performed: 07:22:08 PTAGE: 72 years EKG: Sinus rhythm MARKED LEFT AXIS DEVIATION NONSPECIFIC ST & T-WAVE ABNORMALITY ABNORMAL ECG PREVIOUS TRACING : 10/23/2017 05.13 Since the previous tracing, no significant change noted DOCTOR: Addie Mcgowan Interpretating Date/Time 10/23/2017 18:13:21
[2017-10-23] MEDS ORDERED: QUEtiapine FUMARATE 100 MG TAB PO SCH (21:00)
[2017-10-23] MEDS ORDERED: ATORVASTATIN 80 MG TAB PO SCH (21:00)
[2017-10-23] MEDS ORDERED: MIRTAZAPINE 15 MG TAB PO SCH (21:00)
== END 2017-10-23 18:10 | disposition home or self-care (01) ==
LOC: NEPC 02:52 → NEDA 04:12 → NEPFCDU 04:43
PROVIDERS: ADMIT Internal Medicine Cardiovascular Disease; ATTEND Internal Medicine Cardiovascular Disease
DX: R07.9 Chest pain, unspecified (principal); I10 Essential (primary) hypertension; J44.1 Chronic obstructive pulmonary disease with (acute) exacerbation; I25.10 Atherosclerotic heart disease of native coronary artery without angina pectoris; E11.9 Type 2 diabetes mellitus without complications; E78.5 Hyperlipidemia, unspecified; F03.90 Unspecified dementia, unspecified severity, without behavioral disturbance, psychotic disturbance, mood disturbance, and anxiety; H54.7 Unspecified visual loss; H91.90 Unspecified hearing loss, unspecified ear; K21.9 Gastro-esophageal reflux disease without esophagitis; I25.2 Old myocardial infarction; F17.200 Nicotine dependence, unspecified, uncomplicated; Z95.5 Presence of coronary angioplasty implant and graft
CPT/HCPCS: 71045; 78451; 80048; 82550; 82552; 84484; 85025; 85610; 85730; 93005; 99285; A9502; G0378

== ENCOUNTER 2018-01-01 19:03 | Inpatient (IN) ==
[2018-01-01] MEDS ORDERED: Sod Chloride 0.9% Inj 1,000 ML IV.SIG ONE ×2 (20:06→23:09)
--- NOTE | 2018-01-01 20:22 | ED ---
HPI General Chief Complaint: Shortness of Breath/Dyspnea Stated Complaint: Resp Time Seen by Provider: 01/01/18 20:03 Source: patient and RN notes reviewed Mode of arrival: EMS History of Present Illness HPI narrative: Patient is a 72-year-old male with history of COPD, htn, hyperlipidemia, DM, "altered mental status unspecified" presents to the ER from [facility] with chief complaint of "respiratory issues, low oxygen sat at 79% with a pulse of 148." Patient is demented and combative upon arrival to the ER, he is unable to provide HPI. He does seem confused as he is talking to the corner of a room. He is unable to answer any of my questions. Related Data Allergies Allergy/AdvReac Type Severity Reaction Status Date / Time diatrizoate meglumine Allergy Mild HIVES, Verified 01/01/18 21:20 ITCHING gadobenic acid Allergy Mild HIVES, Verified 01/01/18 21:20 ITCHING gadodiamide Allergy Mild HIVES, Verified 01/01/18 21:20 ITCHING gadoteridol Allergy Mild HIVES, Verified 01/01/18 21:20 ITCHING iodixanol Allergy Mild HIVES, Verified 01/01/18 21:20 ITCHING iohexol Allergy Mild HIVES, Verified 01/01/18 21:20 ITCHING Review of Systems ROS Unobtainable unobtainable due to mental condition and unobtainable due to mental status PMFSH History History Provided By: Medical Record (feeding difficulties) Medical History Medical History Dementia (Acute) Depression (Acute) Diabetes (Acute) GERD (gastroesophageal reflux disease) (Acute) Glaucoma (Acute) Acute asthma (Acute) Altered mental status, unspecified (Acute) COPD (chronic obstructive pulmonary disease) (Acute) Hypertension (Acute) Hyponatremia (Acute) Insomnia (Acute) Major depressive disorder (Acute) Metabolic encephalopathy (Acute) Social History Social History Substance History: No History of Abuse Smoking Status: Never smoker How Often Do You Have a Drink Containing Alcohol: Never Recent Travel in [facility] within the Last 8 Weeks: No Recent Out of Country Travel within the Last 8 Weeks: No Exam Narrative Exam Narrative: GENERAL: patient combative, altered mental status, not alert to person, place or time SKIN: Focused skin assessment warm/dry. HEAD: Atraumatic. Normocephalic. EYES: Pupils equal and round. No scleral icterus. No injection or drainage. ENT: No nasal bleeding or discharge. Mucous membranes pink and moist. NECK: Trachea midline. No JVD. CARDIOVASCULAR: tachycardic. No murmur appreciated. RESPIRATORY: No accessory muscle use. scattered wheezing. Breath sounds equal bilaterally. GASTROINTESTINAL: Abdomen soft, non-tender, nondistended. Hepatic and splenic margins not palpable. MUSCULOSKELETAL: No obvious deformities. No clubbing. No cyanosis. No edema. NEUROLOGICAL: Awake and alert. No obvious cranial nerve deficits. Motor grossly within normal limits. Normal speech. PSYCHIATRIC: disoriented mood and affect Course Initial Documented Vital Signs Temperature 95.7 F L 01/01/18 21:11 Pulse Rate 76 01/01/18 21:11 Respiratory Rate 24 01/01/18 21:11 Blood Pressure 124/67 01/01/18 21:11 Pulse Oximetry 99 01/01/18 21:11 Last Documented Vital Signs Temperature 95.7 F L 01/01/18 21:11 Pulse Rate 70 01/01/18 21:45 Respiratory Rate 18 01/01/18 21:45 Blood Pressure 124/67 01/01/18 21:11 Pulse Oximetry 99 01/01/18 21:20 Critical Care Time Critical Care Time: Yes Total Critical Care Time: 45 Attestation: Aggregate critical care time was 45 minutes. Time to perform other separately billable procedures was not included in the critical care time. My time did not include minutes spent treating any other patients simultaneously or on activities that did not directly contribute to the patient's treatment. The services I provided to this patient were to treat and/or prevent clinically significant deterioration that could result in: , decompensation, deterioration I provided critical care services requiring my management, as noted below: Chart data review, documentation time, medication orders and management, vital sign assessments/reviewing monitor data, ordering and reviewing lab tests, ordering and interpreting/reviewing x-rays and diagnostic studies, care of the patient and discussion of the patient with the admitting physicians. Medical Decision Making MDM Narrative Medical decision making narrative: During the course of the patients emergency department visit, the patients history, examination, and differential diagnosis were reviewed with the patient. The patient was placed on a cardiac care nurse with oximetry and frequent blood pressure monitoring. The patient had an IV access obtained and blood work sent for analysis. The patient was initially provided with PHILIP finch given the fact he is altered and combative, he is a danger to himself and to others, he requires sedation for his safety as well as safety of staff The patients laboratory studies were reviewed and remarkable for lactic acid of 2.6 - he has been pancultures, xray of chest does not show pneumonia but I do believe that his source of infection is most likely from his lungs as he does have a wheeze and he is a smoker with history of copd. He has been given a dose of rocephin as well as azithromycin. Potassium 6.4 - will treat with sodium bicarb, kayexalate, insulin and glucose Discussed with patient's daughter, Randi Milligan (POA) need for VQ scan to rule out PE as he is hypoxic on 5L NC - he is not on a nasal canula at home. She does not want a PE workup as ultimately, he is a fall risk - he was recently diagnosed as blind. She reports that even if he does have a PE, she does not want it to be treated because risk of bleeding is too high. Patient will be admitted to the [facility] as he is hypoxic with copd exacerbation Case reviewed with Dr. Hartman who accepts pt to service Differential Diagnosis Differential Diagnosis: pneumonia, copd exacerbation, encephalopathy, uti, acs, arrythmia, electrolyte abnormality Medical Records Medical records reviewed: Yes I reviewed the patient's medical records. Lab Data Lab results reviewed: Yes I reviewed the patient's lab results. Result diagrams: 01/01/18 20:15 01/01/18 20:15 Lab Results 01/01/18 01/01/18 01/01/18 Range/Units 20:15 20:15 20:15 WBC 9.2 (4.0-11.0) th/mm3 RBC 5.33 (4.50-5.90) mil/mm3 Hgb 14.6 (13.0-17.0) gm/dL Hct 45.2 (39.0-51.0) % MCV 84.8 (80.0-100.0) fL MCH 27.4 (27.0-34.0) pg MCHC 32.3 (32.0-36.0) % RDW 16.8 (11.6-17.2) % Plt Count 142 L (150-450) th/mm3 MPV 8.1 (7.0-11.0) fL Neut % (Auto) 84.0 H (16.0-70.0) % Lymph % (Auto) 2.5 L (9.0-44.0) % [place] % (Auto) 9.0 H (0.0-8.0) % Eos % (Auto) 4.4 H (0.0-4.0) % Baso % (Auto) 0.1 (0.0-2.0) % Neut # (Auto) 7.7 (1.8-7.7) th/mm3 Lymph # (Auto) 0.2 L (1.0-4.8) th/mm3 [place] # (Auto) 0.8 (0.0-0.9) th/mm3 Eos # (Auto) 0.4 (0.0-0.4) th/mm3 Baso # (Auto) 0.0 (0.0-0.2) th/mm3 WBC Differential . Differential Comment Auto diff final PT 10.0 (9.8-11.6) sec INR 1.0 Ratio APTT 24.0 L (24.3-30.1) sec Puncture Site Patient Temperature O2 Saturation (90-100) % ABG pH (7.380-7.420) ABG pCO2 (38-42) mmHg ABG pO2 (61-120) mmHg ABG HCO3 (22-26) mmol/L ABG O2 Content (12.0-20.0) Vol % ABG Base Excess (-2-2) mmol/L ABG Methemoglobin (0-2) % Hemoglobin (12.0-16.0) G/DL Carboxyhemoglobin (0-4) % O2 Delivery Device Liter Flow L/M Inspired O2 % Critical Value Sodium 140 (136-145) meq/L Potassium 6.4 H (3.5-5.1) meq/L Chloride 104 (98-107) meq/L Carbon Dioxide 27.5 (21.0-32.0) meq/L Anion Gap 9 (5-15) meq/L BUN 17 (7-18) mg/dL Creatinine 1.23 (0.60-1.30) mg/dL Estimated GFR 70 L (>89) mL/min Random Glucose 129 H (74-106) mg/dL Lactic Acid (0.4-2.0) mmol/L Calcium 9.3 (8.5-10.1) mg/dL Magnesium 2.3 (1.5-2.5) mg/dL Total Bilirubin 0.5 (0.2-1.0) mg/dL AST 33 (15-37) U/L ALT 24 (12-78) U/L Alkaline Phosphatase 159 H (45-117) U/L Total Creatine Kinase 169 (39-308) U/L CK-MB (CK-2) 4.4 H (0.5-3.6) ng/mL Troponin I Less than 0.02 L (0.02-0.05) ng/mL Total Protein 9.1 H (6.4-8.2) g/dL Albumin 3.4 (3.4-5.0) g/dL 01/01/18 01/01/18 Range/Units 20:15 21:25 WBC (4.0-11.0) th/mm3 RBC (4.50-5.90) mil/mm3 Hgb (13.0-17.0) gm/dL Hct (39.0-51.0) % MCV (80.0-100.0) fL MCH (27.0-34.0) pg MCHC (32.0-36.0) % RDW (11.6-17.2) % Plt Count (150-450) th/mm3 MPV (7.0-11.0) fL Neut % (Auto) (16.0-70.0) % Lymph % (Auto) (9.0-44.0) % [place] % (Auto) (0.0-8.0) % Eos % (Auto) (0.0-4.0) % Baso % (Auto) (0.0-2.0) % Neut # (Auto) (1.8-7.7) th/mm3 Lymph # (Auto) (1.0-4.8) th/mm3 [place] # (Auto) (0.0-0.9) th/mm3 Eos # (Auto) (0.0-0.4) th/mm3 Baso # (Auto) (0.0-0.2) th/mm3 WBC Differential Differential Comment PT (9.8-11.6) sec INR Ratio APTT (24.3-30.1) sec Puncture Site Right femoral Patient Temperature 98.6 O2 Saturation 96 (90-100) % ABG pH 7.29 L* (7.380-7.420) ABG pCO2 58 H* (38-42) mmHg ABG pO2 105 (61-120) mmHg ABG HCO3 27 H (22-26) mmol/L ABG O2 Content 18.3 (12.0-20.0) Vol % ABG Base Excess 1.2 (-2-2) mmol/L ABG Methemoglobin 0.6 (0-2) % Hemoglobin 13.5 (12.0-16.0) G/DL Carboxyhemoglobin 0.8 (0-4) % O2 Delivery Device Nasal cannula Liter Flow 5.00 L/M Inspired O2 21 % Critical Value Yes Sodium (136-145) meq/L Potassium (3.5-5.1) meq/L Chloride (98-107) meq/L Carbon Dioxide (21.0-32.0) meq/L Anion Gap (5-15) meq/L BUN (7-18) mg/dL Creatinine (0.60-1.30) mg/dL Estimated GFR (>89) mL/min Random Glucose (74-106) mg/dL Lactic Acid 2.6 H (0.4-2.0) mmol/L Calcium (8.5-10.1) mg/dL Magnesium (1.5-2.5) mg/dL Total Bilirubin (0.2-1.0) mg/dL AST (15-37) U/L ALT (12-78) U/L Alkaline Phosphatase (45-117) U/L Total Creatine Kinase (39-308) U/L CK-MB (CK-2) (0.5-3.6) ng/mL Troponin I (0.02-0.05) ng/mL Total Protein (6.4-8.2) g/dL Albumin (3.4-5.0) g/dL Imaging Data Attestation: I personally reviewed and interpreted this imaging study as follows : Radiologist's impression: Chest X-Ray 01/01/18 20:04 CONCLUSION: Stable appearance with no acute cardiopulmonary disease. Discharge Plan Discharge Disposition Patient Disposition: 30 Still Patient Physicians Team ED Provider: Marge Ly Primary Care Provider: Primary Care Ashlie Wisdom Status ED Status: With Doctor
[2018-01-01 20:31] LABS: Baso % (Auto) 0.1 % (0.0-2.0); Eos # (Auto) 0.4 th/mm3 (0.0-0.4); Eos % (Auto) 4.4 % (0.0-4.0); Hematocrit 45.2 % (39.0-51.0); Hemoglobin 14.6 gm/dL (13.0-17.0); Lymph # (Auto) 0.2 th/mm3 (1.0-4.8); Lymph % (Auto) 2.5 % (9.0-44.0); Mean Corpuscular HGB Conc 32.3 % (32.0-36.0); Mean Corpuscular Hemoglobin 27.4 pg (27.0-34.0); Mean Corpuscular Volume 84.8 fL (80.0-100.0); Mean Platelet Volume 8.1 fL (7.0-11.0); Mono # (Auto) 0.8 th/mm3 (0.0-0.9); Neut # (Auto) 7.7 th/mm3 (1.8-7.7); Platelet Count 142 th/mm3 (150-450); Red Blood Count 5.33 mil/mm3 (4.50-5.90); Red Cell Distribution Width 16.8 % (11.6-17.2); White Blood Count 9.2 th/mm3 (4.0-11.0)
--- NOTE | 2018-01-01 21:18 | XR ---
EXAM DATE: 01/01/2018 9:13 PM EDT AGE/SEX: 72 years / Male INDICATIONS: Fever and shortness of breath. CLINICAL DATA: This is the patient's initial encounter. Patient reports that signs and symptoms have been present for 2 days and indicates a pain score of 0/10. MEDICAL/SURGICAL HISTORY: Cardiovascular disease. Hypertension. Diabetes mellitus type II. No ne. [place] [facility] [place]. . FINDINGS: A single AP view of the chest demonstrates the lungs to be symmetrically hyperinflated without eviden ce of mass, infiltrate or effusion. The cardiomediastinal contours are unremarkable. Osseous struct ures are intact. There is overlying electrocardiogram leads and oxygen tubing. CONCLUSION: Stable appearance with no acute cardiopulmonary disease. Electronically signed by: Levy Jules MD 01/01/2018 9:16 PM EDT
[2018-01-01 21:26] LABS: Alanine Aminotransferase 24 U/L (12-78); Albumin 3.4 g/dL (3.4-5.0); Alkaline Phosphatase 159 U/L (45-117); Anion Gap 9 meq/L (5-15); Aspartate Aminotransferase 33 U/L (15-37); Blood Urea Nitrogen 17 mg/dL (7-18); Calcium 9.3 mg/dL (8.5-10.1); Carbon Dioxide 27.5 meq/L (21.0-32.0); Chloride 104 meq/L (98-107); Creatine Kinase 169 U/L (39-308); Glomerular Filtration Rate 70 mL/min (>89); Glucose,Random 129 mg/dL (74-106); Magnesium 2.3 mg/dL (1.5-2.5); Sodium 140 meq/L (136-145); Total Protein 9.1 g/dL (6.4-8.2)
[2018-01-01 21:27] LABS: Potassium 6.4 meq/L (3.5-5.1)
[2018-01-01] MEDS ORDERED: MethylPREDNISolone Sod Succinate Inj 125 MG/2 ML Vial IV.PUSH ONE (21:28)
[2018-01-01 21:40] LABS: Creatine Kinase MB 4.4 ng/mL (0.5-3.6)
[2018-01-01] MEDS ORDERED: Azithromycin Inj 500 MG in Sodium Chlor 0.9% Inj 250 ML IV.SIG ONE (21:47)
[2018-01-01 21:59] LABS: ABG Base Excess 1.2 mmol/L (-2-2); ABG PCO2 58 mmHg (38-42); ABG PO2 105 mmHg (61-120)
[2018-01-01] MEDS ORDERED: Temazepam 15 MG Capsule PO PRN (22:52)
[2018-01-01] MEDS ORDERED: Bisacodyl 10 MG Supp RECTAL PRN (22:52)
[2018-01-01] MEDS ORDERED: Acetaminophen 325 MG Tablet PO PRN (22:52)
--- NOTE | 2018-01-01 22:54 | P.HPIM ---
History of Present Illness Primary Care Physician: No Primary Care Physician History of Present Illness: A 72-year-old male with a PMH of HTN, COPD, Hyperlipidemia, DM and Dementia who was sent to the ER from SNF due to hypoxia with O2 sat 79% and heart rate 148. Unable to obtain any history from patient as he is demented. On arrival to ER, patient noted to be significantly combative and confused requiring medication. Currently has sitter. BP 121/79, HR 94, O2 sat 95% on 5L NC. CBC essentially unremarkable. INR 1.0. K+ 6.4. Lactic Acid 2.6, repeat 2.3. ABG with pH 7.29 , PCO2 58, PO2 105 on 5L NC. CXR with stable appearance, no acute cardiopulmonary disease. S/p DuoNeb, Solu-Medrol and Rocephin/Zithro in ER w/ improvement. Pt appears comfortable and in no respiratory distress at this time. - Diagnosis (1) COPD (chronic obstructive pulmonary disease) (2) Hypoxia (3) Lactic acidosis (4) Dementia (5) Hyperkalemia Inpatient Certification: I certify that the inpatient services were ordered in accordance with Medicare regulations governing the order. This includes certification that hospital inpatient services are reasonable and necessary and in the case of services not specified as inpatient-only under 42 CFR 419.22(n), that they are appropriately provided as inpatient services in accordance to with the 2-midnight benchmark under 43 CFR 412.3(e) Estimated Total Length of Stay (Days): 2 Plans for Post Hospital Care: Not yet determined Review of Systems unobtainable due to mental status PMFSH - History History Provided By: Medical Record (feeding difficulties) - Medical History Medical History: Medical History (Last Updated 01/01/18 @ 21:18 by Real Rebolledo RN) Dementia Depression Diabetes GERD (gastroesophageal reflux disease) Glaucoma Acute asthma Altered mental status, unspecified COPD (chronic obstructive pulmonary disease) Hypertension Hyponatremia Insomnia Major depressive disorder Metabolic encephalopathy - Tobacco History Smoking Status: Never smoker - Alcohol History How Often Do You Have a Drink Containing Alcohol: Never - Substance Use History Substance History: No History of Abuse - Travel History Recent Travel in the [place] Within the Last 8 Weeks: No Recent Travel Out of the Country Within the Last 8 Weeks: No - Immunization History Tetanus Immunization: Unsure Hx Influenza Vaccine This Season: No Medications and Allergies Active Medications: Active Medications Albuterol (Duoneb Neb (Prn)) 3 ampul NEB Q15M PRN PRN Reason: SHORTNESS OF BREATH/WHEEZING Last Admin: 01/01/18 21:36 Dose: 3 ampul Allergies Allergy/AdvReac Type Severity Reaction Status Date / Time diatrizoate meglumine Allergy Mild HIVES, Verified 01/01/18 21:20 ITCHING gadobenic acid Allergy Mild HIVES, Verified 01/01/18 21:20 ITCHING gadodiamide Allergy Mild HIVES, Verified 01/01/18 21:20 ITCHING gadoteridol Allergy Mild HIVES, Verified 01/01/18 21:20 ITCHING iodixanol Allergy Mild HIVES, Verified 01/01/18 21:20 ITCHING iohexol Allergy Mild HIVES, Verified 01/01/18 21:20 ITCHING Exam Vital signs: Vital Signs 01/01/18 21:11 01/01/18 21:20 01/01/18 21:25 Temperature 95.7 F L Pulse Rate 76 76 68 Respiratory Rate 24 18 Blood Pressure 124/67 Pulse Oximetry 99 99 01/01/18 21:35 01/01/18 21:45 Temperature Pulse Rate 70 70 Respiratory Rate 18 18 Blood Pressure Pulse Oximetry Intake & Output 01/01/18 01/01/18 01/02/18 06:59 18:59 06:59 Weight 79.379 kg Narrative: PE: GENERAL: Elderly black male in no acute distress. Appears calm, no acute respiratory distress. Sitter at bedside. HEENT: PERRLA, EOMI. No scleral icterus or conjunctival pallor. No lid lag or facial droop. CARDIOVASCULAR: Regular rate and rhythm. No obvious murmurs to auscultation. No chest tenderness to palpation. RESPIRATORY: No obvious rhonchi or wheezing. Clear to auscultation. Breath sounds equal bilaterally. GASTROINTESTINAL: Abdomen soft, non-tender, nondistended. BS normal. MUSCULOSKELETAL: Extremities without clubbing, cyanosis, or edema. No obvious deformities. NEUROLOGICAL: Awake, alert, demented, confused. No focal neurologic deficits. Moving both upper and lower extremities spontaneously. Results - Labs CBC & Chem 7: 01/01/18 20:15 01/01/18 20:15 Labs: Short CBC 01/01/18 Range/Units 20:15 WBC 9.2 (4.0-11.0) th/mm3 Hgb 14.6 (13.0-17.0) gm/dL Hct 45.2 (39.0-51.0) % Plt Count 142 L (150-450) th/mm3 BMP 01/01/18 20:15 Sodium 140 Potassium 6.4 H Chloride 104 Carbon Dioxide 27.5 BUN 17 Creatinine 1.23 Calcium 9.3 Cardiac Enzymes 01/01/18 Range/Units 20:15 Total Creatine Kinase 169 (39-308) U/L CK-MB (CK-2) 4.4 H (0.5-3.6) ng/mL Troponin I Less than 0.02 L (0.02-0.05) ng/mL Liver Function 01/01/18 Range/Units 20:15 Total Bilirubin 0.5 (0.2-1.0) mg/dL AST 33 (15-37) U/L ALT 24 (12-78) U/L Alkaline Phosphatase 159 H (45-117) U/L Albumin 3.4 (3.4-5.0) g/dL - Imaging Impressions Chest X-Ray 01/01/18 20:04 CONCLUSION: Stable appearance with no acute cardiopulmonary disease. Caprini VTE Risk Assessment Caprini VTE Risk Assessment: No/Low Risk (score <= 1) Caprini Risk Assessment Model: Point Value = 1 Point Value = 2 Point Value = 3 Point Value = 5 Age 41-60 Minor surgery BMI > 25 kg/m2 Swollen legs Varicose veins or History of unexplained or recurrent spontaneous Oral contraceptives or hormone replacement Sepsis (< 1 month) Serious lung disease, including pneumonia (< 1 month) Abnormal pulmonary function Acute myocardial infarction Congestive heart failure (< 1 month) History of inflammatory bowel disease Medical patient at bed rest Age 61-74 Arthroscopic surgery Major open surgery (> 45 min) Laparoscopic surgery (> 45 min) Malignancy Confined to bed (> 72 hours) Immobilizing plaster cast Central venous access Age >= 75 History of VTE Family history of VTE Factor V Leiden Prothrombin [id number] Lupus anticoagulant Anticardiolipin antibodies Elevated serum homocysteine Heparin-induced thrombocytopenia Other congenital or acquired thrombophilia Stroke (< 1 month) Elective arthroplasty Hip, pelvis, or leg fracture Acute spinal cord injury (< 1 month) Prophylaxis Regimen: Total Risk Factor Score Risk Level Prophylaxis Regimen 0-1 Low Early ambulation 2 Moderate Order ONE of the following: *Sequential Compression Device (SCD) *Heparin 5000 units SQ BID 3-4 Higher Order ONE of the following medications: *Heparin 5000 units SQ TID *Enoxaparin/Lovenox 40 mg SQ daily (WT < 150 kg, CrCl > 30 mL/min) *Enoxaparin/Lovenox 30 mg SQ daily (WT < 150 kg, CrCl > 10-29 mL/min) *Enoxaparin/Lovenox 30 mg SQ BID (WT < 150 kg, CrCl > 30 mL/min) AND/OR *Sequential Compression Device (SCD) 5 or more Highest Order ONE of the following medications: *Heparin 5000 units SQ TID (Preferred with Epidurals) *Enoxaparin/Lovenox 40 mg SQ daily (WT < 150 kg, CrCl > 30 mL/min) *Enoxaparin/Lovenox 30 mg SQ daily (WT < 150 kg, CrCl > 10-29 mL/min) *Enoxaparin/Lovenox 30 mg SQ BID (WT < 150 kg, CrCl > 30 mL/min) AND *Sequential Compression Device (SCD) Assessment and Plan - Assessment (1) COPD (chronic obstructive pulmonary disease) Code(s): J44.9 - Chronic obstructive pulmonary disease, unspecified Status: Acute (2) Hypoxia Code(s): R09.02 - Hypoxemia Status: Acute (3) Lactic acidosis Code(s): E87.2 - Acidosis Status: Acute (4) Dementia Code(s): F03.90 - Unspecified dementia without behavioral disturbance Status: Acute (5) Hyperkalemia Code(s): E87.5 - Hyperkalemia Status: Acute - Plan A/P: 1. COPD: Chronic Respiratory Failure w/ Acute Exacerbation, s/p Solu-Medrol and DuoNeb in ER, continue w/ Solu-Medrol, DuoNeb q4h and q2h prn, Symbicort, Mucinex. CXR w/ no acute findings, images reviewed by me 2. Hypoxia: O2 sat 79% on RA per assisted, currently on 5L NC w/ O2 sat 98 %, no respiratory distress at this time. Monitor O2. 3. Lactic Acidosis: Lactate 2.6, trending down, repeat 2.3, CXR normal however concern for possible developing PNA, s/p Rocephin/Zithro, will continue w/ IV Abx, repeat Lactic Acid in am. 4. Hyperkalemia: K+ 6.4, s/p Insulin/D50/Ca/Kayexalate in ER, repeat K+, telemetry. 5. Dementia: w/ aggressive behavior, combative/agitated on arrival requiring sedation. Sitter in place. Ativan/Haldol prn as needed. 6. DVT Prophylaxis: SCD/Teds 7. Social work for d/c planning as needed. 8. Case discussed w/ ER physician at length, labs/records/imaging reviewed by me.
[2018-01-01] MEDS: MethylPREDNISolone Sod Succinate Inj 40 MG/ML Vial IV.PUSH SCH (23:52)
[2018-01-02 05:43] LABS: Hemoglobin 12.8 gm/dL (13.0-17.0); Mean Corpuscular HGB Conc 32.1 % (32.0-36.0); Mean Corpuscular Hemoglobin 27.4 pg (27.0-34.0); Mean Corpuscular Volume 85.5 fL (80.0-100.0); Mean Platelet Volume 8.4 fL (7.0-11.0); Platelet Count 137 th/mm3 (150-450); Red Blood Count 4.68 mil/mm3 (4.50-5.90); Red Cell Distribution Width 16.5 % (11.6-17.2); White Blood Count 7.2 th/mm3 (4.0-11.0)
[2018-01-02 06:14] LABS: Albumin 2.9 g/dL (3.4-5.0); Anion Gap 5 meq/L (5-15); Aspartate Aminotransferase 19 U/L (15-37); Blood Urea Nitrogen 14 mg/dL (7-18); Calcium 8.6 mg/dL (8.5-10.1); Chloride 110 meq/L (98-107); Glomerular Filtration Rate 79 mL/min (>89); Glucose,Random 137 mg/dL (74-106); Potassium 5.4 meq/L (3.5-5.1); Sodium 144 meq/L (136-145)
[2018-01-02 06:16] LABS: Alanine Aminotransferase 20 U/L (12-78)
[2018-01-02 06:18] LABS: Alkaline Phosphatase 146 U/L (45-117); Total Protein 7.9 g/dL (6.4-8.2)
[2018-01-02] MEDS: MethylPREDNISolone Sod Succinate Inj 40 MG/ML Vial IV.PUSH SCH ×4 (06:49→23:35)
[2018-01-02] MEDS: Piperacil/Tazo 4.5 GM Premix 4.5 GM/100 ML BAG IV.SIG SCH ×4 (06:50→23:35)
[2018-01-02 07:25] LABS: Eosinophils 1 % (0-4); Lymphocytes 1 % (9-44); Monocytes 1 % (0-8); Platelet Morphology Normal (Normal)
[2018-01-02] MEDS: Heparin - SQ 10,000 UNITS/ML Vial SQ SCH ×2 (08:40→21:17)
[2018-01-02] MEDS: guaiFENesin 600 MG ER Tablet PO SCH ×2 (08:40→21:17)
[2018-01-02] MEDS: Budesonide-Formoterol 160/4.5 MCG 6 GM Inhaler INH SCH ×2 (08:40→21:28)
[2018-01-02] MEDS: Senna/Docusate Sodium 8.6/50 MG Tablet PO SCH ×2 (08:40→21:17)
[2018-01-02] MEDS ORDERED: Sodium Polystyrene Sulfonate/Sorbitol Liq 15 GM/60 ML UDC PO ONE (11:12)
--- NOTE | 2018-01-02 11:12 | P.PNIM ---
Subjective Interval history: A 72-year-old male with a PMH of HTN, COPD, Hyperlipidemia, DM and Dementia who was sent to the ER from SNF due to hypoxia with O2 sat 79% and heart rate 148. Unable to obtain any history from patient as he is demented. On arrival to ER, patient noted to be significantly combative and confused requiring medication. Currently has sitter. BP 121/79, HR 94, O2 sat 95% on 5L NC. CBC essentially unremarkable. INR 1.0. K+ 6.4. Lactic Acid 2.6, repeat 2.3. ABG with pH 7.29 , PCO2 58, PO2 105 on 5L NC. CXR with stable appearance, no acute cardiopulmonary disease. S/p DuoNeb, Solu-Medrol and Rocephin/Zithro in ER w/ improvement. Pt appears comfortable and in no respiratory distress at this time. 01-02 REMAINS QUITE CONFUSED IN HIS ROOM CONTINUE ON ANTIBIOTICS AND NEBS AND MUCINEX CONSULT PT AND OT AM LABS Physical Exam Vital signs: Vital Signs 01/01/18 21:11 01/01/18 21:20 01/01/18 21:25 Temperature 95.7 F L Pulse Rate 76 76 68 Respiratory Rate 24 18 Blood Pressure 124/67 Pulse Oximetry 99 99 01/01/18 21:35 01/01/18 21:45 01/01/18 23:54 Temperature Pulse Rate 70 70 94 H Respiratory Rate 18 18 26 H Blood Pressure 121/79 Pulse Oximetry 95 01/02/18 00:00 01/02/18 01:35 01/02/18 04:00 Temperature 98.2 F 97.7 F Pulse Rate 93 H 88 76 Respiratory Rate 19 16 Blood Pressure 141/63 H 108/53 L Pulse Oximetry 93 L 95 01/02/18 07:59 01/02/18 08:00 Temperature 98.1 F Pulse Rate 60 84 Respiratory Rate 15 Blood Pressure 107/56 L Pulse Oximetry 92 L Intake & Output 01/01/18 01/02/18 01/02/18 18:59 06:59 18:59 Weight 55 kg Other: # Urine Diapers 2 Narrative: PATIENT IS AWAKE AND ALERT BUT QUITE CONFUSED-SUSPECT THIS IS BASELINE GENERAL: Elderly black male in no acute distress. Appears calm, no acute respiratory distress. Sitter at bedside. HEENT: PERRLA, EOMI. No scleral icterus or conjunctival pallor. No lid lag or facial droop. CARDIOVASCULAR: Regular rate and rhythm. No obvious murmurs to auscultation. No chest tenderness to palpation. RESPIRATORY: No obvious rhonchi or wheezing. FEW SCATTERED RHONCHI Breath sounds equal bilaterally. GASTROINTESTINAL: Abdomen soft, non-tender, nondistended. BS normal. MUSCULOSKELETAL: Extremities without clubbing, cyanosis, or edema. No obvious deformities. NEUROLOGICAL: Awake, alert, demented, confused. No focal neurologic deficits. Moving both upper and lower extremities spontaneously. - Urinary Catheter Management Straight Cath placed during this visit: yes Reason for continuing: Not indwelling catheter Insertion date: 01/01/18 Insertion time: 23:11 Results - Labs CBC & Chem 7: 01/02/18 05:20 01/02/18 05:20 Laboratory Results - last 24 hr 01/01/18 01/01/18 01/01/18 20:15 20:15 20:15 WBC 9.2 RBC 5.33 Hgb 14.6 Hct 45.2 MCV 84.8 MCH 27.4 MCHC 32.3 RDW 16.8 Plt Count 142 L MPV 8.1 Prelim Diff (Auto) Neut % (Auto) 84.0 H Lymph % (Auto) 2.5 L [place] % (Auto) 9.0 H Eos % (Auto) 4.4 H Baso % (Auto) 0.1 Neut # (Auto) 7.7 Lymph # (Auto) 0.2 L [place] # (Auto) 0.8 Eos # (Auto) 0.4 Baso # (Auto) 0.0 WBC Differential . Seg Neuts % (Manual) Band Neuts % (Manual) Lymphocytes % (Manual) Monocytes % (Manual) Eosinophils % (Manual) Abs Neuts (Manual) Differential Comment Auto diff final Platelet Estimate Platelet Morphology PT 10.0 INR 1.0 APTT 24.0 L Puncture Site Patient Temperature O2 Saturation ABG pH ABG pCO2 ABG pO2 ABG HCO3 ABG O2 Content ABG Base Excess ABG Methemoglobin Hemoglobin Carboxyhemoglobin O2 Delivery Device Liter Flow Inspired O2 Critical Value Sodium 140 Potassium 6.4 H Chloride 104 Carbon Dioxide 27.5 Anion Gap 9 BUN 17 Creatinine 1.23 Estimated GFR 70 L Random Glucose 129 H Lactic Acid Calcium 9.3 Magnesium 2.3 Total Bilirubin 0.5 AST 33 ALT 24 Alkaline Phosphatase 159 H Total Creatine Kinase 169 CK-MB (CK-2) 4.4 H Troponin I Less than 0.02 L Total Protein 9.1 H Albumin 3.4 01/01/18 01/01/18 01/02/18 20:15 21:25 00:25 WBC RBC Hgb Hct MCV MCH MCHC RDW Plt Count MPV Prelim Diff (Auto) Neut % (Auto) Lymph % (Auto) [place] % (Auto) Eos % (Auto) Baso % (Auto) Neut # (Auto) Lymph # (Auto) [place] # (Auto) Eos # (Auto) Baso # (Auto) WBC Differential Seg Neuts % (Manual) Band Neuts % (Manual) Lymphocytes % (Manual) Monocytes % (Manual) Eosinophils % (Manual) Abs Neuts (Manual) Differential Comment Platelet Estimate Platelet Morphology PT INR APTT Puncture Site Right femoral Patient Temperature 98.6 O2 Saturation 96 ABG pH 7.29 L* ABG pCO2 58 H* ABG pO2 105 ABG HCO3 27 H ABG O2 Content 18.3 ABG Base Excess 1.2 ABG Methemoglobin 0.6 Hemoglobin 13.5 Carboxyhemoglobin 0.8 O2 Delivery Device Nasal cannula Liter Flow 5.00 Inspired O2 21 Critical Value Yes Sodium Potassium Chloride Carbon Dioxide Anion Gap BUN Creatinine Estimated GFR Random Glucose Lactic Acid 2.6 H 2.3 H Calcium Magnesium Total Bilirubin AST ALT Alkaline Phosphatase Total Creatine Kinase CK-MB (CK-2) Troponin I Total Protein Albumin 01/02/18 01/02/18 01/02/18 02:02 05:20 05:20 WBC 7.2 RBC 4.68 Hgb 12.8 L Hct 40.0 MCV 85.5 MCH 27.4 MCHC 32.1 RDW 16.5 Plt Count 137 L MPV 8.4 Prelim Diff (Auto) Manual diff required Neut % (Auto) Lymph % (Auto) [place] % (Auto) Eos % (Auto) Baso % (Auto) Neut # (Auto) Lymph # (Auto) [place] # (Auto) Eos # (Auto) Baso # (Auto) WBC Differential Manual diff final Seg Neuts % (Manual) 96 H Band Neuts % (Manual) 1 Lymphocytes % (Manual) 1 L Monocytes % (Manual) 1 Eosinophils % (Manual) 1 Abs Neuts (Manual) 7.0 Differential Comment . Platelet Estimate Low L Platelet Morphology Normal PT INR APTT Puncture Site Patient Temperature O2 Saturation ABG pH ABG pCO2 ABG pO2 ABG HCO3 ABG O2 Content ABG Base Excess ABG Methemoglobin Hemoglobin Carboxyhemoglobin O2 Delivery Device Liter Flow Inspired O2 Critical Value Sodium 144 Potassium 5.0 D 5.4 H Chloride 110 H Carbon Dioxide 29.0 Anion Gap 5 BUN 14 Creatinine 1.10 Estimated GFR 79 L Random Glucose 137 H Lactic Acid Calcium 8.6 Magnesium Total Bilirubin 0.2 AST 19 ALT 20 Alkaline Phosphatase 146 H Total Creatine Kinase CK-MB (CK-2) Troponin I Total Protein 7.9 D Albumin 2.9 L 01/02/18 05:20 WBC RBC Hgb Hct MCV MCH MCHC RDW Plt Count MPV Prelim Diff (Auto) Neut % (Auto) Lymph % (Auto) [place] % (Auto) Eos % (Auto) Baso % (Auto) Neut # (Auto) Lymph # (Auto) [place] # (Auto) Eos # (Auto) Baso # (Auto) WBC Differential Seg Neuts % (Manual) Band Neuts % (Manual) Lymphocytes % (Manual) Monocytes % (Manual) Eosinophils % (Manual) Abs Neuts (Manual) Differential Comment Platelet Estimate Platelet Morphology PT INR APTT Puncture Site Patient Temperature O2 Saturation ABG pH ABG pCO2 ABG pO2 ABG HCO3 ABG O2 Content ABG Base Excess ABG Methemoglobin Hemoglobin Carboxyhemoglobin O2 Delivery Device Liter Flow Inspired O2 Critical Value Sodium Potassium Chloride Carbon Dioxide Anion Gap BUN Creatinine Estimated GFR Random Glucose Lactic Acid 2.8 H Calcium Magnesium Total Bilirubin AST ALT Alkaline Phosphatase Total Creatine Kinase CK-MB (CK-2) Troponin I Total Protein Albumin Microbiology 01/01/18 20:25 Blood - Peripheral Aerobic Blood Culture - Preliminary No growth in 1 day 01/01/18 20:25 Blood - Peripheral Anaerobic Blood Culture - Preliminary No growth in 1 day 01/01/18 20:15 Blood - Peripheral Aerobic Blood Culture - Preliminary No growth in 1 day 01/01/18 20:15 Blood - Peripheral Anaerobic Blood Culture - Preliminary No growth in 1 day 01/01/18 23:50 Nasal Wash Influenza Types A,B Antigen - Final Negative for FLU A and B antigen Infection due to influenza A or B cannot be ruled out since the antigen present in the sample may be below the detection limit of the test. - Imaging Impressions Chest X-Ray 01/01/18 20:04 CONCLUSION: Stable appearance with no acute cardiopulmonary disease. Assessment and Plan - Assessment (1) COPD (chronic obstructive pulmonary disease) Code(s): J44.9 - Chronic obstructive pulmonary disease, unspecified Status: Acute (2) Hypoxia Code(s): R09.02 - Hypoxemia Status: Acute (3) Lactic acidosis Code(s): E87.2 - Acidosis Status: Acute (4) Dementia Code(s): F03.90 - Unspecified dementia without behavioral disturbance Status: Acute (5) Hyperkalemia Code(s): E87.5 - Hyperkalemia Status: Acute - Plan 1. COPD: Chronic Respiratory Failure w/ Acute Exacerbation, s/p Solu-Medrol and DuoNeb in ER, continue w/ Solu-Medrol, DuoNeb q4h and q2h prn, Symbicort, Mucinex. CXR w/ no acute findings, images reviewed by me 2. Hypoxia: O2 sat 79% on RA per care home, currently on 5L NC w/ O2 sat 98 %, no respiratory distress at this time. Monitor O2. 3. Lactic Acidosis: Lactate 2.6, trending down, repeat 2.3, CXR normal however concern for possible developing PNA, s/p Rocephin/Zithro, will continue w/ IV Abx, repeat Lactic Acid in am. 4. Hyperkalemia: K+ 6.4, s/p Insulin/D50/Ca/Kayexalate in ER, repeat K+, telemetry.--STILL BORDERLINE WILL GIVE KAYEXALATE AGAIN 5. Dementia: w/ aggressive behavior, combative/agitated on arrival requiring sedation. Sitter in place. Ativan/Haldol prn as needed. 6. DVT Prophylaxis: SCD/Teds AM LABS Code Status: FULL CODE Discussed Condition With: RN AND PT Discharge Planning: DC TO SNF ONCE IMPROVED- PATIENT IS FROM SNF
[2018-01-02 16:23] LABS: Free T4 (Free Thyroxine) 1.42 ng/dL (0.76-1.46)
[2018-01-02 16:32] LABS: Bilirubin,Urine Negative (Negative); Clarity,Urine Cloudy (Clear); Color,Urine Yellow (Yellw/Straw); Glucose,Urine (UA) Negative (Negative); Leukocyte Esterase,Urine Negative (Negative); Nitrite,Urine Negative (Negative); Specific Gravity,Urine 1.028 (1.002-1.035); Uric Acid Crystals,Urine Few /hpf
[2018-01-02] MEDS: Azithromycin Inj 500 MG in Sodium Chlor 0.9% Inj 250 ML IV.SIG SCH (22:24)
[2018-01-03] MEDS: Piperacil/Tazo 4.5 GM Premix 4.5 GM/100 ML BAG IV.SIG SCH ×3 (05:18→18:00)
[2018-01-03] MEDS: MethylPREDNISolone Sod Succinate Inj 40 MG/ML Vial IV.PUSH SCH ×3 (05:19→18:00)
[2018-01-03] MEDS: Heparin - SQ 10,000 UNITS/ML Vial SQ SCH ×2 (10:01→21:52)
[2018-01-03] MEDS: guaiFENesin 600 MG ER Tablet PO SCH ×2 (10:02→21:52)
[2018-01-03] MEDS: Senna/Docusate Sodium 8.6/50 MG Tablet PO SCH ×2 (10:02→21:52)
[2018-01-03] MEDS: Budesonide-Formoterol 160/4.5 MCG 6 GM Inhaler INH SCH ×2 (10:03→21:55)
--- NOTE | 2018-01-03 11:38 | P.PNIM ---
Subjective Interval history: A 72-year-old male with a PMH of HTN, COPD, Hyperlipidemia, DM and Dementia who was sent to the ER from SNF due to hypoxia with O2 sat 79% and heart rate 148. Unable to obtain any history from patient as he is demented. On arrival to ER, patient noted to be significantly combative and confused requiring medication. Currently has sitter. BP 121/79, HR 94, O2 sat 95% on 5L NC. CBC essentially unremarkable. INR 1.0. K+ 6.4. Lactic Acid 2.6, repeat 2.3. ABG with pH 7.29 , PCO2 58, PO2 105 on 5L NC. CXR with stable appearance, no acute cardiopulmonary disease. S/p DuoNeb, Solu-Medrol and Rocephin/Zithro in ER w/ improvement. Pt appears comfortable and in no respiratory distress at this time. 01-02 REMAINS QUITE CONFUSED IN HIS ROOM CONTINUE ON ANTIBIOTICS AND NEBS AND MUCINEX CONSULT PT AND OT AM LABS 01-03 LABS NOT AVAILABLE YET DW RN AND CM PT IS QUITE CONFUSED Physical Exam Vital signs: Vital Signs 01/02/18 12:00 01/02/18 15:22 01/02/18 15:23 Temperature 97.3 F L Pulse Rate 71 82 Respiratory Rate 20 20 Blood Pressure 107/64 Pulse Oximetry 94 L 93 L 01/02/18 16:00 01/02/18 19:46 01/02/18 20:00 Temperature 98 F 98.0 F Pulse Rate 73 73 76 Respiratory Rate 20 18 17 Blood Pressure 107/57 L 92/60 L Pulse Oximetry 100 96 01/02/18 20:10 01/03/18 00:00 01/03/18 00:50 Temperature 97.9 F Pulse Rate 76 82 79 Respiratory Rate 18 Blood Pressure 106/60 Pulse Oximetry 98 01/03/18 03:55 01/03/18 04:00 01/03/18 07:49 Temperature 97.9 F Pulse Rate 90 80 83 Respiratory Rate 17 Blood Pressure 110/62 Pulse Oximetry 98 90 L 01/03/18 10:21 01/03/18 11:25 Temperature Pulse Rate 87 Respiratory Rate 14 Blood Pressure 100/60 Pulse Oximetry Intake & Output 01/02/18 01/03/18 01/03/18 18:59 06:59 18:59 Intake Total 660 / 660 340 / 340 Output Total 5 / 5 Balance 655 / 655 340 / 340 Weight 55.2 kg Intake: IV 300 / 300 100 / 100 Zosyn 4.5 GM Premix 4.5 gm In 300 / 300 100 / 100 100 ml @ 200 mls/hr IV.SIG Q6H [facility]INSON Rx#:[id number] Oral 360 / 360 240 / 240 Output: Urine 4 / 4 Stool 1 / Other: # Voids 1 Date of Last Bowel Movement 01/02/18 Narrative: PATIENT IS AWAKE AND ALERT BUT QUITE CONFUSED-SUSPECT THIS IS BASELINE GENERAL: Elderly black male in no acute distress. Appears calm, no acute respiratory distress. Sitter at bedside. HEENT: PERRLA, EOMI. No scleral icterus or conjunctival pallor. No lid lag or facial droop. CARDIOVASCULAR: Regular rate and rhythm. No obvious murmurs to auscultation. No chest tenderness to palpation. RESPIRATORY: No obvious rhonchi or wheezing. FEW SCATTERED RHONCHI Breath sounds equal bilaterally. GASTROINTESTINAL: Abdomen soft, non-tender, nondistended. BS normal. MUSCULOSKELETAL: Extremities without clubbing, cyanosis, or edema. No obvious deformities. NEUROLOGICAL: Awake, alert, demented, confused. No focal neurologic deficits. Moving both upper and lower extremities spontaneously. - Urinary Catheter Management Straight Cath placed during this visit: yes Reason for continuing: Not indwelling catheter Insertion date: 01/01/18 Insertion time: 23:11 Results - Labs CBC & Chem 7: 01/02/18 05:20 01/02/18 05:20 Laboratory Results - last 24 hr 01/02/18 01/02/18 01/02/18 02:02 02:02 15:50 Magnesium 2.0 Free T4 Cancelled 1.42 Urine Color Yellow Urine Clarity Cloudy H Urine pH 5.0 Ur Specific Diana 1.028 Urine Protein Negative Urine Glucose (UA) Negative Urine Ketones Trace Urine Occult Blood Negative Urine Nitrate Negative Urine Bilirubin Negative Urine Urobilinogen Less than 2 Ur Leukocyte Esterase Negative Urine WBC 1 Uric Acid Crystals Few H Micro UA Comment Cath-culture not ind Urine Culture Comments Cath-cult not ind Microbiology 01/01/18 20:25 Blood - Peripheral Aerobic Blood Culture - Preliminary No growth in 2 days 01/01/18 20:25 Blood - Peripheral Anaerobic Blood Culture - Preliminary No growth in 2 days 01/01/18 20:15 Blood - Peripheral Aerobic Blood Culture - Preliminary No growth in 2 days 01/01/18 20:15 Blood - Peripheral Anaerobic Blood Culture - Preliminary No growth in 2 days Assessment and Plan - Assessment (1) COPD (chronic obstructive pulmonary disease) Code(s): J44.9 - Chronic obstructive pulmonary disease, unspecified Status: Acute (2) Hypoxia Code(s): R09.02 - Hypoxemia Status: Acute (3) Lactic acidosis Code(s): E87.2 - Acidosis Status: Acute (4) Dementia Code(s): F03.90 - Unspecified dementia without behavioral disturbance Status: Acute (5) Hyperkalemia Code(s): E87.5 - Hyperkalemia Status: Acute - Plan 1. COPD: Chronic Respiratory Failure w/ Acute Exacerbation, s/p Solu-Medrol and DuoNeb in ER, continue w/ Solu-Medrol, DuoNeb q4h and q2h prn, Symbicort, Mucinex. CXR w/ no acute findings, images reviewed by me 2. Hypoxia: O2 sat 79% on RA per senior living, currently on 5L NC w/ O2 sat 98 %, no respiratory distress at this time. Monitor O2. 3. Lactic Acidosis: Lactate 2.6, trending down, repeat 2.3, CXR normal however concern for possible developing PNA, s/p Rocephin/Zithro, will continue w/ IV Abx, repeat Lactic Acid in am. 4. Hyperkalemia: K+ 6.4, s/p Insulin/D50/Ca/Kayexalate in ER, repeat K+, telemetry.--STILL BORDERLINE WILL GIVE KAYEXALATE AGAIN 5. Dementia: w/ aggressive behavior, combative/agitated on arrival requiring sedation. Sitter in place. Ativan/Haldol prn as needed. 6. DVT Prophylaxis: SCD/Teds NEED LABS FOR TODAY Code Status: FULL CODE Discussed Condition With: RN AND CM Discharge Planning: DC TO SNF ONCE IMPROVED- PATIENT IS FROM SNF
[2018-01-03 12:49] LABS: Baso % (Auto) 0.2 % (0.0-2.0); Hemoglobin 10.7 gm/dL (13.0-17.0); Lymph # (Auto) 0.9 th/mm3 (1.0-4.8); Lymph % (Auto) 9.2 % (9.0-44.0); Mean Corpuscular HGB Conc 32.4 % (32.0-36.0); Mean Corpuscular Hemoglobin 26.8 pg (27.0-34.0); Mean Corpuscular Volume 82.7 fL (80.0-100.0); Mean Platelet Volume 8.6 fL (7.0-11.0); Mono # (Auto) 0.6 th/mm3 (0.0-0.9); Mono % (Auto) 5.9 % (0.0-8.0); Neut # (Auto) 8.7 th/mm3 (1.8-7.7); Neut % (Auto) 84.7 % (16.0-70.0); Platelet Count 154 th/mm3 (150-450); Red Blood Count 3.99 mil/mm3 (4.50-5.90); Red Cell Distribution Width 16.3 % (11.6-17.2); White Blood Count 10.3 th/mm3 (4.0-11.0)
[2018-01-03 13:07] LABS: Alanine Aminotransferase 15 U/L (12-78); Albumin 2.5 g/dL (3.4-5.0); Anion Gap 6 meq/L (5-15); Aspartate Aminotransferase 10 U/L (15-37); Blood Urea Nitrogen 14 mg/dL (7-18); Calcium 8.2 mg/dL (8.5-10.1); Carbon Dioxide 31.4 meq/L (21.0-32.0); Chloride 109 meq/L (98-107); Glomerular Filtration Rate Greater Than 89 mL/min (>89); Glucose,Random 139 mg/dL (74-106); Phosphorus 2.8 mg/dL (2.5-4.9); Potassium 3.6 meq/L (3.5-5.1); Sodium 146 meq/L (136-145)
[2018-01-03 13:16] LABS: Alkaline Phosphatase 91 U/L (45-117); Thyroid Stimulating Hormone 0.211 uIU/mL (0.358-3.740); Total Protein 6.6 g/dL (6.4-8.2)
[2018-01-03 16:22] LABS: Hemoglobin A1c 6.4 % (4.3-6.0)
[2018-01-04] MEDS: MethylPREDNISolone Sod Succinate Inj 40 MG/ML Vial IV.PUSH SCH ×4 (00:10→17:54)
[2018-01-04] MEDS: Azithromycin Inj 500 MG in Sodium Chlor 0.9% Inj 250 ML IV.SIG SCH ×2 (00:11→23:02)
[2018-01-04] MEDS: Piperacil/Tazo 4.5 GM Premix 4.5 GM/100 ML BAG IV.SIG SCH ×4 (00:12→17:57)
[2018-01-04] MEDS: Senna/Docusate Sodium 8.6/50 MG Tablet PO SCH ×2 (10:38→21:22)
[2018-01-04] MEDS: guaiFENesin 600 MG ER Tablet PO SCH ×2 (10:38→21:22)
[2018-01-04] MEDS: Heparin - SQ 10,000 UNITS/ML Vial SQ SCH ×2 (10:38→21:22)
[2018-01-04] MEDS: Budesonide-Formoterol 160/4.5 MCG 6 GM Inhaler INH SCH (10:39)
--- NOTE | 2018-01-04 12:22 | P.PNIM ---
Subjective Interval history: A 72-year-old male with a PMH of HTN, COPD, Hyperlipidemia, DM and Dementia who was sent to the ER from SNF due to hypoxia with O2 sat 79% and heart rate 148. Unable to obtain any history from patient as he is demented. On arrival to ER, patient noted to be significantly combative and confused requiring medication. Currently has sitter. BP 121/79, HR 94, O2 sat 95% on 5L NC. CBC essentially unremarkable. INR 1.0. K+ 6.4. Lactic Acid 2.6, repeat 2.3. ABG with pH 7.29 , PCO2 58, PO2 105 on 5L NC. CXR with stable appearance, no acute cardiopulmonary disease. S/p DuoNeb, Solu-Medrol and Rocephin/Zithro in ER w/ improvement. Pt appears comfortable and in no respiratory distress at this time. 01-02 REMAINS QUITE CONFUSED IN HIS ROOM CONTINUE ON ANTIBIOTICS AND NEBS AND MUCINEX CONSULT PT AND OT AM LABS 01-03 LABS NOT AVAILABLE YET DW RN AND CM PT IS QUITE CONFUSED 01-04 REMAINS CONFUSED CONTINUE ANTIBIOTICS Physical Exam Vital signs: Vital Signs 01/03/18 16:00 01/03/18 17:37 01/03/18 20:00 Temperature 98.0 F 98.9 F Pulse Rate 76 96 H 60 Respiratory Rate 18 18 Blood Pressure 108/50 L 109/66 Pulse Oximetry 96 95 01/04/18 00:00 01/04/18 04:00 01/04/18 08:00 Temperature 98.7 F 98.3 F 98.1 F Pulse Rate 68 86 89 Respiratory Rate 18 18 16 Blood Pressure 104/56 L 120/58 L 99/73 L Pulse Oximetry 99 96 93 L 01/04/18 08:40 Temperature Pulse Rate 64 Respiratory Rate 18 Blood Pressure Pulse Oximetry 92 L Intake & Output 01/03/18 01/04/18 01/04/18 18:59 06:59 18:59 Intake Total 450 / 450 320 / 320 Balance 450 / 450 320 / 320 Weight 54.8 kg Intake: IV 200 / 200 200 / 200 Zosyn 4.5 GM Premix 4.5 gm In 200 / 200 200 / 200 100 ml @ 200 mls/hr IV.SIG Q6H [facility] Rx#:[id number] Oral 250 / 250 120 / 120 Other: # Voids 2 Date of Last Bowel Movement 01/02/18 # Incontinent Bowel Movements 1 Narrative: PATIENT IS AWAKE AND ALERT BUT QUITE CONFUSED-SUSPECT THIS IS BASELINE GENERAL: Elderly black male in no acute distress. Appears calm, no acute respiratory distress. Sitter at bedside. HEENT: PERRLA, EOMI. No scleral icterus or conjunctival pallor. No lid lag or facial droop. CARDIOVASCULAR: Regular rate and rhythm. No obvious murmurs to auscultation. No chest tenderness to palpation. RESPIRATORY: No obvious rhonchi or wheezing. FEW SCATTERED RHONCHI Breath sounds equal bilaterally. GASTROINTESTINAL: Abdomen soft, non-tender, nondistended. BS normal. MUSCULOSKELETAL: Extremities without clubbing, cyanosis, or edema. No obvious deformities. NEUROLOGICAL: Awake, alert, demented, confused. No focal neurologic deficits. Moving both upper and lower extremities spontaneously. - Urinary Catheter Management Straight Cath placed during this visit: yes Reason for continuing: Not indwelling catheter Insertion date: 01/01/18 Insertion time: 23:11 Results - Labs CBC & Chem 7: 01/03/18 12:20 01/03/18 12:20 Laboratory Results - last 24 hr 01/02/18 01/03/18 01/03/18 05:20 12:20 12:20 WBC 10.3 RBC 3.99 L Hgb 10.7 L D Hct 33.0 L MCV 82.7 MCH 26.8 L MCHC 32.4 RDW 16.3 Plt Count 154 MPV 8.6 Neut % (Auto) 84.7 H Lymph % (Auto) 9.2 [place] % (Auto) 5.9 Eos % (Auto) 0.0 Baso % (Auto) 0.2 Neut # (Auto) 8.7 H Lymph # (Auto) 0.9 L [place] # (Auto) 0.6 Eos # (Auto) 0.0 Baso # (Auto) 0.0 WBC Differential . Differential Comment Auto diff final Sodium 146 H Potassium 3.6 D Chloride 109 H Carbon Dioxide 31.4 Anion Gap 6 BUN 14 Creatinine 0.95 Estimated GFR Greater than 89 Random Glucose 139 H Hemoglobin A1c 6.4 H Calcium 8.2 L Phosphorus 2.8 Total Bilirubin 0.3 AST 10 L ALT 15 Alkaline Phosphatase 91 Total Protein 6.6 D Albumin 2.5 L TSH 0.211 L Microbiology 01/01/18 20:25 Blood - Peripheral Aerobic Blood Culture - Preliminary No growth in 3 days 01/01/18 20:25 Blood - Peripheral Anaerobic Blood Culture - Preliminary No growth in 3 days 01/01/18 20:15 Blood - Peripheral Aerobic Blood Culture - Preliminary No growth in 3 days 01/01/18 20:15 Blood - Peripheral Anaerobic Blood Culture - Preliminary No growth in 3 days - Procedures NONE Assessment and Plan - Assessment (1) COPD (chronic obstructive pulmonary disease) Code(s): J44.9 - Chronic obstructive pulmonary disease, unspecified Status: Acute (2) Hypoxia Code(s): R09.02 - Hypoxemia Status: Acute (3) Lactic acidosis Code(s): E87.2 - Acidosis Status: Acute (4) Dementia Code(s): F03.90 - Unspecified dementia without behavioral disturbance Status: Acute (5) Hyperkalemia Code(s): E87.5 - Hyperkalemia Status: Acute - Plan 1. COPD: Chronic Respiratory Failure w/ Acute Exacerbation, s/p Solu-Medrol and DuoNeb in ER, continue w/ Solu-Medrol, DuoNeb q4h and q2h prn, Symbicort, Mucinex. CXR w/ no acute findings, images reviewed by me 2. Hypoxia: O2 sat 79% on RA per [facility], currently on 5L NC w/ O2 sat 98 %, no respiratory distress at this time. Monitor O2. 3. Lactic Acidosis: Lactate 2.6, trending down, repeat 2.3, CXR normal however concern for possible developing PNA, s/p Rocephin/Zithro, will continue w/ IV Abx, repeat Lactic Acid in am. 4. Hyperkalemia: K+ 6.4, s/p Insulin/D50/Ca/Kayexalate in ER, repeat K+, telemetry.--STILL BORDERLINE WILL GIVE KAYEXALATE AGAIN 5. Dementia: w/ aggressive behavior, combative/agitated on arrival requiring sedation. Sitter in place. Ativan/Haldol prn as needed. 6. DVT Prophylaxis: SCD/Teds NEED LABS FOR TODAY Code Status: FULL CODE Discussed Condition With: RN AND PT AND CM Discharge Planning: DC TO SNF ONCE IMPROVED- PATIENT IS FROM SNF
[2018-01-05] MEDS: MethylPREDNISolone Sod Succinate Inj 40 MG/ML Vial IV.PUSH SCH ×4 (00:08→18:08)
[2018-01-05] MEDS: Piperacil/Tazo 4.5 GM Premix 4.5 GM/100 ML BAG IV.SIG SCH ×5 (00:08→23:30)
[2018-01-05] MEDS: Budesonide-Formoterol 160/4.5 MCG 6 GM Inhaler INH SCH ×2 (06:04→09:27)
[2018-01-05] MEDS: guaiFENesin 600 MG ER Tablet PO SCH ×2 (09:27→20:50)
[2018-01-05] MEDS: Senna/Docusate Sodium 8.6/50 MG Tablet PO SCH ×2 (09:27→20:50)
[2018-01-05] MEDS: Heparin - SQ 10,000 UNITS/ML Vial SQ SCH ×2 (09:27→20:50)
--- NOTE | 2018-01-05 10:32 | P.PNIM ---
Subjective Interval history: Mildly confused. States that he wants to drink some coffee. Physical Exam Vital signs: Vital Signs 01/04/18 12:00 01/04/18 16:00 01/04/18 16:12 Temperature 98.0 F 97.6 F Pulse Rate 71 75 69 Respiratory Rate 16 18 18 Blood Pressure 90/52 L 114/76 Pulse Oximetry 96 94 L 01/04/18 19:33 01/04/18 19:49 01/04/18 20:00 Temperature 98.2 F Pulse Rate 71 92 H 89 Respiratory Rate 19 18 Blood Pressure 118/71 Pulse Oximetry 97 01/04/18 23:41 01/05/18 00:00 01/05/18 04:00 Temperature 98.3 F 98.3 F Pulse Rate 72 62 51 L Respiratory Rate 20 18 Blood Pressure 113/64 115/55 L Pulse Oximetry 96 95 01/05/18 08:00 01/05/18 08:15 Temperature 98.3 F Pulse Rate 66 52 L Respiratory Rate 20 20 Blood Pressure 140/69 Pulse Oximetry 96 98 Intake & Output 01/04/18 01/05/18 01/05/18 18:59 06:59 18:59 Intake Total 800 / 800 1050 / 1050 Balance 800 / 800 1050 / 1050 Weight 55 kg Intake: IV 200 / 200 450 / 450 Azithromycin Inj 500 MG In NS 250 / 250 Inj 250 ML @ 250 mls/hr IV.SIG Q24H [facility] Rx#:[id number] Zosyn 4.5 GM Premix 4.5 gm In 200 / 200 200 / 200 100 ml @ 200 mls/hr IV.SIG Q6H [facility] Rx#:[id number] Oral 600 / 600 600 / 600 Other: # Incontinent Voids 1 Date of Last Bowel Movement 01/04/18 01/04/18 # Incontinent Bowel Movements 1 Narrative: GENERAL: This is a well-nourished, well-developed patient, in no apparent distress. CARDIOVASCULAR: Regular rate and rhythm RESPIRATORY: Diminished breath sounds by basilar area GASTROINTESTINAL: Abdomen soft, non-tender, nondistended. Normal active bowel sounds MUSCULOSKELETAL: Extremities without clubbing, cyanosis, or edema. Atrophic NEURO: Confused and oriented to person only but not to time or situation or place - Urinary Catheter Management Straight Cath placed during this visit: yes Reason for continuing: Not indwelling catheter Insertion date: 01/01/18 Insertion time: 23:11 Results - Labs CBC & Chem 7: 01/03/18 12:20 01/03/18 12:20 Microbiology 01/01/18 20:25 Blood - Peripheral Aerobic Blood Culture - Preliminary No growth in 3 days 01/01/18 20:25 Blood - Peripheral Anaerobic Blood Culture - Preliminary No growth in 3 days 01/01/18 20:15 Blood - Peripheral Aerobic Blood Culture - Preliminary No growth in 3 days 01/01/18 20:15 Blood - Peripheral Anaerobic Blood Culture - Preliminary No growth in 3 days - Procedures NONE Assessment and Plan - Assessment (1) COPD (chronic obstructive pulmonary disease) Code(s): J44.9 - Chronic obstructive pulmonary disease, unspecified Status: Acute (2) Hypoxia Code(s): R09.02 - Hypoxemia Status: Acute (3) Lactic acidosis Code(s): E87.2 - Acidosis Status: Acute (4) Dementia Code(s): F03.90 - Unspecified dementia without behavioral disturbance Status: Acute (5) Hyperkalemia Code(s): E87.5 - Hyperkalemia Status: Acute - Plan 72-year-old male person presents from a local group home with hypoxemia with sats in the 70s and tachycardia 1. COPD, Chronic Respiratory Failure w/ Acute Exacerbation and possibly underlying acute bronchitis, s/p Solu-Medrol and DuoNeb in ER, continue w/ Solu- Medrol and wean as tolerated, DuoNeb q4h and q2h prn, Symbicort, Mucinex. 2. Hypoxia: O2 sat 79% on RA per group home, currently on 2L NC w/ O2 sat 95 to 98%, no respiratory distress at this time. Monitor O2 and wean oxygen as tolerated. 3. Severe sepsis with elevated presenting lactic acid 2.6 and leukocytosis and tachycardia possibly due to COPD exacerbation with acute bronchitiscontinue with Rocephin and Zithromax, blood cultures pending results showed no growth 4. Hyperkalemia, resolved now with less potassium 3.6., Status post Kayexalate 5. Dementia: With no further aggressive behavior, 6. DVT Prophylaxis: SCD/Teds Discharge Planning: Back to group home in the morning if cultures remain negative and O2 sat remained stable.
[2018-01-05 11:05] LABS: Anion Gap 6 meq/L (5-15); Blood Urea Nitrogen 13 mg/dL (7-18); Calcium 8.5 mg/dL (8.5-10.1); Carbon Dioxide 32.7 meq/L (21.0-32.0); Chloride 108 meq/L (98-107); Glomerular Filtration Rate Greater Than 89 mL/min (>89); Glucose,Random 119 mg/dL (74-106); Magnesium 2.3 mg/dL (1.5-2.5); Phosphorus 2.9 mg/dL (2.5-4.9); Potassium 3.4 meq/L (3.5-5.1); Sodium 147 meq/L (136-145)
[2018-01-05 11:06] LABS: Alanine Aminotransferase 15 U/L (12-78); Albumin 2.6 g/dL (3.4-5.0); Alkaline Phosphatase 81 U/L (45-117); Aspartate Aminotransferase 11 U/L (15-37); Total Protein 6.7 g/dL (6.4-8.2)
[2018-01-06] MEDS: Budesonide-Formoterol 160/4.5 MCG 6 GM Inhaler INH SCH ×2 (00:14→14:36)
[2018-01-06] MEDS: MethylPREDNISolone Sod Succinate Inj 40 MG/ML Vial IV.PUSH SCH (03:20)
[2018-01-06] MEDS: Piperacil/Tazo 4.5 GM Premix 4.5 GM/100 ML BAG IV.SIG SCH (05:29)
--- NOTE | 2018-01-06 08:52 | P.DS ---
Date of admission: 01/01/18 22:45 Primary care physician: No Primary Care Physician Anticipated date of discharge: 01/06/18 Brief History from admission: A 72-year-old male with a PMH of HTN, COPD, Hyperlipidemia, DM and Dementia who was sent to the ER from SNF due to hypoxia with O2 sat 79% and heart rate 148. Unable to obtain any history from patient as he is demented. On arrival to ER, patient noted to be significantly combative and confused requiring medication. Currently has sitter. BP 121/79, HR 94, O2 sat 95% on 5L NC. CBC essentially unremarkable. INR 1.0. K+ 6.4. Lactic Acid 2.6, repeat 2.3. ABG with pH 7.29 , PCO2 58, PO2 105 on 5L NC. CXR with stable appearance, no acute cardiopulmonary disease. S/p DuoNeb, Solu-Medrol and Rocephin/Zithro in ER w/ improvement. Pt appears comfortable and in no respiratory distress at this time. DS: Diagnosis - Discharge Diagnosis (1) Severe sepsis Status: Resolved Diagnosis: Principal (2) COPD (chronic obstructive pulmonary disease) Status: Acute Diagnosis: Principal (3) Hypoxia Status: Resolved Diagnosis: Secondary (4) Lactic acidosis Status: Resolved Diagnosis: Secondary (5) Dementia Status: Chronic Diagnosis: Secondary (6) Hyperkalemia Status: Resolved Diagnosis: Secondary DS: Summary Hospital Course: These are the medical issues addressed during this hospitalization: 72-year-old male person [facility] with hypoxemia with sats in the 70s and tachycardia 1. COPD, Chronic Respiratory Failure w/ Acute Exacerbation and possibly underlying acute bronchitis, s/p Solu-Medrol and DuoNeb in ER, continue w/ Solu- Medrol and wean as tolerated to prednisone 20 mg p.o. twice daily for 3 days then daily for 3 days, DuoNeb q4h and q2h prn, Symbicort, Mucinex. 2. Hypoxia: O2 sat 79% on RA per jail, currently on 2L NC w/ O2 98%, no respiratory distress at this time. Monitor O2 and wean oxygen as tolerated. 3. Severe sepsis with elevated presenting lactic acid 2.6 and leukocytosis and tachycardia possibly due to COPD exacerbation with acute bronchitiscontinue with Rocephin and Zithromax during the hospitalization at discharge will switch to p.o. Ceftin., blood cultures pending results showed no growth 4. Hyperkalemia, resolved now with less potassium 3.6., Status post Kayexalate , adjust scheduled potassium for home medication 5. Dementia: With no further aggressive behavior, continue with Seroquel 6. DVT Prophylaxis: SCD/Teds - Time Spent with Patient Total time spent providing and/or coordinating discharge services: Less than 30 minutes Exam Vital signs: Vital Signs 01/05/18 12:00 01/05/18 12:11 01/05/18 16:00 Temperature 98.2 F 98.0 F Pulse Rate 63 78 120 H Respiratory Rate 20 20 20 Blood Pressure 134/68 132/66 Pulse Oximetry 96 96 01/05/18 16:11 01/05/18 19:47 01/05/18 19:49 Temperature Pulse Rate 80 62 Respiratory Rate 20 18 Blood Pressure Pulse Oximetry 96 96 01/05/18 20:00 01/06/18 00:00 01/06/18 04:00 Temperature 98.4 F 98.5 F 98.1 F Pulse Rate 67 62 55 L Respiratory Rate 18 16 16 Blood Pressure 150/66 H 103/60 121/68 Pulse Oximetry 98 96 98 Intake & Output 01/05/18 01/06/18 01/06/18 18:59 06:59 18:59 Intake Total 420 / 420 700 / 700 Output Total 400 / 400 Balance 420 / 420 300 / 300 Weight 55.4 kg Intake: IV 200 / 200 200 / 200 Zosyn 4.5 GM Premix 4.5 gm In 200 / 200 200 / 200 100 ml @ 200 mls/hr IV.SIG Q6H [facility] Rx#:[id number] Oral 220 / 220 500 / 500 Output: Urine 400 / 400 Other: # Voids 1 Date of Last Bowel Movement 01/04/18 01/05/18 # Bowel Movements 0 0 Results Procedures completed during hospitalization: NONE Labs on day of discharge: Labs from last 24 hours 01/05/18 08:44 Sodium 147 H Potassium 3.4 L Chloride 108 H Carbon Dioxide 32.7 H Anion Gap 6 BUN 13 Creatinine 0.84 Estimated GFR Greater than 89 Random Glucose 119 H Calcium 8.5 Phosphorus 2.9 Magnesium 2.3 Total Bilirubin 0.3 AST 11 L ALT 15 Alkaline Phosphatase 81 Total Protein 6.7 Albumin 2.6 L Preliminary micro results at discharge 01/01/18 20:25 Aerobic Blood Culture - Preliminary Blood - Peripheral No growth in 4 days Anaerobic Blood Culture - Preliminary No growth in 4 days 01/01/18 20:15 Aerobic Blood Culture - Preliminary Blood - Peripheral No growth in 4 days Anaerobic Blood Culture - Preliminary No growth in 4 days - Impressions ITS Impressions Chest X-Ray 01/01/18 20:04 CONCLUSION: Stable appearance with no acute cardiopulmonary disease. Discharge Plan - Discharge Disposition Patient Disposition: Discharge to SNF - Discharge Condition Condition: Good - Discharge Order Discharge Orders: Discharge Order (Routine); Ordered 01/06/18 Ordered By: Tahmina Crockett - Discharge Details Anticipated Discharge Date: 01/06/18 - Physicians Team Primary Care Provider: Primary Care Ashlie Wisdom Attending Provider: Tahmina Crockett Other Providers: [facility]
[2018-01-06] MEDS ORDERED: predniSONE 20 MG Tablet PO SCH (09:00)
[2018-01-06] MEDS: Heparin - SQ 10,000 UNITS/ML Vial SQ SCH (09:08)
[2018-01-06] MEDS: Senna/Docusate Sodium 8.6/50 MG Tablet PO SCH (09:08)
[2018-01-06] MEDS: guaiFENesin 600 MG ER Tablet PO SCH (09:08)
[2018-01-06 13:26] VITALS: BP 129/68; PULSE 62; RESP 18; TEMP 97.6; O2SAT 95
== END 2018-01-06 15:00 ==
LOC: NEPE 19:03 → NEDA 22:45 → N04 01-02 00:43
PROVIDERS: ADMIT Family Medicine; ATTEND Family Medicine